=== PATIENT | female | born 1945 | race Caucasian/White ===

== ENCOUNTER 2019-08-27 20:17 | Emergency (ER) | payer OTHER ==
[2019-08-27] MEDS ORDERED: CLOPIDOGREL 75 MG TABLET ONE (21:01)
[2019-08-27] MEDS ORDERED: METOPROLOL TAR 50 MG TAB ONE (21:01)
--- NOTE | 2019-08-27 21:12 | RAD REPORT ---
EXAM DESCRIPTION: RAD - Chest Single View - 08/27/2019 8:57 pm CLINICAL HISTORY: weakness Chest pain. COMPARISON: <Comparisons> FINDINGS: Portable technique limits examination quality. The lungs are grossly clear. The heart is mildly enlarged No displaced fractures. IMPRESSION: No acute intrathoracic process suspected.
--- NOTE | 2019-08-27 21:18 | RAD REPORT ---
EXAM DESCRIPTION: CT - Head Brain Wo Cont - 08/27/2019 9:12 pm CLINICAL HISTORY: WEAKNESS Headache, drowsiness COMPARISON: Chest Single View dated 06/13/2017; Chest Single View dated 04/17/2017; CHEST SINGLE VIEW dated 11/11/2014Head Brain Wo Cont dated 06/13/2017; Head Brain Wo Cont dated 04/08/2016 TECHNIQUE: All CT scans are performed using dose optimization technique as appropriate and may inclu de automated exposure control or mA/KV adjustment according to patient size. FINDINGS: No intracranial hemorrhage, hydrocephalus or extra-axial fluid collection.Mild generalized brain atrophy is present with mild periventricular and deep white matter chronic microvascular ische kedar changes.No areas of brain edema or evidence of midline shift. Old 6 mm lacune is present in the r ight basal ganglia. The paranasal sinuses and mastoids are clear. The calvarium is intact. IMPRESSION: No acute intracranial abnormality.
[2019-08-27 21:23] LABS: Protime INR 1.23
[2019-08-27 21:29] LABS: Absolute Lymphocytes (CBC) 1.3 K/uL (0.7-4.9); Hematocrit 38.4 % (36.0-45.0); Lymphocytes % 18.7 % (15.3-44.8); MPV 8.6 fL (7.6-11.3); RBC Red Blood Cell Count 4.14 M/uL (3.86-4.86)
[2019-08-27 21:44] LABS: ALT/SGPT 12 U/L (12-78); AST/SGOT 12 U/L (15-37); Albumin 3.7 g/dL (3.4-5.0); Alkaline Phosphatase 68 U/L (45-117); BUN Blood Urea Nitrogen 10 mg/dL (7-18); Bicarbonate 28 mmol/L (21-32); Bilirubin Direct 0.1 mg/dL (0-0.2); Bilirubin Total 0.3 mg/dL (0.2-1.0); Glucose Level 101 mg/dL (74-106); NT PRO-BNP 2566 pg/mL (<125); Potassium 3.7 mmol/L (3.5-5.1); Protein, Total 7.3 g/dL (6.4-8.2); Sodium Level 142 mmol/L (136-145); Troponin (Emerg Dept Use Only) < 0.02 ng/mL (0.0-0.045)
[2019-08-27 21:46] LABS: Magnesium 0.8 mg/dL (1.8-2.4)
[2019-08-27] MEDS ORDERED: Magnesium Sulfate 2gm IVPB 2 G/50 ML BAG IV ONE (22:07)
[2019-08-27] MEDS ORDERED: NA CHLORIDE 0.9% 250 ML ONE (22:23)
[2019-08-27 23:23] LABS: Calcium Oxalate Crystals- Ur FEW (NONE SEEN); Urine Bacteria 20-50 /HPF (<20); Urine Culture Reflex Order REFLEXED; Urine RBC NONE SEEN /HPF (NONE SEEN); Urine Urothelial Cells <5 /HPF (NONE SEEN)
[2019-08-27 23:25] LABS: Urine Blood NEGATIVE (NEG); Urine Glucose NEGATIVE (NEG); Urine Protein NEGATIVE (NEG); Urine pH 5.5 (5.0-7.0)
[2019-08-27] MEDS ORDERED: CEFTRIAXONE/SWI 1gm 1 GM/10 ML SYR ONE (23:50)
--- NOTE | 2019-08-27 23:50 | ER ---
Nurse's Notes [facility] Name: Shraddha Link Age: 73 yrs Sex: Female : 1945 Arrival Date: 08/27/2019 Time: 20:20 Bed 16 Private MD: Diagnosis: Urinary tract infection, site not specified;Hypomagnesemia Presentation: 08/26 20:10 Chief complaint: EMS states: PT was called by her neighbor was able to answer the phone jb4 but sounded off. Pt was in Afib with RVR upon EMS arrival. She was in the 160's when we got to her, she was between 110-130 upon our arrival to the ED. Pt is A\T\Ox4 but is a little disoriented at times. Lopressor was given initially, second dose was held due to blood pressure being 113 systolically. 20:10 Coronavirus screen: Proceed with normal triage. Ebola Screen: No symptoms or risks jb4 identified at this time. Initial Sepsis Screen: Does the patient meet any 2 criteria? HR > 90 bpm. Yes Does the patient have a suspected source of infection? No. Patient's initial sepsis screen is negative. Risk Assessment: Do you want to hurt yourself or someone else? Patient reports no desire to harm self or others. Onset of symptoms was August 27, 2019. Transition of care: patient was not received from another setting of care. 20:10 Method Of Arrival: EMS: [facility] jb4 20:10 Acuity: CLAUDIA 2 jb4 20:10 Care prior to arrival: Medication(s) given: Lopressor 5mg IV IV initiated. 20 GA, in jb4 the left antecubital area, Glucose check: 197. Historical: - Allergies: 20:10 Aspirin; jb4 20:10 Compazine; jb4 20:10 Imitrex; jb4 20:10 NSAIDS; jb4 20:10 DHE; jb4 20:10 Tape; jb4 20:10 Ultram; jb4 20:10 Morphine; jb4 - Home Meds: 20:10 Ambien 10 mg Oral tab 1 tab nightly [Active]; baclofen 10 mg Oral tab 1 tab 3 times per jb4 day [Active]; Bumex Oral 2 mg daily [Active]; Eliquis 5 mg Oral tab 1 tab 2 times per day [Active]; Esgic 50-325-40 mg Oral cap every 6 hours [Active]; K-Dur Oral 20 mEq daily [Active]; losartan 25 mg Oral tab 1 tab nightly [Active]; Zocor 20 mg Oral tab 1 tab nightly [Active]; Zoloft 100 mg Oral tab 2 tabs once daily [Active]; metformin 500 mg Oral tab 1 tab 2 times per day [Active]; atenolol 100 mg Oral tab 1 tab once daily [Active]; Stadol NS Nasal as needed [Active]; ativert [Active]; Ativan 0.5 mg Oral tab 1 tab 3 times per day [Active]; - PMHx: 20:10 Atrial Fib; Chronic pain; Depression; Diabetes - NIDDM; High Cholesterol; Hypertension; jb4 Migraines; Pulmonary Embolism; - Immunization history:: Adult Immunizations up to date. - Social history:: Smoking status: Patient denies any tobacco usage or history of. Patient/guardian denies using alcohol, street drugs. Screenin:10 Abuse screen: Denies threats or abuse. Nutritional screening: No deficits noted. jb4 Tuberculosis screening: No symptoms or risk factors identified. Fall Risk IV access (20 points). Total Marie Fall Scale indicates No Risk (0-24 pts). Assessment: 20:10 General: Appears in no apparent distress. uncomfortable, Behavior is calm, cooperative, jb4 appropriate for age. Pain: Complains of pain in right hip,headache. Pain does not radiate. Pain currently is 10 out of 10 on a pain scale. Neuro: Level of Consciousness is awake, alert, obeys commands, Oriented to person, place, time, situation. Cardiovascular: Patient's skin is warm and dry. Rhythm is atrial fibrillation with rapid ventricular response. Respiratory: Airway is patent Respiratory effort is even, unlabored, Respiratory pattern is regular, symmetrical. GI: No signs and/or symptoms were reported involving the gastrointestinal system. : No signs and/or symptoms were reported regarding the genitourinary system. EENT: No signs and/or symptoms were reported regarding the EENT system. Derm: Skin is intact, Skin is pink, warm \T\ dry. Musculoskeletal: Circulation, motion, and sensation intact. Range of motion: intact in all extremities. 21:00 Reassessment: Patient appears in no apparent distress at this time. Patient and/or jb4 family updated on plan of care and expected duration. Pain level reassessed. Patient is alert, oriented x 3, equal unlabored respirations, skin warm/dry/pink. 22:36 Reassessment: Patient appears in no apparent distress at this time. Patient and/or jb4 family updated on plan of care and expected duration. Pain level reassessed. Patient is alert, oriented x 3, equal unlabored respirations, skin warm/dry/pink. 23:30 Reassessment: Patient appears in no apparent distress at this time. Patient and/or jb4 family updated on plan of care and expected duration. Pain level reassessed. Patient is alert, oriented x 3, equal unlabored respirations, skin warm/dry/pink. Patient states feeling better. 08/27 00:23 Reassessment: Patient appears in no apparent distress at this time. Patient and/or jb4 family updated on plan of care and expected duration. Pain level reassessed. Patient is alert, oriented x 3, equal unlabored respirations, skin warm/dry/pink. PT verbalized understanding of d/c and follow up instructions. Reports feeling better. Heart rate staying between 80-100 bpm with exertion. Pt denies questions or concerns. Assisted to vehicle via wheelchair. Left ED with family. Vital Signs: 08/26 20:10 BP 151 / 86; Pulse 124; Resp 18; Temp 99.0(O); Pulse Ox 98% on R/A; Weight 70.31 kg jb4 (R); Height 5 ft. 2 in. (157.48 cm) (R); Pain 10/10; 20:48 BP 152 / 81; Pulse 110; Resp 16; Pulse Ox 97% on R/A; jb4 21:40 BP 142 / 86; Pulse 107; Resp 19; Pulse Ox 97% on R/A; jb4 22:30 BP 148 / 97; Pulse 95; Resp 20; Pulse Ox 97% on R/A; jb4 08/27 00:00 BP 174 / 101; Pulse 97; Resp 20; Pulse Ox 98% on R/A; jb4 08/26 20:10 Body Mass Index 28.35 (70.31 kg, 157.48 cm) [facility] ED Course: 08/26 20:10 Arm band placed on right wrist. jb4 20:10 Patient has correct armband on for positive identification. Bed in low position. Call jb4 light in reach. Side rails up X 1. court monitor on. Pulse ox on. NIBP on. 20:20 Patient arrived in ED. jb4 20:22 Pardeep Chaidez, RN is Primary Nurse. jb4 20:28 Triage completed. jb4 20:33 Sorin Barrios PA is PHCP. cp 20:33 Sorin Mota MD is Attending Physician. cp 20:57 XRAY Chest (1 view) In Process Unspecified. EDMS 21:12 CT Head Brain wo Cont In Process Unspecified. EDMS 21:13 Troponin (emerg Dept Use Only) Sent. jb4 21:13 PT-INR Sent. jb4 21:13 NT PRO-BNP Sent. jb4 21:13 Magnesium Sent. jb4 21:13 LFT's Sent. jb4 21:14 CBC with Diff Sent. jb4 21:14 Basic Metabolic Panel Sent. jb4 08/27 00:25 No provider procedures requiring assistance completed. IV discontinued, D/c'ed by pt, jb4 bleeding controlled, no redness or swelling noted. Administered Medications: 08/26 21:00 Drug: Metoprolol 50 mg Route: PO; jb4 21:00 Drug: PlaVIX 75 mg Route: PO; jb4 21:53 CANCELLED (Physician Discretion): Magnesium Sulfate 2 grams IVPB once over 2 hrs cp 22:05 Not Given (Physician Discretion): NS 0.9% 250 ml IV at bolus once jb4 22:10 Drug: Magnesium Sulfate 2 grams Route: IVPB; Infused Over: 2 hrs; Site: left hand; jb4 22:27 Drug: NS 0.9% 250 ml Route: IV; Rate: bolus; Site: left hand; jb4 08/27 00:00 Drug: Rocephin 1 grams Route: IV; Rate: calculated rate; Site: left hand; jb4 Outcome: 08/26 23:49 Discharge ordered by . cp 08/27 00:25 Discharged to home via wheelchair, with family. jb4 Condition: stable Discharge instructions given to patient, Instructed on discharge instructions, follow up and referral plans. medication usage, Demonstrated understanding of instructions, follow-up care, medications, Prescriptions given X 1. 00:26 Patient left the ED. jb4 Signatures: Dispatcher [employer] EDMS Sorin Barrios PA PA cp Pardeep Chaidez, RN RN jb4
--- NOTE | 2019-08-27 23:50 | EDPHYS ---
Physician Documentation [facility] Name: Shraddha Link Age: 73 yrs Sex: Female : 1945 Arrival Date: 08/27/2019 Time: 20:20 Bed 16 Private MD: ED Physician Sorin Mota HPI: 08/26 20:50 This 73 yrs old Female presents to ER via EMS with complaints of Weakness. cp 20:50 The patient's problem is reported as weakness, that is generalized. Duration: The cp episode is continuous. Associated signs and symptoms: Pertinent negatives: abdominal pain, chest pain, fever. Patient's baseline: Neuro: alert and fully oriented, Motor: no deficits, Ambulation: walks without assistance, Speech: normal. Historical: - Allergies: 20:10 Aspirin; jb4 20:10 Compazine; jb4 20:10 Imitrex; jb4 20:10 NSAIDS; jb4 20:10 DHE; jb4 20:10 Tape; jb4 20:10 Ultram; jb4 20:10 Morphine; jb4 - Home Meds: 20:10 Ambien 10 mg Oral tab 1 tab nightly [Active]; baclofen 10 mg Oral tab 1 tab 3 times per jb4 day [Active]; Bumex Oral 2 mg daily [Active]; Eliquis 5 mg Oral tab 1 tab 2 times per day [Active]; Esgic 50-325-40 mg Oral cap every 6 hours [Active]; K-Dur Oral 20 mEq daily [Active]; losartan 25 mg Oral tab 1 tab nightly [Active]; Zocor 20 mg Oral tab 1 tab nightly [Active]; Zoloft 100 mg Oral tab 2 tabs once daily [Active]; metformin 500 mg Oral tab 1 tab 2 times per day [Active]; atenolol 100 mg Oral tab 1 tab once daily [Active]; Stadol NS Nasal as needed [Active]; ativert [Active]; Ativan 0.5 mg Oral tab 1 tab 3 times per day [Active]; - PMHx: 20:10 Atrial Fib; Chronic pain; Depression; Diabetes - NIDDM; High Cholesterol; Hypertension; jb4 Migraines; Pulmonary Embolism; - Immunization history:: Adult Immunizations up to date. - Social history:: Smoking status: Patient denies any tobacco usage or history of. Patient/guardian denies using alcohol, street drugs. ROS: 21:00 Constitutional: Negative for body aches, chills, fever, poor PO intake. cp 21:00 Eyes: Negative for injury, pain, redness, and discharge. cp Exam: 20:46 ECG was reviewed by the Attending Physician. cp 21:05 Constitutional: The patient appears in no acute distress, alert, awake, cp non-diaphoretic, non-toxic, well developed, well nourished. 21:05 Head/Face: Normocephalic, atraumatic. cp 21:05 Eyes: Periorbital structures: appear normal, Pupils: equal, round, and reactive to cp light and accomodation, Extraocular movements: intact throughout, Conjunctiva: normal, no exudate, no injection, Sclera: no appreciated abnormality, Lids and lashes: appear normal, bilaterally. 21:05 ENT: External ear(s): are unremarkable, Nose: is normal, Mouth: Lips: dry, Oral mucosa: cp moist, Posterior pharynx: Airway: no evidence of obstruction, patent. 21:05 Neck: ROM/movement: is normal, is supple, without pain, no range of motions limitations, no nuchal rigidity. 21:05 Chest/axilla: Inspection: normal, Palpation: is normal, no crepitus, no tenderness. 21:05 Cardiovascular: Rate: tachycardic, Rhythm: irregularly irregular, Edema: is not appreciated, JVD: is not appreciated. 21:05 Respiratory: the patient does not display signs of respiratory distress, Respirations: normal, no use of accessory muscles, no retractions, labored breathing, is not present, Breath sounds: are clear throughout, no decreased breath sounds, no stridor, no wheezing. 21:05 Abdomen/GI: Inspection: abdomen appears normal, Bowel sounds: active, all quadrants, Palpation: abdomen is soft and non-tender, in all quadrants. 21:05 Musculoskeletal/extremity: Exam is negative for decreased range of motion, deformity, injury. 21:05 Skin: cellulitis, is not appreciated, no rash present. 21:05 Neuro: Orientation: to person, place \T\ time. Mentation: is normal, Cerebellar function: is grossly normal, Motor: moves all fours, strength is normal, Sensation: no obvious gross deficits. 21:30 Radiologist reports: no acute findings cp Vital Signs: 20:10 BP 151 / 86; Pulse 124; Resp 18; Temp 99.0(O); Pulse Ox 98% on R/A; Weight 70.31 kg jb4 (R); Height 5 ft. 2 in. (157.48 cm) (R); Pain 10/10; 20:48 BP 152 / 81; Pulse 110; Resp 16; Pulse Ox 97% on R/A; jb4 21:40 BP 142 / 86; Pulse 107; Resp 19; Pulse Ox 97% on R/A; jb4 22:30 BP 148 / 97; Pulse 95; Resp 20; Pulse Ox 97% on R/A; jb4 08/27 00:00 BP 174 / 101; Pulse 97; Resp 20; Pulse Ox 98% on R/A; jb4 08/26 20:10 Body Mass Index 28.35 (70.31 kg, 157.48 cm) jb4 MDM: 08/26 20:34 Patient medically screened. [facility] 23:45 Data reviewed: vital signs, nurses notes, lab test result(s), EKG, radiologic studies, cp CT scan, plain films. 23:45 Test interpretation: by ED physician or midlevel provider: ECG. 08/26 20:43 Order name: Basic Metabolic Panel; Complete Time: 21:50 cp 08/26 21:51 Interpretation: Normal except: CRE 1.39; GFR 37; CA 8.4. 08/26 20:43 Order name: CBC with Diff; Complete Time: 21:40 cp 08/26 21:41 Interpretation: Reviewed. 08/26 20:43 Order name: LFT's; Complete Time: 21:50 cp 08/26 22:52 Interpretation: Normal except: AST 12; GLOB 3.6; A/G 1.0. cp 08/26 20:43 Order name: Magnesium; Complete Time: 21:50 cp 08/26 21:51 Interpretation: Abnormal: MG 0.8. cp 08/26 20:43 Order name: NT PRO-BNP; Complete Time: 21:50 cp 08/26 22:52 Interpretation: Abnormal: NT PRO-BNP 2566. cp 08/26 20:43 Order name: PT-INR; Complete Time: 21:40 cp 08/26 22:52 Interpretation: Reviewed. cp 08/26 20:43 Order name: Troponin (emerg Dept Use Only); Complete Time: 21:50 cp 08/26 22:53 Interpretation: Reviewed. cp 08/26 20:43 Order name: CT Head Brain wo Cont; Complete Time: 21:22 cp 08/26 21:22 Interpretation: Report reviewed. cp 08/26 20:43 Order name: XRAY Chest (1 view); Complete Time: 21:22 cp 08/26 20:43 Order name: Urine Microscopic Only; Complete Time: 23:36 cp 08/26 23:36 Interpretation: Normal except: UWBC 5-10; UBACT 20-50. cp 08/26 21:23 Order name: Glucose, Ancillary Testing; Complete Time: 21:40 EDMS 08/26 23:12 Order name: Urine Dipstick--Ancillary (enter results); Complete Time: 23:36 mt 08/26 23:37 Interpretation: Normal except: UESTR TRACE. cp 08/26 23:24 Order name: Urine Culture EDMS 08/26 20:43 Order name: EKG; Complete Time: 20:44 cp 08/26 20:43 Order name: Cardiac monitoring; Complete Time: 20:52 cp 08/26 20:43 Order name: EKG - Nurse/Tech; Complete Time: 20:53 cp 08/26 20:43 Order name: IV Saline Lock; Complete Time: 20:52 cp 08/26 20:43 Order name: Labs collected and sent; Complete Time: 21:13 cp 08/26 20:43 Order name: O2 Per Protocol; Complete Time: 20:53 cp 08/26 20:43 Order name: O2 Sat Monitoring; Complete Time: 20:53 cp 08/26 20:43 Order name: Urine Dipstick-Ancillary (obtain specimen); Complete Time: 23:12 cp 08/26 20:43 Order name: Accucheck Blood Glucose; Complete Time: 21:13 cp EC:46 Rate is 108 beats/min. Rhythm is irregularly irregular, A fib. QRS interval is normal. cp QT interval is normal. T waves are Flattened in lead aVL. Interpreted by me. Reviewed by me. Administered Medications: 21:00 Drug: Metoprolol 50 mg Route: PO; jb4 21:00 Drug: PlaVIX 75 mg Route: PO; jb4 21:53 CANCELLED (Physician Discretion): Magnesium Sulfate 2 grams IVPB once over 2 hrs cp 22:05 Not Given (Physician Discretion): NS 0.9% 250 ml IV at bolus once jb4 22:10 Drug: Magnesium Sulfate 2 grams Route: IVPB; Infused Over: 2 hrs; Site: left hand; jb4 22:27 Drug: NS 0.9% 250 ml Route: IV; Rate: bolus; Site: left hand; jb4 08/27 00:00 Drug: Rocephin 1 grams Route: IV; Rate: calculated rate; Site: left hand; jb4 Disposition: 11:03 Co-signature as Attending Physician, Sorin Mota MD I agree with the assessment and alin plan of care. Disposition: 08/27/19 23:49 Discharged to Home. Impression: Urinary tract infection, site not specified, Hypomagnesemia. - Condition is Stable. - Discharge Instructions: Hypomagnesemia, Urinary Tract Infection, Adult. - Prescriptions for cefpodoxime 200 mg Oral Tablet - take 1 tablet by ORAL route every 12 hours for 7 days with food; 14 tablet. - Medication Reconciliation Form, Thank You Letter, Antibiotic Education, Prescription Opioid Use form. - Follow up: Private Physician; When: 1 - 2 days; Reason: Recheck today's complaints. - Problem is new. - Symptoms have improved. Signatures: Dispatcher [employer] EDSorin Da Silva MD MD cha Page, Corey, PA PA cp Bryson, James RN RN jb4 Corrections: (The following items were deleted from the chart) 08/26 21:51 21:50 Normal except: CRE 1.39; GFR 37. cp cp 21:53 21:53 Magnesium Sulfate 2 grams IVPB once over 2 hrs ordered. cp cp 08/27 00:26 08/26 23:49 08/27/2019 23:49 Discharged to Home. Impression: Urinary tract infection, jb4 site not specified; Hypomagnesemia. Condition is Stable. Forms are Medication Reconciliation Form, Thank You Letter, Antibiotic Education, Prescription Opioid Use. Follow up: Private Physician; When: 1 - 2 days; Reason: Recheck today's complaints. Problem is new. Symptoms have improved. cp
[2019-08-28 00:35] VITALS: BP 174/101; O2SAT 98
--- NOTE | 2019-08-29 12:06 | EKG ---
Test Date: 2019-08-27 Test Time: 20:15:42 Hr Receptionist: SHAWN MEASUREMENT RESULTS: Intervals: Rate: 108 CT: QRSD: 78 QT: 336 QTc: 450 [place]: P: CT: QRS: 63 T: 81 INTERPRETIVE STATEMENTS: Atrial fibrillation with rapid ventricular response Cannot rule out Anterior infarct, age undetermined Abnormal ECG Compared to ECG 06/14/2017 03:52:14 Myocardial infarct finding now present Electronically Signed On 08-29-19 12:03:15 CDT by Kaleb Polanco
== END 2019-08-28 00:26 | disposition home or self-care (01) ==
LOC: ER 20:17
DX: N39.0 Urinary tract infection, site not specified (principal); E83.42 Hypomagnesemia; I10 Essential (primary) hypertension; E78.00 Pure hypercholesterolemia, unspecified; E11.9 Type 2 diabetes mellitus without complications; F32.9 Major depressive disorder, single episode, unspecified; I48.91 Unspecified atrial fibrillation; Z79.02 Long term (current) use of antithrombotics/antiplatelets; Z88.5 Allergy status to narcotic agent; Z88.6 Allergy status to analgesic agent; Z88.8 Allergy status to other drugs, medicaments and biological substances; Z91.048 Other nonmedicinal substance allergy status
CPT/HCPCS: 93005; 87088; 85025; 87086; 80048; 36415; 83735; 85610; 82947; 80076; 84484; 83880; 70450; 71045; 96375; 96374; 99284; J3475; J0696; J7030; 81003; 81015

== ENCOUNTER 2020-01-04 12:48 | Emergency (ER) | payer OTHER ==
[2020-01-04 13:33] LABS: Absolute Lymphocytes (CBC) 0.9 K/uL (0.7-4.9); Basophils % 0.5 % (0-1.3); Hematocrit 35.1 % (36.0-45.0); Lymphocytes % 12.7 % (15.3-44.8); MPV 8.1 fL (7.6-11.3); RBC Red Blood Cell Count 3.95 M/uL (3.86-4.86)
[2020-01-04] MEDS ORDERED: METOPROLOL TAR 50 MG TAB ONE (13:38)
[2020-01-04] MEDS ORDERED: FAMOTIDINE 20 MG/2 ML VIAL IV ONE (13:39)
[2020-01-04] MEDS ORDERED: METOPROLOL TARTRATE 5 MG/5 ML INJ IV ONE (13:39)
[2020-01-04 13:44] LABS: Protime INR 1.02
[2020-01-04 14:05] LABS: ALT/SGPT 16 U/L (12-78); AST/SGOT 14 U/L (15-37); Albumin 3.8 g/dL (3.4-5.0); Alkaline Phosphatase 52 U/L (45-117); BUN Blood Urea Nitrogen 17 mg/dL (7-18); Bicarbonate 29 mmol/L (21-32); Bilirubin Direct 0.2 mg/dL (0-0.2); Bilirubin Total 0.6 mg/dL (0.2-1.0); Glucose Level 115 mg/dL (74-106); NT PRO-BNP 2777 pg/mL (<125); Potassium 3.6 mmol/L (3.5-5.1); Protein, Total 7.3 g/dL (6.4-8.2); Sodium Level 139 mmol/L (136-145); Troponin (Emerg Dept Use Only) < 0.02 ng/mL (0.0-0.045)
[2020-01-04 14:06] LABS: Magnesium 1.2 mg/dL (1.8-2.4)
--- NOTE | 2020-01-04 14:13 | RAD REPORT ---
EXAM DESCRIPTION: CT - [id number] - 01/04/2020 1:47 pm CLINICAL HISTORY: PAIN, left-sided numbness, fall from swelling with head and neck trauma COMPARISON: Head C Spine Mpr Wo Con dated 07/02/2016; Head Brain Wo Cont dated 08/27/2019 TECHNIQUE: Axial 5 mm thick images of the head were obtained. Axial 2 mm thick images of the cervic al spine were obtained with sagittal and coronal reconstruction images generated and reviewed. All CT scans are performed using dose optimization technique as appropriate and may include automated exposure control or mA/KV adjustment according to patient size. FINDINGS: No intracranial hemorrhage present. There is decreased attenuation in the medial right occ ipital lobe extending anteriorly into the medial aspect of the temporal lobe. There is loss of renteria m atter - white matter differentiation and effacement of sulci. This is a classic right posterior cereb ral artery CVA. The subacute infarction shows only mild mass effect. There is no midline shift. Patie nt has underlying minimal atrophy and mild chronic ischemic change. There are old punctate infarction changes around each head of the caudate and in the right thalamus. The caudate and thalamus CVA cain ges are stable from August 2019 examination. No other acute infarction changes confirmed. No extra-axi al fluid collections. Mastoid air cells and paranasal sinuses are clear. No globe or orbit abnormalit y seen. Cervical body height and alignment are normal. C4-5, C5-6 and C6-7 disc spaces are narrowed. Endplate spurring and uncovertebral joint hypertrophy changes are present. No significant degree of canal vahe nosis. No critical foraminal stenosis. No fracture or acute bony abnormality. Central canal detail i s inherently limited. No paraspinal mass or hematoma. IMPRESSION: Nonhemorrhagic subacute infarction involving the medial right occipital lobe and medial right temporal lobe. This is a right posterior cerebral artery distribution infarction. Old infarction changes are present around each head of the caudate and in the right thalamus. Patient has minimal atrophy and mild chronic ischemic change. Cervical spine degenerative changes are present without acute finding.
--- NOTE | 2020-01-04 14:16 | RAD REPORT ---
EXAM DESCRIPTION: RAD - Shoulder Left 2 View - 01/04/2020 2:06 pm CLINICAL HISTORY: Pain;Swelling COMPARISON: No comparisons TECHNIQUE: Internal and external rotation views of the left shoulder were obtained. FINDINGS: There is no fracture or dislocation. AC joint degenerative changes show small inferiorly d irected spurs from the clavicle and acromion. There is additional degenerative change along the under surface of the acromion. Acromial humeral joint space is maintained. No rib or upper lung parenchymal finding. No fracture of the clavicle. Scapula is not optimally visualized. No scapula fracture confi rmed. IMPRESSION: Left shoulder degenerative change as detailed. No fracture or acute finding confirmed.
--- NOTE | 2020-01-04 14:16 | RAD REPORT ---
EXAM DESCRIPTION: RAD - Chest Single View - 01/04/2020 2:06 pm CLINICAL HISTORY: COUGH, fall, chest trauma COMPARISON: August 2019 TECHNIQUE: AP portable chest image was obtained 01/04/2020 2:06 pm . FINDINGS: No pulmonary contusion or acute lung parenchymal process. Interstitial pattern matches com parison. Heart and vasculature are normal. No measurable pleural effusion and no pneumothorax. No acu te bony abnormality seen. No acute aortic findings suspected. IMPRESSION: No acute cardiopulmonary process. No significant change from comparison.
--- NOTE | 2020-01-04 14:29 | ER ---
Nurse's Notes [facility] Name: Shraddha Link Age: 74 yrs Sex: Female : 1945 Arrival Date: 01/04/2020 Time: 12:59 Bed 2 Private MD: Diagnosis: Atrial fibrillation and flutter;Cerebral infarction-subacute right occipital and medial right temporal;Weakness-left arm and leg, 2/5 strength, uncoordinated;Hypomagnesemia;Contusion of left shoulder Presentation: 01/03 12:50 Chief complaint: EMS states: Pt. is A \T\ O x 4, took Ambien last night and slid off the rb1 toilet and landed on the left side. Son reported to EMS that she is taking too much of her Ativan and Ambien, she has been doing it for a while now. C/o chest pressure, does not radiate. History of A-Fib, is not currently taking blood thinners. HR 140's BP 150/80. Ambulates with cane. Coronavirus screen: Client denies travel out of the [place] in the last 14 days. Coronavirus screen: At this time, the client does not indicate any symptoms associated with coronavirus-19. Ebola Screen: Patient denies exposure to infectious person. Initial Sepsis Screen: Does the patient meet any 2 criteria? No. Patient's initial sepsis screen is negative. Does the patient have a suspected source of infection? No. Patient's initial sepsis screen is negative. Risk Assessment: Do you want to hurt yourself or someone else? Patient reports no desire to harm self or others. Onset of symptoms was January 03, 2020. 12:50 Method Of Arrival: EMS: [facility] rb1 12:50 Acuity: CLAUDIA 3 rb1 12:50 An acute neurological deficit is present. The patient has been moved to a treatment rb1 area. The patients blood glucose was checked before arriving to the hospital and was found to be normal. Triage Assessment: 12:50 General: Appears in no apparent distress. Behavior is cooperative, Denies fever. Pain: rb1 Complains of pain in posterior aspect of left shoulder and anterior aspect of left shoulder Pain currently is 6 out of 10 on a pain scale. Pain began 1 day ago. Neuro: Level of Consciousness is obeys commands, lethargic, Oriented to person, place, time, situation, Mobile Pet Groomer are equal bilaterally Moves all extremities. Gait is unable to assess. Speech is normal, Facial symmetry appears normal, Pupils are constricted, Reports headache numbness in left leg and left arm. Cardiovascular: Capillary refill < 3 seconds Rhythm is atrial fibrillation with rapid ventricular response. Respiratory: Airway is patent Respiratory effort is even, unlabored, Respiratory pattern is regular, symmetrical. GI: No signs and/or symptoms were reported involving the gastrointestinal system. : No signs and/or symptoms were reported regarding the genitourinary system. Derm: Bruising that is dark purple, on right eye and bilateral arms. Musculoskeletal: Range of motion: intact in all extremities. 12:50 The onset of the patients symptoms was at an unknown time. rb1 Stroke Activation: Physician: Stroke Attending; Name: ; Notified At: ; Arrived At: Physician: Chief Stroke Resident; Name: ; Notified At: ; Arrived At: Physician: Stroke Resident; Name: ; Notified At: ; Arrived At: Physician: ED Attending; Name: ; Notified At: ; Arrived At: Physician: ED Resident; Name: ; Notified At: ; Arrived At: 12:50 Deferred by physician rb1 Historical: - Allergies: 13:05 Aspirin; rb1 13:05 Compazine; rb1 13:05 DHE; rb1 13:05 Imitrex; rb1 13:05 Morphine; rb1 13:05 NSAIDS; rb1 13:05 Tape; rb1 13:05 Ultram; rb1 - Home Meds: 13:05 Actos 45 mg Oral tab 1 tab once daily [Active]; Ambien 10 mg Oral tab 1 tab nightly rb1 [Active]; atenolol 100 mg Oral tab 1 tab once daily [Active]; Ativan 0.5 mg Oral tab 1 tab 3 times per day [Active]; ativert [Active]; baclofen 10 mg Oral tab 1 tab 3 times per day [Active]; Bumex Oral 2 mg daily [Active]; Eliquis 5 mg Oral tab 1 tab 2 times per day [Active]; Esgic 50-325-40 mg Oral cap every 6 hours [Active]; hydrocodone-acetaminophen 5-325 mg Oral tab 1 tab every 6 hours [Active]; K-Dur Oral 20 mEq daily [Active]; losartan 25 mg Oral tab 1 tab nightly [Active]; metformin 500 mg Oral tab 1 tab 2 times per day [Active]; Metoprolol Tartrate Oral [Active]; Stadol NS Nasal as needed [Active]; Warfarin 9 mg once daily Oral [Active]; Zetia 10 mg Oral tab 1 tab once daily [Active]; Zocor 20 mg Oral tab 1 tab nightly [Active]; Zoloft 100 mg Oral tab 2 tabs once daily [Active]; Zyrtec 10 mg Oral tab 1 tab nightly [Active]; 14:21 meclizine 25 mg Oral tab 1 tab 2 times per day [Active]; Stadol NS Nasal every 6 hours rb1 [Active]; Ambien 10 mg Oral tab 1 tab once daily [Active]; Fioricet 50-325-40 mg Oral tab 1 tab every eight hours [Active]; atenolol 100 mg Oral tab 1 tab once daily [Active]; - PMHx: 13:05 Atrial Fib; Chronic pain; Depression; Diabetes - NIDDM; High Cholesterol; Migraines; rb1 Hypertension; Pulmonary Embolism; - PSHx: 13:05 Cholecystectomy; ; rb1 - Immunization history:: Adult Immunizations up to date. - Family history:: not pertinent. - Social history:: Smoking status: Patient/guardian denies using. Screenin:50 Abuse screen: Denies threats or abuse. Nutritional screening: No deficits noted. rb1 Tuberculosis screening: No symptoms or risk factors identified. Fall Risk Fall in past 12 months (25 points). Secondary diagnosis (15 points) impaired mobility, ambulates with cane. IV access (20 points). Ambulatory Aid- Crutches/Cane/Walker (15 pts). Gait- Impaired (20 pts.). Mental Status- Oriented to own ability (0 pts). Assessment: 12:50 General: See triage assessment. rb1 12:50 T-PA (Activase) Screening: Contraindications: Patient reports onset of signs and rb1 symptoms of stroke greater than 6 hours ago: Yes. 13:00 RUSTY Scoring: Arm Drift:. Patient has been NPO before screening. The patient is not rb1 alert and/or unable to follow commands. The patient does not exhibit slurred or garbled speech. The patient is not exhibiting difficulty speaking. The patient does not exhibit difficulty understanding words. The patient is able to swallow own secretions with no drooling or need for suction. The patient did not tolerate one teaspoon of water. Drooling, immediate coughing, gurgling, or clearing of the throat was noted. Bedside swallow screening discontinued. Patient kept NPO until cleared by Speech Therapy or Physician. The patient failed the bedside swallow screening. The patient will be kept NPO until cleared by Speech Therapy or Physician. Provider notified of bedside swallow screening results: Sorin Mota MD. 14:06 Reassessment: Received lab alert for Magnesium 1.2. Dr. Mota notified. rb1 14:07 Reassessment: Called [facility] in [place] to verify recent prescriptions. She takes rb1 Meclizine 25 mg BID, Stadol Nasal [place] Q6H PRN, Ambien 10 mg daily, Fioricet 50/325/ 40 mg 1 tab Q8H, Atenolol 100 mg 1 tab daily. There are no blood thinners noted to the pt. profile at [facility]. Coumadin was last filled in August 2018. 14:55 Reassessment: Dr. Mota gave verbal order to discontinue the Heparin Drip at this rb1 time due to his conversation with the doctor. 100% verbal read back. 15:12 Reassessment: Patient appears in no apparent distress at this time. Patient and/or rb1 family updated on plan of care and expected duration. Pain level reassessed. Patient is alert, oriented x 3, equal unlabored respirations, skin warm/dry/pink. 16:10 Reassessment: Patient appears in no apparent distress at this time. No changes from rb1 previously documented assessment. 16:25 Reassessment: Called report to JENNY Yeung at [facility]. Information from the [facility] was rb1 given. All questions asked and answered. Vital Signs: 12:50 BP 160 / 114; Pulse 118; Resp 19; Temp 98.0; Pulse Ox 97% on R/A; Weight 72.12 kg; rb1 Height 5 ft. 2 in. (157.48 cm); Pain 6/10; 14:00 BP 193 / 119; Pulse 103; Resp 22; Pulse Ox 99% ; rb1 15:00 BP 170 / 108; Pulse 94; Resp 20; Pulse Ox 98% ; rb1 16:00 BP 115 / 79; Pulse 101; Resp 18; Pulse Ox 99% on R/A; rb1 12:50 Body Mass Index 29.08 (72.12 kg, 157.48 cm) rb1 Tanesha Coma Score: 14:00 Eye Response: spontaneous(4). Verbal Response: oriented(5). Motor Response: obeys rb1 commands(6). Total: 15. 14:15 Eye Response: spontaneous(4). Verbal Response: oriented(5). Motor Response: obeys rb1 commands(6). Total: 15. 14:30 Eye Response: spontaneous(4). Verbal Response: oriented(5). Motor Response: obeys rb1 commands(6). Total: 15. 14:45 Eye Response: spontaneous(4). Verbal Response: oriented(5). Motor Response: obeys rb1 commands(6). Total: 15. 15:00 Eye Response: spontaneous(4). Verbal Response: oriented(5). Motor Response: obeys rb1 commands(6). Total: 15. 15:15 Eye Response: spontaneous(4). Verbal Response: oriented(5). Motor Response: obeys rb1 commands(6). Total: 15. 15:30 Eye Response: spontaneous(4). Verbal Response: oriented(5). Motor Response: obeys rb1 commands(6). Total: 15. 15:45 Eye Response: spontaneous(4). Verbal Response: oriented(5). Motor Response: obeys rb1 commands(6). Total: 15. 16:00 Eye Response: spontaneous(4). Verbal Response: oriented(5). Motor Response: obeys rb1 commands(6). Total: 15. 16:15 Eye Response: spontaneous(4). Verbal Response: oriented(5). Motor Response: obeys rb1 commands(6). Total: 15. 16:30 Eye Response: spontaneous(4). Verbal Response: oriented(5). Motor Response: obeys rb1 commands(6). Total: 15. 16:45 Eye Response: spontaneous(4). Verbal Response: oriented(5). Motor Response: obeys rb1 commands(6). Total: 15. NIH Stroke Scale Scores: 12:50 NIHSS Score: 3 rb1 14:32 NIHSS Score: 7 alin 16:45 NIHSS Score: 4 rb1 ED Course: 12:50 Arm band placed on right wrist. rb1 12:50 Patient has correct armband on for positive identification. Bed in low position. Call rb1 light in reach. Side rails up X2. monitor technician on. Pulse ox on. NIBP on. Warm blanket given. 12:59 Patient arrived in ED. rb1 13:05 Triage completed. rb1 13:05 Sorin Mota MD is Attending Physician. alin 13:20 Inserted saline lock: 22 gauge in right antecubital area, using aseptic technique. rb1 Blood collected. 13:34 Oralia Peñaloza, RN is Primary Nurse. rb1 13:47 CT Head C Spine In Process Unspecified. EDMS 14:06 XRAY Chest (1 view) In Process Unspecified. EDMS 14:06 Shoulder Left (2 View) XRAY In Process Unspecified. EDMS 14:[address] Mota to [facility] for AFib with RVR and cerebral mt infarction. 14:42 Missed attempt(s): 20 gauge in left hand. Bleeding controlled, band aid applied, aa5 catheter tip intact. 14:44 Inserted saline lock: 20 gauge in left hand, using aseptic technique. aa5 14:[address] report done with [facility] hospitalist by Dr Mota. mt 15:35 Ramya Carter, [facility] hospice care transitions coordinator, called with admin approval. mt 16:15 HANNAH RN, called nurse to nurse report. mt 16:26 [facility] contacted for transfer. mt 16:59 No provider procedures requiring assistance completed. Patient transferred, IV remains rb1 in place. 17:00 [facility] arrived for transfer. mt Administered Medications: Discontinued: NS 0.9% 1000 ml IV at 125 ml/hr continuous 13:35 Drug: Pepcid 20 mg Route: IVP; Site: right antecubital; rb1 13:50 Follow up: Response: No adverse reaction rb1 13:35 Drug: Lopressor 5 mg Route: IVP; Site: right antecubital; rb1 13:35 Follow up: See vital signs rb1 14:20 Drug: Lopressor 2.5 mg Route: IVP; Site: right antecubital; rb1 14:20 Follow up: 183/106, P 100 rb1 14:27 Not Given (Failed swallow screen): PlaVIX 75 mg PO once rb1 14:33 Drug: Lopressor 2.5 mg Route: IVP; Site: right antecubital; rb1 17:05 Follow up: Response: No adverse reaction; See vital signs rb1 14:35 Drug: Magnesium Sulfate 2 grams Route: IVPB; Infused Over: 2 hrs; Site: right rb1 antecubital; 16:28 Follow up: IV Status: Completed infusion rb1 14:45 Drug: Heparin (PR-Bolus with thrombolytic) - HEParin 60 units/kg {Co-Signature: bp rb1 (Vamshi Jaramillo RN).} Route: IVP; Site: left hand; 15:02 Follow up: Response: No adverse reaction rb1 14:51 Not Given (Duplicate Order): Heparin (PR Drip) 12 units/kg/hr - (HEParin 38031 units, alin D5W 500 ml) IV at calculated rate Per protocol; Max initial rate 1000 units/hr 14:53 Not Given (Failed swallow screen): Lopressor (metoprolol TARTRATE) 50 mg PO once rb1 15:50 Drug: Tylenol Suppository 650 mg Route: NE; rb1 16:50 Follow up: Response: No adverse reaction; Pain is decreased rb1 15:54 Drug: NS 0.9% 1000 ml Route: IV; Rate: 1 bolus; Site: right antecubital; rb1 16:58 Follow up: IV Status: Completed infusion rb1 15:54 Drug: NS 0.9% 1000 ml Route: IV; Rate: 125 ml/hr; Site: right antecubital; rb1 16:58 Follow up: discontinued upon transfer rb1 16:03 Drug: foLIC Acid 1 mg Route: IVPB; Site: left hand; rb1 16:57 Follow up: IV Status: Completed infusion rb1 16:05 Not Given (provider changed order to suppository): Tylenol 650 mg PO once rb1 17:01 Not Given (does not meet parameters): Lopressor 2.5 mg IVP once; Hold for SBP <100 or rb1 HR <60. 17:01 Not Given (did not meet parameters per physician ): Lopressor 2.5 mg IVP once; Hold for rb1 SBP <100 or HR <60. Point of Care Testing: Blood Glucose: 13:58 Blood Glucose: 101 mg/dL; rb1 Ranges: Intake: Output: 15:30 Urine: 1ml (Voided); Total: 1ml. rb1 16:30 Urine: 1ml (Voided); Total: 2ml. rb1 Outcome: 14:29 ER care complete, transfer ordered by . [facility] 16:59 Transferred by [facility] to [facility], Transfer form completed. rb1 16:59 Condition: stable 16:59 Instructed on the need for transfer. 16:59 Patient left the ED. rb1 NIH Stroke Scale - NIH Stroke Score Date: 01/04/2020 Time: 12:50 Total Score = 3 1a. Level of Consciousness (LOC) - 1(Not Alert) 1b. Level of Consciousness (LOC) (Year \T\ Age) - 0(Both) 1c. LOC Commands (Open \T\ Closes Eyes/Mechanical Ordnance Assembler) - 0(Both) 2. Best Gaze (Lateral Gaze Paresis) - 0(Normal) 3. Visual Field Loss - 0(No visual loss) 4. Facial Palsy - 0(Normal) 5a. Left Arm: Motor (10-second hold) - 1(Drift) 5b. Right Arm: Motor (10-second hold) - 0(No drift) 6a. Left Leg: Motor (5-second hold - always test supine) - 0(No drift) 6b. Right Leg: Motor (5-second hold - always test supine) - 0(No drift) 7. Limb Ataxia (finger/nose \T\ heel/kwan - test with eyes open) - 0(Absent) 8. Sensory Loss (pinprick arms/legs/face) - 1(Mild to moderate loss) 9. Best Language: Aphasia (description/naming/reading) - 0(No aphasia) 10. Dysarthria (speech clarity - read or repeat words) - 0(Normal) 11. Extinction and Inattention (visual/tactile/auditory/spatial/personal) - 0(No abnormality) Initials: rb1 NIH Stroke Scale - NIH Stroke Score Date: 01/04/2020 Time: 14:32 Total Score = 7 1a. Level of Consciousness (LOC) - 0(Alert) 1b. Level of Consciousness (LOC) (Year \T\ Age) - 0(Both) 1c. LOC Commands (Open \T\ Closes Eyes/Mechanical Ordnance Assembler) - 0(Both) 2. Best Gaze (Lateral Gaze Paresis) - 0(Normal) 3. Visual Field Loss - 0(No visual loss) 4. Facial Palsy - 0(Normal) 5a. Left Arm: Motor (10-second hold) - 2(Drift, some effort against gravity) 5b. Right Arm: Motor (10-second hold) - 0(No drift) 6a. Left Leg: Motor (5-second hold - always test supine) - 2(Drift, some effort against gravity) 6b. Right Leg: Motor (5-second hold - always test supine) - 0(No drift) 7. Limb Ataxia (finger/nose \T\ heel/kwan - test with eyes open) - 2(Present in two limbs) 8. Sensory Loss (pinprick arms/legs/face) - 1(Mild to moderate loss) 9. Best Language: Aphasia (description/naming/reading) - 0(No aphasia) 10. Dysarthria (speech clarity - read or repeat words) - 0(Normal) 11. Extinction and Inattention (visual/tactile/auditory/spatial/personal) - 0(No abnormality) Initials: alin NIH Stroke Scale - NIH Stroke Score Date: 01/04/2020 Time: 16:45 Total Score = 4 1a. Level of Consciousness (LOC) - 0(Alert) 1b. Level of Consciousness (LOC) (Year \T\ Age) - 0(Both) 1c. LOC Commands (Open \T\ Closes Eyes/Mechanical Ordnance Assembler) - 0(Both) 2. Best Gaze (Lateral Gaze Paresis) - 0(Normal) 3. Visual Field Loss - 0(No visual loss) 4. Facial Palsy - 0(Normal) 5a. Left Arm: Motor (10-second hold) - 1(Drift) 5b. Right Arm: Motor (10-second hold) - 0(No drift) 6a. Left Leg: Motor (5-second hold - always test supine) - 1(Drift) 6b. Right Leg: Motor (5-second hold - always test supine) - 0(No drift) 7. Limb Ataxia (finger/nose \T\ heel/kwan - test with eyes open) - 1(Present in one limb) 8. Sensory Loss (pinprick arms/legs/face) - 1(Mild to moderate loss) 9. Best Language: Aphasia (description/naming/reading) - 0(No aphasia) 10. Dysarthria (speech clarity - read or repeat words) - 0(Normal) 11. Extinction and Inattention (visual/tactile/auditory/spatial/personal) - 0(No abnormality) Initials: rb1 Signatures: Dispatcher [employer] Sorin Govea MD MD cha Calderon, Audri RN RN aa5 Oralia Peñaloza RN RN rb1 Jana Crowley mt, RN bp Corrections: (The following items were deleted from the chart) 14:56 12:50 BP 160 / 114; Pulse 118bpm; Resp 19bpm; Pulse Ox 97% RA; Temp 98.0F; rb1 72.12 kg; Height 5 ft. 2 in.; BMI: 29.0; Pain 6/10; rb1 15:00 12:50 Neuro: Level of Consciousness is obeys commands, lethargic, Oriented to [facility] person, place, time, situation, Mobile Pet Groomer are equal bilaterally Moves all extremities. Gait is unable to assess. Speech is normal, Facial symmetry appears normal, Pupils are constricted, Reports headache numbness in left leg and left arm [facility] 17:18 17:13 [facility] contacted for transfer [facility] 17:20 17:13 [facility] contacted for transfer [facility] 18:01 17:15 Patient left the ED. [facility] rb1
--- NOTE | 2020-01-04 14:29 | EDPHYS ---
Physician Documentation [facility] Name: Shraddha iLnk Age: 74 yrs Sex: Female : 1945 Arrival Date: 01/04/2020 Time: 12:59 Bed 2 Private MD: ED Physician Sorin Mota HPI: 01/03 13:18 This 74 yrs old Female presents to ER via EMS with complaints of Numbness Of alin Arm - numbness of left arm and left leg. 13:22 The patient or guardian complains of decreased range of motion, pain, swelling, alin tenderness. The complaints affect the anterior aspect of left shoulder and posterior aspect of left shoulder. Context: The problem was sustained at home. Onset: The symptoms/episode began/occurred last night, at midnight. Treatment prior to arrival includes: no previous treatment. Modifying factors: The symptoms are alleviated by remaining still, the symptoms are aggravated by movement. Associated signs and symptoms: The patient has no apparent associated signs or symptoms. The patient has not experienced similar symptoms in the past. Historical: - Allergies: 13:05 Aspirin; rb1 13:05 Compazine; rb1 13:05 DHE; rb1 13:05 Imitrex; rb1 13:05 Morphine; rb1 13:05 NSAIDS; rb1 13:05 Tape; rb1 13:05 Ultram; rb1 - Home Meds: 13:05 Actos 45 mg Oral tab 1 tab once daily [Active]; Ambien 10 mg Oral tab 1 tab nightly rb1 [Active]; atenolol 100 mg Oral tab 1 tab once daily [Active]; Ativan 0.5 mg Oral tab 1 tab 3 times per day [Active]; ativert [Active]; baclofen 10 mg Oral tab 1 tab 3 times per day [Active]; Bumex Oral 2 mg daily [Active]; Eliquis 5 mg Oral tab 1 tab 2 times per day [Active]; Esgic 50-325-40 mg Oral cap every 6 hours [Active]; hydrocodone-acetaminophen 5-325 mg Oral tab 1 tab every 6 hours [Active]; K-Dur Oral 20 mEq daily [Active]; losartan 25 mg Oral tab 1 tab nightly [Active]; metformin 500 mg Oral tab 1 tab 2 times per day [Active]; Metoprolol Tartrate Oral [Active]; Stadol NS Nasal as needed [Active]; Warfarin 9 mg once daily Oral [Active]; Zetia 10 mg Oral tab 1 tab once daily [Active]; Zocor 20 mg Oral tab 1 tab nightly [Active]; Zoloft 100 mg Oral tab 2 tabs once daily [Active]; Zyrtec 10 mg Oral tab 1 tab nightly [Active]; 14:21 meclizine 25 mg Oral tab 1 tab 2 times per day [Active]; Stadol NS Nasal every 6 hours rb1 [Active]; Ambien 10 mg Oral tab 1 tab once daily [Active]; Fioricet 50-325-40 mg Oral tab 1 tab every eight hours [Active]; atenolol 100 mg Oral tab 1 tab once daily [Active]; - PMHx: 13:05 Atrial Fib; Chronic pain; Depression; Diabetes - NIDDM; High Cholesterol; Migraines; rb1 Hypertension; Pulmonary Embolism; - PSHx: 13:05 Cholecystectomy; ; rb1 - Immunization history:: Adult Immunizations up to date. - Family history:: not pertinent. - Social history:: Smoking status: Patient/guardian denies using. ROS: 13:23 Constitutional: Negative for fever, chills, and weight loss, Eyes: Negative for injury, alin pain, redness, and discharge, ENT: Negative for injury, pain, and discharge, Neck: Negative for injury, pain, and swelling, Respiratory: Negative for shortness of breath, cough, wheezing, and pleuritic chest pain. 13:23 Abdomen/GI: Negative for abdominal pain, nausea, vomiting, diarrhea, and constipation, Back: Negative for injury and pain, : Negative for injury, bleeding, discharge, and swelling, Skin: Negative for injury, rash, and discoloration, Psych: Negative for depression, anxiety, suicide ideation, homicidal ideation, and hallucinations, Allergy/Immunology: Negative for hives, rash, and allergies, Endocrine: Negative for neck swelling, polydipsia, polyuria, polyphagia, and marked weight changes, Hematologic/Lymphatic: Negative for swollen nodes, abnormal bleeding, and unusual bruising. 13:23 Cardiovascular: Positive for palpitations. 13:23 MS/extremity: Positive for decreased range of motion, pain, swelling, tenderness, of the anterior aspect of left shoulder and posterior aspect of left shoulder. 13:23 Neuro: Positive for headache, numbness, of the left arm and left leg, peña and numbness began after fall. Exam: 13:28 Radiologist reports: see report [facility] 13:30 ECG was reviewed by the Attending Physician. alin 14:32 Constitutional: This is a well developed, well nourished patient who is awake, alert, alin and in no acute distress. Head/Face: Normocephalic, atraumatic. Eyes: Pupils equal round and reactive to light, extra-ocular motions intact. Lids and lashes normal. Conjunctiva and sclera are non-icteric and not injected. Cornea within normal limits. Periorbital areas with no swelling, redness, or edema. ENT: Nares patent. No nasal discharge, no septal abnormalities noted. Tympanic membranes are normal and external auditory canals are clear. Oropharynx with no redness, swelling, or masses, exudates, or evidence of obstruction, uvula midline. Mucous membranes moist. Neck: Trachea midline, no thyromegaly or masses palpated, and no cervical lymphadenopathy. Supple, full range of motion without nuchal rigidity, or vertebral point tenderness. No Meningismus. Chest/axilla: Normal chest wall appearance and motion. Nontender with no deformity. No lesions are appreciated. Respiratory: Lungs have equal breath sounds bilaterally, clear to auscultation and percussion. No rales, rhonchi or wheezes noted. No increased work of breathing, no retractions or nasal flaring. Abdomen/GI: Soft, non-tender, with normal bowel sounds. No distension or tympany. No guarding or rebound. No evidence of tenderness throughout. Back: No spinal tenderness. No costovertebral tenderness. Full range of motion. Female : Normal external genitalia. Skin: Warm, dry with normal turgor. Normal color with no rashes, no lesions, and no evidence of cellulitis. Psych: Awake, alert, with orientation to person, place and time. Behavior, mood, and affect are within normal limits. 14:32 Musculoskeletal/extremity: Extremities: noted in the anterior aspect of left shoulder and posterior aspect of left shoulder: decreased ROM, pain, ROM: full passive range of motion, in all extremities, limited active range of motion, in the left arm and left leg, Circulation is intact in all extremities. the left arm and left leg decreased sensation, Compartment Syndrome exam of affected extremity: is normal. DVT Exam: No signs of deep vein thrombosis. no pain, no swelling, no tenderness, negative Homans' sign noted on exam, no appreciated bluish discoloration, no erythema, no increased warmth. 14:32 Neuro: Orientation: is normal, appropriate for stated age, no acute changes, Mentation: is normal, appropriate for stated age, no acute changes, Memory: is normal, appropriate for stated age, no acute changes, Cranial nerves: grossly normal, is grossly normal based on the patient's age, no acute changes, Cerebellar function: unable to test, Motor: moves all fours, Strength is 2/5 in the left arm and left leg, Sensation: light touch is decreased in the left arm and left leg, Gait: not tested. Deep tendon reflexes are 1 (trace) + in the left patellar, seizure activity, is not displayed by the patient. 14:32 Psych: Behavior/mood is pleasant, Affect is calm, Oriented to Patient has no thoughts/intents to harm self or others. Judgement / Insight is normal. Vital Signs: 12:50 BP 160 / 114; Pulse 118; Resp 19; Temp 98.0; Pulse Ox 97% on R/A; Weight 72.12 kg; rb1 Height 5 ft. 2 in. (157.48 cm); Pain 6/10; 14:00 BP 193 / 119; Pulse 103; Resp 22; Pulse Ox 99% ; rb1 15:00 BP 170 / 108; Pulse 94; Resp 20; Pulse Ox 98% ; rb1 16:00 BP 115 / 79; Pulse 101; Resp 18; Pulse Ox 99% on R/A; rb1 12:50 Body Mass Index 29.08 (72.12 kg, 157.48 cm) rb1 NIH Stroke Scale Scores: 12:50 NIHSS Score: 3 rb1 14:32 NIHSS Score: 7 alin 16:45 NIHSS Score: 4 rb1 Dix Coma Score: 14:00 Eye Response: spontaneous(4). Verbal Response: oriented(5). Motor Response: obeys rb1 commands(6). Total: 15. 14:15 Eye Response: spontaneous(4). Verbal Response: oriented(5). Motor Response: obeys rb1 commands(6). Total: 15. 14:30 Eye Response: spontaneous(4). Verbal Response: oriented(5). Motor Response: obeys rb1 commands(6). Total: 15. 14:45 Eye Response: spontaneous(4). Verbal Response: oriented(5). Motor Response: obeys rb1 commands(6). Total: 15. 15:00 Eye Response: spontaneous(4). Verbal Response: oriented(5). Motor Response: obeys rb1 commands(6). Total: 15. 15:15 Eye Response: spontaneous(4). Verbal Response: oriented(5). Motor Response: obeys rb1 commands(6). Total: 15. 15:30 Eye Response: spontaneous(4). Verbal Response: oriented(5). Motor Response: obeys rb1 commands(6). Total: 15. 15:45 Eye Response: spontaneous(4). Verbal Response: oriented(5). Motor Response: obeys rb1 commands(6). Total: 15. 16:00 Eye Response: spontaneous(4). Verbal Response: oriented(5). Motor Response: obeys rb1 commands(6). Total: 15. 16:15 Eye Response: spontaneous(4). Verbal Response: oriented(5). Motor Response: obeys rb1 commands(6). Total: 15. 16:30 Eye Response: spontaneous(4). Verbal Response: oriented(5). Motor Response: obeys rb1 commands(6). Total: 15. 16:45 Eye Response: spontaneous(4). Verbal Response: oriented(5). Motor Response: obeys rb1 commands(6). Total: 15. MDM: 13:05 Patient medically screened. alin 13:26 Differential diagnosis: closed fracture, contusion, abrasion, CVA, TIA, Dementia, alin metabolic disorder, drug effects. Differential diagnosis: closed head injury, contusion, multiple trauma, sprain, strain. Data reviewed: vital signs, nurses notes, lab test result(s), EKG, radiologic studies, CT scan, plain films. Data interpreted: gambling monitor: rate is 118 beats/min, Pulse oximetry: on room air is 97 %. Test interpretation: by ED physician or midlevel provider: ECG, plain radiologic studies. Counseling: I had a detailed discussion with the patient and/or guardian regarding: the historical points, exam findings, and any diagnostic results supporting the discharge/admit diagnosis, lab results, radiology results, the need for further work-up and treatment in the hospital. 13:27 Special discussion: pt feel last night at home to br floor, hit head and shoulder, has alin been having numbness since then in left arm and leg, not a tpa candidate . 14:29 ED course: ct positive for subacute cva, to [facility], explained to the patient. [facility] 14:55 Physician consultation: dr armstrong [facility] [place], stop the heparin, bolus given already and drip just alin started, stop all, despite afib and rvr, and neg for blood on ct. 01/03 13:18 Order name: Basic Metabolic Panel; Complete Time: 14:19 [facility] 01/03 13:18 Order name: CBC with Diff; Complete Time: 14:19 [facility] 01/03 13:18 Order name: LFT's; Complete Time: 14:19 [facility] 01/03 13:18 Order name: Magnesium; Complete Time: 14:19 [facility] 01/03 13:18 Order name: NT PRO-BNP; Complete Time: 14:19 [facility] 01/03 13:18 Order name: PT-INR; Complete Time: 14:19 [facility] 01/03 13:18 Order name: Troponin (emerg Dept Use Only); Complete Time: 14:19 [facility] 01/03 13:18 Order name: XRAY Chest (1 view); Complete Time: 14:19 [facility] 01/03 13:18 Order name: CT Head C Spine; Complete Time: 14:19 [facility] 01/03 13:18 Order name: TSH; Complete Time: 14:19 [facility] 01/03 13:22 Order name: Shoulder Left (2 View) XRAY; Complete Time: 14:19 [facility] 01/03 14:10 Order name: Glucose, Ancillary Testing; Complete Time: 14:19 EDMS 01/03 14:52 Order name: Ptt, Activated [facility] 01/03 16:43 Order name: Urine Dipstick--Ancillary (enter results) al 01/03 13:18 Order name: Cardiac monitoring; Complete Time: 13:41 [facility] 01/03 13:18 Order name: EKG - Nurse/Tech; Complete Time: 13:41 [facility] 01/03 13:18 Order name: IV Saline Lock; Complete Time: 13:41 [facility] 01/03 13:18 Order name: Labs collected and sent; Complete Time: 13:41 [facility] 01/03 13:18 Order name: O2 Per Protocol; Complete Time: 13:41 [facility] 01/03 13:18 Order name: O2 Sat Monitoring; Complete Time: 13:41 alin 01/03 13:18 Order name: Urine Dipstick-Ancillary (obtain specimen); Complete Time: 17:06 [facility] EC:30 Rate is 119 beats/min. Rhythm is irregularly irregular. QRS [place] is Normal. OH interval alin is normal. QRS interval is normal. QT interval is normal. No Q waves. T waves are Normal. No ST changes noted. Clinical impression: Atrial Fibrillation. Interpreted by me. Reviewed by me. Administered Medications: Discontinued: NS 0.9% 1000 ml IV at 125 ml/hr continuous 13:35 Drug: Pepcid 20 mg Route: IVP; Site: right antecubital; rb1 13:50 Follow up: Response: No adverse reaction rb1 13:35 Drug: Lopressor 5 mg Route: IVP; Site: right antecubital; rb1 13:35 Follow up: See vital signs rb1 14:20 Drug: Lopressor 2.5 mg Route: IVP; Site: right antecubital; rb1 14:20 Follow up: 183/106, P 100 rb1 14:27 Not Given (Failed swallow screen): PlaVIX 75 mg PO once rb1 14:33 Drug: Lopressor 2.5 mg Route: IVP; Site: right antecubital; rb1 17:05 Follow up: Response: No adverse reaction; See vital signs rb1 14:35 Drug: Magnesium Sulfate 2 grams Route: IVPB; Infused Over: 2 hrs; Site: right rb1 antecubital; 16:28 Follow up: IV Status: Completed infusion rb1 14:45 Drug: Heparin (RI-Bolus with thrombolytic) - HEParin 60 units/kg {Co-Signature: bp rb1 (Vamshi Jaramillo RN).} Route: IVP; Site: left hand; 15:02 Follow up: Response: No adverse reaction rb1 14:51 Not Given (Duplicate Order): Heparin (RI Drip) 12 units/kg/hr - (HEParin 71619 units, alin D5W 500 ml) IV at calculated rate Per protocol; Max initial rate 1000 units/hr 14:53 Not Given (Failed swallow screen): Lopressor (metoprolol TARTRATE) 50 mg PO once rb1 15:50 Drug: Tylenol Suppository 650 mg Route: OH; rb1 16:50 Follow up: Response: No adverse reaction; Pain is decreased rb1 15:54 Drug: NS 0.9% 1000 ml Route: IV; Rate: 1 bolus; Site: right antecubital; rb1 16:58 Follow up: IV Status: Completed infusion rb1 15:54 Drug: NS 0.9% 1000 ml Route: IV; Rate: 125 ml/hr; Site: right antecubital; rb1 16:58 Follow up: discontinued upon transfer rb1 16:03 Drug: foLIC Acid 1 mg Route: IVPB; Site: left hand; rb1 16:57 Follow up: IV Status: Completed infusion rb1 16:05 Not Given (provider changed order to suppository): Tylenol 650 mg PO once rb1 17:01 Not Given (does not meet parameters): Lopressor 2.5 mg IVP once; Hold for SBP <100 or rb1 HR <60. 17:01 Not Given (did not meet parameters per physician ): Lopressor 2.5 mg IVP once; Hold for rb1 SBP <100 or HR <60. Point of Care Testing: Blood Glucose: 13:58 Blood Glucose: 101 mg/dL; rb1 Ranges: Critical Glucose Levels:Adult <50 mg/dl or >400 mg/dl <40 mg/dl or >180 mg/dl Disposition: 01/04/20 14:29 Transfer ordered to [facility]. Diagnosis are Atrial fibrillation and flutter, Cerebral infarction - subacute right occipital and medial right temporal, Weakness - left arm and leg, 2/5 strength, uncoordinated, Hypomagnesemia, Contusion of left shoulder. - Reason for transfer: Higher level of care. - Accepting physician is to dr armstrong, stroke team. - Condition is Stable. - Problem is new. - Symptoms have improved. Critical care time excluding procedures: 14:30 Critical care time: Bedside Care: 30 minutes, Consultation: 10 minutes, Family alin Intervention: 5 minutes. Total time: 45 minutes NIH Stroke Scale - NIH Stroke Score Date: 01/04/2020 Time: 12:50 Total Score = 3 1a. Level of Consciousness (LOC) - 1(Not Alert) 1b. Level of Consciousness (LOC) (Year \T\ Age) - 0(Both) 1c. LOC Commands (Open \T\ Closes Eyes/Heel Padder) - 0(Both) 2. Best Gaze (Lateral Gaze Paresis) - 0(Normal) 3. Visual Field Loss - 0(No visual loss) 4. Facial Palsy - 0(Normal) 5a. Left Arm: Motor (10-second hold) - 1(Drift) 5b. Right Arm: Motor (10-second hold) - 0(No drift) 6a. Left Leg: Motor (5-second hold - always test supine) - 0(No drift) 6b. Right Leg: Motor (5-second hold - always test supine) - 0(No drift) 7. Limb Ataxia (finger/nose \T\ heel/kwan - test with eyes open) - 0(Absent) 8. Sensory Loss (pinprick arms/legs/face) - 1(Mild to moderate loss) 9. Best Language: Aphasia (description/naming/reading) - 0(No aphasia) 10. Dysarthria (speech clarity - read or repeat words) - 0(Normal) 11. Extinction and Inattention (visual/tactile/auditory/spatial/personal) - 0(No abnormality) Initials: rb1 NIH Stroke Scale - NIH Stroke Score Date: 01/04/2020 Time: 14:32 Total Score = 7 1a. Level of Consciousness (LOC) - 0(Alert) 1b. Level of Consciousness (LOC) (Year \T\ Age) - 0(Both) 1c. LOC Commands (Open \T\ Closes Eyes/Heel Padder) - 0(Both) 2. Best Gaze (Lateral Gaze Paresis) - 0(Normal) 3. Visual Field Loss - 0(No visual loss) 4. Facial Palsy - 0(Normal) 5a. Left Arm: Motor (10-second hold) - 2(Drift, some effort against gravity) 5b. Right Arm: Motor (10-second hold) - 0(No drift) 6a. Left Leg: Motor (5-second hold - always test supine) - 2(Drift, some effort against gravity) 6b. Right Leg: Motor (5-second hold - always test supine) - 0(No drift) 7. Limb Ataxia (finger/nose \T\ heel/kwan - test with eyes open) - 2(Present in two limbs) 8. Sensory Loss (pinprick arms/legs/face) - 1(Mild to moderate loss) 9. Best Language: Aphasia (description/naming/reading) - 0(No aphasia) 10. Dysarthria (speech clarity - read or repeat words) - 0(Normal) 11. Extinction and Inattention (visual/tactile/auditory/spatial/personal) - 0(No abnormality) Initials: alin NIH Stroke Scale - NIH Stroke Score Date: 01/04/2020 Time: 16:45 Total Score = 4 1a. Level of Consciousness (LOC) - 0(Alert) 1b. Level of Consciousness (LOC) (Year \T\ Age) - 0(Both) 1c. LOC Commands (Open \T\ Closes Eyes/Heel Padder) - 0(Both) 2. Best Gaze (Lateral Gaze Paresis) - 0(Normal) 3. Visual Field Loss - 0(No visual loss) 4. Facial Palsy - 0(Normal) 5a. Left Arm: Motor (10-second hold) - 1(Drift) 5b. Right Arm: Motor (10-second hold) - 0(No drift) 6a. Left Leg: Motor (5-second hold - always test supine) - 1(Drift) 6b. Right Leg: Motor (5-second hold - always test supine) - 0(No drift) 7. Limb Ataxia (finger/nose \T\ heel/kwan - test with eyes open) - 1(Present in one limb) 8. Sensory Loss (pinprick arms/legs/face) - 1(Mild to moderate loss) 9. Best Language: Aphasia (description/naming/reading) - 0(No aphasia) 10. Dysarthria (speech clarity - read or repeat words) - 0(Normal) 11. Extinction and Inattention (visual/tactile/auditory/spatial/personal) - 0(No abnormality) Initials: rb1 Signatures: Dispatcher [employer] Sorin Govea MD MD cha Barber, Rebecca, RN RN rb1 Vamshi Jaramillo RN bp Corrections: (The following items were deleted from the chart) 14:29 14:29 01/04/2020 14:29 Transfer ordered to [facility]. Diagnosis is Atrial fibrillation and flutter; Cerebral infarction - subacute right occipital and medial right temporal; Weakness; Hypomagnesemia. Reason for transfer: Higher level of care. Accepting physician is to dr armstrong, stroke team. Condition is Stable. Problem is new. Symptoms have improved. [facility] 14:36 13:23 Constitutional: This is a well developed, well nourished patient who is [facility] awake, alert, and in no acute distress. Head/Face: Normocephalic, atraumatic. Eyes: Pupils equal round and reactive to light, extra-ocular motions intact. Lids and lashes normal. Conjunctiva and sclera are non-icteric and not injected. Cornea within normal limits. Periorbital areas with no swelling, redness, or edema. ENT: Nares patent. No nasal discharge, no septal abnormalities noted. Tympanic membranes are normal and external auditory canals are clear. Oropharynx with no redness, swelling, or masses, exudates, or evidence of obstruction, uvula midline. Mucous membranes moist. Neck: Trachea midline, no thyromegaly or masses palpated, and no cervical lymphadenopathy. Supple, full range of motion without nuchal rigidity, or vertebral point tenderness. No Meningismus. Chest/axilla: Normal chest wall appearance and motion. Nontender with no deformity. No lesions are appreciated. Cardiovascular: Regular rate and rhythm with a normal S1 and S2. No gallops, murmurs, or rubs. Normal PMI, no JVD. No pulse deficits. Respiratory: Lungs have equal breath sounds bilaterally, clear to auscultation and percussion. No rales, rhonchi or wheezes noted. No increased work of breathing, no retractions or nasal flaring. Abdomen/GI: Soft, non-tender, with normal bowel sounds. No distension or tympany. No guarding or rebound. No evidence of tenderness throughout. Back: No spinal tenderness. No costovertebral tenderness. Full range of motion. Female : Normal external genitalia. Skin: Warm, dry with normal turgor. Normal color with no rashes, no lesions, and no evidence of cellulitis. Neuro: Awake and alert, GCS 15, oriented to person, place, time, and situation. Cranial nerves II-XII grossly intact. Motor strength 5/5 in all extremities. Sensory grossly intact. Cerebellar exam normal. Normal gait. Psych: Awake, alert, with orientation to person, place and time. Behavior, mood, and affect are within normal limits. [facility] 14:36 13:23 Musculoskeletal/extremity: Extremities: noted in the anterior aspect of alin left shoulder and posterior aspect of left shoulder: decreased ROM, ecchymosis, pain, swelling, tenderness, [facility] 14:36 13:23 NIHSS Score: 1 [facility] 14:37 14:29 01/04/2020 14:29 Transfer ordered to [facility]. Diagnosis is Atrial fibrillation and flutter; Cerebral infarction - subacute right occipital and medial right temporal; Weakness; Hypomagnesemia; Contusion of left shoulder. Reason for transfer: Higher level of care. Accepting physician is to dr armstrong, stroke team. Condition is Stable. Problem is new. Symptoms have improved. alin 17:15 14:37 01/04/2020 14:29 Transfer ordered to [address] Diagnosis is Atrial fibrillation and flutter; Cerebral infarction - subacute right occipital and medial right temporal; Weakness - left arm and leg, 2/5 strength, uncoordinated; Hypomagnesemia; Contusion of left shoulder. Reason for transfer: Higher level of care. Accepting physician is to dr armstrong, stroke team. Condition is Stable. Problem is new. Symptoms have improved. alin
[2020-01-04] MEDS ORDERED: HEPARIN/D5W 25,000 UNIT/500 ML BAG IV ONE (14:40)
[2020-01-04] MEDS ORDERED: Magnesium Sulfate 2gm IVPB 2 G/50 ML BAG IV ONE (14:40)
[2020-01-04] MEDS ORDERED: NA CHLORIDE 0.9% 2,000 ML ONE (15:28)
[2020-01-04] MEDS ORDERED: ACETAMINOPHEN 650MG/RECT SUPP PR ONE (15:30)
[2020-01-04] MEDS ORDERED: FOLIC ACID 1 MG in NA CHLORIDE 0.9% 50 ML IV ONE (16:00)
[2020-01-04 16:46] LABS: Urine Blood NEGATIVE (NEG); Urine Glucose NEGATIVE (NEG); Urine Protein NEGATIVE (NEG); Urine Specific Gravity 1.015 (1.005-1.030); Urine pH 5.5 (5.0-7.0)
--- NOTE | 2020-01-06 10:47 | EKG ---
Test Date: 2020-01-04 Test Time: 13:20:52 [employer]: LE MEASUREMENT RESULTS: Intervals: Rate: 119 MN: QRSD: 74 QT: 324 QTc: 455 [place]: P: MN: QRS: 64 T: 93 INTERPRETIVE STATEMENTS: Atrial fibrillation with rapid ventricular response ST abnormality, possible digitalis effect Abnormal ECG Compared to ECG 08/27/2019 20:15:42 ST (T wave) deviation now present Myocardial infarct finding no longer present Electronically Signed On 01-06-20 10:43:52 CDT by Kaleb Polanco
[2020-01-09 16:38] VITALS: TEMP 98
[2020-01-09 16:41] VITALS: BP 115/79; O2SAT 99
== END 2020-01-04 17:15 | disposition short-term general hospital (02) ==
LOC: ER 12:48
DX: I63.9 Cerebral infarction, unspecified (principal); R53.1 Weakness; I48.91 Unspecified atrial fibrillation; I48.92 Unspecified atrial flutter; E83.42 Hypomagnesemia; I10 Essential (primary) hypertension; R29.703 NIHSS score 3; S40.012A Contusion of left shoulder, initial encounter; W19.XXXA Unspecified fall, initial encounter; Y93.9 Activity, unspecified; Y92.009 Unspecified place in unspecified non-institutional (private) residence as the place of occurrence of the external cause; Z79.01 Long term (current) use of anticoagulants; Z79.02 Long term (current) use of antithrombotics/antiplatelets; Z88.1 Allergy status to other antibiotic agents; Z88.5 Allergy status to narcotic agent; Z88.6 Allergy status to analgesic agent; Z88.8 Allergy status to other drugs, medicaments and biological substances; Z86.711 Personal history of pulmonary embolism; E11.9 Type 2 diabetes mellitus without complications; E78.00 Pure hypercholesterolemia, unspecified; F32.9 Major depressive disorder, single episode, unspecified
CPT/HCPCS: 93005; 85025; 80048; 36415; 83735; 85610; 82947; 80076; 85730; 84443; 81003; 84484; 83880; 70450; 72125; 71045; 73030; 99285; J3475; J1644 ×2; J7030

== ENCOUNTER 2020-01-09 10:41 | Inpatient (IN) | payer OTHER ==
--- NOTE | 2020-01-09 18:38 | R.PREADM ---
PRE-ADMISSION SCREENING FORM SCREENING DATE AND TIME 01/07/2020 13:53 (CDT) ANTICIPATED REHAB ADMISSION DATE 01/09/2020 REFERRING FACILITY [facility] REFERRAL DATE AND TIME 01/07/2020 13:53 (CDT) REFERRAL ROOM# [id number] ACUTE ADMIT DATE 01/04/2020 Previous Rehabilitation(s): No. 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 Donis Pride M.D. MR# [id number] NAME MARV LINK [place] AD[address]ESS [address] [place] [address] [facility]ONE [facility] [address] DATE OF 1945 AGE 74 SSN# [id number] GENDER female MARITAL STATUS RACE unknown race ADMIT FROM 02 - [facility] PRE-HOSPITAL LIVING SETTING 01 - Home (private home/apt. board/care, assisted living, usp, transitional living) HOME TYPE AND DETAILS Type of home: single family house # of levels in the residence: 1 # of steps within the residence: 0 # of steps to enter the residence: 0 PRE-HOSPITAL LIVING WITH Alone FAMILY SUPPORT No PRIMARY FAMILY CONTACT NAME [facility] PRIMARY FAMILY CONTACT PHONE PRIMARY FAMILY CONTACT RELATIONSHIP SELF PHONE PRIMARY FAMILY CONTACT ON ADM.? no IS PRIMARY FAMILY CONTACT AUTH. REP.? no 1ST EMERGENCY CONTACT [facility] 1ST CONTACT PHONE 1ST CONTACT RELATIONSHIP SELF PHONE 1ST CONTACT ON ADM. no IS 1ST CONTACT AUTH. REP.? no PHONE 2ND CONTACT ON ADM.? no PATIENT EMPLOYMENT STATUS Retired (for age) PATIENT EMPLOYER No Employer PAYOR INFORMATION: 1ST PAYOR NAME [facility] 1ST PAYOR PHONE [phone] 1ST PAYOR INJURY/ILLNESS DUE TO ACCIDENT? No ANOTHER GREEN PARTY RESPONSIBLE? 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 SUMMARY OF ACUTE HOSPITALIZATION: Pt. is a 74 yo Right-handed female of unknown race. On 01/04/2020 Pt. presented to [facility] with sudden onset of right-side weakness. On 01/04/2020 she was admitted to [facility] with diagnosis Right MECHANICAL ENGINEERING LECTURER CVA. Her impairment category is Stroke 01 - Right Body (Left Brain) (01.2). Pre-morbidly, Pt. was independent/mod-I in Locomotion, Safety Awareness, Balance, Self-Care, Communic ation, and Endurance; and she had good Sphincter Control, Transfers Control, and Social Cognition. Currently, she has deficits of Endurance, Sphincter Control, Transfers Control, Social Cognition, Bal ance, Safety Awareness, and Locomotion. Pt. is now referred to [facility] for acute in-patient rehabilitation in order to maximize patient's functional independence in activities of daily living, strength, ROM, and mobi lity. Patient has realistic goal of being discharged at assistance level 6-Jeremy to reside at Home with Pt self. Marv Link is a 74- year old independent female that lives independently at home. Mrs. Cartagena has a history of significant for PAfib off AC HTN, HLD and non-insulin dependent DMTII. She lives in a single story home with no steps to get into the house. She has done all of her own caring, Cooking, yard work and laundry. She performs all her own ADLs and IADLs. Prior to [facility] she was seeing her PCP regularly. She presented with left sided hemiparesis and left homonymous hemianopsia found to have ischemic stroke to R MECHANICAL ENGINEERING LECTURER on imaging She suffered a fall from the toilet with impact to L shoulder and anterior face. She would most definitely benefit from acute inpatient rehab and has become severely debilitated and unable to live at his prior level of activity at home Getting her stronger and better to be back living at home independently is our goal. It is reasonable and necessary for the patient to come to acute inpatient rehab for approximately 7-10 days in order to return to her prior level of care. He is now being transferred to [facility] Inpatient rehabilitation and is medically stable with relatively stable labs. He is now medically stable but in need of 24 hour nursing, doctor supervision and The patient is reasonably expected to participate in 3 hours of therapy a day/15 hours per week and receive care with intensive interdisciplinary approach. CHAUNCEY-19 screening performed; spoke with patient via phone. Patient denies new onset of fever, cough, difficulty breathing, sore throat, body aches and non-allergy nasal congestion in the past 24 hours. Patient denies travel outside of [place] in the past 14 days. Patient denies any contact with someone who has a confirmed diagnosis of or is under investigation for COVID-19 in the past 14 days. Patient has been tested negative for COVID- 19. 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 acute (HCC) atrial fibrillation with rapid ventricular response (HCC) cataracts, bilateral diabetes mellitus, type II HYPERLIPIDEMIA migraines mural thrombus of cardiac apex Pulmonary embolism (I26) PAST SURGICAL HISTORY: exploratory laparotomy left knee replacement MEDICATION ALLERGIES: No Known Drug Allergies (NKDA) ENVIRONMENTAL ALLERGIES: - Substance Allergies None Known - Other Allergies aspirin Nsaids [id number] Antimigraine Agents CODE STATUS: Full code WEIGHT/HEIGHT/BMI: WEIGHT 158 lbs HEIGHT 5' 2" BMI 28.9 DIET: - Diet Type Regular - Diet - Solid Texture Regular - Diet - Liquid Texture Regular - Tube Feed N/A REVIEW OF SYSTEMS: - Gen Alert and awake Lying in bed No apparent distress Oriented to: person, time, and place - Vital Signs Temperature: 98.9 F SBP/DBP: 192/92 Pulse: 94 Resp: 20 Vital signs stable, afebrile - CVS RRR VITAL SIGNS Temperature: 98.9 F SBP/DBP: 192/92 Pulse: 94 Resp: 20 Vital signs stable, afebrile MEDICATIONS/TREATMENT: Other- See attached MAR (Medication Administration Record). CURRENT SPHINCTER CONTROL: Pre-hospital bladder status: unspecified # of bladder accidents in the last 7 days prior to screenin Pre-hospital bowel status: unspecified # of bowel accidents in the last 7 days prior to screenin Last Bowel Movement Date: 01/07/2020 CURRENT LOCOMOTION STATUS: distance walked 5 feet with RW DETAILED CURRENT FUNCTIONAL STATUS: - Bladder accident frequency: Ind - No accidents in the past 7 days - Bowel accident frequency: Ind - No accidents in the past 7 days - Walking score based on distance walked: 0(N/A) score based on distance walked: 1(<=50ft) - Wheelchair score based on distance traveled: 0(N/A) QI SCORES: - Self-Care A. Eating 03-Partial/moderate assistance B. Oral hygiene 03-Partial/moderate assistance C. Toileting hygiene 03-Partial/moderate assistance E. Shower/bathe self 03-Partial/moderate assistance F. Upper body dressing 03-Partial/moderate assistance G. Lower body dressing 03-Partial/moderate assistance H. Putting on/taking off footwear 88-Not attempted due to medical condition or safety concerns - Mobility A. Roll left and right 04-Supervision or touching assistance B. Sit to lying 03-Partial/moderate assistance C. Lying to sitting on side of bed 03-Partial/moderate assistance D. Sit to stand 03-Partial/moderate assistance E. Chair/[id number] transfer 03-Partial/moderate assistance F. Toilet transfer 03-Partial/moderate assistance G. Car transfer 88-Not attempted due to medical condition or safety concerns I. Walk 10 feet 88-Not attempted due to medical condition or safety concerns J. Walk 50 feet with two turns 88-Not attempted due to medical condition or safety concerns K. Walk 150 feet 88-Not attempted due to medical condition or safety concerns L. Walking 10 feet on uneven surfaces 88-Not attempted due to medical condition or safety concerns M. 1 step (curb) 88-Not attempted due to medical condition or safety concerns N. 4 steps 88-Not attempted due to medical condition or safety concerns O. 12 steps 88-Not attempted due to medical condition or safety concerns P. Picking up object 88-Not attempted due to medical condition or safety concerns R. Wheel 50 feet with two turns 88-Not attempted due to medical condition or safety concerns S. Wheel 150 feet 88-Not attempted due to medical condition or safety concerns - Bladder and Bowel Bladder continence Bowel continence - Endurance Fair - Balance Fair - Safety Awareness Fair CURRENT FUNC. DEFICITS: Endurance, Balance, Self-Care, Safety Awareness, and Mobility CURRENT / PREVIOUS ASSISTIVE DEVICES: 3-in-1 Commode Rolling Walker Standard Walker HISTORY OF FALLS. HAS THE PATIENT HAD TWO OR MORE FALLS IN THE PAST YEAR OR ANY FALL WITH INJURY IN T HE PAST YEAR?: No PRIOR SURGERY. DID THE PATIENT HAVE MAJOR SURGERY DURING THE 100 DAYS PRIOR TO ADMISSION?: No THERAPY NOTES FROM ACUTE CARE: Attached. SPECIAL NEEDS: - Safety Concerns Skin breakdown precautions needed due to skin breakdown risk PRECAUTIONS: - Weight Bearing Precaution WBAT right LE PATIENT NEEDS ACTIVE AND ONGOING THERAPEUTIC INTERVENTION OF MULTIPLE THERAPY DISCIPLINES, INCLUDING: - Occupational Therapy Cognitive Retraining. Visual Perceptual Training. - Dietary and Nutrition Adequate Nutrition. Nutritional Education. Nutritional Supplements. - Speech Therapy Cognitive Training. Expressive Language Skills. Memory Strategies. Receptive Language Skills. Speech Intelligibility Training. PATIENT NEEDS CLOSE MEDICAL SUPERVISION BY A REHABILITATION PHYSICIAN FOR: Coordination of Treatment Team PATIENT REQUIRES 24X7 REHAB NURSING FOR MEDICAL AND FUNCTIONAL MGT. OF THE FOLLOWING DEFICITS: Disease Management Medication Management Patient/Family Education Providing Safe Environment PATIENT REQUIRES INTENSIVE, COORDINATED INTERDISCIPLINARY APPROACH TO REHAB: Arranging Home Equipment/Services Discharge Planning Family Intervention/Training Jordan Worker/Case Management PATIENT REHAB POTENTIAL: Timothy LINK is able and expected to receive 3 hours of individualized therapy daily on at least 5 of ever y 7 days Timothy ELs prognosis for significant practical improvement within a reasonable period of time appears Good Expected level of measurable improvement will be of a practical value to Timothy ELs functional capacit y or adaptations to impairments Has a viable Discharge Plan Medically appropriate; condition is sufficiently stable to participate in intensive rehab program DISCHARGE PLAN: - Estimated Length of Stay (days) 17. - Consensus on plan Discharge plan has been discussed with primary caregiver. Patient/Family is in agreement with the harman n. Primary caregiver is in agreement with the plan. - Patient/Family Goals Return home independently. - Planned Living Setting Upon Discharge Home, to live alone. Transitional Living. Primary caregiver: Pt self. RECOMMENDED CARE LEVEL: IRF RECOMMENDATION DETAILS: Recommended Admission to Comprehensive Rehabilitation Program to Increase Functional [place] SCREENER'S COMPLETENESS CONFIRMATION: - Screening Confirmation The patient data collection on this preadmission screening form is finished PHYSICIANS REVIEW AND ADMISSION DETERMINATION Admit - Based on my review of the Pre-Admission Screening results, in my medical judgment and experie nce, I concur with the findings and recommend admission to [facility], as this patient requires an IRF level of care. SIGNATURE PANEL: Guest Services Director - [electronically] signed by Namita Rhoades on 01/09/2020 at 15:12 (CDT) Clinical Liaison - [electronically] signed by Lena Bishop RN on 01/09/2020 at 15:30 (CDT) Physician Reviewer - [electronically] signed by Dr. Donis Pride M.D. on 01/09/2020 at 18:37 (CDT )
--- NOTE | 2020-01-09 19:29 | R.HP ---
HISTORY AND PHYSICAL FACILITY: [facility] ENCOUNTER DATE AND TIME: 01/09/2020 19:19 (CDT) MR#: [id number] NAME MARV LINK ADDRESS: [address] [place] [address] CITY: [facility] [address] PHONE: DATE OF : 1945 AGE: 74 SSN# [id number] GENDER: Female DEXTERITY Right-handed MARITAL STATUS RACE Unknown race PRE-HOSPITAL LIVING SETTING 01 - Home (private home/apt. board/care, assisted living, usp, transitional living) PRE-HOSPITAL LIVING WITH Alone ENCOUNTER PHYSICIAN: Dr. Donis Pride M.D. REFERRING DOCTOR: MERARY STEPHENSON MD DATE OF ADMISSION: 01/09/2020 17:19 (CDT) REFERRING FACILITY [facility] HOME TYPE AND DETAILS: Type of home: single family house # of levels in the residence: 1 # of steps within the residence: 0 # of steps to enter the residence: 0 ONSET DATE: 01/04/2020 PRIMARY DIAGNOSIS-RELATED SURGERIES: No surgeries related to the primary diagnosis were performed. HISTORY OF PRESENT ILLNESS (HPI): Pt. is a 74 yo Right-handed white female. On 01/04/2020 Pt. presented to [facility] with sudden onset of left-sided weakness. On 01/04/2020 she was admitted to [facility] with diagnosis Right [employer] CVA. Her impairment category is Left body after right brain stroke. Pre-morbidly, Pt. was independent/mod-I in Locomotion, Safety Awareness, Balance, Self-Care, Communic ation, and Endurance; and she had good Sphincter Control, Transfers Control, and Social Cognition. Currently, she has deficits of Endurance, Sphincter Control, Transfers Control, Social Cognition, Bal ance, Safety Awareness, and Locomotion. Pt. is now referred to [facility] for acute in-patient rehabilitation in order to maximize patient's functional independence in activities of daily living, strength, ROM, and mobi lity. Patient has realistic goal of being discharged at assistance level 6-Jeremy to reside at Home with Pt self. Marv Link is a 74- year old independent female that lives independently at home. Mrs. Cartagena has a history of significant for PAfib off AC HTN, HLD and non-insulin dependent DMTII. She lives in a single story home with no steps to get into the house. She has done all of her own caring, Cooking, yard work and laundry. She performs all her own ADLs and IADLs. Prior to COVID she was seeing her PCP regularly. She presented with left sided hemiparesis and left homonymous hemianopsia found to have ischemic stroke to R [employer] on imaging She suffered a fall from the toilet with impact to L shoulder and anterior face. She would most definitely benefit from acute inpatient rehab and has become severely debilitated and unable to live at his prior level of activity at home Getting her stronger and better to be back living at home independently is our goal. It is reasonable and necessary for the patient to come to acute inpatient rehab for approximately 7-10 days in order to return to her prior level of care. He is now being transferred to [facility] rehabilitation and is medically stable with relatively stable labs. He is now medically stable but in need of 24 hour nursing, doctor supervision and The patient is reasonably expected to participate in 3 hours of therapy a day/15 hours per week and receive care with intensive interdisciplinary approach. COVID-19 screening performed; spoke with patient via phone. Patient denies new onset of fever, cough, difficulty breathing, sore throat, body aches and non-allergy nasal congestion in the past 24 hours. Patient denies travel outside of [place] in the past 14 days. Patient denies any contact with someone who has a confirmed diagnosis of or is under investigation for COVID-19 in the past 14 days. Patient has been tested negative for COVID- 19. 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,right acute (HCC) atrial fibrillation with rapid ventricular response (HCC) cataracts, bilateral diabetes mellitus, type II HYPERLIPIDEMIA migraines mural thrombus of cardiac apex Pulmonary embolism (I26) PAST SURGICAL HISTORY: exploratory laparotomy left knee replacement SOCIAL HISTORY: - Home Living Alone REVIEW OF SYSTEMS: - Gen No Chills Fatigue No Fever - Eyes No Double Vision No itchiness - ENMT No Difficulty Swallowing - CVS No Chest Discomfort No Chest Pain Fatigue No Weight Gain - Resp No Cough No Shortness of Breath - GI Continent No Abdominal Pain No Constipation No Diarrhea - Continent No Kidney Pain No Painful Urination No Urinary Urgency - MSK No Joint Pain Muscle Cramps Stiffness - Skin No Itching No Rash No Suspicious Lesions - Neuro Coordination Difficulty No Difficulty with Concentration No Memory Loss No Seizures Weakness - Psych No Anxiety No Depression No HIV Exposure No Persistent Infections No Seasonal Allergies - Endo No Cold/Heat Intolerance No Excessive Hunger No Excessive Thirst No Excessive Urination PHYSICAL EXAM - Gen Alert and awake Lying in bed No apparent distress Oriented to: person, time, and place - Skin No skin breakdown. Normacephalic - Eyes No abnormalities - ENMT No abnormalities - Neck 7/10 neck pain - CVS RRR - Chest Clear - Resp No wheezing - Abd Soft - GI Non distended Deferred - No abnormalities - Ext No significant edema. - MSK 4+/5 weakness in left upper and lower extremity - Neuro 4/5 strength left upper and lower extremities. - Psych No abnormalities VITAL SIGNS Temperature: 98.9 F SBP/DBP: 192/92 Pulse: 94 Resp: 20 NURSING: - Shower allowing shower - Bladder care per protocol - Skin care per protocol PRECAUTIONS: - Weight Bearing Precaution WBAT right LE ACTIVITIES OOB only with supervision QI SCORES: - Self-Care A. Eating 03-Partial/moderate assistance B. Oral hygiene 03-Partial/moderate assistance C. Toileting hygiene 03-Partial/moderate assistance E. Shower/bathe self 03-Partial/moderate assistance F. Upper body dressing 03-Partial/moderate assistance G. Lower body dressing 03-Partial/moderate assistance H. Putting on/taking off footwear 88-Not attempted due to medical condition or safety concerns - Mobility A. Roll left and right 04-Supervision or touching assistance B. Sit to lying 03-Partial/moderate assistance C. Lying to sitting on side of bed 03-Partial/moderate assistance D. Sit to stand 03-Partial/moderate assistance E. Chair/[id number] transfer 03-Partial/moderate assistance F. Toilet transfer 03-Partial/moderate assistance G. Car transfer 88-Not attempted due to medical condition or safety concerns I. Walk 10 feet 88-Not attempted due to medical condition or safety concerns J. Walk 50 feet with two turns 88-Not attempted due to medical condition or safety concerns K. Walk 150 feet 88-Not attempted due to medical condition or safety concerns L. Walking 10 feet on uneven surfaces 88-Not attempted due to medical condition or safety concerns M. 1 step (curb) 88-Not attempted due to medical condition or safety concerns N. 4 steps 88-Not attempted due to medical condition or safety concerns O. 12 steps 88-Not attempted due to medical condition or safety concerns P. Picking up object 88-Not attempted due to medical condition or safety concerns R. Wheel 50 feet with two turns 88-Not attempted due to medical condition or safety concerns S. Wheel 150 feet 88-Not attempted due to medical condition or safety concerns - Bladder and Bowel Bladder continence Bowel continence - Endurance Fair - Balance Fair - Safety Awareness Fair CURRENT FUNC. DEFICITS: Endurance, Balance, Self-Care, Safety Awareness, and Mobility MEDICATIONS: - Other See attached MAR (Medication Administration Record) ASSESSMENT: Pt. is a 74 yo Right-handed female of unknown race.On 01/04/2020 Pt. presented to [facility] th sudden onset of right-side weakness.On 01/04/2020 she was admitted to [facility] with diagno sis Right [employer] CVA.Her impairment category is Stroke 01 - Right Body (Left Brain) (01.2).Pre-morbidly , Pt. was independent/mod-I in Locomotion, Safety Awareness, Balance, Self-Care, Communication, and E ndurance; and she had good Sphincter Control, Transfers Control, and Social Cognition.Currently, she has deficits of Endurance, Sphincter Control, Transfers Control, Social Cognition, Balance, Safety Aw areness, and Locomotion.Pt. is now referred to [facility] for acute in-patient rehabilitation in order to maximize patient's functional independence in activities of daily living, strength, ROM, and mobility.- Rehab Goal Patient has realistic goal of being discharged at assistance level 6-Jeremy to reside at Home with Pt self. Marv Link is a 74- year old independent female that lives independently at home. Mrs. Cartagena has a history of significant for PAfib off AC HTN, HLD and non-insulin dependent DMTII. She lives in a single story home with no steps to get into the house. She has done all of her own caring, Cooking, yard work and laundry. She performs all her own ADLs and IADLs. Prior to [facility] she was seeing her PCP regularly. She presented with left sided hemiparesis and left homonymous hemianopsia found to have ischemic stroke to R [employer] on imaging She suffered a fall from the toilet with impact to L shoulder and anterior face. She would most definitely benefit from acute inpatient rehab and has become severely debilitated and unable to live at his prior level of activity at home Getting her stronger and better to be back living at home independently is our goal. It is reasonable and necessary for the patient to come to acute inpatient rehab for approximately 7-10 days in order to return to her prior level of care. He is now being transferred to [facility] rehabilitation and is medically stable with relatively stable labs. He is now medically stable but in need of 24 hour nursing, doctor supervision and The patient is reasonably expected to participate in 3 hours of therapy a day/15 hours per week and receive care with intensive interdisciplinary approach. COVID-19 screening performed; spoke with patient via phone. Patient denies new onset of fever, cough, difficulty breathing, sore throat, body aches and non-allergy nasal congestion in the past 24 hours. Patient denies travel outside of [place] in the past 14 days. Patient denies any contact with someone who has a confirmed diagnosis of or is under investigation for COVID-19 in the past 14 days. Patient has been tested negative for COVID- 19.REHAB PLAN: for Dementia, TBI, Stroke, or others - Physical Therapy Gait dysfunction - to improve, our physical therapists will perform initial evaluation of pt's status upon admission and devise an individualized program for Gait Training, and Wheel Chair mobility Inability to transfer - to improve, our physical therapists will perform initial evaluation of pt's s tatus upon admission and devise an individualized program for Bed mobility Need for home safety evaluation - to improve, our physical therapists will perform initial evaluation of pt's status upon admission and devise an individualized program for Home Evaluation Need in caregiver upon discharge - to improve, our physical therapists will perform initial evaluatio n of pt's status upon admission and devise an individualized program for Caregiver Training New precaution - to improve, our physical therapists will perform initial evaluation of pt's status u landry admission and devise an individualized program for Patient precaution education Edema - to improve, our physical therapists will perform initial evaluation of pt's status upon admi ssion and devise an individualized program for Elevation Training, and Lymphedema Therapy Poor balance - to improve, our physical therapists will perform initial evaluation of pt's status upo n admission and devise an individualized program for Balance Training Poor endurance - to improve, our physical therapists will perform initial evaluation of pt's status u landry admission and devise an individualized program for Endurance Training Weakness - to improve, our physical therapists will perform initial evaluation of pt's status upon ad mission and devise an individualized program for Aquatic Therapy, Neuromuscular Reeducation, and Stre ngthening Achieving independence - to improve, our physical therapists will perform initial evaluation of pt's status upon admission and devise an individualized program for Community Reintegration Activities - Occupational Therapy Cognitive deficits - to improve, our occupation therapists will perform initial evaluation of pt's st atus upon admission and devise an individualized program for Cognition - orientation Need for childbirth and infant care teacher - to improve, our occupation therapists will perform initial evaluation of pt's s tatus upon admission and devise an individualized program for Caregiver Training Weakness - to improve, our occupation therapists will perform initial evaluation of pt's status upon admission and devise an individualized program for Aquatic Therapy, Balance, Endurance, UE ROM, and U E strengthening MEDICAL PLAN: - Diet Type Start Regular - Diet - Liquid Texture Start Regular - Tube Feed Start N/A - Bladder care per protocol - Weight Bearing Precaution WBAT right LE WBAT left LE - Skin care per protocol - Other See attached MAR (Medication Administration Record) - Diet - Solid Texture Regular - Shower shower DISCHARGE PLAN: - Estimated Length of Stay (days) 17. - Consensus on plan Discharge plan has been discussed with primary caregiver. Patient/Family is in agreement with the harman n. Primary caregiver is in agreement with the plan. - Patient/Family Goals Return home independently. - Planned Living Setting Upon Discharge Home, to live alone. Transitional Living. Primary caregiver: Pt self. SIGNATURE PANEL: (CDT)
--- NOTE | 2020-01-09 19:31 | PAPE ---
POST ADMISSION PHYSICIAN EVALUATION PATIENT: [facility] MR# [id number] REFERRING DOCTOR MERARY STEPHENSON MD EVALUATION DATE AND TIME 01/09/2020 19:29 (CDT) NAME MARV PALUMBO DATE OF 1945 AGE 74 PHONE SSN# [id number] GENDER female EVALUATING PHYSICIAN Dr. Donis Pride M.D. ADMISSION DIAGNOSIS: Right [employer] CVA ONSET DATE 01/04/2020 POST-ADMISSION FUNCTIONAL/MEDICAL STATUS: - Bladder Same accident frequency: Ind - No accidents in the past 7 days - Bowel Same accident frequency: Ind - No accidents in the past 7 days - Walking Same score based on distance walked: 0(N/A) Same score based on distance walked: 1(<=50ft) - Wheelchair Same score based on distance traveled: 0(N/A) STATUS CHANGE EVALUATION: No change in Functional or Medical Status is identified compared with Pre-Admission screening. PATIENT NEEDS CLOSE MEDICAL SUPERVISION BY A REHABILITATION PHYSICIAN FOR: Coordination of Treatment Team PATIENT REQUIRES 24X7 REHAB NURSING FOR MEDICAL AND FUNCTIONAL MGT. OF THE FOLLOWING DEFICITS: Disease Management Medication Management Patient/Family Education Providing Safe Environment PATIENT REQUIRES INTENSIVE, COORDINATED INTERDISCIPLINARY APPROACH TO REHAB: Arranging Home Equipment/Services Discharge Planning Family Intervention/Training Shot Grinder Operator/Case Management LIST OF IDENTIFIED AND POTENTIAL PROBLEMS: Alteration in leisure activities Bladder, Incontinence Bowel, Incontinence Infection, Actual or Potential Mobility Impaired Pain, Alteration in Comfort Self Care Deficit Skin Integrity, Actual or Potential Urinary Tract Infection (UTI), Actual or Potential PATIENT COULD BE AT RISK FOR COMPLICATIONS FROM ADVERSE MEDICAL CONDITIONS DUE TO HIS/HER COMORBIDITI ES AND THE RIGORS OF THE INTENSIVE REHABILLITATION PROGRAM. METHODS OR INTERVENTIONS TO AVOID COMPLIC ATIONS INCLUDE: - Bleeding Stroke patients assessed for lethargy or change in status. - Infection Clinical staff to assess and manage the signs and symptoms of infection including fever, redness, war mth, etc. - Urinary Tract Infection - Aspiration Clinical staff will assess and manage coughing, drooling, congestion. - Falls Patient will be evaluated for Fall Precautions and will be placed on Fall Precautions as indicated pe r protocol. - Skin Breakdown Nursing will assess skin daily using assessment tool and will place on Skin Breakdown Precautions as indicated per protocol. - Pain Clinical staff may employ non-medication methods such as massage, distraction, decrease stimulus, etc . as needed. Clinical staff will assess patient's pain level every shift per protocol to assess and e nsure pain management effectiveness. Medications will be given and the pain level re-assessed. PRELIMINARY PLAN OF CARE: - Physical Therapy Patient needs Physical Therapy for a daily minimum of 1.5 hours at least 5 out of 7 days, to improve: Mobility, Strengthening, Transfers, Stretching, ROM, Endurance, Ability to manage stairs, Gait, and Balance. - Speech Therapy Patient needs Speech Therapy for a daily minimum of 0.5 hours at least 5 out of 7 days, to improve: S wallowing, Cognition, Language Skills, and Compensatory Strategies. - Rehabilitation Nursing Patient requires 24x7 Rehabilitation Nursing for: Pain Issues, Identifying and preventing risk factor s, Monitoring and reporting current medical conditions, Assisting with ambulation and transfer, Caleb ting with all ADL-s, Teaching patients about disease process and medications, Family teaching, Provid ing safe environment, Bowel and Bladder Issues, Skin Integrity, and Medication Management. Patient needs Shot Grinder Operator and/or Case Management for: Discharge Planning, Arranging Home Equipmen t or Services, and Family Interventions. - Dietary and Nutrition Services Patient needs Dietary and Nutrition Services for: Adequate Nutrition, Nutritional Supplements, and Nu tritional Education. - Occupational Therapy Patient needs Occupational Therapy for a daily minimum of 1.5 hours at least 5 out of 7 days, to impr ove Activities of Daily Living, including: Eating, Grooming, Bathing, Dressing, Toileting, Toilet Tra nsfers, Community Reintegration, Higher functional activities, Adaptive Equipment, Splinting, Househo ld Tasks, and Other activities as determined. QI SCORES: - Self-Care A. Eating 03-Partial/moderate assistance B. Oral hygiene 03-Partial/moderate assistance C. Toileting hygiene 03-Partial/moderate assistance E. Shower/bathe self 03-Partial/moderate assistance F. Upper body dressing 03-Partial/moderate assistance G. Lower body dressing 03-Partial/moderate assistance H. Putting on/taking off footwear 88-Not attempted due to medical condition or safety concerns - Mobility A. Roll left and right 04-Supervision or touching assistance B. Sit to lying 03-Partial/moderate assistance C. Lying to sitting on side of bed 03-Partial/moderate assistance D. Sit to stand 03-Partial/moderate assistance E. Chair/[id number]-qn-[id number] transfer 03-Partial/moderate assistance F. Toilet transfer 03-Partial/moderate assistance G. Car transfer 88-Not attempted due to medical condition or safety concerns I. Walk 10 feet 88-Not attempted due to medical condition or safety concerns J. Walk 50 feet with two turns 88-Not attempted due to medical condition or safety concerns K. Walk 150 feet 88-Not attempted due to medical condition or safety concerns L. Walking 10 feet on uneven surfaces 88-Not attempted due to medical condition or safety concerns M. 1 step (curb) 88-Not attempted due to medical condition or safety concerns N. 4 steps 88-Not attempted due to medical condition or safety concerns O. 12 steps 88-Not attempted due to medical condition or safety concerns P. Picking up object 88-Not attempted due to medical condition or safety concerns R. Wheel 50 feet with two turns 88-Not attempted due to medical condition or safety concerns S. Wheel 150 feet 88-Not attempted due to medical condition or safety concerns - Bladder and Bowel Bladder continence Bowel continence - Endurance Fair - Balance Fair - Safety Awareness Fair POTENTIAL FUNCTIONAL GOALS FOR PATIENT TO ACHIEVE BY DISCHARGE: - Safety Precaution Patient will remain free from falls or injury at time of discharge. - Bed Mobility Patient will perform bed mobility at 4-Sho level of assistance. - Transfers Patient will complete transfers from bed to chair at 4-Sho level of assistance. - Mobility Patient will ambulate 150 ft with 4-Sho level of assistance with RW. PATIENT REHAB POTENTIAL Timothy PALUMBO is able and expected to receive 3 hours of individualized therapy daily on at least 5 of ever y 7 days Timothy PALUMBO's prognosis for significant practical improvement within a reasonable period of time appears Good Expected level of measurable improvement will be of a practical value to Timothy PALUMBO's functional capacit y or adaptations to impairments Has a viable Discharge Plan Medically appropriate; condition is sufficiently stable to participate in intensive rehab program DISCHARGE PLAN: - Estimated Length of Stay (days) 17. - Consensus on plan Discharge plan has been discussed with primary caregiver. Patient/Family is in agreement with the harman n. Primary caregiver is in agreement with the plan. - Patient/Family Goals Return home independently. - Planned Living Setting Upon Discharge Home, to live alone. Transitional Living. Primary caregiver: Pt self. CONCLUSION ON REHABILITATION NECESSITY: I have evaluated patient's pre-admission functional status and, comparing it to the patient's post-ad mission functional status now, I conclude that the pre-admission assessment was accurate. Patient's c ondition on admission supports the medical necessity of admission to [facility]. It is safe to proceed with patient's therapy program. SIGNATURE PANEL: (CDT)
--- OUTSIDE RECORDS SUMMARY | 2020-01-09 20:10 | XMS REPORT | Clinical Summary ---
:1945 Author Organization [facility] Address [address] [place] [address] Care Team Providers Name Role Phone Lee Primary Care Provider Allergies Active Allergy Reactions Severity Noted Date Comments Aspirin Tinitus 01/04/2020 Nsaids (Non-Steroidal Anti-Inflammatory Drug) Swelling 01/04/2020 Shrimp 01/05/2020 [id number] Antimigraine Agents 2019 Medications Medication Sig Dispensed Refills Start End Status Date Date sertraline (ZOLOFT) Take 200 mg by 0 Active 100 MG tablet mouth daily. metFORMIN Take 500 mg by 0 Activ e (GLUCOPHAGE) 500 MG mouth 2 (two) tablet times daily with breakfast and dinner. meclizine (ANTIVERT) Take 25 mg by 0 Active 25 MG tablet mouth 2 (two) times daily as needed for Dizziness or Nausea. losartan (COZAAR) Take 1 tablet (100 90 tablet 0 01/10/20 Active 100 MG tablet mg total) by mouth 20 daily. atorvastatin Take 1 tablet (80 90 tablet 0 01/09/20 Active (LIPITOR) 80 MG mg total) by mouth 20 tablet nightly. carvediloL (COREG) Take 1 tablet (25 180 tablet 0 01/09/20 Active 25 MG tablet mg total) by mouth 20 2 (two) times daily. clopidogreL (PLAVIX) Take 1 tablet (75 14 tablet 0 01/10/20 Active 75 mg tablet mg total) by mouth 20 daily Continue taking this medication until your INR is therapeutic (2 - 3). STOP taking this medication once your INR is 2 - 3.. cyanocobalamin, Take 1 tablet 90 tablet 0 01/09/20 Active vitamin B-12, 1000 (1,000 mcg total) 20 MCG tablet by mouth daily. famotidine (PEPCID) Take 1 tablet (20 90 tablet 0 01/10/20 Active 20 MG tablet mg total) by mouth 20 daily. insulin lispro Inject 0-10 Units subcutaneo usly 3 (three) times daily before meals If BS = 150 or lower, give No Insulin. 5 mL 0 Active (HUMALOG U-100 If BS = 151-200, give 2 units. 2 0 INSULIN) 100 unit/mL If BS = 201-250, give 4 units. Crtg If BS = 251-300, give 6 units. If BS = 301-350, give 8 units. If BS = 351-400, give 10 units.. acetaminophen 325 mg Take 650 mg by 30 capsule 0 01/09/20 Active Cap mouth every 6 20 (six) hours as needed (for headache). diphenhydrAMINE Inject 0.25 mLs 10 mL 0 01/09/20 Active (BENADRYL) 50 mg/mL (12.5 mg total) 20 injection intravenously every 6 (six) hours as needed (headache) Can be given every 6 hours as needed as part of headache cocktail for severe headache (Tylenol, Compazine, and Benadryl).. hydrALAZINE Take 1 tablet (10 30 tablet 0 01/09/20 Active (APRESOLINE) 10 MG mg total) by mouth 20 02 1 tablet every 8 (eight) hours as needed (If SBP > 180 or DBP > 100.). prochlorperazine Inject 2 mLs (10 2 mL 0 01/09/20 Active (COMPAZINE) 10 mg/2 mg total) 20 mL (5 mg/mL) intravenously injection every 6 (six) hours as needed (for headache) Can be given every 6 hours as needed as part of headache cocktail for severe headache (Tylenol, Compazine, and Benadryl).. propranoloL Take 50 mg by 0 Disc ontinued (INDERAL) 10 MG mouth every 020 tablet morning. zolpidem (AMBIEN) 10 Take 10 mg by 0 01/08 Discontinued mg tablet mouth every night 020 as needed for Insomnia. simvastatin (ZOCOR) Take 40 mg by 0 Discontinued 40 MG tablet mouth nightly. 020 losartan (COZAAR) 50 Take 50 mg by 0 01/082 Discontinued MG tablet mouth daily. 020 butorphanol (STADOL) 1 spray by Nasal 0 Discontinued 10 mg/mL nasal route every 4 020 sprayIndications: a (four) hours as migraine headache needed for Pain. butalbital-acetamino Take 1 tablet by 0 Discontinued phen-caffeine mouth every 6 020 (FIORICET, ESGIC) (six) hours as 50-325-40 mg per needed for tablet Headaches (Severe Headaches). atenoloL (TENORMIN) Take 100 mg by 0 01/08 Discontinued 100 MG tablet mouth daily. 020 rivaroxaban Take 1 tablet (20 30 tablet 1 01/06/20 Discontinued (XARELTO) 20 mg Tab mg total) by mouth 20 0 20 tablet daily with dinner. Active Problems Problem Noted Date Atrial fibrillation with rapid ventricular response Mural thrombus of cardiac apex 04/18/2017 Pulmonary embolism 04/18/2017 Migraines Hyperlipemia Hypertension Arterial ischemic stroke, [employer], right, acute Diabetes mellitus, type II Resolved Problems Problem Noted Date Resolved Date Stroke due to embolism of right posterior cerebral artery 01/05/2020 Hypertension 01/05/2020 Encounters Date Type Specialty Care Team Description 01/04/2020 - Hospital Encounter General Internal Civunigudarielaa Sedrick e due to embolism of right posterior cerebral artery (HCC) (Primary Dx); 01/09/2020 Medicine MD Alexei Arterial ischemic stroke, [employer], right, [place] (HCC); Alpesh Pacheco In, Atrial fibrill ation with rapid ventricular response (HCC); Type 2 diabetes mellitus without complic ation, without long-term current use of insulin (HCC); Kelsey Chacko Other migraine without status migrainosus, not intractable; MD Samantha Secondary hypertension; Amy Domínguez Impaired mobil ity and ADLs; MD Alanna Strain of left shoulder, initial encounter 01/04/2020 Travel after 01/08/2019 Family History Medical History Relation Name Comments Drug abuse Daughter Brain cancer Sister Relation Name Status Comments Daughter Sister Social History Tobacco Use Types Packs/Day Years Used Date Former Smoker Smokeless Tobacco: Never Used Sex Assigned at Date Recorded Not on file Job Start Date Occupation Industry Not on file Not on file Not on file Travel History Travel Start Travel End No recent travel history available. Last Filed Vital Signs Vital Sign Reading Time Taken Blood Pressure 141/80 01/09/2020 3:22 PM CDT Pulse 91 01/09/2020 3:22 PM CDT Temperature 36.4 C (97.5 F) 01/09/2020 3:22 PM CDT Respiratory Rate 18 01/09/2020 3:22 PM CDT Oxygen Saturation 94% 01/09/2020 3:22 PM CDT Inhaled Oxygen Concentration - - Weight 71.7 kg (158 lb) 01/06/2020 10:00 AM CDT Height 157.5 cm (5' 2") 01/06/2020 10:00 AM CDT Body Mass Index 28.9 01/06/2020 10:00 AM CDT Plan of Treatment Not on file Procedures Procedure Name Priority Date/Time Associated Comments Diagnosis POCT-GLUCOSE METER Routine 01/09/2020 9:01 Resul ts for this AM CDT procedure are i n the results section. BASIC METABOLIC PANEL Routine 01/09/2020 6:43 Re sults for this (7) AM CDT procedure are i n the results section. POCT-GLUCOSE METER Routine 01/08/2020 8:53 Resul ts for this PM CDT procedure are i n the results section. POCT-GLUCOSE METER Routine 01/08/2020 12:34 Resul ts for this PM CDT procedure are i n the results section. MAGNESIUM Routine 01/08/2020 5:56 Results for this AM CDT procedure are i n the results section. BASIC METABOLIC PANEL Routine 01/08/2020 5:56 Re sults for this (7) AM CDT procedure are i n the results section. C. DIFFICILE GDH Routine 01/06/2020 9:42 Results for this TOXIN AM CDT procedure are i n the results section. MRA NECK WITHOUT IV Routine 01/05/2020 9:02 Resu lts for this CONTRAST PM CDT procedure are i n the results section. MRA HEAD WITHOUT IV Routine 01/05/2020 9:02 Resu lts for this CONTRAST PM CDT procedure are i n the results section. MR BRAIN WITHOUT IV Routine 01/05/2020 9:02 Resu lts for this CONTRAST PM CDT procedure are i n the results section. ECG 12-LEAD Routine 01/05/2020 9:15 Results for this AM CDT procedure are i n the results section. ECHO W CONTRAST & Routine 01/05/2020 8:06 Result s for this DOPPLER AM CDT procedure are i n the results section. CT BRAIN WITHOUT IV Routine 01/05/2020 7:15 Resu lts for this CONTRAST AM CDT procedure are i n the results section. SARS-COV2/RT-PCR Routine 01/05/2020 5:17 Results for this ([facility]) AM CDT procedure are in the results section. CBC W/PLT COUNT & Routine 01/05/2020 5:13 Result s for this AUTO DIFFERENTIAL AM CDT procedure are in the results section. APTT Routine 01/05/2020 5:13 Results for this AM CDT procedure are i n the results section. CBC W/PLT COUNT & Routine 01/05/2020 5:13 Result s for this AUTO DIFFERENTIAL AM CDT procedure are in the results section. BASIC METABOLIC PANEL Routine 01/05/2020 5:13 Re sults for this (7) AM CDT procedure are i n the results section. LIPID PANEL Routine 01/05/2020 5:13 Results for this AM CDT procedure are i n the results section. ECHO CONTRAST AGENT Routine 01/04/2020 11:41 PM CDT POCT-GLUCOSE METER Routine 01/04/2020 8:26 Resul ts for this PM CDT procedure are i n the results section. CBC W/PLT COUNT & Routine 01/04/2020 8:17 Result s for this AUTO DIFFERENTIAL PM CDT procedure are in the results section. VITAMIN B12 AND Routine 01/04/2020 8:17 Results for this FOLATE PM CDT procedure are i n the results section. HEMOGLOBIN A1C Routine 01/04/2020 8:17 Results f or this PM CDT procedure are i n the results section. TSH/FREE T4 IF Routine 01/04/2020 8:17 Results f or this INDICATED PM CDT procedure are i n the results section. PHOSPHORUS Routine 01/04/2020 8:17 Results for this PM CDT procedure are i n the results section. MAGNESIUM Routine 01/04/2020 8:17 Results for this PM CDT procedure are i n the results section. B-TYPE NATRIURETIC Routine 01/04/2020 8:17 Resul ts for this FACTOR (BNP) PM CDT procedure are i n the results section. TROPONIN I Routine 01/04/2020 8:17 Results for this PM CDT procedure are i n the results section. HEPATIC FUNCTION Routine 01/04/2020 8:17 Results for this PANEL PM CDT procedure are i n the results section. CBC W/PLT COUNT & Routine 01/04/2020 8:17 Result s for this AUTO DIFFERENTIAL PM CDT procedure are in the results section. PROTHROMBIN TIME/INR Routine 01/04/2020 8:17 Res ults for this PM CDT procedure are i n the results section. BASIC METABOLIC PANEL Routine 01/04/2020 8:17 Re sults for this (7) PM CDT procedure are i n the results section. XR CHEST 1 VIEW Routine 01/04/2020 6:35 Results for this PORTABLE/BEDSIDE PM CDT procedure a re in the results section. after 01/08/2019 Results POC-Glucose meter (01/09/2020 9:01 AM CDT)Only the most recent of4 results within the time period is included. POC-Glucose Meter 185 (H)Comment: : TESTED 70 - 110 mg/dL [facility] AT [address], [address]: Scarrer/Microfiche Duplicator ID = [id number] for DARWIN BABB Specimen Blood Performing Organization Address City/State/[facility] Phone Number [address] [address] CENTER Basic Metabolic Panel (01/09/2020 6:43 AM CDT)Only the most recent of4 results within the time period is included. Sodium 135 (L) 136 - 145 meq/L [facility] Potassium 4.1Comment: Specimen slightly 3.5 - 5.1 meq/L I [facility] Chloride 97 (L) 98 - 107 meq/L [facility] CO2 28 22 - 29 meq/L [facility] BUN 24 (H) 7 - 21 mg/dL [facility] Creatinine 0.85Comment: Specimen 0.57 - 1.25 mg/dL [facility] slightly hemolyzed [facility] Glucose 216 (H) 70 - 105 mg/dL [facility] Calcium 9.0 8.4 - 10.2 mg/dL [facility] EGFR 65Comment: ESTIMATED GFR IS mL/min/1.73 sq m [facility] NOT ACCURATE CREATININE ME DICAL [place] CLEARANCE IN PREDICTING GLOMERULAR FILTRATION RATE. ESTIMATED GFR IS NOT APPLICABLE FOR DIALYSIS PATIENTS. Specimen Blood Narrative Performed At Scarrer ID - CLAUDIA C [facility] Performing Organization Address [facility] Phone Number [address] [address] CENTER Magnesium (01/08/2020 5:56 AM CDT)Only the most recent of2 resultswithin the time period is included. Magnesium 2.1Comment: Specimen slightly 1.6 - 2.6 mg/dL I [facility] hemolyzed [facility] Specimen Blood Narrative Performed At Scarrer ID - NTP [facility] Performing Organization Address [facility] Phone Number [address] [address] CENTER Clostridium difficile GDH Toxin (01/06/2020 9:42 AM CDT) C. Difficle Toxin Negative Negative [facility] C. Difficile GDH Antigen NegativeComment: No Negative [facility] indication of Clostridium [facility] difficile infection and no colonization. Discontinue enteric isolation and therapy. Specimen Stool Narrative Performed At Testing performed by [employer] [facility] Assay.For GDH, published sensitivity of the assay is 98.7% compared to cytotoxicity testing.For Toxin AB, published sensitivity is 87.8% and specificity 99.4% compared to cytotoxicity testing. Verification of kit performance was done by the [facility] Microbiology Lab prior to clinical use. Performing Organization Address [facility] Phone Number [address] [address] [place] MR brain without IV contrast (01/05/2020 9:02 PM CDT) Specimen Narrative Performed At FINAL REPORT GE RIS EXAM: MR, MRA, NECK, WITHOUT IV CONTRAST , MR, BRAIN, WITHOUT CONTRAST, MR, MRA, BRAIN, WITHOUT CONTRA ST CLINICAL INDICATION: Stroke. TECHNIQUE: Sagittal and coronal T1-w and axial T2-w, FLAIR, GRE, and diffusion-w images of the brain with ADC maps. 2D [id number] MRA of the neck. 3D [id number] MRA of th e head. Source data and maximum intensity projections (MIPs) wer e reviewed. COMPARISON: 01/05/2020 CT. FINDINGS: MRI BRAIN: Parenchyma: Acute infarction of the righ t [employer] territory involving the right occipital lobe, right aspect of th e splenium, posterior right thalamus, and medial right temporal lobe . Petechial hemorrhage present within the right thalamus and an teriorly within the medial right temporal lobe. No significant mass effect. No shift of midline structures. Scattered foci of T2 hyperin tensity are present in the cerebral white and jluis matter that are nonspecific but compatible with mild chronic microvascular ischemic changes. Extra-axial Collection:None Ventricular System: Normal Major Intracranial Flow Voids: Right [employer] flow void not well seen. Osseous Structures:Expected marrow s ignal. Included Orbits: Prior bilateral lens sim rgery. Paranasal Sinuses:Predominantly alesha r Tympanomastoid Cavities:Normal MRA HEAD: Anterior Circulation: Right intracranial internal carotid riddhi ry (ICA): Loss of flow signal at the supraclinoid segment favored to b e artifactual from noncontrast technique. Right anterior cerebral artery (PAM): Hy poplastic A1 segment with the remainder of the right PAM primarily sup plied by the anterior communicating artery. Right middle cerebral artery (MCA): Norm al Left intracranial internal carotid arter y (ICA): Loss of flow signal at the supraclinoid segment favored to b e artifactual from noncontrast technique. There is a small posteriorly oriented outpouching at the carotid terminus at t he expected origin of the left posterior communicating artery that is 0.3 cm diameter (image 69). Left anterior cerebral artery (PAM): Nor mal Left middle cerebral artery (MCA): Sujatha l Anterior communicating artery (AComm): P resent Posterior communicating arteries (PComm) : Not well-visualized bilaterally. Posterior Circulation: Right posterior cerebral artery ([employer]): T here is abrupt vessel cut off of the right [employer] at the proximal P3 segm ent within the quadrigeminal cistern (image 92). Left posterior cerebral artery ([employer]): No rmal Right vertebral artery (VA): Normal Left vertebral artery (VA): Normal Basilar artery (BA): Normal Other: Normal MRA NECK: Right carotid arterial system: Normal. Left carotid arterial system: Normal. Right vertebral artery: Normal Left vertebral artery: Normal Where applicable, evaluation of internal carotid artery(ICA) stenosis was performed using NASCET-like criteria, where the site of greatest stenosis is compared to the mitali meter of the ICA distal to the stenosis at a point where the ICA wa lls become parallel. IMPRESSION: 1. Acute infarction of the right [employer] ter ritory with petechial hemorrhage similar when correlated to re cent CT. 2. Abrupt vessel cut off compatible with occlusion of the right [employer] P3 segment. 3. Small 0.3 cm outpouching at the left carotid terminus compatible with either a left posterior commuting a rtery infundibulum versus tiny aneurysm. Consider follow-up with n onemergent CTA for further characterization. Signed: Meredith Felder MD Report Verified Date/Time:01/05/2020 23:07:11 Procedure Note Interface, External Ris In - 01/05/2020 11:10 PM CDT FINAL REPORT EXAM: MR, MRA, NECK, WITHOUT IV CONTRAST , MR, BRAIN, WITHOUT CONTRAST, MR, MRA, BRAIN, WITHOUT CONTRA ST CLINICAL INDICATION: Stroke. TECHNIQUE: Sagittal and coronal T1-w and axial T2-w, FLAIR, GRE, and diffusion-w images of the brain with ADC maps. 2D jxvb-ts-afyooq MRA of the neck. 3D kabq-pj-limoov MRA of th e head. Source data and maximum intensity projections (MIPs) wer e reviewed. COMPARISON: 01/05/2020 CT. FINDINGS: MRI BRAIN: Parenchyma: Acute infarction of the righ t [employer] territory involving the right occipital lobe, right aspect of th e splenium, posterior right thalamus, and medial right temporal lobe . Petechial hemorrhage present within the right thalamus and an teriorly within the medial right temporal lobe. No significant mass effect. No shift of midline structures. Scattered foci of T2 hyperin tensity are present in the cerebral white and jluis matter that are nonspecific but compatible with mild chronic microvascular ischemic changes. Extra-axial Collection: None Ventricular System: Normal Major Intracranial Flow Voids: Right [employer] flow void not well seen. Osseous Structures: Expected marrow sig nal. Included Orbits: Prior bilateral lens sim rgery. Paranasal Sinuses: Predominantly clear Tympanomastoid Cavities: Normal MRA HEAD: Anterior Circulation: Right intracranial internal carotid riddhi ry (ICA): Loss of flow signal at the supraclinoid segment favored to b e artifactual from noncontrast technique. Right anterior cerebral artery (PAM): Hy poplastic A1 segment with the remainder of the right PAM primarily sup plied by the anterior communicating artery. Right middle cerebral artery (MCA): Norm al Left intracranial internal carotid arter y (ICA): Loss of flow signal at the supraclinoid segment favored to b e artifactual from noncontrast technique. There is a small posteriorly oriented outpouching at the carotid terminus at t he expected origin of the left posterior communicating artery that is 0.3 cm diameter (image 69). Left anterior cerebral artery (PAM): Nor mal Left middle cerebral artery (MCA): Sujatha l Anterior communicating artery (AComm): P resent Posterior communicating arteries (PComm) : Not well-visualized bilaterally. Posterior Circulation: Right posterior cerebral artery ([employer]): T here is abrupt vessel cut off of the right [employer] at the proximal P3 segm ent within the quadrigeminal cistern (image 92). Left posterior cerebral artery ([employer]): No rmal Right vertebral artery (VA): Normal Left vertebral artery (VA): Normal Basilar artery (BA): Normal Other: Normal MRA NECK: Right carotid arterial system: Normal. Left carotid arterial system: Normal. Right vertebral artery: Normal Left vertebral artery: Normal Where applicable, evaluation of internal carotid artery (ICA) stenosis was performed using NASCET-like criteria, where the site of greatest stenosis is compared to the mitali meter of the ICA distal to the stenosis at a point where the ICA wa lls become parallel. IMPRESSION: 1. Acute infarction of the right [employer] ter ritory with petechial hemorrhage similar when correlated to re cent CT. 2. Abrupt vessel cut off compatible with occlusion of the right [employer] P3 segment. 3. Small 0.3 cm outpouching at the left carotid terminus compatible with either a left posterior commuting a rtery infundibulum versus tiny aneurysm. Consider follow-up with n onemergent CTA for further characterization. Signed: Meredith Felder MD Report Verified Date/Time: 01/05/2020 2 3:07:11 Performing Organization Address City/State/Zipcode Phone Number [facility] MRA neck without IV contrast (01/05/2020 9:02 PM CDT) Specimen Narrative Performed At FINAL REPORT Fin Quiver CHASIDY EXAM: MR, MRA, NECK, WITHOUT IV CONTRAST , MR, BRAIN, WITHOUT CONTRAST, MR, MRA, BRAIN, WITHOUT CONTRA ST CLINICAL INDICATION: Stroke. TECHNIQUE: Sagittal and coronal T1-w and axial T2-w, FLAIR, GRE, and diffusion-w images of the brain with ADC maps. 2D [id number]-np-ldhsgq MRA of the neck. 3D [id number]-rg-hsygja MRA of th e head. Source data and maximum intensity projections (MIPs) wer e reviewed. COMPARISON: 01/05/2020 CT. FINDINGS: MRI BRAIN: Parenchyma: Acute infarction of the righ t [employer] territory involving the right occipital lobe, right aspect of th e splenium, posterior right thalamus, and medial right temporal lobe . Petechial hemorrhage present within the right thalamus and an teriorly within the medial right temporal lobe. No significant mass effect. No shift of midline structures. Scattered foci of T2 hyperin tensity are present in the cerebral white and jluis matter that are nonspecific but compatible with mild chronic microvascular ischemic changes. Extra-axial Collection:None Ventricular System: Normal Major Intracranial Flow Voids: Right [employer] flow void not well seen. Osseous Structures:Expected marrow s ignal. Included Orbits: Prior bilateral lens sim rgery. Paranasal Sinuses:Predominantly alesha r Tympanomastoid Cavities:Normal MRA HEAD: Anterior Circulation: Right intracranial internal carotid riddhi ry (ICA): Loss of flow signal at the supraclinoid segment favored to b e artifactual from noncontrast technique. Right anterior cerebral artery (PAM): Hy poplastic A1 segment with the remainder of the right PAM primarily sup plied by the anterior communicating artery. Right middle cerebral artery (MCA): Norm al Left intracranial internal carotid arter y (ICA): Loss of flow signal at the supraclinoid segment favored to b e artifactual from noncontrast technique. There is a small posteriorly oriented outpouching at the carotid terminus at t he expected origin of the left posterior communicating artery that is 0.3 cm diameter (image 69). Left anterior cerebral artery (PAM): Nor mal Left middle cerebral artery (MCA): Sujatha l Anterior communicating artery (AComm): P resent Posterior communicating arteries (PComm) : Not well-visualized bilaterally. Posterior Circulation: Right posterior cerebral artery ([employer]): T here is abrupt vessel cut off of the right [employer] at the proximal P3 segm ent within the quadrigeminal cistern (image 92). Left posterior cerebral artery ([employer]): No rmal Right vertebral artery (VA): Normal Left vertebral artery (VA): Normal Basilar artery (BA): Normal Other: Normal MRA NECK: Right carotid arterial system: Normal. Left carotid arterial system: Normal. Right vertebral artery: Normal Left vertebral artery: Normal Where applicable, evaluation of internal carotid artery(ICA) stenosis was performed using NASCET-like criteria, where the site of greatest stenosis is compared to the mitali meter of the ICA distal to the stenosis at a point where the ICA wa lls become parallel. IMPRESSION: 1. Acute infarction of the right [employer] ter ritory with petechial hemorrhage similar when correlated to re cent CT. 2. Abrupt vessel cut off compatible with occlusion of the right [employer] P3 segment. 3. Small 0.3 cm outpouching at the left carotid terminus compatible with either a left posterior commuting a rtery infundibulum versus tiny aneurysm. Consider follow-up with n onemergent CTA for further characterization. Signed: Meredith Felder MD Report Verified Date/Time:01/05/2020 23:07:11 Procedure Note Interface, External Ris In - 01/05/2020 11:10 PM CDT FINAL REPORT EXAM: MR, MRA, NECK, WITHOUT IV CONTRAST , MR, BRAIN, WITHOUT CONTRAST, MR, MRA, BRAIN, WITHOUT CONTRA ST CLINICAL INDICATION: Stroke. TECHNIQUE: Sagittal and coronal T1-w and axial T2-w, FLAIR, GRE, and diffusion-w images of the brain with ADC maps. 2D ijmq-pt-vwzjzt MRA of the neck. 3D qeau-ko-vfzvgu MRA of th e head. Source data and maximum intensity projections (MIPs) wer e reviewed. COMPARISON: 01/05/2020 CT. FINDINGS: MRI BRAIN: Parenchyma: Acute infarction of the righ t [employer] territory involving the right occipital lobe, right aspect of th e splenium, posterior right thalamus, and medial right temporal lobe . Petechial hemorrhage present within the right thalamus and an teriorly within the medial right temporal lobe. No significant mass effect. No shift of midline structures. Scattered foci of T2 hyperin tensity are present in the cerebral white and jluis matter that are nonspecific but compatible with mild chronic microvascular ischemic changes. Extra-axial Collection: None Ventricular System: Normal Major Intracranial Flow Voids: Right [employer] flow void not well seen. Osseous Structures: Expected marrow sig nal. Included Orbits: Prior bilateral lens sim rgery. Paranasal Sinuses: Predominantly clear Tympanomastoid Cavities: Normal MRA HEAD: Anterior Circulation: Right intracranial internal carotid riddhi ry (ICA): Loss of flow signal at the supraclinoid segment favored to b e artifactual from noncontrast technique. Right anterior cerebral artery (PAM): Hy poplastic A1 segment with the remainder of the right PAM primarily sup plied by the anterior communicating artery. Right middle cerebral artery (MCA): Norm al Left intracranial internal carotid arter y (ICA): Loss of flow signal at the supraclinoid segment favored to b e artifactual from noncontrast technique. There is a small posteriorly oriented outpouching at the carotid terminus at t he expected origin of the left posterior communicating artery that is 0.3 cm diameter (image 69). Left anterior cerebral artery (PAM): Nor mal Left middle cerebral artery (MCA): Sujatha l Anterior communicating artery (AComm): P resent Posterior communicating arteries (PComm) : Not well-visualized bilaterally. Posterior Circulation: Right posterior cerebral artery ([employer]): T here is abrupt vessel cut off of the right [employer] at the proximal P3 segm ent within the quadrigeminal cistern (image 92). Left posterior cerebral artery ([employer]): No rmal Right vertebral artery (VA): Normal Left vertebral artery (VA): Normal Basilar artery (BA): Normal Other: Normal MRA NECK: Right carotid arterial system: Normal. Left carotid arterial system: Normal. Right vertebral artery: Normal Left vertebral artery: Normal Where applicable, evaluation of internal carotid artery (ICA) stenosis was performed using NASCET-like criteria, where the site of greatest stenosis is compared to the mitali meter of the ICA distal to the stenosis at a point where the ICA wa lls become parallel. IMPRESSION: 1. Acute infarction of the right [employer] ter ritory with petechial hemorrhage similar when correlated to re cent CT. 2. Abrupt vessel cut off compatible with occlusion of the right [employer] P3 segment. 3. Small 0.3 cm outpouching at the left carotid terminus compatible with either a left posterior commuting a rtery infundibulum versus tiny aneurysm. Consider follow-up with n onemergent CTA for further characterization. Signed: Meredith Felder MD Report Verified Date/Time: 01/05/2020 2 3:07:11 Performing Organization Address City/State/Zipcode Phone Number [facility] MRA head without IV contrast (01/05/2020 9:02 PM CDT) Specimen Narrative Performed At FINAL REPORT [facility] EXAM: MR, MRA, NECK, WITHOUT IV CONTRAST , MR, BRAIN, WITHOUT CONTRAST, MR, MRA, BRAIN, WITHOUT CONTRA ST CLINICAL INDICATION: Stroke. TECHNIQUE: Sagittal and coronal T1-w and axial T2-w, FLAIR, GRE, and diffusion-w images of the brain with ADC maps. 2D wfqz-no-vgtzox MRA of the neck. 3D gwec-sl-kxnrmp MRA of th e head. Source data and maximum intensity projections (MIPs) wer e reviewed. COMPARISON: 01/05/2020 CT. FINDINGS: MRI BRAIN: Parenchyma: Acute infarction of the righ t [employer] territory involving the right occipital lobe, right aspect of th e splenium, posterior right thalamus, and medial right temporal lobe . Petechial hemorrhage present within the right thalamus and an teriorly within the medial right temporal lobe. No significant mass effect. No shift of midline structures. Scattered foci of T2 hyperin tensity are present in the cerebral white and jluis matter that are nonspecific but compatible with mild chronic microvascular ischemic changes. Extra-axial Collection:None Ventricular System: Normal Major Intracranial Flow Voids: Right [employer] flow void not well seen. Osseous Structures:Expected marrow s ignal. Included Orbits: Prior bilateral lens sim rgery. Paranasal Sinuses:Predominantly alesha r Tympanomastoid Cavities:Normal MRA HEAD: Anterior Circulation: Right intracranial internal carotid riddhi ry (ICA): Loss of flow signal at the supraclinoid segment favored to b e artifactual from noncontrast technique. Right anterior cerebral artery (PAM): Hy poplastic A1 segment with the remainder of the right PAM primarily sup plied by the anterior communicating artery. Right middle cerebral artery (MCA): Norm al Left intracranial internal carotid arter y (ICA): Loss of flow signal at the supraclinoid segment favored to b e artifactual from noncontrast technique. There is a small posteriorly oriented outpouching at the carotid terminus at t he expected origin of the left posterior communicating artery that is 0.3 cm diameter (image 69). Left anterior cerebral artery (PAM): Nor mal Left middle cerebral artery (MCA): Sujatha l Anterior communicating artery (AComm): P resent Posterior communicating arteries (PComm) : Not well-visualized bilaterally. Posterior Circulation: Right posterior cerebral artery ([employer]): T here is abrupt vessel cut off of the right [employer] at the proximal P3 segm ent within the quadrigeminal cistern (image 92). Left posterior cerebral artery ([employer]): No rmal Right vertebral artery (VA): Normal Left vertebral artery (VA): Normal Basilar artery (BA): Normal Other: Normal MRA NECK: Right carotid arterial system: Normal. Left carotid arterial system: Normal. Right vertebral artery: Normal Left vertebral artery: Normal Where applicable, evaluation of internal carotid artery(ICA) stenosis was performed using NASCET-like criteria, where the site of greatest stenosis is compared to the mitali meter of the ICA distal to the stenosis at a point where the ICA wa lls become parallel. IMPRESSION: 1. Acute infarction of the right [employer] ter ritory with petechial hemorrhage similar when correlated to re cent CT. 2. Abrupt vessel cut off compatible with occlusion of the right [employer] P3 segment. 3. Small 0.3 cm outpouching at the left carotid terminus compatible with either a left posterior commuting a rtery infundibulum versus tiny aneurysm. [facility]. Signed: Meredith Felder MD Report Verified Date/Time:01/05/2020 23:07:11 Procedure Note Interface, External Ris In - 01/05/2020 11:10 PM CDT FINAL REPORT EXAM: MR, MRA, NECK, WITHOUT IV CONTRAST , MR, BRAIN, WITHOUT CONTRAST, MR, MRA, BRAIN, WITHOUT CONTRA ST CLINICAL INDICATION: Stroke. TECHNIQUE: Sagittal and coronal T1-w and axial T2-w, FLAIR, GRE, and diffusion-w images of the brain with ADC maps. 2D dony-ah-ktojij MRA of the neck. 3D gzep-rv-rperkj MRA of th e head. Source data and maximum intensity projections (MIPs) wer e reviewed. COMPARISON: 01/05/2020 CT. FINDINGS: MRI BRAIN: Parenchyma: Acute infarction of the righ t [employer] territory involving the right occipital lobe, right aspect of th e splenium, posterior right thalamus, and medial right temporal lobe . Petechial hemorrhage present within the right thalamus and an teriorly within the medial right temporal lobe. No significant mass effect. No shift of midline structures. Scattered foci of T2 hyperin tensity are present in the cerebral white and jluis matter that are nonspecific but compatible with mild chronic microvascular ischemic changes. Extra-axial Collection: None Ventricular System: Normal Major Intracranial Flow Voids: Right [employer] flow void not well seen. Osseous Structures: Expected marrow sig nal. Included Orbits: Prior bilateral lens sim rgery. Paranasal Sinuses: Predominantly clear Tympanomastoid Cavities: Normal MRA HEAD: Anterior Circulation: Right intracranial internal carotid riddhi ry (ICA): Loss of flow signal at the supraclinoid segment favored to b e artifactual from noncontrast technique. Right anterior cerebral artery (PAM): Hy poplastic A1 segment with the remainder of the right PAM primarily sup plied by the anterior communicating artery. Right middle cerebral artery (MCA): Norm al Left intracranial internal carotid arter y (ICA): Loss of flow signal at the supraclinoid segment favored to b e artifactual from noncontrast technique. There is a small posteriorly oriented outpouching at the carotid terminus at t he expected origin of the left posterior communicating artery that is 0.3 cm diameter (image 69). Left anterior cerebral artery (PAM): Nor mal Left middle cerebral artery (MCA): Sujatha l Anterior communicating artery (AComm): P resent Posterior communicating arteries (PComm) : Not well-visualized bilaterally. Posterior Circulation: Right posterior cerebral artery ([employer]): T here is abrupt vessel cut off of the right [employer] at the proximal P3 segm ent within the quadrigeminal cistern (image 92). Left posterior cerebral artery ([employer]): No rmal Right vertebral artery (VA): Normal Left vertebral artery (VA): Normal Basilar artery (BA): Normal Other: Normal MRA NECK: Right carotid arterial system: Normal. Left carotid arterial system: Normal. Right vertebral artery: Normal Left vertebral artery: Normal Where applicable, evaluation of internal carotid artery (ICA) stenosis was performed using NASCET-like criteria, where the site of greatest stenosis is compared to the mitali meter of the ICA distal to the stenosis at a point where the ICA wa lls become parallel. IMPRESSION: 1. Acute infarction of the right [employer] ter ritory with petechial hemorrhage similar when correlated to re cent CT. 2. Abrupt vessel cut off compatible with occlusion of the right [employer] P3 segment. 3. Small 0.3 cm outpouching at the left carotid terminus compatible with either a left posterior commuting a rtery infundibulum versus tiny aneurysm. Consider follow-up with n onemergent CTA for further characterization. Signed: Meredith Felder MD Report Verified Date/Time: 01/05/2020 2 3:07:11 Performing Organization Address City/State[facility] Phone Number [facility] ECG 12 lead (01/05/2020 9:15 AM CDT) Specimen Narrative Performed At Ventricular Rate 112 BPM GE MUSE Atrial Rate 117 BPM QRS Duration 82 ms Q-T Interval 338 ms QTC Calculation(Bazett) 461 ms R [place] 129 degrees T [place] 91 degrees Suspect arm lead reversal, interpreta tion assumes no reversal Atrial fibrillation with rapid ventricul ar response Minimal voltage criteria for LVH, may be normal variant Prolonged QT Abnormal ECG When compared with ECG of 26-NOV-2000 15 :30, Atrial fibrillation has replaced Sinus r hythm Vent. rate has increased BY58 BPM Arm leads are now switched No significant change in the precordial leads Confirmed by MD DIANNA, YISEL ([id number]) on 01/05/2020 7:00:00 PM Procedure Note Interface, External Ris In - 01/05/2020 7:00 PM CDT Ventricular Rate 112 BPM Atrial Rate 117 BPM QRS Duration 82 ms Q-T Interval 338 ms QTC Calculation(Bazett) 461 ms R [place] 129 degrees T [place] 91 degrees Suspect arm lead reversal, interpreta tion assumes no reversal Atrial fibrillation with rapid ventricul ar response Minimal voltage criteria for LVH, may be normal variant Prolonged QT Abnormal ECG When compared with ECG of 26-NOV-2000 15 :30, Atrial fibrillation has replaced Sinus r hythm Vent. rate has increased BY 58 BPM Arm leads are now switched No significant change in the precordial leads Confirmed by MD DIANNA, YISEL ([id number]) on 01/05/2020 7:00:00 PM Performing Organization Address City/State/Zipcode Phone Number [facility] ECHO W CONTRAST & DOPPLER (01/05/2020 8:06 AM CDT) Ejection Fraction [facility] Specimen Narrative Performed At Transthoracic Echocardiography Report (T TE) [facility] ECHO HEARTLAB [facility] Demographics Patient Name Stalin PALUMBO of Study 01/05/2020 [id number] GenderFem sheridan Visit Number [id number] RaceCandyn own [id number] m Number [id number] Number Date of Birth1945 Referring Physician Ramila Marshall Age74 year(s) Group Cio Ember sargent CS Ebony Pastor,Jwseneha Herman MD [facility] Physician Procedure Type of Study TTE procedure:2DECHO W/CONTRAST & DOPPLER (Routine) Indications:Sustained or non sustained Afib, SVT or VT. Clinical History SALINE CONTRAST DONE HGB 11.6 HCT 36.9 % Ischemic stroke (2019), A-fib, DM, HLD, HTN, PE, Mural thrombus of [place] (2016) Contrast Medium: Definity. Amount - 2 ml Height: 62 inches Weight: 66.68 kg (147 lbs) BSA: 1.68 m^2 BMI: 26.89 kg/m^2 HR: 112 bpm BP: 160/105 mmHg Summary IV saline contrast injection was negative for a PFO (patent foramen ovale) at rest and post Valsalva . The left ventricle is chamber size (by vol index) is normal (female - LVED vol - 29-61ml/m2). All of the LV segments contract normally . LVEF by Zimmer's method of disk assessment is normal (55-60%) . Degree of diastolic dysfunction (LAP assessment) is inconclusive due to arrhythmia . Estimated peak systolic PA pressure is 36 mmHg + RA pressure. (RA pressure indeterminate on this exam) Previous Study No prior studies available for comparis on. Signature Findings Technical Quality: Technically adequate exam. Rhythm/BPAtrial fibrillation with controlled ventricular re sponse. Left Ventricle LV endocardium is adequately visualized with IV ul trasound enhancing agent. The left ventr icle is ch dana size (by vol index) is normal (fem sheridan - LV ED vol - 29-61ml/m2). No evidence of LV hy pertrophy. All of the LV segments contra ct no rmally . Global LV systolic function nor mal . LV EF by Zimmer's method of disk assessmen t is no rmal (55-60%) . Degree of diastolic dysf unction (L AP assessment) is inconclusive due to ar rhythmia . Left AtriumLA size is severely enlarged (>48 ml/m2) . Right VentricleThe right ventricular chamber size and systolic fu nction are within normal limits. Right Atrium RA size is normal. Atrial SeptumIV saline contrast injection was negative for a PF O (p atent foramen ovale) at rest and post Va lsalva . Aortic Valve Mild AoV cusp thickening. No evidence of aortic regurgitation. Mitral Valve Mild MV leaflet thickening. Mi ld mitral annular calcification. Mi ld mitral regurgitation. Tricuspid ValveTV structure is normal. Mi ld tricuspid regurgitation. Es timated peak systolic PA pressure is 36 mmHg + RA pr essure. (RA pressure indeterminate on th is exam) Pulmonic Valve Normal PV structure and function by limited views an d Doppler. AortaAortic root size (SInus of Valsalva diameter) i s no rmal . PericardiumNo pericardial effusion is visualized. IVC/SVC/PA/PV/PleuralThe inferior vena cava is not well visualized. Chambers/Structures Left Atrium LA Volume: 96.5 ml LA Area: 26.7 cm^2 LA Vol. Index: 57 ml/m^2 Left Ventricle LVIDd: 3.81 cm LVIDs: 2.98 cm LV Septum Diastolic: 1.14 cm LV PW Diastolic: 0.96 cmLV FS: 21.8 % LVEDV Zimmer's:70.9 ml LVESV Zimmer's:31.68 mlLVEDVI: 42 ml/m^2 LVEF Zimmer's: 55.3 %LVESV I: 19 ml/m^2 LVOT Diameter: 1.89 cm Right Atrium RA Vol. (Sngl Plane): 5 6.29 ml Aorta Ao Root S of Mirtha.: 2.71 cm Doppler/Quantitative Measurements Aortic Valve Peak Velocity: 1.67 m/sMean Velocity: 1.17 m/s Peak Gradient: 11.1 mmHg Mean Gradient: 6.29 mmHg AV Area (continuity): 1.23 cm^2 AV VTI: 25.95 cm AV DVI: 0.44 LVOT Peak Velocity: 0.71 m/s Peak Gradient: 2.01 mmHg Mean Velocity: 0.47 m/s Mean Gradient: 1.01 mmHg LVOT Diameter: 1.89 cmLVOT VTI: 11.38 cm LVOT Area: 2.81 cm^2LVOT SV:31.91 ml LVOT CO: 3.57 l/min LVOT CI: 2.12 l/min/m^2 RVOT RVOT VTI (PW): 13.99 cm Tricuspid Valve TR Velocity: 3.03 m/s TR Gradient: 36.7 mmHg Procedure Note Interface, External Ris In - 01/05/2020 12:58 PM CDT Transthoracic Echocardiography Report (TTE) Demographics Patient Name SHRADDHA PALUMBO Date of Study 01/05/2020 Gender Female Visit Number [id number] Race Unknown [place] [id number] Number Date of 1945 Referri Physician Ramila Marshall Age 74 year(s) Sonogra amina Dunne, RD [employer] Susan Pastor, Interpr etidaphney Herman MD [facility] Physici an Procedure Type of Study TTE procedure:2DECHO W/CONTRA ST & DOPPLER (Routine) Indications:Sustained or non sustained A fib, SVT or VT. Clinical History SALINE CONTRAST DONE HGB 11.6 HCT 36.9 % Ischemic stroke (2019), A-fib, DM, HLD, HTN, PE, Mural thrombus of [place] (2017) Contrast Medium: Definity. Amount - 2 ml Height: 62 inches Weight: 66.68 kg (147 lbs) BSA: 1.68 m^2 BMI: 26.89 kg/m^2 HR: 112 bpm BP: 160/105 mmHg Summary IV saline contrast injection was negati ve for a PFO (patent foramen ovale) at rest and post Valsalva . The left ventricle is chamber size (by vol index) is normal (female - LVED vol - 29-61ml/m2). All of the LV segmen ts contract normally . LVEF by Zimmer's method of disk assessment is normal (55-60%) . Degree of diastolic dysfunction (LAP as sessment) is inconclusive due to arrhythmia . Estimated peak systolic PA pressure is 36 mmHg + RA pressure. (RA pressure indeterminate on this exam) Previous Study No prior studies available for comparis on. Signature Findings Technical Quality: Technically adequate exam. Rhythm/BP Atrial fibrillat ion with controlled ventricular response. Left Ventricle LV endocardium i s adequately visualized with IV ultrasound enhan cing agent. The left ventricle is chamber size (by vol index) is normal (female - LVED vol - 29-61 ml/m2). No evidence of LV hypertrophy. All of the LV segments contract normally . Globa l LV systolic function normal . LVEF by Zimmer' s method of disk assessment is normal (55-60%) . Degree of diastolic dysfunction (LAP assessment) is inconclusive due to arrhythmia . Left Atrium LA size is sever mireille enlarged (>48 ml/m2) . Right Ventricle The right ventri cular chamber size and systolic function are wit hin normal limits. Right Atrium RA size is sujatha l. Atrial Septum IV saline contra st injection was negative for a PFO (patent foramen ovale) at rest and post Valsalva . Aortic Valve Mild AoV cusp th ickening. No evidence of a ortic regurgitation. Mitral Valve Mild MV leaflet thickening. Mild mitral good lar calcification. Mild mitral regu rgitation. Tricuspid Valve TV structure is normal. Mild tricuspid r egurgitation. Estimated peak s ystolic PA pressure is 36 mmHg + RA pressure. (RA pr essure indeterminate on this exam) Pulmonic Valve Normal PV struct ure and function by limited views and Doppler. Aorta Aortic root size (SInus of Valsalva diameter) is normal . Pericardium No pericardial e ffusion is visualized. IVC/SVC/PA/PV/Pleural The inferior lcaudette a cava is not well visualized. Chambers/Structures Left Atrium LA Volume: 96.5 ml LA Area: 26.7 cm^2 LA Vol. Index: 57 ml/m^2 Left Ventricle LVIDd: 3.81 cm LVIDs: 2.98 cm LV Septum Diastolic: 1.14 cm LV PW Diastolic: 0.96 cm LV FS: 21.8 % LVEDV Zimmer's:70.9 ml LVESV Zimmer's:31.68 ml LVEDVI: 42 ml/m^2 LVEF Zimmer's: 55.3 % LVESVI: 19 ml/m^2 LVOT Diameter: 1.89 cm Right Atrium RA Vol. (Sngl Plane): 56.29 ml Aorta Ao Root S of Mirtha.: 2.71 cm Doppler/Quantitative Measurements Aortic Valve Peak Velocity: 1.67 m/s Mean Velocity: 1.17 m/s Peak Gradient: 11.1 mmHg Mean Gradient: 6.29 mmHg AV Area (continuity): 1.23 cm^2 AV VTI: 25.95 cm AV DVI: 0.44 LVOT Peak Velocity: 0.71 m/s Pea k Gradient: 2.01 mmHg Mean Velocity: 0.47 m/s Laura n Gradient: 1.01 mmHg LVOT Diameter: 1.89 cm LVO T VTI: 11.38 cm LVOT Area: 2.81 cm^2 LVO T SV:31.91 ml LVOT CO: 3.57 l/min LVO T CI: 2.12 l/min/m^2 RVOT RVOT VTI (PW): 13.99 cm Tricuspid Valve TR Velocity: 3.03 m/s TR Gradient: 36.7 mmHg Performing Organization Address City/State/Zipcode Phone Number [facility] ECHO HEARTLAB [facility] CT brain without IV contrast (01/05/2020 7:15 AM CDT) Specimen Narrative Performed At FINAL REPORT [facility] RIS CT Head without contrast CLINICAL HISTORY: Stroke, follow up TECHNIQUE: Contiguous axial CT images th rough the head without contrast. This exam was performed accord ing to the departmental dose optimization program which includes auto mated exposure control, adjustment of the mA and/or kV according to the patient size, and/or use of an iterative reconstruction techn ique. COMPARISON: None FINDINGS: There is acute to subacute infarction in the right posterior cerebral artery distribution involving the medial right temporal lobe, most of the right occipital lobe, and the right thalamocapsular region. There is a small amount of petechial hemorrhag e in the posteromedial right temporal lobe. There is local sulcal eff acement with mass effect effacing the right ambient cistern. Schaefer uri, there is no significant midline shift. 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 There is generalized parenchymal volume loss with out hydrocephalus. There are no extra-axial fluid collections. The sk ull is intact. The visualized paranasal sinuses are well-aerated. IMPRESSION: Acute to subacute right posterior cerebr al artery distribution infarct with petechial hemorrhage. This is compatible with the stated history, but comparison with previous st udies and attention on follow-up is recommended. Signed: Jesenia Chanel MD Report Verified Date/Time:01/05/2020 07:25:42 Reading Location: [facility] [id number] [facility] Procedure Note Interface, External Ris In - 01/05/2020 7:27 AM CDT FINAL REPORT CT Head without contrast CLINICAL HISTORY: Stroke, follow up TECHNIQUE: Contiguous axial CT images th rough the head without contrast. This exam was performed accord ing to the departmental dose optimization program which includes auto mated exposure control, adjustment of the mA and/or kV according to the patient size, and/or use of an iterative reconstruction techn ique. COMPARISON: None FINDINGS: There is acute to subacute infarction in the right posterior cerebral artery distribution involving the medial right temporal lobe, most of the right occipital lobe, and the right thalamocapsular region. There is a small amount of petechial hemorrhag e in the posteromedial right temporal lobe. There is local sulcal eff acement with mass effect effacing the right ambient cistern. Schaefer uri, there is no significant midline shift. 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 There is generalized parenchymal volume loss with out hydrocephalus. There are no extra-axial fluid collections. The sk ull is intact. The visualized paranasal sinuses are well-aerated. IMPRESSION: Acute to subacute right posterior cerebr al artery distribution infarct with petechial hemorrhage. This is compatible with the stated history, but comparison with previous st ies and attention on follow-up is recommended. Signed: Jesenia Chanel MD Report Verified Date/Time: 01/05/2020 0 7:25:42 Reading Location: [address] Performing Organization Address City/State/Zipcode Phone Number [facility] SARS-CoV2/RT-PCR (Asymptomatic ONLY) (01/05/2020 5:17 AM CDT) SARS-COV2/RT-PCR Negative Not Detected, Negative, [facility] See external report for [facility] linked test SARS-COV-2 PERFORMING LAB [facility] Specimen Other Narrative Performed At Negative result for this test determines that [facility] SARS-CoV-2 RNA was not present in the specimen above the Limit of Detection (LOD).However, Negative results do not preclude SARS-CoV-2 infection and should not be used as the sole basis for treatment or patient management decisions. Negative results must be combined with clinical observations, patient history, and epidemiological information. A false negative result may occur if a specimen is improperly collected, transported or handled.A false negative result should be considered if patient's recent exposures or clinical presentation indicate that COVID-19 (SARS-CoV-2) is likely and diagnostic tests for other causes of illness are negative.Re-testing should be considered in cases of suspected false negatives. The limit of detection for this assay is 800 copies/mL. This SARS CoV-2 test is a real-time RT-PCR test intended for the qualitative detection of nucleic acid from SARS-CoV-2 in a nasopharyngeal swab specimen collected from individuals suspected of COVID-19 by their healthcare provider. This test has not been Food and Drug Administration (FDA) cleared or approved.This is a modified version of an approved Emergency Use Authorization (EUA) and is in the process of review by the FDA. Once authorized by the FDA, the issued EUA will be effective until the declaration that circumstances exist justifying the authorization of the emergency use of in vitro diagnostic tests for detection and/or diagnosis of COVID-19 is terminated under Section 564(b)(2) of the Act or the EUA is revoked under Section 564(g) of the Act. Fact Sheet for Healthcare Providers: https://www.[employer]/sites/default/files/pro duct/documents/Fact_Sheet_HC_Providers_Lyra_SA RS-CoV-2.pdf Fact Sheet for Healthcare Patients: https://www.[employer]/sites/default/files/pro duct/documents/Fact_Sheet_Patients_Lyra_SARS-C oV-2.pdf Performing Laboratory: [place] [address] Performing Organization Address City/State/Zipcode Phone Number [place] [phone] CENTER CBC with platelet count + automated diff (01/05/2020 5:13 AM CDT)Only the most recent of2 resultswithin the time period is included. WBC 6.6 3.5 - 10.5 K/L [facility] RBC 4.04 3.93 - 5.22 M/L [facility] Hemoglobin 11.6 11.2 - 15.7 GM/DL [facility] Hematocrit 36.9 34.1 - 44.9 % [facility] MCV 91.3 79.4 - 94.8 fL [facility] MCH 28.7 25.6 - 32.2 pg [facility] MCHC 31.4 (L) 32.2 - 35.5 GM/DL [facility] RDW 13.7 11.7 - 14.4 % [facility] Platelets 197 150 - 450 K/CU MM [facility] MPV 9.6 9.4 - 12.3 fL [facility] nRBC 0 0 - 0 /100 WBC [facility] % Neutros 75 % [facility] % Lymphs 17 % [facility] % Monos 7 % [facility] % Eos 0 % [facility] % Baso 1 % [facility] # Neutros 4.96 1.56 - 6.13 K/L [facility] # Lymphs 1.10 (L) 1.18 - 3.74 K/L [facility] # Monos 0.46 (H) 0.24 - 0.36 K/L [facility] # Eos 0.02 (L) 0.04 - 0.36 K/L [facility] # Baso 0.03 0.01 - 0.08 K/L [facility] Immature Granulocytes-Relative 0 0 - 1 % C [facility] Specimen Blood Performing Organization Address City/State/Zipcode Phone Number [facility] [address] [place] [address] CENTER aPTT (01/05/2020 5:13 AM CDT) PTT 25.8 22.5 - 36.0 seconds [facility] Specimen Blood Performing Organization Address City/[facility] Phone Number [address] [address] [place] Lipid panel (01/05/2020 5:13 AM CDT) Triglycerides 138 mg/dL [facility] Cholesterol 203 mg/dL [facility] HDL 47 mg/dL [facility] LDL Calculated 128 mg/dL [facility] Specimen Blood Narrative Performed At Triglyceride Reference Range: [facility] Low Risk <150 [id number] High Risk 200-499 Very High Risk>=500 Cholesterol Reference Range: Low Risk <200 [id number] High Risk>240 HDL Cholesterol Reference Range: Low Risk >=60 High Risk <40 LDL Cholesterol Reference Range: Optimal<100 Near [id number] Very High >=190 Scarrer ID - DARRION Donald Performing Organization Address City/[facility]/Zipcode Phone Number [address] [address] [place] Vitamin B12 and Folate (01/04/2020 8:17 PM CDT) Vitamin B12 <146 (L) 213 - 816 pg/mL [facility] Folate 31.70 >=7.00 ng/mL [facility] Specimen Blood Narrative Performed At Scarrer ID - TENA [facility] Performing Organization Address City/[facility]/Zipcode Phone Number [address] [address] [place] TSH/Free T4 If Indicated (01/04/2020 8:17 PM CDT) TSH 2.037 0.350 - 4.940 uIU/mL [facility] Specimen Blood Narrative Performed At Scarrer ID - TENA [facility] Performing Organization Address City/State/Zipcode Phone Number [address] [address] CENTER Troponin I (01/04/2020 8:17 PM CDT) Troponin I <0.01 0.00 - 0.03 ng/mL [facility] Specimen Blood Narrative Performed At Troponin I (TnI) levels must be interpreted [facility] in the context of the presenting symptoms and the clinical findings. Elevated TnI levels indicate myocardial damage, but are not specific for ischemic heart disease. Elevated TnI levels are seen in patients with other cardiac conditions (including myocarditis and congestive heart failure), and slight TnI elevations occur in patients with other conditions, including sepsis, renal failure, acidosis, acute neurological disease, and persistent tachyarrhythmia. Scarrer ID - ETNA Performing Organization Address [facility] Phone Number [address] [address] [place] Prothrombin time/INR (01/04/2020 8:17 PM CDT) Protime 13.6 11.9 - 14.2 seconds [facility] INR 1.07 <=5.90 [facility] Specimen Blood Narrative Performed At Effective 10/09/2018: PT Reference Range [facility] Change New: 11.9-14.2Previous: 11.7-14.7 RECOMMENDED COUMADIN/WARFARIN INR THERAPY RANGES STANDARD DOSE: 2.0-3.0Includes: PROPHYLAXIS for venous thrombosis, systemic embolization; TREATMENT for venous thrombosis and/or pulmonary embolus. HIGH RISK: Target INR is 2.5-3.5 for patients wiht mechanical heart valves. Performing Organization Address City/State/Zipcode Phone Number [address] [address] CENTER Phosphorus (01/04/2020 8:17 PM CDT) Phosphorus 3.4 2.3 - 4.7 mg/dL [facility] Specimen Blood Narrative Performed At Scarrer ID - TENA [facility] Performing Organization Address [facility] Phone Number [address] [address] CENTER B-type Natriuretic Factor (BNP) (01/04/2020 8:17 PM CDT) BNP 310 (H) 0 - 100 pg/mL [facility] Specimen Blood Narrative Performed At [facility] Performing Organization Address [facility]/Zipcode Phone Number [address] [address] CENTER Hemoglobin A1c (01/04/2020 8:17 PM CDT) Hemoglobin A1C 5.7 4.3 - 6.1 % [facility] Specimen Blood Performing Organization Address [facility] Phone Number [address] [address] [place] Hepatic function panel (01/04/2020 8:17 PM CDT) Protein, Total 6.8 6.0 - 8.3 gm/dL [facility] Albumin 4.1 3.5 - 5.0 g/dL [facility] Total Bilirubin 1.1 0.2 - 1.2 mg/dL [facility] Bilirubin, Direct 0.6 (H) 0.1 - 0.5 mg/dL [facility] Alkaline Phosphatase 52 40 - 150 U/L [facility] AST 18 5 - 34 U/L [facility] ALT 10 6 - 55 U/L [facility] Specimen Blood Narrative Performed At Scarrer ID - EDASI [facility] Performing Organization Address City/State/Zipcode Phone Number [facility] [address] [place] [address] CENTER XR chest 1 view portable / bedside (01/04/2020 6:35 PM CDT) Specimen Narrative Performed At FINAL REPORT GE RIS INDICATION: CVA, CAD, AFib COMPARISON: None TECHNIQUE: Single frontal view of the ch est. IMPRESSION: Lungs and pleura: Clear lungs. No effusi on. Heart and mediastinum: Heart size is mag nified by technique. Unremarkable mediastinal contours. Mild atherosclerotic calcifications of the aortic arch. Osseous structures: No acute abnormality . Other: None. Signed: Meredith Felder MD Report Verified Date/Time:01/04/2020 23:36:17 Procedure Note Interface, External Ris In - 01/04/2020 11:38 PM CDT FINAL REPORT INDICATION: CVA, CAD, AFib COMPARISON: None TECHNIQUE: Single frontal view of the ch est. IMPRESSION: Lungs and pleura: Clear lungs. No effusi on. Heart and mediastinum: Heart size is mag nified by technique. Unremarkable mediastinal contours. Mild atherosclerotic calcifications of the aortic arch. Osseous structures: No acute abnormality . Other: None. Signed: Meredith Felder MD Report Verified Date/Time: 01/04/2020 2 3:36:17 Performing Organization Address City/State/Zipcode Phone Number [facility] after 01/08/2019 Insurance Payer Benefit Plan / Group Subscriber ID Type Phone A ddress Au [employer] xxxxxxxxxxx Maps Contracted Advance Directives For more information, please contact:[address] [phone] Code Status Date Activated Date Inactivated Comments Full Code 01/04/2020 11:31 PM This code status was determined by: Patient Full Code 01/04/2020 11:31 PM 01/04/2020 11:31 PM This code status was determined by: Patient
--- OUTSIDE RECORDS SUMMARY | 2020-01-09 20:11 | XMS REPORT | Continuity of Care Document ---
:1945 Author Organization [facility] t Address [address] [place] [address] Care Team Providers Name Role Phone Lee Primary Care Physician Yanet MERRITT Attending Clinician Tara MERRITT, In Attending Clinician Samantha Chacko MD Attending Clinician Alanna Oliveira MD Attending Clinician YANET Attending Clinician Unavailable ALANNA OLIVEIRA Admitting Clinician Unavailable Payers Payer Name Policy Policy Number Effective Expiration Source Type Date Date [employer]IGNA xxxxxxxxxxx [facility] - ALLxxxxxxxxxxxMaps Medica l Contracted Center Problems Condition Condition Condition Status Onset Resolution Last Treating Co mments Source Name Details Category Date Date Treatment Clinician Date Atrial Atrial Disease Active [facility] fibrillati fibrillati 06-14 Thao kes - on with on with 00:00: Medical rapid rapid 00 [place] ventricula ventricula r response r response Mural Mural Disease Active 2016-[address] [facility] thrombus [facility]bus [facility] - of cardiac of cardiac 00:00: Me dical apex apex 00 Center Pulmonary Pulmonary Disease Active 2016-[address] [facility] [address] embolism embolism 06-19kes - 00:00: Medical 00 Center Migraines Migraines Disease Active [facility] Hyperlipem Hyperlipem Disease Active [facility] ia ia [facility] Arterial Arterial Disease Active [facility] ischemic ischemic [facility] - stroke, stroke, Medical KILN SETTER, KILN SETTER, Center right, right, acute acute Diabetes Diabetes Disease Active [facility] mellitus, mellitus, [facility] - type II type II [facility] Stroke due Stroke due Disease Resolve 2020-01-05 2020-01-[address] [address] to to d 01-03 00:00:00 16:38:29 [facility] - embolism embolism 00:00: Medica l of right of right 00 [place] posterior posterior cerebral cerebral artery artery History of Past Illness Condition Condition Condition Status Onset Resolution Last Treating Co mments Source Name Details Category Date Date Treatment Clinician Date Hypertensi Hypertensi Disease Resolve 2020-01-05 2020-01-[address] [address] on on d 00:00:00 16:25:54 [facility] Allergies, Adverse Reactions, Alerts Allergy Allergy Status Severity Reaction(s) Onset Inactive Treating Comm ents Source Name Type Date Date Clinician Shrimp Propensi Active [facility] to 01-04 [facility] - adverse 00:00: Medical reaction 00 [place] s Aspirin Propensi Active Tinitus [facility] ty to 01-03 [facility] - adverse 00:00: Medical reaction 00 [place] s Nsaids Propensi Active Swelling [facility] (Non-Marcus ty to 01-03 kes - roidal adverse 00:00: Medical Anti-Inf reaction 00 [place] lammator s y Drug) Triptans Propensi Active [facility] -5-Ht1 ty to 01-03 [facility] - Antimigr adverse 00:00: Medical jenny reaction 00 [place] Agents s Family History Family Member Diagnosis Comments Start Date Stop Date Source Natural daughter Drug abuse [facility] Natural sister Brain cancer [facility] Social History Social Habit Start Date Stop Date Quantity Comments Source Sex Assigned At [facility] Smoking Status Start Date Stop Date Source Former smoker 2020-01-05 00:00:00 2020-01-05 00:00:00 [facility] Medications Ordered Filled Start Stop Current Ordering Indication Dosage Frequency Signature Comments Components Source Medication Medication Date Date Medication? Clinician (SIG) Name Name propranoloL 2019- No 50mg QD Take [address] [facility] (INDERAL) 01-08 by mouth [facility] - 10 MG 09:35: 00:00 every Medical tablet 12 :00 morning. [place] zolpidem No 10mg Take [address] (AMBIEN) 10 01-08 by mouth Kat es - mg tablet 09:35: 00:00 every Medica l 12 :00 night as Center needed for Insomnia. simvastatin 2019-2019- No 40mg QD Take [address] [facility] (ZOCOR) 40 01-08 by mouth Luke s - MG tablet 09:35: 00:00 nightly. Med ical 12 :00 Center losartan 2019-0 2020- No 50mg QD Take [address] (COZAAR) 50 01-08 by mouth Kat es - MG tablet 09:35: 00:00 daily. Medic al 12 :00 Center butorphanol 2019- 2020- No a migraine 1{spray [address] [facility] (STADOL) 10 01-08 headache } Nasal Thao kes - mg/mL nasal 09:35: 00:00 route Medi marie spray 12 :00 every 4 Center (four) hours as needed for Pain. butalbital- 2020- No 1{tbl} Take [address] acetaminoph 01-08 tablet by Thao kes - en-caffeine 09:35: 00:00 mouth Medi marie (FIORICET, 12 :00 every 6 Center ESGIC) (six) 50-325-40 hours as mg per needed for tablet Headaches (Severe Headaches) . atenoloL 2019- No 100mg QD Take [address] (TENORMIN) 01-08 mg by [facility] - 100 MG 09:35: 00:00 mouth Medical tablet 12 :00 daily. Center atorvastati 2019-0 Yes 80mg QD Take [address] n (LIPITOR) 01-08 tablet (80 Thao kes - 80 MG 00:00: mg total) Medical tablet 00 by mouth Center nightly. carvediloL 2019-0 Yes 25mg Q.5D Take 1 [facility] (COREG) 25 - tablet (25 Kat es - MG tablet 00:00: mg total) Med ical 00 by mouth 2 Center (two) times daily. cyanocobala 2020-0 Yes 1000ug QD Take [address] min, 01-08 tablet [facility] - vitamin 00:00: (1,000 mcg Medi marie B-12, 1000 00 total) by Cent er MCG tablet mouth daily. insulin 2019-0 Yes 0U Inject [facility] lispro 8-28 0-10 Units [facility] - (HUMALOG 00:00: subcutaneo Med ical U-100 00 usly 3 Center INSULIN) (three) 100 unit/mL times Crtg daily before meals If BS = 150 or lower, give No Insulin. If BS = 151-200, give 2 units. If BS = 201-250, give 4 units. If BS = 251-300, give 6 units. If BS = 301-350, give 8 units. If BS = 351-400, give 10 units.. acetaminoph 2019-0 Yes 650mg Take [address] en 325 mg 8-28 mg by [facility] - Cap 00:00: mouth Medical 00 every 6 Center (six) hours as needed (for headache). diphenhydrA Yes 12.5mg Inject [facility] MINE 8-28 0.25 mLs [facility] - (BENADRYL) 00:00: (12.5 mg Med ical 50 mg/mL 00 total) Center injection intravenou sly every 6 (six) hours as needed (headache) Can be given every 6 hours as needed as part of headache cocktail for severe headache (Tylenol, Compazine, and Benadryl). . prochlorper Yes 10mg Inject [address] azine 8-28 mLs (10 mg [facility] - (COMPAZINE) 00:00: total) Medi marie 10 mg/2 mL [address] (5 mg/mL) sly every injection 6 (six) hours as needed (for headache) Can be given every 6 hours as needed as part of headache cocktail for severe headache (Tylenol, Compazine, and Benadryl). . hydrALAZINE 2020- Yes 10mg Take [address] [facility] [address] (APRESOLINE 8-28 08-28 tablet (10 L ukes - ) 10 MG 00:00: 23:59 mg total) Medi marie tablet 00 :00 by mouth Center every 8 (eight) hours as needed (If SBP > 180 or DBP > 100.). rivaroxaban 2019- No 20mg Take [address] (XARELTO) 8-05 01-28 tablet (20 Kat es - 20 mg Tab 00:00: 00:00 mg total) Me dical tablet 00 :00 by mouth Center daily with dinner. meclizine 2020-0 Yes 25mg Take [address] (ANTIVERT) 8-23 by mouth 2 Kat es - 25 MG 20:16: (two) Medical tablet 55 times Center daily as needed for Dizziness or Nausea. sertraline 2020-0 Yes 200mg QD Take [address] (ZOLOFT) 8-23 mg by [facility] - 100 MG 20:16: mouth Medical tablet 54 daily. Center metFORMIN 2019-0 Yes 500mg Take [address] [facility] (GLUCOPHAGE 8-23 mg by [facility] - ) 500 MG 20:16: mouth 2 Medica l tablet 54 (two) Center times daily with breakfast and dinner. Vital Signs Vital Name Observation Time Observation Value Comments Source Systolic blood 2020-01-09 15:22:00 141 mm[Hg] [facility] Diastolic blood 2020-01-09 15:22:00 80 mm[Hg] [facility] Heart rate 2020-01-09 15:22:00 91 /min [facility] Body temperature 2020-01-09 15:22:00 36.39 Tessie [facility] Respiratory rate 2020-01-09 15:22:00 18 /min [facility] Oxygen saturation in 2020-01-09 15:22:00 94 /min [facility] Arterial blood by Medical Ce nter Pulse oximetry Body height 2020-01-06 10:00:00 157.5 cm [facility] Body weight Measured 2020-01-06 10:00:00 71.668 kg [facility] BMI 2020-01-06 10:00:00 28.90 kg/m2 [facility] Procedures Procedure Date / Time Performed Performing Clinician Sourmichael e POCT-GLUCOSE METER 2020-01-09 09:01:00 Kelsey Chacko [facility] BASIC METABOLIC PANEL 2020-01-09 06:43:00 Julia Mathew [facility] (7) [facility] POCT-GLUCOSE METER 2020-01-08 20:53:00 Kelsey Chacko [facility] POCT-GLUCOSE METER 2020-01-08 12:34:00 Kelsey Chacko [facility] BASIC METABOLIC PANEL 2020-01-08 05:56:00 Noam Landis [facility] () [facility] MAGNESIUM 2020-01-08 05:56:00 Noam Landis [facility] C. DIFFICILE GDH TOXIN 2020-01-06 09:42:00 Julia Mathew [facility] MR BRAIN WITHOUT IV 2020-01-05 21:02:00 Argelia [facility] MRA HEAD WITHOUT IV 2020-01-05 21:02:00 Delvin Dupontlsson, [facility] MRA NECK WITHOUT IV 2020-01-05 21:02:00 Delvin White, [facility] ECG 12-LEAD 2020-01-05 09:15:56 Amy Oliveira [facility] ECHO W CONTRAST & 2020-01-05 08:06:00 Raul Muniz [facility] CT BRAIN WITHOUT IV 2020-01-05 07:15:00 Argelia [facility] SARS-COV2/RT-PCR ([facility] & 2020-01-05 05:17:00 Cristy [facility] REF LAB[facility]a [facility] LIPID PANEL 2020-01-05 05:13:00 [facility] BASIC METABOLIC PANEL 2020-01-05 05:13:00 Raul Muniz [facility] () [facility] APTT 2020-01-05 05:13:00 Raul Muniz [facility] CBC W/PLT COUNT & AUTO 2020-01-05 05:13:00 Raul Muniz [facility] ECHO CONTRAST AGENT 2020-01-04 23:41:51 Raul Muniz [facility] POCT-GLUCOSE METER 2020-01-04 20:26:00 [facility] BASIC METABOLIC PANEL 2020-01-04 20:17:00 [facility] ([facility] PROTHROMBIN TIME/INR 2020-01-04 20:17:00 Alexei Marshall [facility] HEPATIC FUNCTION PANEL 2020-01-04 20:17:00 [facility] TROPONIN I 2020-01-04 20:17:00 [facility] B-TYPE NATRIURETIC 2020-01-04 20:17:00 [facility] FA[facility] ([facility] MAGNESIUM 2020-01-04 20:17:00 [facility] PHOSPHORUS 2020-01-04 20:17:00 [facility] TSH/FREE T4 IF INDICATED 2020-01-04 20:17:00 [facility] HEMOGLOBIN A1C 2020-01-04 20:17:00 [facility] VITAMIN B12 AND FOLATE 2020-01-04 20:17:00 [facility] CBC W/PLT COUNT & AUTO 2020-01-04 20:17:00 [facility] center[facility] XR CHEST 1 VIEW 2020-01-04 18:35:00 [facility]/BEDSIDE [facility] Plan of Care Planned Activity Planned Date Details Comments Source Medication 2020-01-10 00:00:00 losartan (COZAAR) [address] [facility] - MG tablet [code = Medical Ce nter 787073] Medication 2020-01-10 00:00:00 clopidogreL (PLAVIX) [facility] [code = Medical Center 695796] Medication 2020-01-10 00:00:00 famotidine (PEPCID) [address] [facility] - MG tablet [code = Medical Ce nter 911926] Results Test Description Test Time Test Comments Results Result Comments Source POC-Glucose meter 2020-01-09 09:12:00 Test Item Value Reference Range Interpretation Comme nts POC-Glucose Meter (test code = 185 mg/dL 70-110 H : TESTED AT [facility] [address]) [place], [address]: Janitor/Techni gi ID = [id number] for DARWIN BABB Lab Interpretation (test code = Abnormal 41305-8) [facility] [id number] 09:12:00 Test Item Value Reference Range Interpretation Comments POC-GLUCOSE METER 185 mg/dL 70-110 H : TESTED A T [facility] [address] (BEAKER) (test code = [facility], 1538) [address]: Janitor/Techni gi ID = [id number] for DARWIN HAYNES Basic Metabolic [id number] 07:34:00 Test Item Value Reference Range Interpretation Comments Sodium (test code = 135 meq/L 136-145 L 2951-2) Potassium (test code = 4.1 meq/L 3.5-5.1 Speci men slightly 2823-3) hemolyzed Chloride (test code = 97 meq/L 98-107 L 2075-0) CO2 (test code = 28 meq/L 22-29 2028-9) BUN (test code = 24 mg/dL 7-21 H 3094-0) Creatinine (test code 0.85 mg/dL 0.57-1.25 Specim en slightly = 2160-0) hemolyzed Glucose (test code = 216 mg/dL 70-105 H 2345-7) Calcium (test code = 9.0 mg/dL 8.4-10.2 74209-3) EGFR (test code = 65 mL/min/1.73 [place] [address]-7) NOT ACCURATE CREATININE CLEARANCE IN PREDICTING GLOMERULAR FILTRATION RATE . ESTIMATED GFR I S NOT APPLICABLE FOR DIALYSIS PATIENTS. JORGITO (test code = JORGITO) Janitor ID - CLAUDIA Davies Lab Interpretation Abnormal (test code = 34418-0) [facility] Center[facility] MET[facility]OLIC [id number] 07:34:00 Test Item Value Reference Range Interpretation Comments SODIUM (BEAKER) 135 meq/L 136-145 L (test code = 381) POTASSIUM (BEAKER) 4.1 meq/L 3.5-5.1 Specimen slightly (test code = 379) hemolyzed CHLORIDE (BEAKER) 97 meq/L 98-107 L (test code = 382) CO2 (BEAKER) (test 28 meq/L 22-29 code = 355) BLOOD UREA NITROGEN 24 mg/dL 7-21 H (BEAKER) (test code = 354) CREATININE (BEAKER) 0.85 mg/dL 0.57-1.25 Specimen slightly (test code = 358) hemolyzed GLUCOSE RANDOM 216 mg/dL 70-105 H (BEAKER) (test code = 652) CALCIUM (BEAKER) 9.0 mg/dL 8.4-10.2 (test code = 697) EGFR (BEAKER) (test 65 mL/min/1.73 ESTIMA FCO GFR IS code = 1092) sq m NOT ACCURATE CREATININE CLEARANCE IN PREDICTING GLOMERULAR FILTRATION RATE . ESTIMATED GFR I S NOT APPLICABLE FOR DIALYSIS PATIEN TS. Janitor ID - CLAUDIA CPOCT-GLUCOSE [id number] 21:04:00 Test Item Value Reference Range Interpretation Comments POC-GLUCOSE METER 204 mg/dL 70-110 H : TESTED A T [facility] [address] (BEAKER) (test code = [facility], 1538) [address]: Janitor/Techni gi ID = [id number] for GEOFF CHAVARRIA POCT-GLUCOSE [id number] 12:45:00 Test Item Value Reference Range Interpretation Comments POC-GLUCOSE METER 306 mg/dL 70-110 H : TESTED A T [facility] [address] (BEAKER) (test code = [facility], 1538) [address]: Janitor/Techni gi ID = [id number] for LUCAS STEVENS [id number] 07:25:00 Test Item Value Reference Range Interpretation Comments Magnesium (test code = 2.1 mg/dL 1.6-2.6 Speci men 96701-9) slightly hemolyzed JORGITO (test code = JORGITO) Janitor ID - NTP Lab Interpretation Normal (test code = 71293-6) [id number] 07:25:00 Test Item Value Reference Range Interpretation Comments MAGNESIUM (BEAKER) 2.1 mg/dL 1.6-2.6 Specimen slightly (test code = 627) hemolyzed Janitor ID - NTPBASIC METABOLIC [id number] 07:25:00 Test Item Value Reference Range Interpretation Comments SODIUM (BEAKER) 130 meq/L 136-145 L (test code = 381) POTASSIUM (BEAKER) 3.5 meq/L 3.5-5.1 Specimen slightly (test code = 379) hemolyzed CHLORIDE (BEAKER) 92 meq/L 98-107 L (test code = 382) CO2 (BEAKER) (test 27 meq/L 22-29 code = 355) BLOOD UREA NITROGEN 17 mg/dL 7-21 (BEAKER) (test code = 354) CREATININE (BEAKER) 0.85 mg/dL 0.57-1.25 Specimen slightly (test code = 358) hemolyzed GLUCOSE RANDOM 229 mg/dL 70-105 H (BEAKER) (test code = 652) CALCIUM (BEAKER) 9.2 mg/dL 8.4-10.2 (test code = 697) EGFR (BEAKER) (test 65 mL/min/1.73 ESTIMA FCO GFR IS code = 1092) sq m NOT ACCURATE CREATININE CLEARANCE IN PREDICTING GLOMERULAR FILTRATION RATE . ESTIMATED GFR I S NOT APPLICABLE FOR DIALYSIS PATIEN TS. Janitor ID - NTPClostridium difficile GDH [id number] 20:19:00 Test Item Value Reference Range Interpretation Comments C. Difficle Toxin Negative Negative (test code = 5415798118) C. Difficile GDH Negative Negative No indicati on of Antigen (test code = Clostri dium 4341064764) difficile infection and n o colonization. Discontinue enteric isolati on and therapy. JORGITO (test code = Testing performed JORGITO) by [employer] Rapid Cassette Assay. For GDH, published sensitivity of the assay is 98.7% compared to cytotoxicity testing. For Toxin AB, published sensitivity is 87.8% and specificity 99.4% compared to cytotoxicity testing.Verificati on of kit performance was done by the [facility] Microbiology Lab prior to clinical use. Lab Interpretation Normal (test code = 28421-7) [facility] Center[facility]. DIFFICILE GDH [id number] 20:19:00 Test Item Value Reference Range Interpretation Comments CDT TOXIN (test code Negative Negative = 6279758066) CDT GDH ANTIGEN (test Negative Negative No ind ication of code = 0734745554) Clostridi um difficile infection and n o colonization. Discontinue ent jamar isolation and t herapy. Testing performed by [employer] Rapid Cassette Assay. For GDH, published sensitivity of the assay is 98.7% compared to cytotoxicity testing. For Toxin AB, published sensitivity is 87.8% and specificity 99.4% compared to cytotoxicity testing.Verification of kit performance was done by the [facility] Microbiology Lab prior to clinical use.MR, BRAIN, WITHOUT [id number] 23:07:00Unlisted Reason for Exam - Click Yes and Enter Reason Below->NoAnesthesia:->NoneDeos the patient have an implanted electronic device?->NoFINAL REPORT EXAM: MR, MRA, NECK, WITHOUT IV CONTRAST, MR, BRAIN, WITHOUT CONTRAST, MR, MRA, BRAIN, WITHOUT CONTRAST CLINICAL INDICATION: Stroke. TECHNIQUE: Sagittal and coronal T1-w and axial T2- w, FLAIR, GRE, and diffusion-w images of the brain with ADC maps. 2D isuv-qk-gknnwhOYN of the neck. 3D flty-nv-yvizqe MRA of the head. Source data and maximum intensity projections (MIPs) were reviewed. COMPARISON: 01/05/2020 CT. FINDINGS: MRI BRAIN:Parenchyma: Acute infarction of the right KILN SETTER territory involving the right occipital lobe, right aspect of the splenium, posterior righ t thalamus, and medial right temporal lobe. Petechial hemorrhage present within the right thalamus and anteriorly within the medial right temporal lobe. No significant mass effect. No shift of midline structures. Scattered foci of T2 hyperintensity are present in the cerebral white and jluis matter that are nonspecific but compatible with mild chronic microvascular ischemic changes. Extra-axial Collection: None Ventricular System: Normal Major Intracranial Flow Voids: Right KILN SETTER flow void not well seen. Osseous Structures: Expected marrow signal. Included Orbits: Prior bilateral lens surgery. Paranasal Sinuses: Predominantly clear Tympanomastoid Cavities: Normal MRA HEAD:Anterior Circulation:Right intracranial internal carotid artery (ICA): Loss of flow signal at the supraclinoid segment favored to be artifactual from noncontrast technique.Right anterior cerebral artery (PAM): Hypoplastic V4nkqlagg with the remainder of the right PAM primarily supplied by the anterior communicating artery.Right middle cerebral artery (MCA): Normal Left intracranial internal carotid artery (ICA): Loss of flow signal at the supraclinoid segment favored to be artifactual from noncontrast technique. There nancy small posteriorly oriented outpouching at the carotid terminus at the expected origin of the left posterior communicating artery that is 0.3 cm diameter (image 69).Left anterior cerebral artery (PAM): NormalLeft middle cerebral artery (MCA): Normal Anterior communicating artery (AComm): PresentPosterior communicating arteries (PComm): Not well-visualized bilaterally. Posterior Circulation:Right posterior cerebral artery (KILN SETTER): There is abrupt vessel cut off of the right KILN SETTER at the proximal P3 segment within the quadrigeminal cistern (image 92).Left posterior cerebral artery (KILN SETTER): Normal Right vertebral artery (VA): NormalLeft vertebral artery (VA): NormalBasilar artery (BA): Normal Other: Normal MRA NECK: Right carotid arterial system: Normal.Left carotid arterial system: Normal. Right vertebral artery: NormalLeft vertebral artery: Normal Where applicable, evaluation of internal carotid artery (ICA) stenosis was performed using NASCET-like criteria, where the site of greatest stenosis is compared to the diameter of the ICA distal to the stenosis at a point where the ICA east become parallel. IMPRESSION: 1. Acute infarction of the right KILN SETTER territory with petechial hemorrhage similar when correlated to recent CT.2. Abrupt vessel cut off compatible with occlusion of the right KILN SETTER P3 segment.3. Small 0.3 cm outpouching at the left carotid terminus compatible with either a left posterior commuting artery infundibulum versus tiny aneurysm. Consider follow-up with nonemergent CTA for further characterization. Signed: Meredith Felder MDReport Verified Date/Time: 01/05/2020 23:07:11 MR, MRA, BRAIN, WITHOUT [id number] 23:07:00Unlisted Reason for Exam - Click Yes and Enter Reason Below->NoAnesthesia:->NoneDeos the patient have an implanted electronic device?->NoFINAL REPORT EXAM: MR, MRA, NECK, WITHOUT IV CONTRAST, MR, BRAIN, WITHOUT CONTRAST, MR, MRA, BRAIN, WITHOUT CONTRAST CLINICAL INDICATION: Stroke. TECHNIQUE: Sagittal and coronal T1-w and axial T2- w, FLAIR, GRE, and diffusion-w images of the brain with ADC maps. 2D bmva-hq-ofnxpzSEW of the neck. 3D gktv-mt-dhexes MRA of the head. Source data and maximum intensity projections (MIPs) were reviewed. COMPARISON: 01/05/2020 CT. FINDINGS: MRI BRAIN:Parenchyma: Acute infarction of the right KILN SETTER territory involving the right occipital lobe, right aspect of the splenium, posterior righ t thalamus, and medial right temporal lobe. Petechial hemorrhage present within the right thalamus and anteriorly within the medial right temporal lobe. No significant mass effect. No shift of midline structures. Scattered foci of T2 hyperintensity are present in the cerebral white and jluis matter that are nonspecific but compatible with mild chronic microvascular ischemic changes. Extra-axial Collection: None Ventricular System: Normal Major Intracranial Flow Voids: Right KILN SETTER flow void not well seen. Osseous Structures: Expected marrow signal. Included Orbits: Prior bilateral lens surgery. Paranasal Sinuses: Predominantly clear Tympanomastoid Cavities: Normal MRA HEAD:Anterior Circulation:Right intracranial internal carotid artery (ICA): Loss of flow signal at the supraclinoid segment favored to be artifactual from noncontrast technique.Right anterior cerebral artery (PAM): Hypoplastic P4ggdstmb with the remainder of the right PAM primarily supplied by the anterior communicating artery.Right middle cerebral artery (MCA): Normal Left intracranial internal carotid artery (ICA): Loss of flow signal at the supraclinoid segment favored to be artifactual from noncontrast technique. There nancy small posteriorly oriented outpouching at the carotid terminus at the expected origin of the left posterior communicating artery that is 0.3 cm diameter (image 69).Left anterior cerebral artery (PAM): NormalLeft middle cerebral artery (MCA): Normal Anterior communicating artery (AComm): PresentPosterior communicating arteries (PComm): Not well-visualized bilaterally. Posterior Circulation:Right posterior cerebral artery (KILN SETTER): There is abrupt vessel cut off of the right KILN SETTER at the proximal P3 segment within the quadrigeminal cistern (image 92).Left posterior cerebral artery (KILN SETTER): Normal Right vertebral artery (VA): NormalLeft vertebral artery (VA): NormalBasilar artery (BA): Normal Other: Normal MRA NECK: Right carotid arterial system: Normal.Left carotid arterial system: Normal. Right vertebral artery: NormalLeft vertebral artery: Normal Where applicable, evaluation of internal carotid artery (ICA) stenosis was performed using NASCET-like criteria, where the site of greatest stenosis is compared to the diameter of the ICA distal to the stenosis at a point where the ICA east become parallel. IMPRESSION: 1. Acute infarction of the right KILN SETTER territory with petechial hemorrhage similar when correlated to recent CT.2. Abrupt vessel cut off compatible with occlusion of the right KILN SETTER P3 segment.3. Small 0.3 cm outpouching at the left carotid terminus compatible with either a left posterior commuting artery infundibulum versus tiny aneurysm. Consider follow-up with nonemergent CTA for further characterization. Signed: Meredith Felder MDReport Verified Date/Time: 01/05/2020 23:07:11 MR, MRA, NECK, WITHOUT IV [id number] 23:07:00Reason for exam:->Ischemic Stroke EvaluationFINAL REPORT EXAM: MR, MRA, NECK, WITHOUT IV CONTRAST, MR, BRAIN, WITHOUT CONTRAST, MR, MRA, BRAIN, WITHOUT CONTRAST CLINICAL INDICATION: Stroke. TECHNIQUE: Sagittal and coronal T1-w and axial T2-w, FLAIR, GRE, and diffusion-w images of the brain with ADC maps. 2D xqwh-tf-mtgoadZTF of the neck. 3D acar-du-lwgoun MRA of the head. Source data and maximum intensity projections (MIPs) were reviewed. COMPARISON: 01/05/2020 CT. FINDINGS: MRI BRAIN:Parenchyma: Acute infarction of the right KILN SETTER territory involving the right occipital lobe, right aspect of the splenium, posterior right thalamus, and medial right temporal lobe. Petechial hemorrhage present within the right thalamus and anteriorly within the medial right temporal lobe. No significant mass effect. No shift of midline structures. Scattered foci of T2 hyperintensity are present in the cerebral white and jluis matter that are nonspecific but compatible with mild chronic microvascular ischemic changes. Extra-axial Collection: None Ventricular System: Normal Major Intracranial Flow Voids: Right KILN SETTER flow void not well seen. Osseous Structures: Expected marrow signal. Included Orbits: Prior bilateral lens surgery. Paranasal Sinuses: Predominantly clear Tympanomastoid Cavities: Normal MRA HEAD:Anterior Circulation:Right intracranial internal carotid artery (ICA): Loss of flow signal at the supraclinoid segment favored to be artifactual from noncontrast technique.Right anterior cerebral artery (PAM): Hypoplastic A1 segment with the remainder of the right PAM primarily supplied by the anterior communicating artery.Right middle cerebral artery (MCA): Normal Left intracranial internal carotid artery (ICA): Loss of flow signal at the supraclinoid segment favored to be artifactual from noncontrast technique. There nancy small posteriorly oriented outpouching at the carotid terminus at the expected origin of the left posterior communicating artery that is 0.3 cm diameter (image 69).Left anterior cerebral artery (PAM): NormalLeft middle cerebral artery (MCA): Normal Anterior communicating artery (AComm): PresentPosterior communicating arteries (PComm): Not well-visualized bilaterally. Posterior Circulation:Right posterior cerebral artery (KILN SETTER): There is abrupt vessel cut off of the right KILN SETTER at the proximal P3 segment within the quadrigeminal cistern (image 92).Left posterior cerebral artery (KILN SETTER): Normal Right vertebral artery (VA): NormalLeft vertebral artery (VA): NormalBasilar artery (BA): Normal Other: Normal MRA NECK: Right carotid arterial system: Normal.Left carotid arterial system: Normal. Right vertebral artery: NormalLeft vertebral artery: Normal Where applicable, evaluation of internal carotid artery (ICA) stenosis was performed using NASCET-like criteria, where the site of greatest stenosis is compared to the diameter of the ICA distal to the stenosis at a point where the ICA east become parallel. IMPRESSION: 1. Acute infarction of the right KILN SETTER territory with petechial hemorrhage similar when correlated to recent CT.2. Abrupt vessel cut off compatible with occlusion of the right KILN SETTER P3 segment.3. Small 0.3 cm outpouching at the left carotid terminus compatible with either a left posterior commuting artery infundibulum versus tiny aneurysm. Consider follow-up with nonemergent CTA for further characterization. Signed: Meredith Felder MDReport Verified Date/Time: 01/05/2020 23:07:11 Rufina ctronically signed by: MEREDITH FELDER MD on 01/05/2020 11:07 PMMRA head without IV [id number] 23:07:00Interface, External Ris In - 01/05/2020 11:10 PM CDTFINAL REPORT EXAM: MR, MRA, NECK, WITHOUT IV CONTRAST, MR, BRAIN, WITHOUT CONTRAST, MR, MRA, BRAIN, WITHOUT CONTRAST CLINICAL I NDICATION: Stroke. TECHNIQUE: Sagittal and coronal T1-w and axial T2-w, FLAIR, GRE, and diffusion-w images of the brain with ADC maps. 2D wiro-sb-yomwrv MRA of the neck. 3D kmdw-in-yuxchl MRA of the head. Source data and maximum intensity projections (MIPs) were reviewed. COMPARISON: 01/05/2020 CT. FINDINGS: MRI BRAIN:Parenchyma: Acute infarction of the right KILN SETTER territory involving the right occipital lobe, right aspect of the splenium, posterior right thalamus, and medial right temporal lobe. Petechial hemorrhage present within the right thalamus and anteriorly within the medial right temporal lobe. No significant mass effect. No shift of midline structures. Scattered foci of T2 hyperintensity are present in the cerebral white and jluis matter that are nonspecific but compatible with mild chronic microvascular ischemic changes. Extra-axial Collection: None Ventricular System: Normal Major Intracranial Flow Voids: Right KILN SETTER flow void not well seen. Osseous Structures: Expected marrow signal. Included Orbits: Prior bilateral lens surgery. Paranasal Sinuses: Predominantly clear Tympanomastoid Cavities: Normal MRA HEAD:Anterior Circulation:Right intracranial internal carotid artery (ICA): Loss of flow signal at the supraclinoid segment favored to be artifactual from noncontrast technique.Right anterior cerebral artery (PAM): Hypoplastic A1 segment with the remainder of the right PAM primarily supplied by the anterior communicating artery.Right middle cerebral artery (MCA): Normal Left intracranial internal carotid artery (ICA): Loss of flow signal at the supraclinoid segment favored evelia artifactual from noncontrast technique. There is a small posteriorly oriented outpouching at the carotid terminus at the expected origin of the left posterior communicating artery that is 0.3 cm diameter (image 69).Left anterior cerebral artery (PAM): NormalLeft middle cerebral artery (MCA): NormalAnterior communicating artery (AComm): PresentPosterior communicating arteries (PComm): Not well-visualized bilaterally. Posterior Circulation:Right posterior cerebral artery (KILN SETTER): There is abrupt vessel cut off of the right KILN SETTER at the proximal P3 segment within the quadrigeminal cistern (image 92).Left posterior cerebral artery (KILN SETTER): Normal Right vertebral artery (VA): NormalLeft vertebral artery (VA): NormalBasilar artery (BA): Normal Other: Normal MRA NECK: Right carotid arterial system: Normal.Left carotid arterial system: Normal. Right vertebral artery: NormalLeft vertebral artery: Normal Where applicable, evaluation of internal carotid artery (ICA) stenosis was performed using NASCET-like criteria, where the site of greatest stenosis is compared to the diameter of the ICA distal to the stenosis at a point where the ICA east become parallel. IMPRESSION: 1. Acute infarction of the rightPCA territory with petechial hemorrhage similar when correlated to recent CT.2. Abrupt vessel cut off compatible with occlusion of the right KILN SETTER P3 segment.3. Small 0.3 cm outpouching at the left carotid terminus compatible with either a left posterior commuting artery infundibulum versus tiny aneurysm. Consider follow-up with nonemergent CTA for further characterization. Signed: Meredith Felder MDReport Verified Date/Time: 01/05/2020 23:07:11 [facility] [id number] 23:07:00Interface, External Ris In - 01/05/2020 11:10 PM CDTFINAL REPORT EXAM: MR, MRA, NECK, WITHOUT IV CONTRAST, MR, BRAIN, WITHOUT CONTRAST, MR, MRA, BRAIN, WITHOUT CONTRAST CLINICAL INDICATION: Stroke. TECHNIQUE: Sagittal and coronal T1-w and axial T2-w, FLAIR, GRE, and diffusion-w images of the brain with ADC maps. 2D ahed-jo-ptsjnw MRA of the neck. 3D ways-fl-vaezgl MRA of the head. Source data and maximum intensity projections (MIPs) were reviewed. COMPARISON: 01/05/2020 CT. FINDINGS: MRI BRAIN:Parenchyma: Acute infarction of the right KILN SETTER territory involving the right occipital lobe, right aspect of the splenium, posterior right thalamus, and medial right temporal lobe. Petechial hemorrhage present within the right thalamus and anteriorly within the medial right temporal lobe. No significant mass effect. No shift of midline structures. Scattered foci of T2 hyperintensity are present in the cerebral white and jluis matter that are nonspecific but compatible with mild chronic microvascular ischemic changes. Extra-axial Collection: None Ventricular System: Normal Major Intracranial Flow Voids: Right KILN SETTER flow void not well seen. Osseous Structures: Expected marrow signal.Included Orbits: Prior bilateral lens surgery. Paranasal Sinuses: Predominantly clear Tympanomastoid Cavities: Normal MRA HEAD:Anterior Circulation:Right intracranial internal carotid artery (ICA): Loss of flow signal at the supraclinoid segment favored to be artifactual from noncontrast technique.Right anterior cerebral artery (PAM): Hypoplastic A1 segment with the remainder of the right PAM primarily supplied by the anterior communicating artery.Right middle cerebral artery (MCA): Normal Left in tracranial internal carotid artery (ICA): Loss of flow signal at the supraclinoid segment favored evelia artifactual from noncontrast technique. There is a small posteriorly oriented outpouching at the carotid terminus at the expected origin of the left posterior communicating artery that is 0.3 cm diam eter (image 69).Left anterior cerebral artery (PAM): NormalLeft middle cerebral artery (MCA): NormalAnterior communicating artery (AComm): PresentPosterior communicating arteries (PComm): Not well-visualized bilaterally. Posterior Circulation:Right posterior cerebral artery (KILN SETTER): There is abrupt vessel cut off of the right KILN SETTER at the proximal P3 segment within the quadrigeminal cistern (image 92).Left posterior cerebral artery (KILN SETTER): Normal Right vertebral artery (VA): NormalLeft vertebral artery (VA): NormalBasilar artery (BA): Normal Other: Normal MRA NECK: Right carotid arterial system: Normal.Left carotid arterial system: Normal. Right vertebral artery: NormalLeft vertebral artery: Normal Wh ere applicable, evaluation of internal carotid artery (ICA) stenosis was performed using NASCET-like criteria, where the site of greatest stenosis is compared to the diameter of the ICA distal to the stenosis at a point where the ICA east become parallel. IMPRESSION: 1. Acute infarction of the rightPCA territory with petechial hemorrhage similar when correlated to recent CT.2. Abrupt vessel cut off compatible with occlusion of the right KILN SETTER P3 segment.3. Small 0.3 cm outpouching at the left carotid terminus compatible with either a left posterior commuting artery infundibulum versus tiny aneurysm. Consider follow-up with nonemergent CTA for further characterization. Signed: Meredith Felder MDReport Verified Date/Time: 01/05/2020 23:07:11 [facility] MR brain without IV [id number] 23:07:00Interface, External Ris In - 01/05/2020 11:10 PM CDTFINAL REPORT EXAM: MR, MRA, NECK, WITHOUT IV CONTRAST, MR, BRAIN, WITHOUT CONTRAST, MR, MRA, BRAIN, WITHOUT CONTRAST CLINICAL INDICATION: Stroke. TECHNIQUE: Sagittal and coronal T1-w and axial T2-w, FLAIR, GRE, and diffusion-w images of the brain with ADC maps. 2D owhv-ei-njzljc MRA of the neck. 3D swur-pk-oyhrwt MRA of the head. Source data and maximum intensity projections (MIPs) were reviewed. COMPARISON: 01/05/2020 CT. FINDINGS: MRI BRAIN:Parenchyma: Acute infarction of the right KILN SETTER territory involving the right occipital lobe, right aspect of the splenium, posterior right thalamus, and medial right temporal lobe. Petechial hemorrhage present within the right thalamus and anteriorly within the medial right temporal lobe. No significant mass effect. No shift of midline structures. Scattered foci of T2 hyperintensity are present in the cerebral white and jluis matter that are nonspecific but compatible with mild chronic microvascular ischemic changes. Extra-axial Collection: None Ventricular System: Normal Major Intracranial Flow Voids: Right KILN SETTER flow void not well seen. Osseous Structures: Expected marrow signal.Included Orbits: Prior bilateral lens surgery. Paranasal Sinuses: Predominantly clear Tympanomastoid Cavities: Normal MRA HEAD:Anterior Circulation:Right intracranial internal carotid artery (ICA): Loss of flow signal at the supraclinoid segment favored to be artifactual from noncontrast technique.Right anterior cerebral artery (PAM): Hypoplastic A1 segment with the remainder of the right PAM primarily supplied by the anterior communicating artery.Right middle cerebral artery (MCA): Normal Left intracranial internal carotid artery (ICA): Loss of flow signal at the supraclinoid segment favored to be artifactual from noncontrast technique. There is a small posteriorly oriented outpouching at the carotid terminus at the expected origin of the left posterior communicating artery that is 0.3 cm diameter (image 69).Left anterior cerebral artery (PAM): NormalLeft middle cerebral artery (MCA): NormalAnterior communicating artery (AComm): PresentPosterior communicating arteries (PComm): Not well-visualized bilaterally. Posterior Circulation:Right posterior cerebral artery (KILN SETTER): There is abrupt vessel cut off of the right KILN SETTER at the proximal P3 segment within the quadrigeminal cistern (image 92).Left posterior cerebral artery (KILN SETTER): Normal Right vertebral artery (VA): NormalLeft vertebral artery ( VA): NormalBasilar artery (BA): Normal Other: Normal MRA NECK: Right carotid arterial system: Normal.Left carotid arterial system: Normal. Right vertebral artery: NormalLeft vertebral artery: Normal Where applicable, evaluation of internal carotid artery (ICA) stenosis was performed using NASCET-like criteria, where the site of greatest stenosis is compared to the diameter of the ICA distal to the stenosis at a point where the ICA east become parallel. IMPRESSION: 1. Acute infarction of the rightPCA territory with petechial hemorrhage similar when correlated to recent CT.2. Abrupt vessel cut off compatible with occlusion of the right KILN SETTER P3 segment.3. Small 0.3 cm outpouching at the left carotid terminus compatible with either a left posterior commuting artery infundibulum versus tiny aneurysm. Consider follow-up with nonemergent CTA for further characterization. Signed: Meredith Felder MDReport Verified Date/Time: 01/05/2020 23:07:11 [facility] 12 lead 2020-01-05 19:00:03Interface, External Ris In - 01/05/2020 7:00 PM CDTVentricular Rate 112 BPMAtrial Rate 117 BPMQRS Duration 82 msQ-T Interval 338 msQTC Calculation(Bazett) 461 msR [place] 129 degreesT [place] 91 degrees Suspect arm lead reversal, interpretation assumes no reversalAtrial fibrillation with rapid ventricular responseMinimal voltage criteria for LVH, may be normal variantProlonged QTAbnormal ECGWhen compared with ECG of 26-NOV-2000 15:30,Atrial fibrillation has replaced Sinus rhythmVent. rate has increasedBY 58 BPMArm leads are now switchedNo significant change in the precordial leadsConfirmed by MD DIANNA, YISEL ([id number]) on 01/05/2020 7:00:00 [facility]2020-01-05 13:28:00 Test Item Value Reference Range Interpretation Comments SARS-COV2/RT-PCR Negative Not Detected, (test code = Negative, See 47325-3) external report for linked test SARS-COV-2 [facility] (test code = 20040-3) JORGITO (test code = Negative result for this JORGITO) test determines that SARS-CoV-2 RNA was not present in the specimen above the Limit of Detection (LOD). However, Negative results do not preclude SARS-CoV-2 infection and should not be used as the sole basis for treatment or patient management decisions. Negative results must be combined with clinical observations, patient history, and epidemiological information. A false negative result may occur if a specimen is improperly collected, transported or handled. A false negative result should be considered if patient's recent exposures or clinical presentation indicate that COVID-19 (SARS-CoV-2) is likely and diagnostic tests for other causes of illness are negative. Re-testing should be considered in cases of suspected [...] Food and Drug Administration (FDA) cleared or approved. This is a modified version of an approved [...] of the Act. Fact Sheet for Healthcare Providers:https://www.Poly Adaptive idel.com/sites/default/f martha/product/documents/F act_Sheet_HC_Providers_L xdc_HGGQ-DyS-3.pdf Fact Sheet for Healthcare Patients:https://www.sherry del.com/sites/default/fi les/product/documents/Fa ct_Sheet_Patients_Lyra_S ARS-CoV-2.pdf Performing Laboratory:[facility] [place] [address] [facility])2020-01-05 13:28:00 Test Item Value Reference Range Interpretation Comments SARS-COV2/RT-PCR (test Negative Not Detected, Negative, code = 1483557) See external report for linked test SARS-COV-[address] [facility] (test code = 7351667) Negative result for this test determines that SARS-CoV-2 RNA was not present in the specimen above the Limit of Detection (LOD). However, Negative results do not preclude SARS-CoV-2 infection and should not be used as the sole basis for treatment or patient management decisions. Negative results mustbe combined with clinical observations, patient history, and epidemiological information. A false negative result may occur if a specimen is improperly collected, transported or handled. A false negative result should be considered if patient's recent exposures or clinical presentation indicate that COVID-19 (SARS-CoV-2) is likely and diagnostic tests for other causes of illness are negative. Re-testing should be considered in cases of suspected false negatives.The limit of detection for this assay is 800 copies/mL.This SARS CoV-2 test is a real-time RT-PCR test intended for the qualitative detection of nucleic acid from SARS-CoV-2 in a nasopharyngeal swab specimen collected from individuals susp ected of COVID-19 by their healthcare provider.This test has not been Food and Drug Administration (FDA) cleared or approved. This is a modified version of an approved [...] is revoked under Section 564(g) of the Act.Fact Sheet for Healthcare Providers:https://www.Poly Adaptiveidel.com/sites/default/files/product/documents/Fact_Shee i_ZW_Hmvffsdsa_Nung_WCRJ-MpP-7.pdfFact Sheet for Healthcare Patients:https://www.Testt.com/sites/default/files/product/ documents/Ccvq_Dghnx_Wdqnwapn_Fqjh_TBPR-VwV-6.pdfPerforming Laboratory:[place] [address], [place] [address]WIJM W CONTRAST & [id number] 12:58:18Ejection FractionSLEH ECHO HEARTLAB MKCKESSON CPACSInterface, External Ris In - 01/05/2020 12:58 PM CDTTransthoracic Echocardiography Report (TTE) Demographics Patient Name MARV PALUMBO Date of Study 01/05/2020 Gender Female Visit Number [id number] Race Unknown Room Number 2246 Number Date of 1945 Referring Physician Ramila Marshall Age 74 year(s) 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 Amount - 2 mlHeight: 62 inches Weight: 66.68 kg (147 lbs) BSA: 1.68 m^2 BMI: 26.89kg/m^2HR: 112 bpm BP: 160/105 mmHg Summary IV saline contrast injection was negative for a PFO (patent foramen ovale) at rest and post Valsalva . The left ventricle is chamber size (by vol index) is normal (female - LVED vol - 29- 61ml/m2). All of the LV segments contract normally . LVEF by Zimmer's method of disk assessment is normal (55-60%) . Degree of diastolic dysfunction (LAP assessment) is inconclusive due to arrhythmia . Estimated peak systolic PA pressure is 36 mmHg + RA pressure. (RA pressure indeterminate on this exam) Previous Study No prior studies available for comparison. Signature Findings Technical Quality: Technically adequate exam. Rhythm/BP Atrial fibrillation with controlled ventricular response. Left Ventricle LV endocardium is adequately visualized with IV ultrasound enhancing agent. The left ventricle is chamber size (by vol index) is normal (female - LVED vol - 29- 61ml/m2). No evidence of LV hypertrophy. Allof the LV segments contract normally . Global LV systolic function normal . LVEF by Zimmer's method of disk assessment is normal (55-60%) . Degree of diastolic dysfunction (LAP assessment) is inconclusive due to arrhythmia . Left Atrium LA size is severely enlarged (>48 ml/m2) . Right Ventricle The right ventricular chamber size and systolic function are within normal limits. Right Atrium RA size is normal. Atrial Septum IV saline contrast injection was negative for a PFO (patent foramen ovale) at rest and post Valsalva . Aortic Valve Mild AoV cusp thickening. No evidence of aortic regurgitation. Mitral Valve Mild MV leaflet thickening. Mild mitral annular calcification. Mild mitral regurgitation. Tricuspid Valve TV structure is normal. Mild tricuspid regurgitation. Estimated peak systolic PA pressure is 36 mmHg + RA pressure. (RA pressure indeterminate on this exam) Pulmonic Valve Normal PV structure and function by limited views and Doppler. Aorta Aortic root size (SInus of Valsalva diameter) is normal . Pericardium No pericardial effusion is visualized. IVC/SVC/PA/PV/Pleural The inferior vena cava is not well visualized. Chambers/Structures Left Atrium LA Volume: 96.5 ml LA Area: 26.7 cm^2 LA Vol. Index: 57 ml/ m^2 Left Ventricle LVIDd: 3.81 cm LVIDs: 2.98 cm LV Septum Diastolic: 1.14 cm LV PW Diastolic: 0.96 cm LV FS: 21.8 % LVEDV Zimmer's:70.9 ml LVESV Zimmer's:31.68 ml LVEDVI: 42 ml/m^2 LVEF Zimmer's: 55.3 % LVESVI: 19 ml/m^2 LVOT Diameter: 1.89 cm Right Atrium RA Vol. (Sngl Plane): 56.29 ml Aorta Ao Root S of Mirtha.: 2.71 cm Dopple r/Quantitative Measurements Aortic Valve Peak Velocity: 1.67 m/s Mean Velocity: 1.17 m/s Peak Gradient: 11.1 mmHg Mean Gradient: 6.29 mmHg AV Area (continuity): 1.23 cm^2 AV VTI: 25.95 cm AV DVI: 0.44 LVOT Peak Velocity: 0.71 m/s Peak Gradient: 2.01 mmHg Mean Velocity: 0.47 m/s Mean Gradient: 1.01 mmHg LVOT Diameter: 1.89 cm LVOT VTI: 11.38 cm LVOT Area: 2.81 cm^2 LVOT SV:31.91 ml LVOT CO: 3.57 l/min LVOT CI: 2.12 l/min/m^2 RVOT RVOT VTI (PW): 13.99 cm Tricuspid Valve TR Velocity: 3.03 m/s TR Gradient: 36.7 mmHgInland Valley Regional Medical CenterHemoglobin [id number] 10:13:00 Test Item Value Reference Range Interpretation Comments Hemoglobin A1C (test code = 4548-4) 5.7 % 4.3-6.1 Lab Interpretation (test code = Normal 63652-0) [facility] CenterHEMOGLOBIN [id number] 10:13:00 Test Item Value Reference Range Interpretation Comments HEMOGLOBIN A1C (BEAKER) (test code = 5.7 % 4.3-6.1 368) CT, BRAIN, WITHOUT [id number] 07:25:00Unlisted Reason for Exam - Click Yes and Enter Reason Below->NoFINAL REPORT CT Head without contrast CLINICAL HISTORY: Stroke, follow up TECHNIQUE: Contiguous axial CT images through the head without contrast. This exam was performed according to the departmental dose optimization program which includes automated exposure control, adjustment of the mA and/or kV according to the patient size, and/or use of an iterative reconstruction technique. COMPARISON: None FINDINGS: There is acute to subacute infarction in the right posterior cerebralartery distribution involving the medial right temporal lobe, most of the right occipital lobe, and the right thalamocapsular region. There is a small amount of petechial hemorrhage in the posteromedial right temporal lobe. There is local sulcal effacement with mass effect effacing the right ambient cistern. However, there is no significant midline shift. 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 There is generalized parenchymal volume loss without hydrocephalus. There are no extra-axial fluid collections. The skull is intact. The visualized paranasal sinuses are well-aerated. 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 This is compatible with the stated history, but comparison with previous studies and attention on follow-up is recommended. Signed: Jesenia Chanelort Verified Date/Time: 01/05/2020 07:25:42 Reading Location: [address] Neuro Reading Room CT brain without IV [id number] 07:25:00Interface, External Ris In - 01/05/2020 7:[address] Head without contrast CLINICAL HISTORY: Stroke, follow up TECHNIQUE: Contiguous axial CT images through the head without contrast. This exam was performed according to the departmental dose optimization program which includes automated exposure control, adjustment of the mA and/or kV according to the patient size, and/or use of an iterative reconstruction technique. COMPARISON: None FINDINGS: There is acute tosubacute infarction in the right posterior cerebral artery distribution involving the medial right temporal lobe, most of the right occipital lobe, and the right thalamocapsular region. There is a small amount of petechial hemorrhage in the posteromedial right temporal lobe. There is local sulcal effacement with mass effect effacing the right ambient cistern. However, there is no significant midline shift. 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 There is generalized parenchymal volume loss without hydrocephalus. There are no extra-axial fluid collections. The skull is intact. Thevisualized paranasal sinuses are well-aerated. 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 This is compatible with the stated history,but comparison with previous studies and attention on follow-up is recommended. Signed: Jesenia Chanel MDRranjitort Verified Date/Time: 01/05/2020 07:25:42 Reading Location: [address] Neuro [facility] [id number] 06:22:00 Test Item Value Reference Range Interpretation Comments Triglycerides (test 138 mg/dL code = 2571-8) Cholesterol (test code 203 mg/dL = 2093-3) HDL (test code = 47 mg/dL 2085-9) LDL Calculated (test 128 mg/dL code = 01314-0) JORGITO (test code = JORGITO) Triglyceride Reference Range: Low Risk <150 Borderline 150-199 High Risk 200-499 Very High Risk >=500 Cholesterol Reference Range: Low Risk <200 Borderline 200-239 High Risk >240 HDL Cholesterol Reference Range: Low Risk >=60 High Risk <40 LDL Cholesterol Reference Range: Optimal <100 Near Optimal 100-129 Borderline 130-159 High 160-189 Very High >=190 Janitor MICHAEL Donald [facility] [id number] 06:22:00 Test Item Value Reference Range Interpretation Comments TRIGLYCERIDES (BEAKER) (test code = 138 mg/dL 540) CHOLESTEROL (BEAKER) (test code = 203 mg/dL 631) HDL CHOLESTEROL (BEAKER) (test code 47 mg/dL = 976) LDL CHOLESTEROL CALCULATED (BEAKER) 128 mg/dL (test code = 633) Triglyceride Reference Range: Low Risk <150 Borderline 150-199 High Risk 200-499 Very High Risk >=500Cholesterol Reference Range: Low Risk <200 Borderline 200-239 High Risk >240HDL Cholesterol Reference Range: Low Risk >=60 High Risk <40LDL Cholesterol Reference Range: Optimal <100 Near Optimal 100-129 Borderline 130-159 High 160-189 Very High >=190 Janitor ID - DARRION MBASIC METABOLIC [id number] 06:22:00 Test Item Value Reference Range Interpretation Comments SODIUM (BEAKER) 135 meq/L 136-145 L (test code = 381) POTASSIUM (BEAKER) 3.8 meq/L 3.5-5.1 (test code = 379) CHLORIDE (BEAKER) 100 meq/L 98-107 (test code = 382) CO2 (BEAKER) (test 22 meq/L 22-29 code = 355) BLOOD UREA NITROGEN 10 mg/dL 7-21 (BEAKER) (test code = 354) CREATININE (BEAKER) 0.76 mg/dL 0.57-1.25 (test code = 358) GLUCOSE RANDOM 130 mg/dL 70-105 H (BEAKER) (test code = 652) CALCIUM (BEAKER) 8.7 mg/dL 8.4-10.2 (test code = 697) EGFR (BEAKER) (test 74 mL/min/1.73 ESTIMA FCO GFR IS code = 1092) sq m NOT ACCURATE CREATININE CLEARANCE IN PREDICTING GLOMERULAR FILTRATION RATE . ESTIMATED GFR I S NOT APPLICABLE FOR DIALYSIS PATIEN TS. Janitor ID - DARRION [id number] 06:01:00 Test Item Value Reference Range Interpretation Comments PTT (test code = 63049-7) 25.8 22.5- 36.0 seconds Lab Interpretation (test code = Normal 33286-6) [facility] Test Item Value Reference Range Interpretation Comments PARTIAL THROMBOPLASTIN TIME 25.8 seconds 22.5-36.0 (BEAKER) (test code = 760) CBC with platelet count + automated [id number] 05:49:00 Test Item Value Reference Range Interpretation Comments WBC (test code = 6690-2) 6.6 3.5- 10.5 K/L RBC (test code = 789-8) 4.04 3.93- 5.22 M/L MCHC (test code = 786-4) 31.4 32.2- 35.5 GM/DL L Hematocrit (test code = 4544-3) 36.9 % 34.1-44.9 MCV (test code = 787-2) 91.3 fL 79.4-94.8 MCH (test code = 785-6) 28.7 pg 25.6-32.2 RDW (test code = 788-0) 13.7 % 11.7-14.4 Platelets (test code = 777-3) 197 150- 450 K/CU MM MPV (test code = 49058-3) 9.6 fL 9.4-12.3 nRBC (test code = 413) 0 0- 0 /100 WBC % Neutros (test code = 429) 75 % % Lymphs (test code = 430) 17 % % Monos (test code = 431) 7 % % Eos (test code = 432) 0 % % Baso (test code = 437) 1 % # Neutros (test code = 670) 4.96 1.56- 6.13 K/L # Lymphs (test code = 414) 1.10 1.18- 3.74 K/L L # Monos (test code = 415) 0.46 0.24- 0.36 K/L H # Eos (test code = 416) 0.02 0.04- 0.36 K/L L # Baso (test code = 417) 0.03 0.01- 0.08 K/L Immature Granulocytes-Relative 0 % 0-1 (test code = 2801) Lab Interpretation (test code = Abnormal 25513-9) [facility] W/PLT COUNT & AUTO [id number] 05:49:00 Test Item Value Reference Range Interpretation Comments WHITE BLOOD CELL COUNT (BEAKER) 6.6 K/ L 3.5-10.5 (test code = 775) RED BLOOD CELL COUNT (BEAKER) 4.04 M/ L 3.93-5.22 (test code = 761) HEMOGLOBIN (BEAKER) (test code = 11.6 GM/DL 11.2-15.7 410) HEMATOCRIT (BEAKER) (test code = 36.9 % 34.1-44.9 411) MEAN CORPUSCULAR VOLUME (BEAKER) 91.3 fL 79.4-94.8 (test code = 753) MEAN CORPUSCULAR HEMOGLOBIN 28.7 pg 25.6-32.2 (BEAKER) (test code = 751) MEAN CORPUSCULAR HEMOGLOBIN CONC 31.4 GM/DL 32.2-35.5 L (BEAKER) (test code = 752) RED CELL DISTRIBUTION WIDTH 13.7 % 11.7-14.4 (BEAKER) (test code = 412) PLATELET COUNT (BEAKER) (test 197 K/CU MM 150-450 code = 756) MEAN PLATELET VOLUME (BEAKER) 9.6 fL 9.4-12.3 (test code = 754) NUCLEATED RED BLOOD CELLS 0 /100 WBC 0-0 (BEAKER) (test code = 413) NEUTROPHILS RELATIVE PERCENT 75 % (BEAKER) (test code = 429) LYMPHOCYTES RELATIVE PERCENT 17 % (BEAKER) (test code = 430) MONOCYTES RELATIVE PERCENT 7 % (BEAKER) (test code = 431) EOSINOPHILS RELATIVE PERCENT 0 % (BEAKER) (test code = 432) BASOPHILS RELATIVE PERCENT 1 % (BEAKER) (test code = 437) NEUTROPHILS ABSOLUTE COUNT 4.96 K/ L 1.56-6.13 (BEAKER) (test code = 670) LYMPHOCYTES ABSOLUTE COUNT 1.10 K/ L 1.18-3.74 L (BEAKER) (test code = 414) MONOCYTES ABSOLUTE COUNT (BEAKER) 0.46 K/ L 0.24-0.36 H (test code = 415) EOSINOPHILS ABSOLUTE COUNT 0.02 K/ L 0.04-0.36 L (BEAKER) (test code = 416) BASOPHILS ABSOLUTE COUNT (BEAKER) 0.03 K/ L 0.01-0.08 (test code = 417) IMMATURE GRANULOCYTES-RELATIVE 0 % 0-1 PERCENT (BEAKER) (test code = 2801) RAD, CHEST, 1 VIEW, NON [id number] 23:36:00Reason for exam:->CVA, CAD, AFibShould this be performed at the bedside?->YesFINAL REPORT INDICATION: CVA, CAD, AFib COMPARISON: None TECHNIQUE: Single frontal view of the chest. IMPRESSION: Lungs and pleura: Clear lungs. No effusion.Heart and mediastinum: Heart size is magnified by technique. Unremarkable mediastinal contours. Mild atherosclerotic calcifications of the aortic arch.Osseous structures: No acute abnormality.Other: None. Signed: Meredith Felder [facility] Verified Date/Time: 01/04/2020 23:36:17 XR chest 1 view portable / [id number] 23:36:00Interface, External Ris In - 01/04/2020 11:38 PM CDTFINAL REPORT INDICATION: CVA, CAD, AFib COMPARISON: None TECHNIQUE: Single frontal view of the chest. IMPRESSION: Lungs and pleura: Clear lungs. No effusion.Heart and mediastinum: Heart size is magnified by technique. Unremarkab le mediastinal contours. Mild atherosclerotic calcifications of the aortic arch.Osseous structures: No acute abnormality.Other: None. Signed: Meredith Felder MDReport Verified Date/Time: 01/04/2020 23:36:17 [facility] TSH/Free T4 If [id number] 22:19:00 Test Item Value Reference Range Interpretation Comments TSH (test code = 2.037 0.350- 4.940 uIU/mL 74475-6) JORGITO (test code = JORGITO) Janitor ID - EDASI Lab Interpretation (test Normal code = 24899-3) [facility] and [id number] 22:19:00 Test Item Value Reference Range Interpretation Comments Vitamin B12 (test code = <146 213-816 L 2132-9) Folate (test code = 31.70 ng/mL >=7.00 2284-8) JORGITO (test code = JORGITO) Janitor ID - EDASI Lab Interpretation (test Abnormal code = 91615-7) [facility] T4 IF [id number] 22:19:00 Test Item Value Reference Range Interpretation Comments THYROID STIMULATING HORMONE 2.037 uIU/mL 0.350-4.940 (BEAKER) (test code = 772) Janitor ID - EDASIVITAMIN B12 AND [id number] 22:19:00 Test Item Value Reference Range Interpretation Comments VITAMIN B12 (BEAKER) (test code = < pg/mL 213-816 L 774) FOLATE (BEAKER) (test code = 362) 31.70 ng/mL >=7.00 Janitor ID - EDASITroponin [id number] 21:05:00 Test Item Value Reference Range Interpretation Comments Troponin I (test code = <0.01 0-0.03 63220-5) JORGITO (test code = JORGITO) Troponin I (TnI) levels must be interpreted in the context of the presenting symptoms and the clinical findings. Elevated TnI levels indicate myocardial damage, but are not specific for ischemic heart disease. Elevated TnI levels are seen in patients with other cardiac conditions (including myocarditis and congestive heart failure), and slight TnI elevations occur in patients with other conditions, including sepsis, renal failure, acidosis, acute neurological disease, and persistent tachyarrhythmia.Opera tor ID - EDASI Lab Interpretation (test Normal code = 63105-2) [facility] CenterTROPONIN [id number] 21:05:00 Test Item Value Reference Range Interpretation Comments TROPONIN I (BEAKER) (test code = 397) < ng/mL 0.00-0.03 Troponin I (TnI) levels must be interpreted in the context of the presenting symptoms and the clinical findings. Elevated TnI levels indicate myocardial damage, but are not specific for ischemic heart disease. Elevated TnI levels are seen in patients with other cardiac conditions (including myocarditis and congestive heart failure), and slight TnI elevations occur in patients with other conditions, including sepsis, renal failure, acidosis, acute neurological disease, and persistent tachyarrhythmia.[facility] ID - [facility] Natriuretic Factor (BNP)2020-01-04 21:04:00 Test Item Value Reference Range Interpretation Comments BNP (test code = 43335-0) 310 pg/mL 0-100 H JORGITO (test code = JORGITO) [facility] Lab Interpretation (test Abnormal code = 88696-0) [facility] CenterB-TYPE NATRIURETIC FACTOR (BNP)2020-01-04 21:04:00 Test Item Value Reference Range Interpretation Comments B-TYPE NATRIURETIC PEPTIDE (BEAKER) 310 pg/mL 0-100 H (test code = 700) Janitor ID - [facility]Hep[facility] function [id number] 20:58:00 Test Item Value Reference Range Interpretation Comments Protein, Total (test code 6.8 6.0- 8.3 gm/dL = 2885-2) Albumin (test code = 4.1 g/dL 3.5-5 37947-8) Total Bilirubin (test code 1.1 mg/dL 0.2-1.2 = 1975-2) Bilirubin, Direct (test 0.6 mg/dL 0.1-0.5 H code = 1968-7) Alkaline Phosphatase (test 52 U/L 40-150 code = 6768-6) AST (test code = 1920-8) 18 U/L 5-34 ALT (test code = 1742-6) 10 U/L 6-55 JORGITO (test code = JORGITO) [facility] Lab Interpretation (test Abnormal code = 09134-5) [facility] CenterPhosphorus2020-08-23 20:58:00 Test Item Value Reference Range Interpretation Comments Phosphorus (test code = 3.4 mg/dL 2.3-4.7 2777-1) JORGITO (test code = JORGITO) Janitor ID - EDASI Lab Interpretation (test Normal code = 27103-3) [facility] CenterPHOSPHORUS2020-08-23 20:58:00 Test Item Value Reference Range Interpretation Comments PHOSPHORUS (BEAKER) (test code = 3.4 mg/dL 2.3-4.7 604) Janitor ID - [id number] 20:58:00 Test Item Value Reference Range Interpretation Comments MAGNESIUM (BEAKER) (test code = 1.8 mg/dL 1.6-2.6 627) Janitor ID - EDASIBASIC METABOLIC [id number] 20:58:00 Test Item Value Reference Range Interpretation Comments SODIUM (BEAKER) 141 meq/L 136-145 (test code = 381) POTASSIUM (BEAKER) 3.7 meq/L 3.5-5.1 (test code = 379) CHLORIDE (BEAKER) 103 meq/L 98-107 (test code = 382) CO2 (BEAKER) (test 25 meq/L 22-29 code = 355) BLOOD UREA NITROGEN 12 mg/dL 7-21 (BEAKER) (test code = 354) CREATININE (BEAKER) 0.69 mg/dL 0.57-1.25 (test code = 358) GLUCOSE RANDOM 104 mg/dL 70-105 (BEAKER) (test code = 652) CALCIUM (BEAKER) 9.3 mg/dL 8.4-10.2 (test code = 697) EGFR (BEAKER) (test 83 mL/min/1.73 ESTIMA FCO GFR IS code = 1092) sq m NOT ACCURATE CREATININE CLEARANCE IN PREDICTING GLOMERULAR FILTRATION RATE . ESTIMATED GFR I S NOT APPLICABLE FOR DIALYSIS PATIEN TS. Janitor ID - EDASIHEPATIC FUNCTION [id number] 20:58:00 Test Item Value Reference Range Interpretation Comments TOTAL PROTEIN (BEAKER) (test code = 6.8 gm/dL 6.0-8.3 770) ALBUMIN (BEAKER) (test code = 1145) 4.1 g/dL 3.5-5.0 BILIRUBIN TOTAL (BEAKER) (test code 1.1 mg/dL 0.2-1.2 = 377) BILIRUBIN DIRECT (BEAKER) (test 0.6 mg/dL 0.1-0.5 H code = 706) ALKALINE PHOSPHATASE (BEAKER) (test 52 U/L 40-150 code = 346) AST (SGOT) (BEAKER) (test code = 18 U/L 5-34 353) ALT (SGPT) (BEAKER) (test code = 10 U/L 6-55 347) Janitor ID - EDASIProthrombin time/[id number] 20:52:00 Test Item Value Reference Range Interpretation Comments Protime (test code = 13.6 11.9- 14.2 5902-2) seconds INR (test code = 1.07 <=5.90 6301-6) JORGITO (test code = JORGITO) Effective 10/09/2018: PT Reference Range ChangeNew: 11.9-14.2 Previous: 11.7-14.7 RECOMMENDED COUMADIN/WARFARIN INR THERAPY RANGESSTANDARD DOSE: 2.0-3.0 Includes: PROPHYLAXIS for venous thrombosis, systemic embolization; TREATMENT for venous thrombosis and/or pulmonary embolus.HIGH RISK: Target INR is 2.5-3.5 for patients wiht mechanical heart valves. Lab Interpretation Normal (test code = 83916-6) [facility] CenterPROTHROMBIN TIME/[id number] 20:52:00 Test Item Value Reference Range Interpretation Comments PROTIME (BEAKER) (test code = 13.6 seconds 11.9-14.2 759) INR (BEAKER) (test code = 370) 1.07 <=5.90 Effective 10/09/2018: PT Reference Range ChangeNew: 11.9-14.2 Previous: 11.7- 14.7RECOMMENDED COUMADIN/WARFARIN INR THERAPY RANGESSTANDARD DOSE: 2.0-3.0 Includes: PROPHYLAXIS for venous thrombosis, systemic embolization; TREATMENT for venous thrombosis and/or pulmonary embolus.HIGH RISK: Target INR is2.5-3.5 for patients wiht mechanical heart valves.CBC W/PLT COUNT & AUTO [id number] 20:38:00 Test Item Value Reference Range Interpretation Comments WHITE BLOOD CELL COUNT (BEAKER) 7.2 K/ L 3.5-10.5 (test code = 775) RED BLOOD CELL COUNT (BEAKER) 3.93 M/ L 3.93-5.22 (test code = 761) HEMOGLOBIN (BEAKER) (test code = 11.8 GM/DL 11.2-15.7 410) HEMATOCRIT (BEAKER) (test code = 35.1 % 34.1-44.9 411) MEAN CORPUSCULAR VOLUME (BEAKER) 89.3 fL 79.4-94.8 (test code = 753) MEAN CORPUSCULAR HEMOGLOBIN 30.0 pg 25.6-32.2 (BEAKER) (test code = 751) MEAN CORPUSCULAR HEMOGLOBIN CONC 33.6 GM/DL 32.2-35.5 (BEAKER) (test code = 752) RED CELL DISTRIBUTION WIDTH 13.5 % 11.7-14.4 (BEAKER) (test code = 412) PLATELET COUNT (BEAKER) (test 248 K/CU MM 150-450 code = 756) MEAN PLATELET VOLUME (BEAKER) 10.5 fL 9.4-12.3 (test code = 754) NUCLEATED RED BLOOD CELLS 0 /100 WBC 0-0 (BEAKER) (test code = 413) NEUTROPHILS RELATIVE PERCENT 73 % (BEAKER) (test code = 429) LYMPHOCYTES RELATIVE PERCENT 19 % (BEAKER) (test code = 430) MONOCYTES RELATIVE PERCENT 7 % (BEAKER) (test code = 431) EOSINOPHILS RELATIVE PERCENT 1 % (BEAKER) (test code = 432) BASOPHILS RELATIVE PERCENT 1 % (BEAKER) (test code = 437) NEUTROPHILS ABSOLUTE COUNT 5.20 K/ L 1.56-6.13 (BEAKER) (test code = 670) LYMPHOCYTES ABSOLUTE COUNT 1.32 K/ L 1.18-3.74 (BEAKER) (test code = 414) MONOCYTES ABSOLUTE COUNT (BEAKER) 0.51 K/ L 0.24-0.36 H (test code = 415) EOSINOPHILS ABSOLUTE COUNT 0.06 K/ L 0.04-0.36 (BEAKER) (test code = 416) BASOPHILS ABSOLUTE COUNT (BEAKER) 0.04 K/ L 0.01-0.08 (test code = 417) IMMATURE GRANULOCYTES-RELATIVE 0 % 0-1 PERCENT (BEAKER) (test code = 2801) POCT-GLUCOSE [id number] 20:37:00 Test Item Value Reference Range Interpretation Comments POC-GLUCOSE METER 107 mg/dL 70-110 : TESTED A T [facility] [address] ([facility]) (test code = MEHDI ONEAL, 1538) [address]: Janitor/Techni gi ID = [id number] for GEOFF CHAVARRIA
[2020-01-09] MEDS ORDERED: MECLIZINE HCL 12.5 MG TAB PO PRN (20:19)
[2020-01-09] MEDS ORDERED: DIPHENHYDRAMINE 25 MG TAB/CAP PO PRN (20:19)
[2020-01-09] MEDS: ATORVASTATIN 80 MG TAB PO SCH (21:34)
[2020-01-09] MEDS: ACETAMINOPHEN 500 MG TAB PO PRN (21:34)
[2020-01-09] MEDS: MELATONIN 3 MG TABLET PO SCH (21:34)
[2020-01-09 23:11] LABS: Urine Appearance CLEAR; Urine Bilirubin NEGATIVE (NEG); Urine Blood NEGATIVE (NEG); Urine Color YELLOW; Urine Glucose NEGATIVE (NEG); Urine Protein NEGATIVE (NEG); Urine Urobilinogen 0.2 mg/dL (0.2-1.0)
[2020-01-09 23:47] LABS: Urine Bacteria 20-50 /HPF (<20); Urine Culture Reflex Order NOT NEEDED; Urine RBC <5 /HPF (NONE SEEN)
[2020-01-10] MEDS ORDERED: GLUCAGON 1 MG/VIAL IM PRN (04:21)
[2020-01-10] MEDS ORDERED: D50W 25 GM/50 ML SYRINGE/VIAL IV PRN (04:21)
[2020-01-10] MEDS: carvediloL 25 MG TAB PO SCH ×2 (05:10→17:03)
[2020-01-10] MEDS: HYDRALAZINE HCL 10 MG TABLET PO PRN (05:11)
[2020-01-10 07:18] LABS: Albumin 2.7 g/dL (3.4-5.0); Magnesium 1.9 mg/dL (1.8-2.4); Potassium 3.2 mmol/L (3.5-5.1); Prealbumin 27.5 mg/dL (20-40)
[2020-01-10] MEDS: PANTOPRAZOLE 40MG TABLET PO SCH (07:33)
[2020-01-10 07:59] LABS: Absolute Lymphocytes (CBC) 1.6 K/uL (0.7-4.9); Basophils % 0.2 % (0-1.3); Hematocrit 36.8 % (36.0-45.0); Lymphocytes % 19.3 % (15.3-44.8); MPV 8.6 fL (7.6-11.3); RBC Red Blood Cell Count 4.18 M/uL (3.86-4.86)
[2020-01-10] MEDS: INSULIN LISPRO 100 UNIT/1 ML SQ SCH ×3 (08:00→17:00)
[2020-01-10] MEDS: FAMOTIDINE 20 MG TAB PO SCH (08:00)
[2020-01-10] MEDS: LOSARTAN POTASSIUM 50 MG TABLET PO SCH (08:48)
[2020-01-10] MEDS: CYANOCOBALAMIN 1,000 MCG TAB PO SCH (08:48)
[2020-01-10] MEDS: METFORMIN HCL 500 MG TAB PO SCH ×2 (08:48→17:03)
[2020-01-10] MEDS: SERTRALINE HCL 100 MG TAB PO SCH (08:48)
[2020-01-10] MEDS: ACETAMINOPHEN 500 MG TAB PO PRN (08:48)
[2020-01-10] MEDS: CLOPIDOGREL 75 MG TABLET PO SCH (08:48)
[2020-01-10] MEDS: APIXABAN 2.5 MG TABLET PO SCH ×2 (08:49→21:11)
[2020-01-10] MEDS ORDERED: PROMETHAZINE 25 MG TABLET PO PRN (09:59)
[2020-01-10] MEDS: TRAMADOL HCL 50 MG TAB PO PRN ×2 (11:49→17:51)
[2020-01-10] MEDS ORDERED: POTASSIUM CL SA 10 MEQ TAB PO ONE (12:00)
[2020-01-10] MEDS: ATORVASTATIN 80 MG TAB PO SCH (21:11)
[2020-01-10] MEDS: MELATONIN 3 MG TABLET PO SCH (21:11)
[2020-01-10] MEDS: POTASSIUM CL SA 10 MEQ TAB PO SCH (21:11)
[2020-01-11] MEDS: carvediloL 25 MG TAB PO SCH ×2 (05:24→16:56)
[2020-01-11] MEDS: HYDRALAZINE HCL 10 MG TABLET PO PRN (05:24)
[2020-01-11] MEDS ORDERED: D50W 25 GM/50 ML SYRINGE/VIAL IV PRN (07:41)
[2020-01-11] MEDS ORDERED: GLUCAGON 1 MG/VIAL IM PRN (07:41)
[2020-01-11] MEDS: FAMOTIDINE 20 MG TAB PO SCH (08:00)
[2020-01-11] MEDS: INSULIN LISPRO 100 UNIT/1 ML SQ SCH ×2 (08:00→12:00)
[2020-01-11] MEDS: SERTRALINE HCL 100 MG TAB PO SCH (09:31)
[2020-01-11] MEDS: CLOPIDOGREL 75 MG TABLET PO SCH (09:32)
[2020-01-11] MEDS: PANTOPRAZOLE 40MG TABLET PO SCH (09:32)
[2020-01-11] MEDS: LOSARTAN POTASSIUM 50 MG TABLET PO SCH (09:32)
[2020-01-11] MEDS: CYANOCOBALAMIN 1,000 MCG TAB PO SCH (09:32)
[2020-01-11] MEDS: APIXABAN 2.5 MG TABLET PO SCH ×2 (09:33→20:36)
[2020-01-11] MEDS: METFORMIN HCL 500 MG TAB PO SCH ×2 (09:33→16:57)
[2020-01-11] MEDS: POTASSIUM CL SA 10 MEQ TAB PO SCH ×2 (09:33→20:36)
[2020-01-11] MEDS: ACETAMINOPHEN 500 MG TAB PO PRN ×2 (09:35→16:57)
[2020-01-11] MEDS: INSULIN -REGULAR HUMAN 50 UNIT/0.5 ML ML SQ SCH ×3 (11:30→20:36)
[2020-01-11] MEDS: TRAMADOL HCL 50 MG TAB PO PRN ×2 (16:04→20:35)
[2020-01-11] MEDS: LIDOCAINE 4% PATCH TOP SCH (18:00)
[2020-01-11] MEDS: ATORVASTATIN 80 MG TAB PO SCH (20:35)
[2020-01-11] MEDS: MELATONIN 3 MG TABLET PO SCH (20:35)
[2020-01-11] MEDS: CRANBERRY FRUIT EXTRACT 200 MG CAP PO SCH (20:36)
[2020-01-12] MEDS: carvediloL 25 MG TAB PO SCH ×2 (05:24→17:24)
[2020-01-12] MEDS: HYDRALAZINE HCL 10 MG TABLET PO PRN (05:24)
[2020-01-12] MEDS: INSULIN -REGULAR HUMAN 50 UNIT/0.5 ML ML SQ SCH ×4 (07:30→20:50)
[2020-01-12] MEDS: LOSARTAN POTASSIUM 50 MG TABLET PO SCH (08:02)
[2020-01-12] MEDS: METFORMIN HCL 500 MG TAB PO SCH ×2 (08:03→17:24)
[2020-01-12] MEDS: POTASSIUM CL SA 10 MEQ TAB PO SCH ×2 (08:03→19:52)
[2020-01-12] MEDS: PANTOPRAZOLE 40MG TABLET PO SCH (08:03)
[2020-01-12] MEDS: CYANOCOBALAMIN 1,000 MCG TAB PO SCH (08:03)
[2020-01-12] MEDS: CLOPIDOGREL 75 MG TABLET PO SCH (08:03)
[2020-01-12] MEDS: APIXABAN 2.5 MG TABLET PO SCH ×2 (08:03→19:52)
[2020-01-12] MEDS: SERTRALINE HCL 100 MG TAB PO SCH (08:03)
[2020-01-12] MEDS: TRAMADOL HCL 50 MG TAB PO PRN ×4 (08:04→19:52)
[2020-01-12] MEDS: CRANBERRY FRUIT EXTRACT 200 MG CAP PO SCH ×2 (08:04→19:51)
[2020-01-12] MEDS: ACETAMINOPHEN 500 MG TAB PO PRN (10:39)
[2020-01-12] MEDS: LIDOCAINE 4% PATCH TOP SCH (13:44)
--- NOTE | 2020-01-12 16:35 | RAD REPORT ---
EXAM DESCRIPTION: RAD - Barium Swallow Modified - 01/12/2020 4:15 pm CLINICAL HISTORY: Evaluate and treat. COMPARISON: None. TECHNIQUE: The patient was given liquid, semi-solid and solid forms of barium. Lateral view fluorosc opic imaging was performed in conjunction with speech pathology service. FINDINGS: Cineloop acquisitions: 15 Fluoro time: 2 minutes 43 seconds laryngeal penetration cleared with honey aspiration with trace no cough, thin and barium tablet IMPRESSION: Modified barium swallow as summarized above and fully detailed on speech pathology repor tBren
--- NOTE | 2020-01-12 18:14 | R.PN ---
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 SUBJECTIVE: Pt denied any Shortness of Breath. Pt denied any depression. CBC with differential is normal. K is low at 3.2, calcium low at 7.6, glucose 116 to 172. UA show kle bsiella pneumoniae, near pansensitive. Will treat with Levaquin 500 mg daily for 5 days. VITAL SIGNS Temperature: 98.9 F SBP/DBP: 192/92 Pulse: 94 Resp: 20 MEDICATION ALLERGIES: No Known Drug Allergies (NKDA) ENVIRONMENTAL ALLERGIES: - Substance Allergies None Known - Other Allergies aspirin Nsaids [id number] Antimigraine Agents NURSING: - Shower allowing shower - Bladder care per protocol - Skin care per protocol PRECAUTIONS: - Weight Bearing Precaution WBAT right LE ACTIVITIES OOB only with supervision THERAPIES: - Occupational Therapy Cognitive Retraining. Visual Perceptual Training. - Dietary and Nutrition Adequate Nutrition. Nutritional Education. Nutritional Supplements. - Speech Therapy Cognitive Training. Expressive Language Skills. Memory Strategies. Receptive Language Skills. Speech Intelligibility Training. PHYSICAL EXAM - Gen Alert and awake Lying in bed No apparent distress Oriented to: person, time, and place - Skin No skin breakdown. Normacephalic - Eyes No abnormalities - ENMT No abnormalities - Neck 7/10 neck pain - CVS RRR - Chest Clear - Resp No wheezing - Abd Soft - GI Non distended Deferred - No abnormalities - Ext No significant edema. - MSK 4+/5 weakness in left upper and lower extremity - Neuro 4/5 strength left upper and lower extremities. - Psych No abnormalities ASSESSMENT: Pt. is a 74 yo Right-handed white female.Pt. is a 74 yo Right-handed female of unknown race.On [address] [facility] with sudden onset of left-sided weakness.On 01/04/[address] [facility] with sudden onset of right-side weakness.On 01/04/2020 she was admitted to [facility] with diagnosis Right CERTIFIED ORTHOTIST/PEDORTHIST CVA.Her impairment category is Left body after right brain stroke.Her impairment category is Stroke 01 - Right Body (Left Brain) (01.2).Pre-morbidly, Pt. was independent/mod-I in Locomotion, Safety Awareness, Balance, Self-Care, Communication, and Endurance; and she had good Sphincter Control, Transfers Control, and Social Cognition.Currently, she has defici ts of Endurance, Sphincter Control, Transfers Control, Social Cognition, Balance, Safety Awareness, a nd Locomotion.Pt. is now referred to [facility] for acute in-patient rehabilit ation in order to maximize patient's functional independence in activities of daily living, strength, ROM, and mobility.- Rehab Goal Patient has realistic goal of being discharged at assistance level 6-Jeremy to reside at Home with Pt self. MDM/PLAN: - Physical Therapy Gait dysfunction - to improve, our physical therapists will perform initial evaluation of pt's statu s upon admission and devise an individualized program for Gait Training, and Wheel Chair mobility Inability to transfer - to improve, our physical therapists will perform initial evaluation of pt's status upon admission and devise an individualized program for Bed mobility Need for home safety evaluation - to improve, our physical therapists will perform initial evaluatio n of pt's status upon admission and devise an individualized program for Home Evaluation Need in caregiver upon discharge - to improve, our physical therapists will perform initial evaluati on of pt's status upon admission and devise an individualized program for Caregiver Training Edema - to improve, our physical therapists will perform initial evaluation of pt's status upon admis gildardo and devise an individualized program for Elevation Training, and Lymphedema Therapy New precaution - to improve, our physical therapists will perform initial evaluation of pt's status upon admission and devise an individualized program for Patient precaution education Poor balance - to improve, our physical therapists will perform initial evaluation of pt's status up on admission and devise an individualized program for Balance Training Poor endurance - to improve, our physical therapists will perform initial evaluation of pt's status upon admission and devise an individualized program for Endurance Training Weakness - to improve, our physical therapists will perform initial evaluation of pt's status upon a dmission and devise an individualized program for Aquatic Therapy, Neuromuscular Reeducation, and Str engthening Achieving independence - to improve, our physical therapists will perform initial evaluation of pt's status upon admission and devise an individualized program for Community Reintegration Activities - Occupational Therapy Cognitive deficits - to improve, our occupation therapists will perform initial evaluation of pt's s tatus upon admission and devise an individualized program for Cognition - orientation Need for child day care center worker - to improve, our occupation therapists will perform initial evaluation of pt's status upon admission and devise an individualized program for Caregiver Training Weakness - to improve, our occupation therapists will perform initial evaluation of pt's status upon admission and devise an individualized program for Aquatic Therapy, Balance, Endurance, UE ROM, and UE strengthening - Other See attached MAR (Medication Administration Record) - Diet Type Continue Regular - Diet - Liquid Texture Continue Regular - Tube Feed Continue N/A - Bladder care per protocol - Weight Bearing Precaution WBAT right LE WBAT left LE - Skin care per protocol - Diet - Solid Texture Continue Regular - Shower allowing shower for Dementia, TBI, Stroke, or others FUNCTIONAL STATUS: UPDATED AT WEEKLY TEAM CONFERENCE - Bladder Same accident frequency: 7-Ind - No accidents in the past 7 days - Bowel Same accident frequency: 7-Ind - No accidents in the past 7 days - Walking Same score based on distance walked: 0(N/A) Same score based on distance walked: 1(<=50ft) - Wheelchair Same score based on distance traveled: 0(N/A) FUNCTIONAL STATUS: - Self-Care A. Eating Ind B. Grooming Ind C. Bathing Jeremy D. Dressing - Upper sup E. Dressing - Lower modA F. Toileting Sho - Sphincter Control G. Bladder control Sho H. Bowel control Sho - Transfers Control I. Bed/Chair/Wheelchair modA J. Toilet modA K. Tub/Shower modA - Locomotion L. Walk/Wheelchair (B) modA M. Stairs maxA - Communication N. Comprehension (B) sup O. Expression (B) sup - Social Cognition P. Social Interaction Jeremy Q. Problem Solving Jeremy R. Memory Jeremy - Endurance Fair - Balance Fair - Safety Awareness Fair QI SCORES: - Self-Care A. Eating 03-Partial/moderate assistance B. Oral hygiene 03-Partial/moderate assistance C. Toileting hygiene 03-Partial/moderate assistance E. Shower/bathe self 03-Partial/moderate assistance F. Upper body dressing 03-Partial/moderate assistance G. Lower body dressing 03-Partial/moderate assistance H. Putting on/taking off footwear 88-Not attempted due to medical condition or safety concerns - Mobility A. Roll left and right 04-Supervision or touching assistance B. Sit to lying 03-Partial/moderate assistance C. Lying to sitting on side of bed 03-Partial/moderate assistance D. Sit to stand 03-Partial/moderate assistance E. Chair/[id number] transfer 03-Partial/moderate assistance F. Toilet transfer 03-Partial/moderate assistance G. Car transfer 88-Not attempted due to medical condition or safety concerns I. Walk 10 feet 88-Not attempted due to medical condition or safety concerns J. Walk 50 feet with two turns 88-Not attempted due to medical condition or safety concerns K. Walk 150 feet 88-Not attempted due to medical condition or safety concerns L. Walking 10 feet on uneven surfaces 88-Not attempted due to medical condition or safety concerns M. 1 step (curb) 88-Not attempted due to medical condition or safety concerns N. 4 steps 88-Not attempted due to medical condition or safety concerns O. 12 steps 88-Not attempted due to medical condition or safety concerns P. Picking up object 88-Not attempted due to medical condition or safety concerns R. Wheel 50 feet with two turns 88-Not attempted due to medical condition or safety concerns S. Wheel 150 feet 88-Not attempted due to medical condition or safety concerns - Bladder and Bowel Bladder continence Bowel continence - Endurance Fair - Balance Fair - Safety Awareness Fair CURRENT PENDING SALE TO [facility]. DEFICITS: Endurance, Balance, Self-Care, Safety Awareness, and Mobility SIGNATURE PANEL: (CDT)
[2020-01-12] MEDS: ATORVASTATIN 80 MG TAB PO SCH (19:51)
[2020-01-12] MEDS: levoFLOXacin 500 MG TAB PO SCH (19:52)
[2020-01-12] MEDS: MELATONIN 3 MG TABLET PO SCH (19:52)
[2020-01-12] MEDS: DIPHENHYDRAMINE 25 MG TAB/CAP PO PRN (19:54)
[2020-01-13] MEDS: DIPHENHYDRAMINE 25 MG TAB/CAP PO PRN ×2 (01:22→20:49)
[2020-01-13] MEDS: TRAMADOL HCL 50 MG TAB PO PRN ×2 (01:22→10:04)
[2020-01-13] MEDS: ACETAMINOPHEN 500 MG TAB PO PRN ×2 (02:48→15:02)
[2020-01-13] MEDS: carvediloL 25 MG TAB PO SCH ×2 (05:10→17:27)
[2020-01-13] MEDS: INSULIN -REGULAR HUMAN 50 UNIT/0.5 ML ML SQ SCH ×4 (07:30→20:49)
[2020-01-13] MEDS: LOSARTAN POTASSIUM 50 MG TABLET PO SCH (10:01)
[2020-01-13] MEDS: CLOPIDOGREL 75 MG TABLET PO SCH (10:02)
[2020-01-13] MEDS: PANTOPRAZOLE 40MG TABLET PO SCH (10:02)
[2020-01-13] MEDS: METFORMIN HCL 500 MG TAB PO SCH ×2 (10:02→17:28)
[2020-01-13] MEDS: CYANOCOBALAMIN 1,000 MCG TAB PO SCH (10:02)
[2020-01-13] MEDS: CRANBERRY FRUIT EXTRACT 200 MG CAP PO SCH ×2 (10:03→20:48)
[2020-01-13] MEDS: levoFLOXacin 500 MG TAB PO SCH (10:03)
[2020-01-13] MEDS: APIXABAN 2.5 MG TABLET PO SCH ×2 (10:03→20:49)
[2020-01-13] MEDS: POTASSIUM CL SA 10 MEQ TAB PO SCH ×2 (10:03→20:49)
[2020-01-13] MEDS: SERTRALINE HCL 100 MG TAB PO SCH (10:03)
[2020-01-13] MEDS: LIDOCAINE 4% PATCH TOP SCH (11:52)
--- NOTE | 2020-01-13 17:56 | R.PN ---
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 SUBJECTIVE: Pt denied any Shortness of Breath. Pt denied any depression. CBC with differential is normal. K is low at 3.2, calcium low at 7.6, glucose 118 to 177. UA show kle bsiella pneumoniae, near pansensitive. Will treat with Levaquin 500 mg daily for 5 days. Ambulated 71' with moderate assistance using a rolling walker. VITAL SIGNS Temperature: 97.0 F SBP/DBP: 149/80 Pulse: 81 Resp: 16 MEDICATION ALLERGIES: No Known Drug Allergies (NKDA) ENVIRONMENTAL ALLERGIES: - Substance Allergies None Known - Other Allergies aspirin Nsaids [id number] Antimigraine Agents NURSING: - Shower allowing shower - Bladder care per protocol - Skin care per protocol PRECAUTIONS: - Weight Bearing Precaution WBAT right LE ACTIVITIES OOB only with supervision THERAPIES: - Occupational Therapy Cognitive Retraining. Visual Perceptual Training. - Dietary and Nutrition Adequate Nutrition. Nutritional Education. Nutritional Supplements. - Speech Therapy Cognitive Training. Expressive Language Skills. Memory Strategies. Receptive Language Skills. Speech Intelligibility Training. PHYSICAL EXAM - Gen Alert and awake Lying in bed No apparent distress Oriented to: person, time, and place - Skin No skin breakdown. Normacephalic - Eyes No abnormalities - ENMT No abnormalities - Neck 7/10 neck pain - CVS RRR - Chest Clear - Resp No wheezing - Abd Soft - GI Non distended Deferred - No abnormalities - Ext No significant edema. - MSK 4+/5 weakness in left upper and lower extremity - Neuro 4/5 strength left upper and lower extremities. - Psych No abnormalities ASSESSMENT: On 01/04/2020 Pt. presented to [facility] with sudden onset of right-side weakness.On 0 Pt. presented to [facility] with sudden onset of left-sided weakness.On 01/04/2020 she was ad mitted to [facility] with diagnosis Right FILM REPLACEMENT ORDERER CVA.Her impairment category is Left body after ri ght brain stroke.Her impairment category is Stroke 01 - Right Body (Left Brain) (01.2).Pre-morbidly, Pt. was independent/mod-I in Locomotion, Safety Awareness, Balance, Self-Care, Communication, and En durance; and she had good Sphincter Control, Transfers Control, and Social Cognition.Pt. is now refer red to [facility] for acute in-patient rehabilitation in order to maximize abel charlton's functional independence in activities of daily living, strength, ROM, and mobility.Pt. is a 74 yo Right-handed white female.Pt. is a 74 yo Right-handed female of unknown race.Currently, she has d eficits of Endurance, Sphincter Control, Transfers Control, Social Cognition, Balance, Safety Awarene ss, and Locomotion.- Rehab Goal Patient has realistic goal of being discharged at assistance level 6-Jeremy to reside at Home with Pt self. MDM/PLAN: - Physical Therapy Achieving independence - to improve, our physical therapists will perform initial evaluation of pt's status upon admission and devise an individualized program for Community Reintegration Activities Edema - to improve, our physical therapists will perform initial evaluation of pt's status upon admi ssion and devise an individualized program for Elevation Training, and Lymphedema Therapy Gait dysfunction - to improve, our physical therapists will perform initial evaluation of pt's statu s upon admission and devise an individualized program for Gait Training, and Wheel Chair mobility Inability to transfer - to improve, our physical therapists will perform initial evaluation of pt's status upon admission and devise an individualized program for Bed mobility Need for home safety evaluation - to improve, our physical therapists will perform initial evaluatio n of pt's status upon admission and devise an individualized program for Home Evaluation Need in caregiver upon discharge - to improve, our physical therapists will perform initial evaluati on of pt's status upon admission and devise an individualized program for Caregiver Training New precaution - to improve, our physical therapists will perform initial evaluation of pt's status upon admission and devise an individualized program for Patient precaution education Poor balance - to improve, our physical therapists will perform initial evaluation of pt's status up on admission and devise an individualized program for Balance Training Poor endurance - to improve, our physical therapists will perform initial evaluation of pt's status upon admission and devise an individualized program for Endurance Training Weakness - to improve, our physical therapists will perform initial evaluation of pt's status upon a dmission and devise an individualized program for Aquatic Therapy, Neuromuscular Reeducation, and Str engthening - Occupational Therapy Cognitive deficits - to improve, our occupation therapists will perform initial evaluation of pt's s tatus upon admission and devise an individualized program for Cognition - orientation Need for overnight caregiver - to improve, our occupation therapists will perform initial evaluation of pt's status upon admission and devise an individualized program for Caregiver Training Weakness - to improve, our occupation therapists will perform initial evaluation of pt's status upon admission and devise an individualized program for Aquatic Therapy, Balance, Endurance, UE ROM, and UE strengthening - Other See attached MAR (Medication Administration Record) - Diet Type Continue Regular - Diet - Liquid Texture Continue Regular - Tube Feed Continue N/A - Bladder care per protocol - Weight Bearing Precaution WBAT left LE WBAT right LE - Skin care per protocol - Diet - Solid Texture Continue Regular - Shower allowing shower for Dementia, TBI, Stroke, or others FUNCTIONAL STATUS: UPDATED AT WEEKLY TEAM CONFERENCE - Bladder Same accident frequency: 7-Ind - No accidents in the past 7 days - Bowel Same accident frequency: 7-Ind - No accidents in the past 7 days - Walking Same score based on distance walked: 0(N/A) Same score based on distance walked: 1(<=50ft) - Wheelchair Same score based on distance traveled: 0(N/A) FUNCTIONAL STATUS: - Self-Care A. Eating Ind B. Grooming Ind C. Bathing Jeremy D. Dressing - Upper sup E. Dressing - Lower modA F. Toileting Sho - Sphincter Control G. Bladder control Sho H. Bowel control Sho - Transfers Control I. Bed/Chair/Wheelchair modA J. Toilet modA K. Tub/Shower modA - Locomotion L. Walk/Wheelchair (B) modA M. Stairs maxA - Communication N. Comprehension (B) sup O. Expression (B) sup - Social Cognition P. Social Interaction Jeremy Q. Problem Solving Jeremy R. Memory Jeremy - Endurance Fair - Balance Fair - Safety Awareness Fair QI SCORES: - Self-Care A. Eating 03-Partial/moderate assistance B. Oral hygiene 03-Partial/moderate assistance C. Toileting hygiene 03-Partial/moderate assistance E. Shower/bathe self 03-Partial/moderate assistance F. Upper body dressing 03-Partial/moderate assistance G. Lower body dressing 03-Partial/moderate assistance H. Putting on/taking off footwear 88-Not attempted due to medical condition or safety concerns - Mobility M. 1 step (curb) 88-Not attempted due to medical condition or safety concerns N. 4 steps 88-Not attempted due to medical condition or safety concerns O. 12 steps 88-Not attempted due to medical condition or safety concerns P. Picking up object 88-Not attempted due to medical condition or safety concerns R. Wheel 50 feet with two turns 88-Not attempted due to medical condition or safety concerns A. Roll left and right 04-Supervision or touching assistance B. Sit to lying 03-Partial/moderate assistance C. Lying to sitting on side of bed 03-Partial/moderate assistance D. Sit to stand 03-Partial/moderate assistance E. Chair/wfs-kz-vbqte transfer 03-Partial/moderate assistance F. Toilet transfer 03-Partial/moderate assistance G. Car transfer 88-Not attempted due to medical condition or safety concerns I. Walk 10 feet 88-Not attempted due to medical condition or safety concerns J. Walk 50 feet with two turns 88-Not attempted due to medical condition or safety concerns K. Walk 150 feet 88-Not attempted due to medical condition or safety concerns L. Walking 10 feet on uneven surfaces 88-Not attempted due to medical condition or safety concerns S. Wheel 150 feet 88-Not attempted due to medical condition or safety concerns - Bladder and Bowel Bladder continence Bowel continence - Endurance Fair - Balance Fair - Safety Awareness Fair CURRENT [facility]. DEFICITS: Endurance, Balance, Self-Care, Safety Awareness, and Mobility SIGNATURE PANEL: (CDT)
[2020-01-13] MEDS: ONDANSETRON 4 MG (ODT) TAB PO PRN (18:07)
[2020-01-13] MEDS: CODEINE 30MG/APAP 300MG TAB PO PRN (20:48)
[2020-01-13] MEDS: ATORVASTATIN 80 MG TAB PO SCH (20:49)
[2020-01-13] MEDS: MELATONIN 3 MG TABLET PO SCH (20:49)
[2020-01-14] MEDS: carvediloL 25 MG TAB PO SCH ×2 (05:19→17:29)
[2020-01-14] MEDS: PANTOPRAZOLE 40MG TABLET PO SCH (07:24)
[2020-01-14] MEDS: INSULIN -REGULAR HUMAN 50 UNIT/0.5 ML ML SQ SCH ×4 (07:30→20:25)
[2020-01-14] MEDS: CODEINE 30MG/APAP 300MG TAB PO PRN ×2 (07:48→12:43)
[2020-01-14] MEDS: CRANBERRY FRUIT EXTRACT 200 MG CAP PO SCH ×2 (07:51→20:25)
[2020-01-14] MEDS: CYANOCOBALAMIN 1,000 MCG TAB PO SCH (07:51)
[2020-01-14] MEDS: SERTRALINE HCL 100 MG TAB PO SCH (07:51)
[2020-01-14] MEDS: POTASSIUM CL SA 10 MEQ TAB PO SCH ×2 (07:52→20:25)
[2020-01-14] MEDS: APIXABAN 2.5 MG TABLET PO SCH ×2 (07:53→20:25)
[2020-01-14] MEDS: CLOPIDOGREL 75 MG TABLET PO SCH (07:53)
[2020-01-14] MEDS: levoFLOXacin 500 MG TAB PO SCH (07:53)
[2020-01-14] MEDS: METFORMIN HCL 500 MG TAB PO SCH ×2 (07:53→17:29)
[2020-01-14] MEDS: LOSARTAN POTASSIUM 50 MG TABLET PO SCH (07:55)
[2020-01-14] MEDS: LIDOCAINE 4% PATCH TOP SCH (09:51)
[2020-01-14] MEDS: ACETAMINOPHEN 500 MG TAB PO PRN ×2 (10:11→21:13)
[2020-01-14] MEDS: ONDANSETRON 4 MG (ODT) TAB PO PRN (17:28)
--- NOTE | 2020-01-14 18:08 | R.PN ---
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 SUBJECTIVE: Pt denied any Shortness of Breath. Pt denied any depression. CBC with differential is normal. K is low at 3.2, calcium low at 7.6, glucose 86 to 109. UA shows kle bsiella pneumoniae, near pansensitive. Will treat with Levaquin 500 mg daily for 5 days. Ambulated 70' with moderate assistance using a rolling walker. Wheelchair mobilization 250' with mode rate assistance. VITAL SIGNS Temperature: 98.0 F SBP/DBP: 144/74 Pulse: 93 Resp: 16 MEDICATION ALLERGIES: No Known Drug Allergies (NKDA) ENVIRONMENTAL ALLERGIES: - Substance Allergies None Known - Other Allergies aspirin Nsaids [id number] Antimigraine Agents NURSING: - Shower allowing shower - Bladder care per protocol - Skin care per protocol PRECAUTIONS: - Weight Bearing Precaution WBAT right LE ACTIVITIES OOB only with supervision THERAPIES: - Occupational Therapy Cognitive Retraining. Visual Perceptual Training. - Dietary and Nutrition Adequate Nutrition. Nutritional Education. Nutritional Supplements. - Speech Therapy Cognitive Training. Expressive Language Skills. Memory Strategies. Receptive Language Skills. Speech Intelligibility Training. PHYSICAL EXAM - Gen Alert and awake Lying in bed No apparent distress Oriented to: person, time, and place - Skin No skin breakdown. Normacephalic - Eyes No abnormalities - ENMT No abnormalities - Neck 7/10 neck pain - CVS RRR - Chest Clear - Resp No wheezing - Abd Soft - GI Non distended Deferred - No abnormalities - Ext No significant edema. - MSK 4+/5 weakness in left upper and lower extremity - Neuro 4/5 strength left upper and lower extremities. - Psych No abnormalities ASSESSMENT: Currently, she has deficits of Endurance, Sphincter Control, Transfers Control, Social Cognition, Bal ance, Safety Awareness, and Locomotion.On 01/04/2020 Pt. presented to [facility] with sudden on set of right-side weakness.On 01/04/2020 Pt. presented to [facility] with sudden onset of left- sided weakness.On 01/04/2020 she was admitted to [facility] with diagnosis Right NIGHT NURSE CVA.Her im pairment category is Left body after right brain stroke.Her impairment category is Stroke 01 - Right Body (Left Brain) (01.2).Pt. is now referred to [facility] for acute in-patie nt rehabilitation in order to maximize patient's functional independence in activities of daily livin g, strength, ROM, and mobility.Pre-morbidly, Pt. was independent/mod-I in Locomotion, Safety Awarenes s, Balance, Self-Care, Communication, and Endurance; and she had good Sphincter Control, Transfers Co ntrol, and Social Cognition.Pt. is a 74 yo Right-handed white female.Pt. is a 74 yo Right-handed fema le of unknown race.- Rehab Goal Patient has realistic goal of being discharged at assistance level 6-Jeremy to reside at Home with Pt self. MDM/PLAN: - Physical Therapy Achieving independence - to improve, our physical therapists will perform initial evaluation of pt's status upon admission and devise an individualized program for Community Reintegration Activities Edema - to improve, our physical therapists will perform initial evaluation of pt's status upon admi ssion and devise an individualized program for Elevation Training, and Lymphedema Therapy Gait dysfunction - to improve, our physical therapists will perform initial evaluation of pt's statu s upon admission and devise an individualized program for Gait Training, and Wheel Chair mobility Inability to transfer - to improve, our physical therapists will perform initial evaluation of pt's status upon admission and devise an individualized program for Bed mobility Need for home safety evaluation - to improve, our physical therapists will perform initial evaluatio n of pt's status upon admission and devise an individualized program for Home Evaluation Need in caregiver upon discharge - to improve, our physical therapists will perform initial evaluati on of pt's status upon admission and devise an individualized program for Caregiver Training New precaution - to improve, our physical therapists will perform initial evaluation of pt's status upon admission and devise an individualized program for Patient precaution education Poor balance - to improve, our physical therapists will perform initial evaluation of pt's status up on admission and devise an individualized program for Balance Training Poor endurance - to improve, our physical therapists will perform initial evaluation of pt's status upon admission and devise an individualized program for Endurance Training Weakness - to improve, our physical therapists will perform initial evaluation of pt's status upon a dmission and devise an individualized program for Aquatic Therapy, Neuromuscular Reeducation, and Str engthening - Occupational Therapy Cognitive deficits - to improve, our occupation therapists will perform initial evaluation of pt's s tatus upon admission and devise an individualized program for Cognition - orientation Need for health care administrator - to improve, our occupation therapists will perform initial evaluation of pt's status upon admission and devise an individualized program for Caregiver Training Weakness - to improve, our occupation therapists will perform initial evaluation of pt's status upon admission and devise an individualized program for Aquatic Therapy, Balance, Endurance, UE ROM, and UE strengthening - Other See attached MAR (Medication Administration Record) - Diet Type Continue Regular - Diet - Liquid Texture Continue Regular - Tube Feed Continue N/A - Bladder care per protocol - Weight Bearing Precaution WBAT left LE WBAT right LE - Skin care per protocol - Diet - Solid Texture Continue Regular - Shower allowing shower for Dementia, TBI, Stroke, or others FUNCTIONAL STATUS: UPDATED AT WEEKLY TEAM CONFERENCE - Bladder Same accident frequency: 7-Ind - No accidents in the past 7 days - Bowel Same accident frequency: 7-Ind - No accidents in the past 7 days - Walking Same score based on distance walked: 0(N/A) Same score based on distance walked: 1(<=50ft) - Wheelchair Same score based on distance traveled: 0(N/A) FUNCTIONAL STATUS: - Self-Care A. Eating Ind B. Grooming Ind C. Bathing Jeremy D. Dressing - Upper sup E. Dressing - Lower modA F. Toileting Sho - Sphincter Control G. Bladder control Sho H. Bowel control Sho - Transfers Control I. Bed/Chair/Wheelchair modA J. Toilet modA K. Tub/Shower modA - Locomotion L. Walk/Wheelchair (B) modA M. Stairs maxA - Communication N. Comprehension (B) sup O. Expression (B) sup - Social Cognition P. Social Interaction Jeremy Q. Problem Solving Jeremy R. Memory Jeremy - Endurance Fair - Balance Fair - Safety Awareness Fair QI SCORES: - Self-Care A. Eating 03-Partial/moderate assistance B. Oral hygiene 03-Partial/moderate assistance C. Toileting hygiene 03-Partial/moderate assistance E. Shower/bathe self 03-Partial/moderate assistance F. Upper body dressing 03-Partial/moderate assistance G. Lower body dressing 03-Partial/moderate assistance H. Putting on/taking off footwear 88-Not attempted due to medical condition or safety concerns - Mobility M. 1 step (curb) 88-Not attempted due to medical condition or safety concerns N. 4 steps 88-Not attempted due to medical condition or safety concerns O. 12 steps 88-Not attempted due to medical condition or safety concerns P. Picking up object 88-Not attempted due to medical condition or safety concerns R. Wheel 50 feet with two turns 88-Not attempted due to medical condition or safety concerns A. Roll left and right 04-Supervision or touching assistance B. Sit to lying 03-Partial/moderate assistance C. Lying to sitting on side of bed 03-Partial/moderate assistance D. Sit to stand 03-Partial/moderate assistance E. Chair/[id number] transfer 03-Partial/moderate assistance F. Toilet transfer 03-Partial/moderate assistance G. Car transfer 88-Not attempted due to medical condition or safety concerns I. Walk 10 feet 88-Not attempted due to medical condition or safety concerns J. Walk 50 feet with two turns 88-Not attempted due to medical condition or safety concerns K. Walk 150 feet 88-Not attempted due to medical condition or safety concerns L. Walking 10 feet on uneven surfaces 88-Not attempted due to medical condition or safety concerns S. Wheel 150 feet 88-Not attempted due to medical condition or safety concerns - Bladder and Bowel Bladder continence Bowel continence - Endurance Fair - Balance Fair - Safety Awareness Fair [facility] DEFICITS: Endurance, Balance, Self-Care, Safety Awareness, and Mobility SIGNATURE PANEL: (CDT)
[2020-01-14] MEDS: DOCUSATE NA/SENNA CONC 1 TAB PO PRN (20:25)
[2020-01-14] MEDS: ATORVASTATIN 80 MG TAB PO SCH (20:25)
[2020-01-14] MEDS: MELATONIN 3 MG TABLET PO SCH (20:25)
[2020-01-15] MEDS: ONDANSETRON 4 MG (ODT) TAB PO PRN (01:17)
[2020-01-15] MEDS: ACETAMINOPHEN 500 MG TAB PO PRN ×4 (02:13→19:04)
[2020-01-15] MEDS: carvediloL 25 MG TAB PO SCH ×2 (04:59→17:19)
[2020-01-15 06:23] LABS: Absolute Lymphocytes (CBC) 1.5 K/uL (0.7-4.9); Basophils % 0.5 % (0-1.3); Hematocrit 32.1 % (36.0-45.0); Lymphocytes % 22.2 % (15.3-44.8); MPV 9.1 fL (7.6-11.3); RBC Red Blood Cell Count 3.65 M/uL (3.86-4.86)
[2020-01-15 06:42] LABS: Albumin 2.8 g/dL (3.4-5.0); Potassium 4.3 mmol/L (3.5-5.1); Prealbumin 23.1 mg/dL (20-40)
[2020-01-15] MEDS: INSULIN -REGULAR HUMAN 50 UNIT/0.5 ML ML SQ SCH ×4 (07:30→20:00)
[2020-01-15] MEDS: LIDOCAINE 4% PATCH TOP SCH (08:52)
[2020-01-15] MEDS: CRANBERRY FRUIT EXTRACT 200 MG CAP PO SCH ×2 (08:52→19:59)
[2020-01-15] MEDS: CLOPIDOGREL 75 MG TABLET PO SCH (08:53)
[2020-01-15] MEDS: CYANOCOBALAMIN 1,000 MCG TAB PO SCH (08:53)
[2020-01-15] MEDS: FE SULF/FA/VIT B COMP & C TAB PO SCH (08:53)
[2020-01-15] MEDS: POTASSIUM CL SA 10 MEQ TAB PO SCH ×2 (08:53→19:59)
[2020-01-15] MEDS: levoFLOXacin 500 MG TAB PO SCH (08:53)
[2020-01-15] MEDS: METFORMIN HCL 500 MG TAB PO SCH ×3 (08:53→17:19)
[2020-01-15] MEDS: LOSARTAN POTASSIUM 50 MG TABLET PO SCH (08:53)
[2020-01-15] MEDS: FERROUS SULFATE 325 MG TAB PO SCH (08:53)
[2020-01-15] MEDS: SERTRALINE HCL 100 MG TAB PO SCH (08:53)
[2020-01-15] MEDS: APIXABAN 2.5 MG TABLET PO SCH ×2 (08:53→19:59)
[2020-01-15] MEDS: PANTOPRAZOLE 40MG TABLET PO SCH (08:53)
--- NOTE | 2020-01-15 17:49 | R.PN ---
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 SUBJECTIVE: Pt denied any Shortness of Breath. Pt denied any depression. CBC with differential is normal except for low Hgb of 11.1, prealbumin 23.1 and glucose 103 to 107. K is normal at 4.3, calcium low at 7.6, glucose 86 to 109. UA shows klebsiella pneumoniae, near pansen sitive. Will treat with Levaquin 500 mg daily for 5 days. Ambulated 60' with moderate assistance using a rolling walker. Wheelchair mobilization 250' with mode rate assistance. VITAL SIGNS Temperature: 98.1 F SBP/DBP: 134/76 Pulse: 70 Resp: 16 MEDICATION ALLERGIES: No Known Drug Allergies (NKDA) ENVIRONMENTAL ALLERGIES: - Substance Allergies None Known - Other Allergies aspirin Nsaids [id number] Antimigraine Agents NURSING: - Shower allowing shower - Bladder care per protocol - Skin care per protocol PRECAUTIONS: - Weight Bearing Precaution WBAT right LE ACTIVITIES OOB only with supervision THERAPIES: - Occupational Therapy Cognitive Retraining. Visual Perceptual Training. - Dietary and Nutrition Adequate Nutrition. Nutritional Education. Nutritional Supplements. - Speech Therapy Cognitive Training. Expressive Language Skills. Memory Strategies. Receptive Language Skills. Speech Intelligibility Training. PHYSICAL EXAM - Gen Alert and awake Lying in bed No apparent distress Oriented to: person, time, and place - Skin No skin breakdown. Normacephalic - Eyes No abnormalities - ENMT No abnormalities - Neck 7/10 neck pain - CVS RRR - Chest Clear - Resp No wheezing - Abd Soft - GI Non distended Deferred - No abnormalities - Ext No significant edema. - MSK 4+/5 weakness in left upper and lower extremity - Neuro 4/5 strength left upper and lower extremities. - Psych No abnormalities ASSESSMENT: Currently, she has deficits of Endurance, Sphincter Control, Transfers Control, Social Cognition, Bal ance, Safety Awareness, and Locomotion.On 01/04/2020 Pt. presented to [facility] with sudden on set of right-side weakness.On 01/04/2020 Pt. presented to [facility] with sudden onset of left- sided weakness.On 01/04/2020 she was admitted to [facility] with diagnosis Right MATCHER LEATHER PARTS CVA.Her im pairment category is Left body after right brain stroke.Her impairment category is Stroke 01 - Right Body (Left Brain) (01.2).Pt. is now referred to [facility] for acute in-patie nt rehabilitation in order to maximize patient's functional independence in activities of daily livin g, strength, ROM, and mobility.Pre-morbidly, Pt. was independent/mod-I in Locomotion, Safety Awarenes s, Balance, Self-Care, Communication, and Endurance; and she had good Sphincter Control, Transfers Co ntrol, and Social Cognition.Pt. is a 74 yo Right-handed white female.Pt. is a 74 yo Right-handed fema le of unknown race.- Rehab Goal Patient has realistic goal of being discharged at assistance level 6-Jeremy to reside at Home with Pt self. MDM/PLAN: - Physical Therapy Achieving independence - to improve, our physical therapists will perform initial evaluation of pt's status upon admission and devise an individualized program for Community Reintegration Activities Edema - to improve, our physical therapists will perform initial evaluation of pt's status upon admi ssion and devise an individualized program for Elevation Training, and Lymphedema Therapy Gait dysfunction - to improve, our physical therapists will perform initial evaluation of pt's statu s upon admission and devise an individualized program for Gait Training, and Wheel Chair mobility Inability to transfer - to improve, our physical therapists will perform initial evaluation of pt's status upon admission and devise an individualized program for Bed mobility Need for home safety evaluation - to improve, our physical therapists will perform initial evaluatio n of pt's status upon admission and devise an individualized program for Home Evaluation Need in caregiver upon discharge - to improve, our physical therapists will perform initial evaluati on of pt's status upon admission and devise an individualized program for Caregiver Training New precaution - to improve, our physical therapists will perform initial evaluation of pt's status upon admission and devise an individualized program for Patient precaution education Poor balance - to improve, our physical therapists will perform initial evaluation of pt's status up on admission and devise an individualized program for Balance Training Poor endurance - to improve, our physical therapists will perform initial evaluation of pt's status upon admission and devise an individualized program for Endurance Training Weakness - to improve, our physical therapists will perform initial evaluation of pt's status upon a dmission and devise an individualized program for Aquatic Therapy, Neuromuscular Reeducation, and Str engthening - Occupational Therapy Cognitive deficits - to improve, our occupation therapists will perform initial evaluation of pt's s tatus upon admission and devise an individualized program for Cognition - orientation Need for overnight caregiver - to improve, our occupation therapists will perform initial evaluation of pt's status upon admission and devise an individualized program for Caregiver Training Weakness - to improve, our occupation therapists will perform initial evaluation of pt's status upon admission and devise an individualized program for Aquatic Therapy, Balance, Endurance, UE ROM, and UE strengthening - Other See attached MAR (Medication Administration Record) - Diet Type Continue Regular - Diet - Liquid Texture Continue Regular - Tube Feed Continue N/A - Bladder care per protocol - Weight Bearing Precaution WBAT left LE WBAT right LE - Skin care per protocol - Diet - Solid Texture Continue Regular - Shower allowing shower for Dementia, TBI, Stroke, or others FUNCTIONAL STATUS: UPDATED AT WEEKLY TEAM CONFERENCE - Bladder Same accident frequency: 7-Ind - No accidents in the past 7 days - Bowel Same accident frequency: 7-Ind - No accidents in the past 7 days - Walking Same score based on distance walked: 0(N/A) Same score based on distance walked: 1(<=50ft) - Wheelchair Same score based on distance traveled: 0(N/A) FUNCTIONAL STATUS: - Self-Care A. Eating Ind B. Grooming Ind C. Bathing Jeremy D. Dressing - Upper sup E. Dressing - Lower modA F. Toileting Sho - Sphincter Control G. Bladder control Sho H. Bowel control Sho - Transfers Control I. Bed/Chair/Wheelchair modA J. Toilet modA K. Tub/Shower modA - Locomotion L. Walk/Wheelchair (B) modA M. Stairs maxA - Communication N. Comprehension (B) sup O. Expression (B) sup - Social Cognition P. Social Interaction Jeremy Q. Problem Solving Jeremy R. Memory Jeremy - Endurance Fair - Balance Fair - Safety Awareness Fair QI SCORES: - Self-Care A. Eating 03-Partial/moderate assistance B. Oral hygiene 03-Partial/moderate assistance C. Toileting hygiene 03-Partial/moderate assistance E. Shower/bathe self 03-Partial/moderate assistance F. Upper body dressing 03-Partial/moderate assistance G. Lower body dressing 03-Partial/moderate assistance H. Putting on/taking off footwear 88-Not attempted due to medical condition or safety concerns - Mobility M. 1 step (curb) 88-Not attempted due to medical condition or safety concerns N. 4 steps 88-Not attempted due to medical condition or safety concerns O. 12 steps 88-Not attempted due to medical condition or safety concerns P. Picking up object 88-Not attempted due to medical condition or safety concerns R. Wheel 50 feet with two turns 88-Not attempted due to medical condition or safety concerns A. Roll left and right 04-Supervision or touching assistance B. Sit to lying 03-Partial/moderate assistance C. Lying to sitting on side of bed 03-Partial/moderate assistance D. Sit to stand 03-Partial/moderate assistance E. Chair/ggo-me-qiwjc transfer 03-Partial/moderate assistance F. Toilet transfer 03-Partial/moderate assistance G. Car transfer 88-Not attempted due to medical condition or safety concerns I. Walk 10 feet 88-Not attempted due to medical condition or safety concerns J. Walk 50 feet with two turns 88-Not attempted due to medical condition or safety concerns K. Walk 150 feet 88-Not attempted due to medical condition or safety concerns L. Walking 10 feet on uneven surfaces 88-Not attempted due to medical condition or safety concerns S. Wheel 150 feet 88-Not attempted due to medical condition or safety concerns - Bladder and Bowel Bladder continence Bowel continence - Endurance Fair - Balance Fair - Safety Awareness Fair [facility] DEFICITS: Endurance, Balance, Self-Care, Safety Awareness, and Mobility SIGNATURE PANEL: (CDT)
[2020-01-15] MEDS: ATORVASTATIN 80 MG TAB PO SCH (19:59)
[2020-01-15] MEDS: MELATONIN 3 MG TABLET PO SCH (20:00)
[2020-01-15] MEDS: CODEINE 30MG/APAP 300MG TAB PO PRN (21:59)
[2020-01-15] MEDS: BACLOFEN 10 MG TAB PO PRN (22:54)
[2020-01-16] MEDS: carvediloL 25 MG TAB PO SCH ×2 (05:02→16:59)
[2020-01-16] MEDS: INSULIN -REGULAR HUMAN 50 UNIT/0.5 ML ML SQ SCH ×4 (07:30→20:11)
[2020-01-16] MEDS: APIXABAN 2.5 MG TABLET PO SCH ×2 (07:52→20:09)
[2020-01-16] MEDS: FERROUS SULFATE 325 MG TAB PO SCH (07:52)
[2020-01-16] MEDS: LOSARTAN POTASSIUM 50 MG TABLET PO SCH (07:52)
[2020-01-16] MEDS: CRANBERRY FRUIT EXTRACT 200 MG CAP PO SCH ×2 (07:52→20:09)
[2020-01-16] MEDS: CYANOCOBALAMIN 1,000 MCG TAB PO SCH (07:52)
[2020-01-16] MEDS: METFORMIN HCL 500 MG TAB PO SCH ×2 (07:52→16:55)
[2020-01-16] MEDS: CLOPIDOGREL 75 MG TABLET PO SCH (07:52)
[2020-01-16] MEDS: levoFLOXacin 500 MG TAB PO SCH (07:53)
[2020-01-16] MEDS: POTASSIUM CL SA 10 MEQ TAB PO SCH ×2 (07:53→20:09)
[2020-01-16] MEDS: SERTRALINE HCL 100 MG TAB PO SCH (07:53)
[2020-01-16] MEDS: FE SULF/FA/VIT B COMP & C TAB PO SCH (07:53)
[2020-01-16] MEDS: PANTOPRAZOLE 40MG TABLET PO SCH (07:53)
[2020-01-16] MEDS: LIDOCAINE 4% PATCH TOP SCH (07:54)
--- NOTE | 2020-01-16 09:31 | P.RH.PN ---
Estimated Length of Stay: 19 Expected Discharge Date: 01/27/20 Discharge Disposition Plan: Home Family Support: Yes Prison Goal: Mobility, Transfers, Self Care Vital Signs: Last Vital Signs Temp 99.2 F 01/16/20 08:29 Pulse 94 H 01/16/20 08:29 Resp 14 01/16/20 08:29 BP 186/80 H 01/16/20 08:29 Pulse Ox 97 01/16/20 08:29 Laboratory: Laboratory Last Values WBC 6.8 K/uL (4.3-10.9) D 01/15/20 05:57 RBC 3.65 M/uL (3.86-4.86) L 01/15/20 05:57 Hgb 11.1 g/dL (12.0-15.0) L 01/15/20 05:57 Hct 32.1 % (36.0-45.0) L 01/15/20 05:57 MCV 88.1 fL (80-100) 01/15/20 05:57 MCH 30.4 pg (27.0-35.0) 01/15/20 05:57 MCHC 34.5 g/dL (32.0-36.0) 01/15/20 05:57 RDW 14.7 % (12.1-15.2) 01/15/20 05:57 Plt Count 145 K/uL (152-406) L 01/15/20 05:57 MPV 9.1 fL (7.6-11.3) 01/15/20 05:57 Neutrophils % 66.3 % (41.7-73.7) 01/15/20 05:57 Lymphocytes % 22.2 % (15.3-44.8) 01/15/20 05:57 Monocytes % 9.5 % (3.3-12.3) 01/15/20 05:57 Eosinophils % 1.5 % (0-4.4) 01/15/20 05:57 Basophils % 0.5 % (0-1.3) 01/15/20 05:57 Absolute Neutrophils 4.5 K/uL (1.8-8.0) 01/15/20 05:57 Absolute Lymphocytes 1.5 K/uL (0.7-4.9) 01/15/20 05:57 Absolute Monocytes 0.6 K/uL (0.1-1.3) 01/15/20 05:57 Absolute Eosinophils 0.1 K/uL (0-0.5) 01/15/20 05:57 Absolute Basophils 0.0 K/uL (0-0.5) 01/15/20 05:57 Sodium 140 mmol/L (136-145) 01/15/20 05:57 Potassium 4.3 mmol/L (3.5-5.1) 01/15/20 05:57 Chloride 103 mmol/L (98-107) 01/15/20 05:57 Carbon Dioxide 33 mmol/L (21-32) H 01/15/20 05:57 BUN 7 mg/dL (7-18) 01/15/20 05:57 Creatinine 0.84 mg/dL (0.55-1.3) 01/15/20 05:57 Estimated GFR 66 mL/min (=/>90) L 01/15/20 05:57 Glucose 100 mg/dL (74-106) 01/15/20 05:57 POC Glucose 115 mg/dL (65-120) 01/16/20 07:23 Calcium 8.2 mg/dL (8.5-10.1) L 01/15/20 05:57 Magnesium 1.9 mg/dL (1.8-2.4) D 01/10/20 06:42 Albumin 2.8 g/dL (3.4-5.0) L 01/15/20 05:57 Prealbumin 23.1 mg/dL (20-40) 01/15/20 05:57 Urine Color Yellow 01/09/20 22:00 Urine Appearance Clear 01/09/20 22:00 Urine pH 6.0 (5.0-7.0) 01/09/20 22:00 Ur Specific [place] 1.020 (1.005-1.030) 01/09/20 22:00 Glucose (UA)(Auto) Negative (NEG) 01/09/20 22:00 Urine Ketones Negative (NEG) 01/09/20 22:00 Urine Blood Negative (NEG) 01/09/20 22:00 Urine Nitrite Negative (NEG) 01/09/20 22:00 Urine Bilirubin Negative (NEG) 01/09/20 22:00 Urine Urobilinogen 0.2 mg/dL (0.2-1.0) 01/09/20 22:00 Ur Leukocyte Esterase 1+ (NEG) H 01/09/20 22:00 Urine RBC <5 /HPF (NONE SEEN) 01/09/20 22:00 Urine WBC 10-20 /HPF (<5) H 01/09/20 22:00 Ur Squamous Epith Cells 5-10 /HPF (NONE SEEN) H 01/09/20 22:00 Urine Bacteria 20-50 /HPF (<20) H 01/09/20 22:00 Urine Culture Reflexed Not needed 01/09/20 22:00 Urine Total Protein Negative (NEG) 01/09/20 22:00 SARS-CoV-2 RNA (RT-PCR) Negative (NEGATIVE) 01/15/20 07:30 Weight: 158 lb Wound Present: No Closed Surgical Incision Present: No Negative Pressure Wound Therapy Present: No Physician Update: Labs reviewed and are stable. Her speech is less slurred today. She still needs reminders to look to the left. Walked 40' with minimum to moderate assistance. She is doing well with OT but she has difficulty with left arm neglect. Speech Therapy Update: Patient cont. to present with mild-moderate dysarthria and mod-severe left side neglect. She is cooperative and hard-working in therapy. She exhibits reduced insight into her deficits. She is currently working on visual scanning techniques to improve left visual-field processing. Summary: Patient's care plan and penitentiary goals have been reviewed and revised as necessary. Please see the Rehabilitation Signature page for all necessary signatures.
[2020-01-16] MEDS: ACETAMINOPHEN 500 MG TAB PO PRN (11:26)
[2020-01-16] MEDS: TRAZODONE 50 MG TABLET PO SCH (20:09)
[2020-01-16] MEDS: ATORVASTATIN 80 MG TAB PO SCH (20:10)
[2020-01-16] MEDS: DOCUSATE NA/SENNA CONC 1 TAB PO PRN (20:14)
[2020-01-16] MEDS: CODEINE 30MG/APAP 300MG TAB PO PRN (20:15)
--- NOTE | 2020-01-17 02:30 | FAST ---
[employer] FORM SHIFT START DATE/TIME: 01/16/2020 19:00 (CDT) SHIFT END DATE/TIME: 01/17/2020 07:00 (CDT) NAME MARV PALUMBO DATE OF : 1945 DATE OF ADMISSION: 01/09/2020 17:19 (CDT) PHONE: AGE: 74 N# [id number] GENDER: Female ENCOUNTER PHYSICIAN: Dr. Donis Pride M.D. 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 EATING: Not assessed/no information CODE: - ORAL HYGIENE: Not assessed/no information CODE: - TOILETING HYGIENE: TOILETING HYGIENE - STEP 1: Does the patient complete the activity by him/herself with no assistance (physical, verbal/nonverbal cueing, setup/clean-up)? No. TOILETING HYGIENE - STEP 2: Does the patient need only setup/clean-up assistance from one helper? No. TOILETING HYGIENE - STEP 3: Does the patient need only verbal/nonverbal cueing or touching/steadying/contact guard assistance fro m one helper? No. TOILETING HYGIENE - STEP 4: Does the patient need physical assistance - for example lifting or trunk support from one helper - wi th the helper providing less than half of the effort? Yes. 1. [id number] ADMISSION PERFORMANCE: Partial/moderate assistance CODE: 03 BATHING: Not assessed/no information CODE: - DRESSING - UPPER BODY: Not assessed/no information CODE: - DRESSING - LOWER BODY: Not assessed/no information CODE: - PUTTING ON/TAKING OFF FOOTWEAR: Not assessed/no information CODE: - ROLL LEFT AND RIGHT: ROLL LEFT AND RIGHT - STEP 1: Does the patient complete the activity by him/herself with no assistance (physical, verbal/nonverbal cueing, setup/clean-up)? No. ROLL LEFT AND RIGHT - STEP 2: Does the patient need only setup/clean-up assistance from one helper? No. ROLL LEFT AND RIGHT - STEP 3: Does the patient need only verbal/nonverbal cueing or touching/steadying/contact guard assistance fro m one helper? Yes. 1. [id number] ADMISSION PERFORMANCE: Supervision or touching assistance CODE: 04 SIT TO LYING: SIT TO LYING - STEP 1: Does the patient complete the activity by him/herself with no assistance (physical, verbal/nonverbal cueing, setup/clean-up)? No. SIT TO LYING - STEP 2: Does the patient need only setup/clean-up assistance from one helper? No. SIT TO LYING - STEP 3: Does the patient need only verbal/nonverbal cueing or touching/steadying/contact guard assistance fro m one helper? Yes. 1. [id number] ADMISSION PERFORMANCE: Supervision or touching assistance CODE: 04 LYING TO SITTING: LYING TO SITTING ON SIDE OF BED - STEP 1: Does the patient complete the activity by him/herself with no assistance (physical, verbal/nonverbal cueing, setup/clean-up)? No. LYING TO SITTING ON SIDE OF BED - STEP 2: Does the patient need only setup/clean-up assistance from one helper? No. LYING TO SITTING ON SIDE OF BED - STEP 3: Does the patient need only verbal/nonverbal cueing or touching/steadying/contact guard assistance fro m one helper? Yes. 1. [id number] ADMISSION PERFORMANCE: Supervision or touching assistance CODE: 04 SIT TO STAND: SIT TO STAND - STEP 1: Does the patient complete the activity by him/herself with no assistance (physical, verbal/nonverbal cueing, setup/clean-up)? No. SIT TO STAND - STEP 2: Does the patient need only setup/clean-up assistance from one helper? No. SIT TO STAND - STEP 3: Does the patient need only verbal/nonverbal cueing or touching/steadying/contact guard assistance fro m one helper? Yes. 1. [id number] ADMISSION PERFORMANCE: Supervision or touching assistance CODE: 04 TRANSFERS: BED, CHAIR: CHAIR/[id number] TRANSFER - STEP 1: Does the patient complete the activity by him/herself with no assistance (physical, verbal/nonverbal cueing, setup/clean-up)? No. CHAIR/[id number] TRANSFER - STEP 2: Does the patient need only setup/clean-up assistance from one helper? No. CHAIR/[id number] TRANSFER - STEP 3: Does the patient need only verbal/nonverbal cueing or touching/steadying/contact guard assistance fro m one helper? Yes. 1. [id number] ADMISSION PERFORMANCE: Supervision or touching assistance CODE: 04 TRANSFER TOILET: TOILET TRANSFER - STEP 1: Does the patient complete the activity by him/herself with no assistance (physical, verbal/nonverbal cueing, setup/clean-up)? No. TOILET TRANSFER - STEP 2: Does the patient need only setup/clean-up assistance from one helper? No. TOILET TRANSFER - STEP 3: Does the patient need only verbal/nonverbal cueing or touching/steadying/contact guard assistance fro m one helper? Yes. 1. [id number] ADMISSION PERFORMANCE: Supervision or touching assistance CODE: 04 TRANSFERS: CAR: Not assessed/no information CODE: - WALK 10 FEET: Not assessed/no information CODE: - 1 STEP (CURB): Not assessed/no information CODE: - PICKING UP OBJECT: Not assessed/no information CODE: - DOES THE PATIENT USE A WHEELCHAIR/SCOOTER? CODE: EXPR WHEEL 50 FEET WITH TWO TURNS: Not assessed/no information CODE: - INDICATE THE TYPE OF WHEELCHAIR/SCOOTER USED: CODE: EXPR WHEEL 150 FEET: Not assessed/no information CODE: - INDICATE THE TYPE OF WHEELCHAIR/SCOOTER USED: CODE: EXPR BLADDER AND BOWEL: H350. BLADDER CONTINENCE (3-DAY ASSESSMENT PERIOD): Always continent (no documented incontinence) CODE: 0 H400. BOWEL CONTINENCE (3-DAY ASSESSMENT PERIOD): Always continent CODE: 0
[2020-01-17] MEDS: carvediloL 25 MG TAB PO SCH ×2 (05:05→16:59)
[2020-01-17 05:43] VITALS: BMI 27.8
[2020-01-17] MEDS: INSULIN -REGULAR HUMAN 50 UNIT/0.5 ML ML SQ SCH ×4 (07:30→20:19)
[2020-01-17] MEDS: PANTOPRAZOLE 40MG TABLET PO SCH (07:48)
[2020-01-17] MEDS: FE SULF/FA/VIT B COMP & C TAB PO SCH (07:49)
[2020-01-17] MEDS: APIXABAN 2.5 MG TABLET PO SCH ×2 (07:49→20:18)
[2020-01-17] MEDS: LOSARTAN POTASSIUM 50 MG TABLET PO SCH (07:49)
[2020-01-17] MEDS: CLOPIDOGREL 75 MG TABLET PO SCH (07:49)
[2020-01-17] MEDS: CYANOCOBALAMIN 1,000 MCG TAB PO SCH (07:49)
[2020-01-17] MEDS: POTASSIUM CL SA 10 MEQ TAB PO SCH ×2 (07:49→20:18)
[2020-01-17] MEDS: FERROUS SULFATE 325 MG TAB PO SCH (07:49)
[2020-01-17] MEDS: CRANBERRY FRUIT EXTRACT 200 MG CAP PO SCH ×2 (07:49→20:18)
[2020-01-17] MEDS: SERTRALINE HCL 100 MG TAB PO SCH (07:49)
[2020-01-17] MEDS: METFORMIN HCL 500 MG TAB PO SCH ×2 (07:50→16:56)
[2020-01-17] MEDS: LIDOCAINE 4% PATCH TOP SCH (07:50)
[2020-01-17] MEDS: ACETAMINOPHEN 500 MG TAB PO PRN ×3 (10:02→22:42)
[2020-01-17] MEDS: TRAZODONE 50 MG TABLET PO SCH (20:18)
[2020-01-17] MEDS: ATORVASTATIN 80 MG TAB PO SCH (20:18)
[2020-01-17] MEDS: DIPHENHYDRAMINE 25 MG TAB/CAP PO PRN (20:18)
[2020-01-17] MEDS: CODEINE 30MG/APAP 300MG TAB PO PRN (20:20)
[2020-01-18] MEDS: CODEINE 30MG/APAP 300MG TAB PO PRN ×3 (02:31→18:25)
[2020-01-18] MEDS: carvediloL 25 MG TAB PO SCH ×2 (05:01→16:58)
[2020-01-18] MEDS: INSULIN -REGULAR HUMAN 50 UNIT/0.5 ML ML SQ SCH ×4 (07:30→19:53)
[2020-01-18] MEDS: LIDOCAINE 4% PATCH TOP SCH (08:26)
[2020-01-18] MEDS: SERTRALINE HCL 100 MG TAB PO SCH (08:28)
[2020-01-18] MEDS: CRANBERRY FRUIT EXTRACT 200 MG CAP PO SCH ×2 (08:28→19:52)
[2020-01-18] MEDS: ACETAMINOPHEN 500 MG TAB PO PRN ×2 (08:29→21:10)
[2020-01-18] MEDS: POTASSIUM CL SA 10 MEQ TAB PO SCH ×2 (08:29→19:52)
[2020-01-18] MEDS: FE SULF/FA/VIT B COMP & C TAB PO SCH (08:29)
[2020-01-18] MEDS: METFORMIN HCL 500 MG TAB PO SCH ×2 (08:30→16:57)
[2020-01-18] MEDS: CLOPIDOGREL 75 MG TABLET PO SCH (08:30)
[2020-01-18] MEDS: APIXABAN 2.5 MG TABLET PO SCH ×2 (08:33→19:52)
[2020-01-18] MEDS: FERROUS SULFATE 325 MG TAB PO SCH (08:33)
[2020-01-18] MEDS: CYANOCOBALAMIN 1,000 MCG TAB PO SCH (08:33)
[2020-01-18] MEDS: PANTOPRAZOLE 40MG TABLET PO SCH (08:33)
[2020-01-18] MEDS: LOSARTAN POTASSIUM 50 MG TABLET PO SCH (08:39)
[2020-01-18] MEDS: HYDRALAZINE HCL 10 MG TABLET PO PRN (19:51)
[2020-01-18] MEDS: DOCUSATE NA/SENNA CONC 1 TAB PO PRN (19:51)
[2020-01-18] MEDS: TRAZODONE 50 MG TABLET PO SCH (19:52)
[2020-01-18] MEDS: DIPHENHYDRAMINE 25 MG TAB/CAP PO PRN (19:53)
[2020-01-18] MEDS: ATORVASTATIN 80 MG TAB PO SCH (19:53)
[2020-01-19] MEDS: CODEINE 30MG/APAP 300MG TAB PO PRN ×4 (01:39→15:59)
[2020-01-19] MEDS: carvediloL 25 MG TAB PO SCH ×2 (05:19→16:55)
[2020-01-19] MEDS: PANTOPRAZOLE 40MG TABLET PO SCH (07:06)
[2020-01-19] MEDS: INSULIN -REGULAR HUMAN 50 UNIT/0.5 ML ML SQ SCH ×4 (07:19→20:05)
[2020-01-19] MEDS: CRANBERRY FRUIT EXTRACT 200 MG CAP PO SCH ×2 (07:55→20:02)
[2020-01-19] MEDS: LOSARTAN POTASSIUM 50 MG TABLET PO SCH (07:55)
[2020-01-19] MEDS: SERTRALINE HCL 100 MG TAB PO SCH (07:55)
[2020-01-19] MEDS: APIXABAN 2.5 MG TABLET PO SCH ×2 (07:56→20:02)
[2020-01-19] MEDS: FE SULF/FA/VIT B COMP & C TAB PO SCH (07:56)
[2020-01-19] MEDS: CLOPIDOGREL 75 MG TABLET PO SCH (07:56)
[2020-01-19] MEDS: FERROUS SULFATE 325 MG TAB PO SCH (07:56)
[2020-01-19] MEDS: METFORMIN HCL 500 MG TAB PO SCH ×2 (07:56→16:55)
[2020-01-19] MEDS: POTASSIUM CL SA 10 MEQ TAB PO SCH ×2 (07:56→20:02)
[2020-01-19] MEDS: CYANOCOBALAMIN 1,000 MCG TAB PO SCH (07:56)
[2020-01-19] MEDS: LIDOCAINE 4% PATCH TOP SCH (09:11)
[2020-01-19] MEDS: TRAZODONE 50 MG TABLET PO SCH (20:03)
[2020-01-19] MEDS: DOCUSATE NA/SENNA CONC 1 TAB PO PRN (20:04)
[2020-01-19] MEDS: ACETAMINOPHEN 500 MG TAB PO PRN (20:04)
[2020-01-19] MEDS: ATORVASTATIN 80 MG TAB PO SCH (20:04)
[2020-01-20] MEDS: BACLOFEN 10 MG TAB PO PRN ×2 (02:01→20:09)
[2020-01-20] MEDS: carvediloL 25 MG TAB PO SCH ×2 (05:16→16:59)
[2020-01-20] MEDS: INSULIN -REGULAR HUMAN 50 UNIT/0.5 ML ML SQ SCH ×4 (07:30→20:09)
[2020-01-20] MEDS: LOSARTAN POTASSIUM 50 MG TABLET PO SCH ×2 (08:00→12:38)
[2020-01-20] MEDS: CRANBERRY FRUIT EXTRACT 200 MG CAP PO SCH ×2 (08:48→20:08)
[2020-01-20] MEDS: LIDOCAINE 4% PATCH TOP SCH ×2 (08:48→14:08)
[2020-01-20] MEDS: POTASSIUM CL SA 10 MEQ TAB PO SCH ×2 (08:49→20:09)
[2020-01-20] MEDS: SERTRALINE HCL 100 MG TAB PO SCH (08:49)
[2020-01-20] MEDS: ACETAMINOPHEN 500 MG TAB PO PRN (08:49)
[2020-01-20] MEDS: PANTOPRAZOLE 40MG TABLET PO SCH (08:49)
[2020-01-20] MEDS: CYANOCOBALAMIN 1,000 MCG TAB PO SCH (08:49)
[2020-01-20] MEDS: METFORMIN HCL 500 MG TAB PO SCH ×2 (08:49→16:59)
[2020-01-20] MEDS: CLOPIDOGREL 75 MG TABLET PO SCH (08:49)
[2020-01-20] MEDS: FE SULF/FA/VIT B COMP & C TAB PO SCH (08:49)
[2020-01-20] MEDS: APIXABAN 2.5 MG TABLET PO SCH ×2 (08:49→20:09)
[2020-01-20] MEDS: FERROUS SULFATE 325 MG TAB PO SCH (08:49)
[2020-01-20] MEDS: CODEINE 30MG/APAP 300MG TAB PO PRN (12:28)
--- NOTE | 2020-01-20 12:55 | FAST ---
[employer] FORM SHIFT START DATE/TIME: 01/20/2020 07:00 (CDT) SHIFT END DATE/TIME: 01/20/2020 19:00 (CDT) NAME MARV PALUMBO DATE OF : 1945 DATE OF ADMISSION: 01/09/2020 17:19 (CDT) PHONE: AGE: 74 N# [id number] GENDER: Female ENCOUNTER PHYSICIAN: Dr. Donis Pride M.D. 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 EATING: EATING - STEP 1: Does the patient complete the activity by him/herself with no assistance (physical, verbal/nonverbal cueing, setup/clean-up)? No. EATING - STEP 2: Does the patient need only setup/clean-up assistance from one helper? Yes. 1. [id number] ADMISSION PERFORMANCE: Setup or clean-up assistance CODE: 05 ORAL HYGIENE: ORAL HYGIENE - STEP 1: Does the patient complete the activity by him/herself with no assistance (physical, verbal/nonverbal cueing, setup/clean-up)? No. ORAL HYGIENE - STEP 2: Does the patient need only setup/clean-up assistance from one helper? Yes. 1. [id number] ADMISSION PERFORMANCE: Setup or clean-up assistance CODE: 05 TOILETING HYGIENE: TOILETING HYGIENE - STEP 1: Does the patient complete the activity by him/herself with no assistance (physical, verbal/nonverbal cueing, setup/clean-up)? No. TOILETING HYGIENE - STEP 2: Does the patient need only setup/clean-up assistance from one helper? Yes. 1. [id number] ADMISSION PERFORMANCE: Setup or clean-up assistance CODE: 05 BATHING: Not assessed/no information CODE: - DRESSING - UPPER BODY: DRESSING - UPPER BODY - STEP 1: Does the patient complete the activity by him/herself with no assistance (physical, verbal/nonverbal cueing, setup/clean-up)? No. DRESSING - UPPER BODY - STEP 2: Does the patient need only setup/clean-up assistance from one helper? No. DRESSING - UPPER BODY - STEP 3: Does the patient need only verbal/nonverbal cueing or touching/steadying/contact guard assistance fro m one helper? Yes. 1. [id number] ADMISSION PERFORMANCE: Supervision or touching assistance CODE: 04 DRESSING - LOWER BODY: DRESSING - LOWER BODY - STEP 1: Does the patient complete the activity by him/herself with no assistance (physical, verbal/nonverbal cueing, setup/clean-up)? No. DRESSING - LOWER BODY - STEP 2: Does the patient need only setup/clean-up assistance from one helper? No. DRESSING - LOWER BODY - STEP 3: Does the patient need only verbal/nonverbal cueing or touching/steadying/contact guard assistance fro m one helper? No. DRESSING - LOWER BODY - STEP 4: Does the patient need physical assistance - for example lifting or trunk support from one helper - wi th the helper providing less than half of the effort? Yes. 1. [id number] ADMISSION PERFORMANCE: Partial/moderate assistance CODE: 03 PUTTING ON/TAKING OFF FOOTWEAR: FOOTWEAR - STEP 1: Does the patient complete the activity by him/herself with no assistance (physical, verbal/nonverbal cueing, setup/clean-up)? No. FOOTWEAR - STEP 2: Does the patient need only setup/clean-up assistance from one helper? No. FOOTWEAR - STEP 3: Does the patient need only verbal/nonverbal cueing or touching/steadying/contact guard assistance fro m one helper? No. FOOTWEAR - STEP 4: Does the patient need physical assistance - for example lifting or trunk support from one helper - wi th the helper providing less than half of the effort? Yes. 1. [id number] ADMISSION PERFORMANCE: Partial/moderate assistance CODE: 03 ROLL LEFT AND RIGHT: ROLL LEFT AND RIGHT - STEP 1: Does the patient complete the activity by him/herself with no assistance (physical, verbal/nonverbal cueing, setup/clean-up)? No. ROLL LEFT AND RIGHT - STEP 2: Does the patient need only setup/clean-up assistance from one helper? No. ROLL LEFT AND RIGHT - STEP 3: Does the patient need only verbal/nonverbal cueing or touching/steadying/contact guard assistance fro m one helper? Yes. 1. [id number] ADMISSION PERFORMANCE: Supervision or touching assistance CODE: 04 SIT TO LYING: SIT TO LYING - STEP 1: Does the patient complete the activity by him/herself with no assistance (physical, verbal/nonverbal cueing, setup/clean-up)? No. SIT TO LYING - STEP 2: Does the patient need only setup/clean-up assistance from one helper? No. SIT TO LYING - STEP 3: Does the patient need only verbal/nonverbal cueing or touching/steadying/contact guard assistance fro m one helper? Yes. 1. [id number] ADMISSION PERFORMANCE: Supervision or touching assistance CODE: 04 LYING TO SITTING: LYING TO SITTING ON SIDE OF BED - STEP 1: Does the patient complete the activity by him/herself with no assistance (physical, verbal/nonverbal cueing, setup/clean-up)? No. LYING TO SITTING ON SIDE OF BED - STEP 2: Does the patient need only setup/clean-up assistance from one helper? No. LYING TO SITTING ON SIDE OF BED - STEP 3: Does the patient need only verbal/nonverbal cueing or touching/steadying/contact guard assistance fro m one helper? Yes. 1. [id number] ADMISSION PERFORMANCE: Supervision or touching assistance CODE: 04 SIT TO STAND: SIT TO STAND - STEP 1: Does the patient complete the activity by him/herself with no assistance (physical, verbal/nonverbal cueing, setup/clean-up)? No. SIT TO STAND - STEP 2: Does the patient need only setup/clean-up assistance from one helper? No. SIT TO STAND - STEP 3: Does the patient need only verbal/nonverbal cueing or touching/steadying/contact guard assistance fro m one helper? Yes. 1. [id number] ADMISSION PERFORMANCE: Supervision or touching assistance CODE: 04 TRANSFERS: BED, CHAIR: CHAIR/[id number] TRANSFER - STEP 1: Does the patient complete the activity by him/herself with no assistance (physical, verbal/nonverbal cueing, setup/clean-up)? No. CHAIR/[id number] TRANSFER - STEP 2: Does the patient need only setup/clean-up assistance from one helper? No. CHAIR/[id number] TRANSFER - STEP 3: Does the patient need only verbal/nonverbal cueing or touching/steadying/contact guard assistance fro m one helper? Yes. 1. [id number] ADMISSION PERFORMANCE: Supervision or touching assistance CODE: 04 TRANSFER TOILET: TOILET TRANSFER - STEP 1: Does the patient complete the activity by him/herself with no assistance (physical, verbal/nonverbal cueing, setup/clean-up)? No. TOILET TRANSFER - STEP 2: Does the patient need only setup/clean-up assistance from one helper? No. TOILET TRANSFER - STEP 3: Does the patient need only verbal/nonverbal cueing or touching/steadying/contact guard assistance fro m one helper? Yes. 1. [id number] ADMISSION PERFORMANCE: Supervision or touching assistance CODE: 04 TRANSFERS: CAR: Not assessed/no information CODE: - WALK 10 FEET: Not assessed/no information CODE: - 1 STEP (CURB): Not assessed/no information CODE: - PICKING UP OBJECT: Not assessed/no information CODE: - DOES THE PATIENT USE A WHEELCHAIR/SCOOTER? Q1. DOES THE PATIENT USE A WHEELCHAIR/SCOOTER?: Yes CODE: 1 WHEEL 50 FEET WITH TWO TURNS: WHEEL 50 FEET WITH TWO TURNS - STEP 1: Does the patient complete the activity by him/herself with no assistance (physical, verbal/nonverbal cueing, setup/clean-up)? No. WHEEL 50 FEET WITH TWO TURNS - STEP 2: Does the patient need only setup/clean-up assistance from one helper? No. WHEEL 50 FEET WITH TWO TURNS - STEP 3: Does the patient need only verbal/nonverbal cueing or touching/steadying/contact guard assistance fro m one helper? Yes. 1. [id number] ADMISSION PERFORMANCE: Supervision or touching assistance CODE: 04 INDICATE THE TYPE OF WHEELCHAIR/SCOOTER USED: RR1. INDICATE THE TYPE OF WHEELCHAIR/SCOOTER USED.: Manual CODE: 1 WHEEL 150 FEET: WHEEL 150 FEET - STEP 1: Does the patient complete the activity by him/herself with no assistance (physical, verbal/nonverbal cueing, setup/clean-up)? No. WHEEL 150 FEET - STEP 2: Does the patient need only setup/clean-up assistance from one helper? No. WHEEL 150 FEET - STEP 3: Does the patient need only verbal/nonverbal cueing or touching/steadying/contact guard assistance fro m one helper? Yes. 1. [id number] ADMISSION PERFORMANCE: Supervision or touching assistance CODE: 04 INDICATE THE TYPE OF WHEELCHAIR/SCOOTER USED: SS1. INDICATE THE TYPE OF WHEELCHAIR/SCOOTER USED.: Manual CODE: 1 BLADDER AND BOWEL: H350. BLADDER CONTINENCE (3-DAY ASSESSMENT PERIOD): Always continent (no documented incontinence) CODE: 0 H400. BOWEL CONTINENCE (3-DAY ASSESSMENT PERIOD): Always continent CODE: 0 SIGNATURE PANEL: The following modified sections: 1. [id number] Admission Performance, 1. [id number] Admission Performance, 1. [id number] Admission Performance, 1. [id number] Admission Performance, 1. [id number] Admission Performance, 1. [id number] Admission Performance, 1. [id number] Admission Performance, 1. [id number] Admission Performance , 1. [id number] Admission Performance, 1. [id number] Admission Performance, 1. [id number] Admission Performanc e, 1. [id number] Admission Performance, 1. [id number] Admission Performance, 1. [id number] Admission Performan ce, Q1. Does the patient use a wheelchair/scooter?, 1. [id number] Admission Performance, RR1. Indicate t he type of wheelchair/scooter used., 1. [id number] Admission Performance, Code, SS1. Indicate the type o f wheelchair/scooter used., H350. Bladder Continence (3-day assessment period), H400. Bowel Continenc e (3-day assessment period) were [electronically] signed by Norris AvilesNEzra on SunJan 20 2020 1 2:55:21 T-0500 (Central Daylight Time)
[2020-01-20] MEDS ORDERED: LIDOCAINE 4% PATCH TOP ONE (14:00)
[2020-01-20] MEDS: ONDANSETRON 4 MG (ODT) TAB PO PRN (14:17)
[2020-01-20 17:24] LABS: Urine Appearance CLEAR; Urine Bilirubin NEGATIVE (NEG); Urine Blood NEGATIVE (NEG); Urine Color YELLOW; Urine Glucose NEGATIVE (NEG); Urine Protein NEGATIVE (NEG); Urine Urobilinogen 0.2 mg/dL (0.2-1.0)
[2020-01-20 19:16] LABS: Urine Bacteria <20 /HPF (<20); Urine Culture Reflex Order NOT NEEDED; Urine RBC <5 /HPF (NONE SEEN)
--- NOTE | 2020-01-20 19:57 | R.PN ---
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 SUBJECTIVE: Pt denied any Shortness of Breath. Pt denied any depression. CBC with differential is normal except for low Hgb of 11.1, prealbumin 23.1 and glucose 103 to 107. K is normal at 4.3, calcium low at 7.6, glucose 80 to 105. UA shows klebsiella pneumoniae, near pansen sitive. Will treat with Levaquin 500 mg daily for 5 days. Ambulated 65' with moderate assistance using a rolling walker. Wheelchair mobilization 250' with mode rate assistance. VITAL SIGNS Temperature: 98.6 F SBP/DBP: 142/80 Pulse: 86 Resp: 16 MEDICATION ALLERGIES: No Known Drug Allergies (NKDA) ENVIRONMENTAL ALLERGIES: - Substance Allergies None Known - Other Allergies aspirin Nsaids [id number] Antimigraine Agents NURSING: - Shower allowing shower - Bladder care per protocol - Skin care per protocol PRECAUTIONS: - Weight Bearing Precaution WBAT right LE ACTIVITIES OOB only with supervision THERAPIES: - Occupational Therapy Cognitive Retraining. Visual Perceptual Training. - Dietary and Nutrition Adequate Nutrition. Nutritional Education. Nutritional Supplements. - Speech Therapy Cognitive Training. Expressive Language Skills. Memory Strategies. Receptive Language Skills. Speech Intelligibility Training. PHYSICAL EXAM - Gen Alert and awake Lying in bed No apparent distress Oriented to: person, time, and place - Skin No skin breakdown. Normacephalic - Eyes No abnormalities - ENMT No abnormalities - Neck 7/10 neck pain - CVS RRR - Chest Clear - Resp No wheezing - Abd Soft - GI Non distended Deferred - No abnormalities - Ext No significant edema. - MSK 4+/5 weakness in left upper and lower extremity - Neuro 4/5 strength left upper and lower extremities. - Psych No abnormalities ASSESSMENT: Currently, she has deficits of Endurance, Sphincter Control, Transfers Control, Social Cognition, Bal ance, Safety Awareness, and Locomotion.On 01/04/2020 Pt. presented to [facility] with sudden on set of right-side weakness.On 01/04/2020 Pt. presented to [facility] with sudden onset of left- sided weakness.On 01/04/2020 she was admitted to [facility] with diagnosis Right DECORATOR STORE CVA.Her im pairment category is Left body after right brain stroke.Her impairment category is Stroke 01 - Right Body (Left Brain) (01.2).Pt. is now referred to [facility] for acute in-patie nt rehabilitation in order to maximize patient's functional independence in activities of daily livin g, strength, ROM, and mobility.Pre-morbidly, Pt. was independent/mod-I in Locomotion, Safety Awarenes s, Balance, Self-Care, Communication, and Endurance; and she had good Sphincter Control, Transfers Co ntrol, and Social Cognition.Pt. is a 74 yo Right-handed white female.Pt. is a 74 yo Right-handed fema le of unknown race.- Rehab Goal Patient has realistic goal of being discharged at assistance level 6-Jeremy to reside at Home with Pt self. MDM/PLAN: - Physical Therapy Achieving independence - to improve, our physical therapists will perform initial evaluation of pt's status upon admission and devise an individualized program for Community Reintegration Activities Edema - to improve, our physical therapists will perform initial evaluation of pt's status upon admi ssion and devise an individualized program for Elevation Training, and Lymphedema Therapy Gait dysfunction - to improve, our physical therapists will perform initial evaluation of pt's statu s upon admission and devise an individualized program for Gait Training, and Wheel Chair mobility Inability to transfer - to improve, our physical therapists will perform initial evaluation of pt's status upon admission and devise an individualized program for Bed mobility Need for home safety evaluation - to improve, our physical therapists will perform initial evaluatio n of pt's status upon admission and devise an individualized program for Home Evaluation Need in caregiver upon discharge - to improve, our physical therapists will perform initial evaluati on of pt's status upon admission and devise an individualized program for Caregiver Training New precaution - to improve, our physical therapists will perform initial evaluation of pt's status upon admission and devise an individualized program for Patient precaution education Poor balance - to improve, our physical therapists will perform initial evaluation of pt's status up on admission and devise an individualized program for Balance Training Poor endurance - to improve, our physical therapists will perform initial evaluation of pt's status upon admission and devise an individualized program for Endurance Training Weakness - to improve, our physical therapists will perform initial evaluation of pt's status upon a dmission and devise an individualized program for Aquatic Therapy, Neuromuscular Reeducation, and Str engthening - Occupational Therapy Cognitive deficits - to improve, our occupation therapists will perform initial evaluation of pt's s tatus upon admission and devise an individualized program for Cognition - orientation Need for primary care nurse - to improve, our occupation therapists will perform initial evaluation of pt's status upon admission and devise an individualized program for Caregiver Training Weakness - to improve, our occupation therapists will perform initial evaluation of pt's status upon admission and devise an individualized program for Aquatic Therapy, Balance, Endurance, UE ROM, and UE strengthening - Other See attached MAR (Medication Administration Record) - Diet Type Continue Regular - Diet - Liquid Texture Continue Regular - Tube Feed Continue N/A - Bladder care per protocol - Weight Bearing Precaution WBAT left LE WBAT right LE - Skin care per protocol - Diet - Solid Texture Continue Regular - Shower allowing shower for Dementia, TBI, Stroke, or others FUNCTIONAL STATUS: UPDATED AT WEEKLY TEAM CONFERENCE - Bladder Same accident frequency: 7-Ind - No accidents in the past 7 days - Bowel Same accident frequency: 7-Ind - No accidents in the past 7 days - Walking Same score based on distance walked: 0(N/A) Same score based on distance walked: 1(<=50ft) - Wheelchair Same score based on distance traveled: 0(N/A) FUNCTIONAL STATUS: - Self-Care A. Eating Ind B. Grooming Ind C. Bathing Jeremy D. Dressing - Upper sup E. Dressing - Lower modA F. Toileting Sho - Sphincter Control G. Bladder control Sho H. Bowel control Sho - Transfers Control I. Bed/Chair/Wheelchair modA J. Toilet modA K. Tub/Shower modA - Locomotion L. Walk/Wheelchair (B) modA M. Stairs maxA - Communication N. Comprehension (B) sup O. Expression (B) sup - Social Cognition P. Social Interaction Jeremy Q. Problem Solving Jeremy R. Memory Jeremy - Endurance Fair - Balance Fair - Safety Awareness Fair QI SCORES: - Self-Care A. Eating 03-Partial/moderate assistance B. Oral hygiene 03-Partial/moderate assistance C. Toileting hygiene 03-Partial/moderate assistance E. Shower/bathe self 03-Partial/moderate assistance F. Upper body dressing 03-Partial/moderate assistance G. Lower body dressing 03-Partial/moderate assistance H. Putting on/taking off footwear 88-Not attempted due to medical condition or safety concerns - Mobility M. 1 step (curb) 88-Not attempted due to medical condition or safety concerns N. 4 steps 88-Not attempted due to medical condition or safety concerns O. 12 steps 88-Not attempted due to medical condition or safety concerns P. Picking up object 88-Not attempted due to medical condition or safety concerns R. Wheel 50 feet with two turns 88-Not attempted due to medical condition or safety concerns A. Roll left and right 04-Supervision or touching assistance B. Sit to lying 03-Partial/moderate assistance C. Lying to sitting on side of bed 03-Partial/moderate assistance D. Sit to stand 03-Partial/moderate assistance E. Chair/[id number]-[id number] transfer 03-Partial/moderate assistance F. Toilet transfer 03-Partial/moderate assistance G. Car transfer 88-Not attempted due to medical condition or safety concerns I. Walk 10 feet 88-Not attempted due to medical condition or safety concerns J. Walk 50 feet with two turns 88-Not attempted due to medical condition or safety concerns K. Walk 150 feet 88-Not attempted due to medical condition or safety concerns L. Walking 10 feet on uneven surfaces 88-Not attempted due to medical condition or safety concerns S. Wheel 150 feet 88-Not attempted due to medical condition or safety concerns - Bladder and Bowel Bladder continence Bowel continence - Endurance Fair - Balance Fair - Safety Awareness Fair [facility] DEFICITS: Endurance, Balance, Self-Care, Safety Awareness, and Mobility SIGNATURE PANEL: (CDT)
[2020-01-20] MEDS: ATORVASTATIN 80 MG TAB PO SCH (20:08)
[2020-01-20] MEDS: MAGNESIUM OXIDE 400 MG TAB PO SCH (20:08)
[2020-01-20] MEDS: TRAZODONE 50 MG TABLET PO SCH (20:09)
[2020-01-21] MEDS: carvediloL 25 MG TAB PO SCH ×2 (05:48→17:13)
[2020-01-21] MEDS: INSULIN -REGULAR HUMAN 50 UNIT/0.5 ML ML SQ SCH ×4 (07:30→19:18)
[2020-01-21] MEDS: PANTOPRAZOLE 40MG TABLET PO SCH (08:32)
[2020-01-21] MEDS: FERROUS SULFATE 325 MG TAB PO SCH (08:33)
[2020-01-21] MEDS: CYANOCOBALAMIN 1,000 MCG TAB PO SCH (08:33)
[2020-01-21] MEDS: SERTRALINE HCL 100 MG TAB PO SCH (08:33)
[2020-01-21] MEDS: POTASSIUM CL SA 10 MEQ TAB PO SCH ×2 (08:33→19:12)
[2020-01-21] MEDS: LIDOCAINE 4% PATCH TOP SCH (08:34)
[2020-01-21] MEDS: APIXABAN 2.5 MG TABLET PO SCH ×2 (08:34→19:13)
[2020-01-21] MEDS: MAGNESIUM OXIDE 400 MG TAB PO SCH ×2 (08:34→19:11)
[2020-01-21] MEDS: CRANBERRY FRUIT EXTRACT 200 MG CAP PO SCH ×2 (08:34→19:12)
[2020-01-21] MEDS: FE SULF/FA/VIT B COMP & C TAB PO SCH (08:34)
[2020-01-21] MEDS: CLOPIDOGREL 75 MG TABLET PO SCH (08:34)
[2020-01-21] MEDS: LOSARTAN POTASSIUM 50 MG TABLET PO SCH (08:34)
[2020-01-21] MEDS: CODEINE 30MG/APAP 300MG TAB PO PRN ×3 (08:38→19:12)
[2020-01-21] MEDS: METFORMIN HCL 500 MG TAB PO SCH ×2 (08:40→17:13)
[2020-01-21] MEDS: ONDANSETRON 4 MG (ODT) TAB PO PRN (13:34)
--- NOTE | 2020-01-21 17:31 | R.PN ---
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 SUBJECTIVE: Pt denied any Shortness of Breath. Pt denied any depression. CBC with differential is normal except for low Hgb of 11.1, prealbumin 23.1 and glucose 103 to 107. K is normal at 4.3, calcium low at 7.6, glucose 85 to 158. UA shows klebsiella pneumoniae, near pansen sitive. Will treat with Levaquin 500 mg daily for 5 days. Ambulated 200' with minimum to moderate assistance using a rolling walker. Wheelchair mobilization 25 0' with moderate assistance. VITAL SIGNS Temperature: 98.6 F SBP/DBP: 125/68 Pulse: 88 Resp: 14 MEDICATION ALLERGIES: No Known Drug Allergies (NKDA) ENVIRONMENTAL ALLERGIES: - Substance Allergies None Known - Other Allergies aspirin Nsaids [id number] Antimigraine Agents NURSING: - Shower allowing shower - Bladder care per protocol - Skin care per protocol PRECAUTIONS: - Weight Bearing Precaution WBAT right LE ACTIVITIES OOB only with supervision THERAPIES: - Occupational Therapy Cognitive Retraining. Visual Perceptual Training. - Dietary and Nutrition Adequate Nutrition. Nutritional Education. Nutritional Supplements. - Speech Therapy Cognitive Training. Expressive Language Skills. Memory Strategies. Receptive Language Skills. Speech Intelligibility Training. PHYSICAL EXAM - Gen Alert and awake Lying in bed No apparent distress Oriented to: person, time, and place - Skin No skin breakdown. Normacephalic - Eyes No abnormalities - ENMT No abnormalities - Neck 7/10 neck pain - CVS RRR - Chest Clear - Resp No wheezing - Abd Soft - GI Non distended Deferred - No abnormalities - Ext No significant edema. - MSK 4+/5 weakness in left upper and lower extremity - Neuro 4/5 strength left upper and lower extremities. - Psych No abnormalities ASSESSMENT: Currently, she has deficits of Endurance, Sphincter Control, Transfers Control, Social Cognition, Bal ance, Safety Awareness, and Locomotion.On 01/04/2020 Pt. presented to [facility] with sudden on set of right-side weakness.On 01/04/2020 Pt. presented to [facility] with sudden onset of left- sided weakness.On 01/04/2020 she was admitted to [facility] with diagnosis Right SALVAGE MECHANIC CVA.Her im pairment category is Left body after right brain stroke.Her impairment category is Stroke 01 - Right Body (Left Brain) (01.2).Pt. is now referred to [facility] for acute in-patie nt rehabilitation in order to maximize patient's functional independence in activities of daily livin g, strength, ROM, and mobility.Pre-morbidly, Pt. was independent/mod-I in Locomotion, Safety Awarenes s, Balance, Self-Care, Communication, and Endurance; and she had good Sphincter Control, Transfers Co ntrol, and Social Cognition.Pt. is a 74 yo Right-handed white female.Pt. is a 74 yo Right-handed fema le of unknown race.- Rehab Goal Patient has realistic goal of being discharged at assistance level 6-Jeremy to reside at Home with Pt self. MDM/PLAN: - Physical Therapy Achieving independence - to improve, our physical therapists will perform initial evaluation of pt's status upon admission and devise an individualized program for Community Reintegration Activities Edema - to improve, our physical therapists will perform initial evaluation of pt's status upon admi ssion and devise an individualized program for Elevation Training, and Lymphedema Therapy Gait dysfunction - to improve, our physical therapists will perform initial evaluation of pt's statu s upon admission and devise an individualized program for Gait Training, and Wheel Chair mobility Inability to transfer - to improve, our physical therapists will perform initial evaluation of pt's status upon admission and devise an individualized program for Bed mobility Need for home safety evaluation - to improve, our physical therapists will perform initial evaluatio n of pt's status upon admission and devise an individualized program for Home Evaluation Need in caregiver upon discharge - to improve, our physical therapists will perform initial evaluati on of pt's status upon admission and devise an individualized program for Caregiver Training New precaution - to improve, our physical therapists will perform initial evaluation of pt's status upon admission and devise an individualized program for Patient precaution education Poor balance - to improve, our physical therapists will perform initial evaluation of pt's status up on admission and devise an individualized program for Balance Training Poor endurance - to improve, our physical therapists will perform initial evaluation of pt's status upon admission and devise an individualized program for Endurance Training Weakness - to improve, our physical therapists will perform initial evaluation of pt's status upon a dmission and devise an individualized program for Aquatic Therapy, Neuromuscular Reeducation, and Str engthening - Occupational Therapy Cognitive deficits - to improve, our occupation therapists will perform initial evaluation of pt's s tatus upon admission and devise an individualized program for Cognition - orientation Need for healthcare risk control consultant - to improve, our occupation therapists will perform initial evaluation of pt's status upon admission and devise an individualized program for Caregiver Training Weakness - to improve, our occupation therapists will perform initial evaluation of pt's status upon admission and devise an individualized program for Aquatic Therapy, Balance, Endurance, UE ROM, and UE strengthening - Other See attached MAR (Medication Administration Record) - Diet Type Continue Regular - Diet - Liquid Texture Continue Regular - Tube Feed Continue N/A - Bladder care per protocol - Weight Bearing Precaution WBAT left LE WBAT right LE - Skin care per protocol - Diet - Solid Texture Continue Regular - Shower allowing shower for Dementia, TBI, Stroke, or others FUNCTIONAL STATUS: UPDATED AT WEEKLY TEAM CONFERENCE - Bladder Same accident frequency: 7-Ind - No accidents in the past 7 days - Bowel Same accident frequency: 7-Ind - No accidents in the past 7 days - Walking Same score based on distance walked: 0(N/A) Same score based on distance walked: 1(<=50ft) - Wheelchair Same score based on distance traveled: 0(N/A) FUNCTIONAL STATUS: - Self-Care A. Eating Ind B. Grooming Ind C. Bathing Jeremy D. Dressing - Upper sup E. Dressing - Lower modA F. Toileting Sho - Sphincter Control G. Bladder control Sho H. Bowel control Sho - Transfers Control I. Bed/Chair/Wheelchair modA J. Toilet modA K. Tub/Shower modA - Locomotion L. Walk/Wheelchair (B) modA M. Stairs maxA - Communication N. Comprehension (B) sup O. Expression (B) sup - Social Cognition P. Social Interaction Jeremy Q. Problem Solving Jeremy R. Memory Jeremy - Endurance Fair - Balance Fair - Safety Awareness Fair QI SCORES: - Self-Care A. Eating 03-Partial/moderate assistance B. Oral hygiene 03-Partial/moderate assistance C. Toileting hygiene 03-Partial/moderate assistance E. Shower/bathe self 03-Partial/moderate assistance F. Upper body dressing 03-Partial/moderate assistance G. Lower body dressing 03-Partial/moderate assistance H. Putting on/taking off footwear 88-Not attempted due to medical condition or safety concerns - Mobility M. 1 step (curb) 88-Not attempted due to medical condition or safety concerns N. 4 steps 88-Not attempted due to medical condition or safety concerns O. 12 steps 88-Not attempted due to medical condition or safety concerns P. Picking up object 88-Not attempted due to medical condition or safety concerns R. Wheel 50 feet with two turns 88-Not attempted due to medical condition or safety concerns A. Roll left and right 04-Supervision or touching assistance B. Sit to lying 03-Partial/moderate assistance C. Lying to sitting on side of bed 03-Partial/moderate assistance D. Sit to stand 03-Partial/moderate assistance E. Chair/axx-yo-twntx transfer 03-Partial/moderate assistance F. Toilet transfer 03-Partial/moderate assistance G. Car transfer 88-Not attempted due to medical condition or safety concerns I. Walk 10 feet 88-Not attempted due to medical condition or safety concerns J. Walk 50 feet with two turns 88-Not attempted due to medical condition or safety concerns K. Walk 150 feet 88-Not attempted due to medical condition or safety concerns L. Walking 10 feet on uneven surfaces 88-Not attempted due to medical condition or safety concerns S. Wheel 150 feet 88-Not attempted due to medical condition or safety concerns - Bladder and Bowel Bladder continence Bowel continence - Endurance Fair - Balance Fair - Safety Awareness Fair [facility] DEFICITS: Endurance, Balance, Self-Care, Safety Awareness, and Mobility SIGNATURE PANEL: (CDT)
[2020-01-21] MEDS: DIPHENHYDRAMINE 25 MG TAB/CAP PO PRN (19:12)
[2020-01-21] MEDS: ATORVASTATIN 80 MG TAB PO SCH (19:12)
[2020-01-21] MEDS: TRAZODONE 50 MG TABLET PO SCH (19:12)
[2020-01-22] MEDS: carvediloL 25 MG TAB PO SCH ×2 (05:29→17:06)
[2020-01-22 05:59] LABS: Absolute Lymphocytes (CBC) 1.3 K/uL (0.7-4.9); Basophils % 0.9 % (0-1.3); Hematocrit 32.8 % (36.0-45.0); Lymphocytes % 20.8 % (15.3-44.8); MPV 9.1 fL (7.6-11.3); RBC Red Blood Cell Count 3.73 M/uL (3.86-4.86)
[2020-01-22 06:18] LABS: Albumin 3.1 g/dL (3.4-5.0); Magnesium 1.5 mg/dL (1.8-2.4); Potassium 4.4 mmol/L (3.5-5.1); Prealbumin 17.4 mg/dL (20-40)
[2020-01-22] MEDS: PANTOPRAZOLE 40MG TABLET PO SCH (06:55)
[2020-01-22] MEDS: INSULIN -REGULAR HUMAN 50 UNIT/0.5 ML ML SQ SCH ×4 (07:30→19:40)
[2020-01-22] MEDS: LOSARTAN POTASSIUM 50 MG TABLET PO SCH (09:00)
[2020-01-22] MEDS: CRANBERRY FRUIT EXTRACT 200 MG CAP PO SCH ×2 (09:00→19:38)
[2020-01-22] MEDS: FE SULF/FA/VIT B COMP & C TAB PO SCH (09:00)
[2020-01-22] MEDS: APIXABAN 2.5 MG TABLET PO SCH ×2 (09:01→19:40)
[2020-01-22] MEDS: MAGNESIUM OXIDE 400 MG TAB PO SCH ×2 (09:01→19:39)
[2020-01-22] MEDS: FERROUS SULFATE 325 MG TAB PO SCH (09:01)
[2020-01-22] MEDS: CYANOCOBALAMIN 1,000 MCG TAB PO SCH (09:01)
[2020-01-22] MEDS: POTASSIUM CL SA 10 MEQ TAB PO SCH ×2 (09:01→19:40)
[2020-01-22] MEDS: CLOPIDOGREL 75 MG TABLET PO SCH (09:01)
[2020-01-22] MEDS: METFORMIN HCL 500 MG TAB PO SCH ×2 (09:01→17:07)
[2020-01-22] MEDS: LIDOCAINE 4% PATCH TOP SCH (09:02)
[2020-01-22] MEDS: SERTRALINE HCL 100 MG TAB PO SCH (09:02)
[2020-01-22] MEDS: CODEINE 30MG/APAP 300MG TAB PO PRN ×2 (12:05→19:38)
[2020-01-22] MEDS: ONDANSETRON 4 MG (ODT) TAB PO PRN ×2 (12:55→17:07)
[2020-01-22] MEDS ORDERED: MAGNESIUM OXIDE 400 MG TAB PO ONE (13:38)
[2020-01-22] MEDS: DIPHENHYDRAMINE 25 MG TAB/CAP PO PRN (19:38)
[2020-01-22] MEDS: TRAZODONE 50 MG TABLET PO SCH (19:39)
--- NOTE | 2020-01-22 19:39 | R.PN ---
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 SUBJECTIVE: Pt denied any Shortness of Breath. Pt denied any depression. CBC with differential is normal except for low Hgb of 11.2, prealbumin 17.4 and glucose 94 to 155. K is normal at 4.4, calcium low at 7.6, glucose 85 to 158. UA shows klebsiella pneumoniae, near pansens itive. Will treat with Levaquin 500 mg daily for 5 days. Ambulated 200' with minimum to moderate assistance using a rolling walker. Wheelchair mobilization 25 0' with moderate assistance. VITAL SIGNS Temperature: 97.6 F SBP/DBP: 133/61 Pulse: 92 Resp: 14 MEDICATION ALLERGIES: No Known Drug Allergies (NKDA) ENVIRONMENTAL ALLERGIES: - Substance Allergies None Known - Other Allergies aspirin Nsaids [id number] Antimigraine Agents NURSING: - Shower allowing shower - Bladder care per protocol - Skin care per protocol PRECAUTIONS: - Weight Bearing Precaution WBAT right LE ACTIVITIES OOB only with supervision THERAPIES: - Occupational Therapy Cognitive Retraining. Visual Perceptual Training. - Dietary and Nutrition Adequate Nutrition. Nutritional Education. Nutritional Supplements. - Speech Therapy Cognitive Training. Expressive Language Skills. Memory Strategies. Receptive Language Skills. Speech Intelligibility Training. PHYSICAL EXAM - Gen Alert and awake Lying in bed No apparent distress Oriented to: person, time, and place - Skin No skin breakdown. Normacephalic - Eyes No abnormalities - ENMT No abnormalities - Neck 7/10 neck pain - CVS RRR - Chest Clear - Resp No wheezing - Abd Soft - GI Non distended Deferred - No abnormalities - Ext No significant edema. - MSK 4+/5 weakness in left upper and lower extremity - Neuro 4/5 strength left upper and lower extremities. - Psych No abnormalities ASSESSMENT: Currently, she has deficits of Endurance, Sphincter Control, Transfers Control, Social Cognition, Bal ance, Safety Awareness, and Locomotion.On 01/04/[address] [facility] with sudden on set of right-side weakness.On 01/04/[address] [facility] with sudden onset of left- sided weakness.On 01/04/2020 she was admitted to [facility] with diagnosis Right TELLERS SUPERVISOR CVA.Her im pairment category is Left body after right brain stroke.Her impairment category is Stroke 01 - Right Body (Left Brain) (01.2).Pt. is now referred to [facility] for acute in-patie nt rehabilitation in order to maximize patient's functional independence in activities of daily livin g, strength, ROM, and mobility.Pre-morbidly, Pt. was independent/mod-I in Locomotion, Safety Awarenes s, Balance, Self-Care, Communication, and Endurance; and she had good Sphincter Control, Transfers Co ntrol, and Social Cognition.Pt. is a 74 yo Right-handed white female.Pt. is a 74 yo Right-handed fema le of unknown race.- Rehab Goal Patient has realistic goal of being discharged at assistance level 6-Jeremy to reside at Home with Pt self. MDM/PLAN: - Physical Therapy Achieving independence - to improve, our physical therapists will perform initial evaluation of pt's status upon admission and devise an individualized program for Community Reintegration Activities Edema - to improve, our physical therapists will perform initial evaluation of pt's status upon admi ssion and devise an individualized program for Elevation Training, and Lymphedema Therapy Gait dysfunction - to improve, our physical therapists will perform initial evaluation of pt's statu s upon admission and devise an individualized program for Gait Training, and Wheel Chair mobility Inability to transfer - to improve, our physical therapists will perform initial evaluation of pt's status upon admission and devise an individualized program for Bed mobility Need for home safety evaluation - to improve, our physical therapists will perform initial evaluatio n of pt's status upon admission and devise an individualized program for Home Evaluation Need in caregiver upon discharge - to improve, our physical therapists will perform initial evaluati on of pt's status upon admission and devise an individualized program for Caregiver Training New precaution - to improve, our physical therapists will perform initial evaluation of pt's status upon admission and devise an individualized program for Patient precaution education Poor balance - to improve, our physical therapists will perform initial evaluation of pt's status up on admission and devise an individualized program for Balance Training Poor endurance - to improve, our physical therapists will perform initial evaluation of pt's status upon admission and devise an individualized program for Endurance Training Weakness - to improve, our physical therapists will perform initial evaluation of pt's status upon a dmission and devise an individualized program for Aquatic Therapy, Neuromuscular Reeducation, and Str engthening - Occupational Therapy Cognitive deficits - to improve, our occupation therapists will perform initial evaluation of pt's s tatus upon admission and devise an individualized program for Cognition - orientation Need for home health care worker - to improve, our occupation therapists will perform initial evaluation of pt's status upon admission and devise an individualized program for Caregiver Training Weakness - to improve, our occupation therapists will perform initial evaluation of pt's status upon admission and devise an individualized program for Aquatic Therapy, Balance, Endurance, UE ROM, and UE strengthening - Other See attached MAR (Medication Administration Record) - Diet Type Continue Regular - Diet - Liquid Texture Continue Regular - Tube Feed Continue N/A - Bladder care per protocol - Weight Bearing Precaution WBAT left LE WBAT right LE - Skin care per protocol - Diet - Solid Texture Continue Regular - Shower allowing shower for Dementia, TBI, Stroke, or others FUNCTIONAL STATUS: UPDATED AT WEEKLY TEAM CONFERENCE - Bladder Same accident frequency: 7-Ind - No accidents in the past 7 days - Bowel Same accident frequency: 7-Ind - No accidents in the past 7 days - Walking Same score based on distance walked: 0(N/A) Same score based on distance walked: 1(<=50ft) - Wheelchair Same score based on distance traveled: 0(N/A) FUNCTIONAL STATUS: - Self-Care A. Eating Ind B. Grooming Ind C. Bathing Jeremy D. Dressing - Upper sup E. Dressing - Lower modA F. Toileting Sho - Sphincter Control G. Bladder control Sho H. Bowel control Sho - Transfers Control I. Bed/Chair/Wheelchair modA J. Toilet modA K. Tub/Shower modA - Locomotion L. Walk/Wheelchair (B) modA M. Stairs maxA - Communication N. Comprehension (B) sup O. Expression (B) sup - Social Cognition P. Social Interaction Jeremy Q. Problem Solving Jeremy R. Memory Jeremy - Endurance Fair - Balance Fair - Safety Awareness Fair QI SCORES: - Self-Care A. Eating 03-Partial/moderate assistance B. Oral hygiene 03-Partial/moderate assistance C. Toileting hygiene 03-Partial/moderate assistance E. Shower/bathe self 03-Partial/moderate assistance F. Upper body dressing 03-Partial/moderate assistance G. Lower body dressing 03-Partial/moderate assistance H. Putting on/taking off footwear 88-Not attempted due to medical condition or safety concerns - Mobility M. 1 step (curb) 88-Not attempted due to medical condition or safety concerns N. 4 steps 88-Not attempted due to medical condition or safety concerns O. 12 steps 88-Not attempted due to medical condition or safety concerns P. Picking up object 88-Not attempted due to medical condition or safety concerns R. Wheel 50 feet with two turns 88-Not attempted due to medical condition or safety concerns A. Roll left and right 04-Supervision or touching assistance B. Sit to lying 03-Partial/moderate assistance C. Lying to sitting on side of bed 03-Partial/moderate assistance D. Sit to stand 03-Partial/moderate assistance E. Chair/jbu-nw-[id number] transfer 03-Partial/moderate assistance F. Toilet transfer 03-Partial/moderate assistance G. Car transfer 88-Not attempted due to medical condition or safety concerns I. Walk 10 feet 88-Not attempted due to medical condition or safety concerns J. Walk 50 feet with two turns 88-Not attempted due to medical condition or safety concerns K. Walk 150 feet 88-Not attempted due to medical condition or safety concerns L. Walking 10 feet on uneven surfaces 88-Not attempted due to medical condition or safety concerns S. Wheel 150 feet 88-Not attempted due to medical condition or safety concerns - Bladder and Bowel Bladder continence Bowel continence - Endurance Fair - Balance Fair - Safety Awareness Fair [facility] DEFICITS: Endurance, Balance, Self-Care, Safety Awareness, and Mobility SIGNATURE PANEL: (CDT)
[2020-01-22] MEDS: ATORVASTATIN 80 MG TAB PO SCH (19:40)
[2020-01-23] MEDS: carvediloL 25 MG TAB PO SCH ×2 (05:07→17:04)
[2020-01-23] MEDS: PANTOPRAZOLE 40MG TABLET PO SCH (07:15)
[2020-01-23] MEDS: INSULIN -REGULAR HUMAN 50 UNIT/0.5 ML ML SQ SCH ×4 (07:17→20:48)
[2020-01-23] MEDS: LIDOCAINE 4% PATCH TOP SCH (07:30)
[2020-01-23] MEDS: LOSARTAN POTASSIUM 50 MG TABLET PO SCH (08:00)
[2020-01-23] MEDS: CODEINE 30MG/APAP 300MG TAB PO PRN ×4 (08:02→20:46)
[2020-01-23] MEDS: CRANBERRY FRUIT EXTRACT 200 MG CAP PO SCH ×2 (08:04→20:46)
[2020-01-23] MEDS: SERTRALINE HCL 100 MG TAB PO SCH (08:04)
[2020-01-23] MEDS: FERROUS SULFATE 325 MG TAB PO SCH (08:04)
[2020-01-23] MEDS: CYANOCOBALAMIN 1,000 MCG TAB PO SCH (08:05)
[2020-01-23] MEDS: POTASSIUM CL SA 10 MEQ TAB PO SCH ×2 (08:05→20:47)
[2020-01-23] MEDS: CLOPIDOGREL 75 MG TABLET PO SCH (08:05)
[2020-01-23] MEDS: METFORMIN HCL 500 MG TAB PO SCH ×2 (08:05→17:05)
[2020-01-23] MEDS: MAGNESIUM OXIDE 400 MG TAB PO SCH ×2 (08:05→20:45)
[2020-01-23] MEDS: APIXABAN 2.5 MG TABLET PO SCH ×2 (08:06→20:47)
[2020-01-23] MEDS: FE SULF/FA/VIT B COMP & C TAB PO SCH (08:06)
--- NOTE | 2020-01-23 08:24 | FAST ---
OT QI REPORT FORM ENCOUNTER DATE AND TIME: 01/22/2020 08:00 (CDT) NAME MARV PALUMBO DATE OF : 1945 DATE OF ADMISSION: 01/09/2020 17:19 (CDT) PHONE: AGE: 74 N# [id number] GENDER: Female ENCOUNTER PHYSICIAN: Dr. Donis Pride M.D. ADMISSION DIAGNOSIS: - Stroke 01 - Right Body (Left Brain) (01.2) Right TRANSPORTATION LEAD CVA. EATING: Not assessed/no information CODE: - ORAL HYGIENE: ORAL HYGIENE - STEP 1: Does the patient complete the activity by him/herself with no assistance (physical, verbal/nonverbal cueing, setup/clean-up)? No. ORAL HYGIENE - STEP 2: Does the patient need only setup/clean-up assistance from one helper? No. ORAL HYGIENE - STEP 3: Does the patient need only verbal/nonverbal cueing or touching/steadying/contact guard assistance fro m one helper? Yes. 1. [id number] ADMISSION PERFORMANCE: Supervision or touching assistance CODE: 04 TOILETING HYGIENE: Not assessed/no information CODE: - BATHING: SHOWER/BATHE SELF - STEP 1: Does the patient complete the activity by him/herself with no assistance (physical, verbal/nonverbal cueing, setup/clean-up)? No. SHOWER/BATHE SELF - STEP 2: Does the patient need only setup/clean-up assistance from one helper? No. SHOWER/BATHE SELF - STEP 3: Does the patient need only verbal/nonverbal cueing or touching/steadying/contact guard assistance fro m one helper? Yes. 1. [id number] ADMISSION PERFORMANCE: Supervision or touching assistance CODE: 04 DRESSING - UPPER BODY: DRESSING - UPPER BODY - STEP 1: Does the patient complete the activity by him/herself with no assistance (physical, verbal/nonverbal cueing, setup/clean-up)? No. DRESSING - UPPER BODY - STEP 2: Does the patient need only setup/clean-up assistance from one helper? No. DRESSING - UPPER BODY - STEP 3: Does the patient need only verbal/nonverbal cueing or touching/steadying/contact guard assistance fro m one helper? Yes. 1. [id number] ADMISSION PERFORMANCE: Supervision or touching assistance CODE: 04 DRESSING - LOWER BODY: DRESSING - LOWER BODY - STEP 1: Does the patient complete the activity by him/herself with no assistance (physical, verbal/nonverbal cueing, setup/clean-up)? No. DRESSING - LOWER BODY - STEP 2: Does the patient need only setup/clean-up assistance from one helper? No. DRESSING - LOWER BODY - STEP 3: Does the patient need only verbal/nonverbal cueing or touching/steadying/contact guard assistance fro m one helper? Yes. 1. [id number] ADMISSION PERFORMANCE: Supervision or touching assistance CODE: 04 PUTTING ON/TAKING OFF FOOTWEAR: FOOTWEAR - STEP 1: Does the patient complete the activity by him/herself with no assistance (physical, verbal/nonverbal cueing, setup/clean-up)? No. FOOTWEAR - STEP 2: Does the patient need only setup/clean-up assistance from one helper? No. FOOTWEAR - STEP 3: Does the patient need only verbal/nonverbal cueing or touching/steadying/contact guard assistance fro m one helper? Yes. 1. [id number] ADMISSION PERFORMANCE: Supervision or touching assistance CODE: 04 DOES THE PATIENT USE A WHEELCHAIR/SCOOTER? CODE: EXPR INDICATE THE TYPE OF WHEELCHAIR/SCOOTER USED: CODE: EXPR INDICATE THE TYPE OF WHEELCHAIR/SCOOTER USED: CODE: EXPR BLADDER AND BOWEL: CODE: EXPR CODE: EXPR SIGNATURE PANEL: The following modified sections: 1. [id number] Admission Performance, 1. [id number] Admission Performance, 1. [id number] Admission Performance, 1. [id number] Admission Performance, 1. [id number] Admission Performance were [electronically] signed by GEOVANNA Melvin on SunJan 23 2020 08:23:34 GMT-0500 (Central Daylight Time)
--- NOTE | 2020-01-23 09:57 | P.RH.PN ---
Estimated Length of Stay: 19 Expected Discharge Date: 01/27/20 Discharge Disposition Plan: Home Family Support: Yes Jail Goal: Mobility, Transfers, Self Care Vital Signs: Last Vital Signs Temp 97.1 F 01/23/20 07:37 Pulse 67 01/23/20 07:37 Resp 15 01/23/20 09:02 BP 105/52 L 01/23/20 07:37 Pulse Ox 92 01/23/20 09:02 Laboratory: Laboratory Last Values WBC 6.0 K/uL (4.3-10.9) 01/22/20 05:43 RBC 3.73 M/uL (3.86-4.86) L 01/22/20 05:43 Hgb 11.2 g/dL (12.0-15.0) L 01/22/20 05:43 Hct 32.8 % (36.0-45.0) L 01/22/20 05:43 MCV 87.9 fL (80-100) 01/22/20 05:43 MCH 30.1 pg (27.0-35.0) 01/22/20 05:43 MCHC 34.2 g/dL (32.0-36.0) 01/22/20 05:43 RDW 15.3 % (12.1-15.2) H 01/22/20 05:43 Plt Count 128 K/uL (152-406) L 01/22/20 05:43 MPV 9.1 fL (7.6-11.3) 01/22/20 05:43 Neutrophils % 66.9 % (41.7-73.7) 01/22/20 05:43 Lymphocytes % 20.8 % (15.3-44.8) 01/22/20 05:43 Monocytes % 9.3 % (3.3-12.3) 01/22/20 05:43 Eosinophils % 2.1 % (0-4.4) 01/22/20 05:43 Basophils % 0.9 % (0-1.3) 01/22/20 05:43 Absolute Neutrophils 4.0 K/uL (1.8-8.0) 01/22/20 05:43 Absolute Lymphocytes 1.3 K/uL (0.7-4.9) 01/22/20 05:43 Absolute Monocytes 0.6 K/uL (0.1-1.3) 01/22/20 05:43 Absolute Eosinophils 0.1 K/uL (0-0.5) 01/22/20 05:43 Absolute Basophils 0.1 K/uL (0-0.5) 01/22/20 05:43 Sodium 138 mmol/L (136-145) 01/22/20 05:43 Potassium 4.4 mmol/L (3.5-5.1) 01/22/20 05:43 Chloride 101 mmol/L (98-107) 01/22/20 05:43 Carbon Dioxide 33 mmol/L (21-32) H 01/22/20 05:43 BUN 7 mg/dL (7-18) 01/22/20 05:43 Creatinine 0.83 mg/dL (0.55-1.3) 01/22/20 05:43 Estimated GFR 67 mL/min (=/>90) L 01/22/20 05:43 Glucose 92 mg/dL (74-106) 01/22/20 05:43 POC Glucose 84 mg/dL (65-120) 01/23/20 06:38 Calcium 8.0 mg/dL (8.5-10.1) L 01/22/20 05:43 Magnesium 1.5 mg/dL (1.8-2.4) L 01/22/20 05:43 Albumin 3.1 g/dL (3.4-5.0) L 01/22/20 05:43 Prealbumin 17.4 mg/dL (20-40) L 01/22/20 05:43 Urine Color Yellow 01/20/20 16:20 Urine Appearance Clear 01/20/20 16:20 Urine pH 5.0 (5.0-7.0) 01/20/20 16:20 Ur Specific Niles 1.010 (1.005-1.030) 01/20/20 16:20 Glucose (UA)(Auto) Negative (NEG) 01/20/20 16:20 Urine Ketones Negative (NEG) 01/20/20 16:20 Urine Blood Negative (NEG) 01/20/20 16:20 Urine Nitrite Negative (NEG) 01/20/20 16:20 Urine Bilirubin Negative (NEG) 01/20/20 16:20 Urine Urobilinogen 0.2 mg/dL (0.2-1.0) 01/20/20 16:20 Ur Leukocyte Esterase Trace (NEG) H 01/20/20 16:20 Urine RBC <5 /HPF (NONE SEEN) 01/20/20 16:20 Urine WBC <5 /HPF (<5) 01/20/20 16:20 Ur Squamous Epith Cells <5 /HPF (NONE SEEN) 01/20/20 16:20 Urine Bacteria <20 /HPF (<20) 01/20/20 16:20 Urine Culture Reflexed Not needed 01/20/20 16:20 Urine Total Protein Negative (NEG) 01/20/20 16:20 SARS-CoV-2 RNA (RT-PCR) Cancelled 01/22/20 05:30 Weight: 152 lb Wound Present: No Closed Surgical Incision Present: No Negative Pressure Wound Therapy Present: No Physician Update: Her labs are stable. She is on a mechanical soft diet partly due her stroke and dentures. She is walking 75' with minimum to moderate assistance requiring a platform walker. She requires a lot of directions with transfering. She requires a lot of help with ADLs. Medical Issues: Hx of Afib, HTN, hypernatremia, B12 deficiency, migraines, CS, explor lap, hysterectomy. Pain Issues: Taking Tylenol, Tylenol #3 for pain. Nutritional Needs: Mechanical soft ground, thin liquids, pills w/ pudding. Functional Improvement: pt has demonstrated some progress; however, cognitive and safety awareness deficits have limited pt's ability. pt will not likely be Independent with functional mobility as goals were initially set. Goals have been modified to more accurately reflect current expectations. pt requires assist with functional transfers and ambulation at this time. pt struggles to carryover strategies learned from one session to the next. Speech Therapy Update: Patient cont. to present with mild-moderate dysarthria and mod-severe left side neglect. She is cooperative and hard-working in therapy. She exhibits reduced insight into her deficits. She is currently working on visual scanning techniques to improve left visual-field processing. Summary: Patient's care plan and shelter goals have been reviewed and revised as necessary. Please see the Rehabilitation Signature page for all necessary signatures.
[2020-01-23] MEDS: ACETAMINOPHEN 500 MG TAB PO PRN (10:41)
[2020-01-23] MEDS: DIPHENHYDRAMINE 25 MG TAB/CAP PO PRN ×2 (15:11→20:47)
[2020-01-23] MEDS: ONDANSETRON 4 MG (ODT) TAB PO PRN (20:45)
[2020-01-23] MEDS: ATORVASTATIN 80 MG TAB PO SCH (20:45)
[2020-01-23] MEDS: TRAZODONE 50 MG TABLET PO SCH (20:46)
[2020-01-23] MEDS: DOCUSATE NA/SENNA CONC 1 TAB PO PRN (20:47)
[2020-01-24] MEDS: CODEINE 30MG/APAP 300MG TAB PO PRN ×4 (04:07→16:00)
[2020-01-24] MEDS: carvediloL 25 MG TAB PO SCH ×2 (05:18→17:06)
[2020-01-24] MEDS: LIDOCAINE 4% PATCH TOP SCH (06:58)
[2020-01-24] MEDS: PANTOPRAZOLE 40MG TABLET PO SCH (07:04)
[2020-01-24] MEDS: INSULIN -REGULAR HUMAN 50 UNIT/0.5 ML ML SQ SCH ×4 (07:30→20:47)
[2020-01-24] MEDS: LOSARTAN POTASSIUM 50 MG TABLET PO SCH ×2 (07:53→13:26)
[2020-01-24] MEDS: POTASSIUM CL SA 10 MEQ TAB PO SCH ×2 (07:53→20:40)
[2020-01-24] MEDS: SERTRALINE HCL 100 MG TAB PO SCH (07:53)
[2020-01-24] MEDS: METFORMIN HCL 500 MG TAB PO SCH ×2 (07:54→17:05)
[2020-01-24] MEDS: CYANOCOBALAMIN 1,000 MCG TAB PO SCH (07:54)
[2020-01-24] MEDS: MAGNESIUM OXIDE 400 MG TAB PO SCH ×2 (07:54→20:38)
[2020-01-24] MEDS: FERROUS SULFATE 325 MG TAB PO SCH (07:54)
[2020-01-24] MEDS: CLOPIDOGREL 75 MG TABLET PO SCH (07:54)
[2020-01-24] MEDS: APIXABAN 2.5 MG TABLET PO SCH ×2 (07:55→20:40)
[2020-01-24] MEDS: FE SULF/FA/VIT B COMP & C TAB PO SCH (07:56)
[2020-01-24] MEDS: CRANBERRY FRUIT EXTRACT 200 MG CAP PO SCH ×2 (07:57→20:41)
[2020-01-24] MEDS: GUAIFENESIN/DM 5 ML UCUP PO PRN ×3 (08:56→17:27)
--- NOTE | 2020-01-24 09:10 | RAD REPORT ---
EXAM DESCRIPTION: RAD - Chest Single View - 01/24/2020 8:25 am CLINICAL HISTORY: R/O Aspiration Pneumonia COMPARISON: Single-view chest January 04, 2020 TECHNIQUE: AP portable chest image was obtained 01/24/2020 8:25 am . FINDINGS: No evidence for bacterial or aspiration pneumonia. Interstitial markings are similar to th e comparison. Heart and vasculature are normal. No measurable pleural effusion and no pneumothorax. N o acute bony abnormality seen. No acute aortic findings suspected. IMPRESSION: No acute cardiopulmonary process.
[2020-01-24] MEDS: BENZONATATE 100 MG CAP PO PRN (14:54)
[2020-01-24] MEDS: ATORVASTATIN 80 MG TAB PO SCH (20:40)
[2020-01-24] MEDS: TRAZODONE 50 MG TABLET PO SCH (20:41)
[2020-01-25] MEDS: CODEINE 30MG/APAP 300MG TAB PO PRN (02:14)
[2020-01-25] MEDS: INSULIN -REGULAR HUMAN 50 UNIT/0.5 ML ML SQ SCH ×4 (07:30→20:12)
[2020-01-25] MEDS ORDERED: carvediloL 25 MG TAB PO SCH (08:00)
[2020-01-25] MEDS: LIDOCAINE 4% PATCH TOP SCH (08:10)
[2020-01-25] MEDS: LOSARTAN POTASSIUM 50 MG TABLET PO SCH ×2 (08:11→10:15)
[2020-01-25] MEDS: METFORMIN HCL 500 MG TAB PO SCH ×2 (08:12→17:20)
[2020-01-25] MEDS: CRANBERRY FRUIT EXTRACT 200 MG CAP PO SCH ×2 (08:12→20:11)
[2020-01-25] MEDS: MAGNESIUM OXIDE 400 MG TAB PO SCH ×2 (08:12→20:11)
[2020-01-25] MEDS: FERROUS SULFATE 325 MG TAB PO SCH (08:13)
[2020-01-25] MEDS: APIXABAN 2.5 MG TABLET PO SCH ×2 (08:13→20:12)
[2020-01-25] MEDS: CLOPIDOGREL 75 MG TABLET PO SCH (08:13)
[2020-01-25] MEDS: CYANOCOBALAMIN 1,000 MCG TAB PO SCH (08:14)
[2020-01-25] MEDS: SERTRALINE HCL 100 MG TAB PO SCH (08:14)
[2020-01-25] MEDS: POTASSIUM CL SA 10 MEQ TAB PO SCH ×2 (08:14→20:11)
[2020-01-25] MEDS: PANTOPRAZOLE 40MG TABLET PO SCH (08:14)
[2020-01-25] MEDS: FE SULF/FA/VIT B COMP & C TAB PO SCH (08:14)
[2020-01-25] MEDS: ACETAMINOPHEN 500 MG TAB PO PRN ×2 (10:14→15:16)
[2020-01-25] MEDS: GUAIFENESIN/DM 5 ML UCUP PO PRN ×2 (12:43→20:05)
[2020-01-25] MEDS: carvediloL 25 MG TAB PO SCH (17:20)
[2020-01-25] MEDS: TRAZODONE 50 MG TABLET PO SCH (20:11)
[2020-01-25] MEDS: ATORVASTATIN 80 MG TAB PO SCH (20:11)
[2020-01-25] MEDS: NYSTATIN 500,000 UNIT/5 ML UDC PO SCH (20:11)
[2020-01-26] MEDS: carvediloL 25 MG TAB PO SCH ×2 (05:10→17:07)
[2020-01-26] MEDS: PANTOPRAZOLE 40MG TABLET PO SCH (07:07)
[2020-01-26] MEDS: GUAIFENESIN/DM 5 ML UCUP PO PRN ×4 (07:08→20:23)
[2020-01-26] MEDS: NYSTATIN 500,000 UNIT/5 ML UDC PO SCH ×3 (07:08→20:23)
[2020-01-26] MEDS: INSULIN -REGULAR HUMAN 50 UNIT/0.5 ML ML SQ SCH ×4 (07:30→20:25)
[2020-01-26] MEDS: CODEINE 30MG/APAP 300MG TAB PO PRN ×4 (08:03→20:23)
[2020-01-26] MEDS: MAGNESIUM OXIDE 400 MG TAB PO SCH ×2 (08:04→20:23)
[2020-01-26] MEDS: CRANBERRY FRUIT EXTRACT 200 MG CAP PO SCH ×2 (08:04→20:23)
[2020-01-26] MEDS: LOSARTAN POTASSIUM 50 MG TABLET PO SCH (08:04)
[2020-01-26] MEDS: SERTRALINE HCL 100 MG TAB PO SCH (08:05)
[2020-01-26] MEDS: POTASSIUM CL SA 10 MEQ TAB PO SCH ×2 (08:05→20:24)
[2020-01-26] MEDS: FERROUS SULFATE 325 MG TAB PO SCH (08:05)
[2020-01-26] MEDS: CYANOCOBALAMIN 1,000 MCG TAB PO SCH (08:05)
[2020-01-26] MEDS: METFORMIN HCL 500 MG TAB PO SCH ×2 (08:05→17:07)
[2020-01-26] MEDS: FE SULF/FA/VIT B COMP & C TAB PO SCH (08:06)
[2020-01-26] MEDS: APIXABAN 2.5 MG TABLET PO SCH ×2 (08:06→20:23)
[2020-01-26] MEDS: CLOPIDOGREL 75 MG TABLET PO SCH (08:06)
[2020-01-26] MEDS: BENZONATATE 100 MG CAP PO PRN (09:31)
[2020-01-26] MEDS: LIDOCAINE 4% PATCH TOP SCH ×2 (11:01→13:39)
[2020-01-26] MEDS: DIPHENHYDRAMINE 25 MG TAB/CAP PO PRN ×2 (13:28→20:23)
--- NOTE | 2020-01-26 14:18 | RAD REPORT ---
EXAM DESCRIPTION: RAD - Chest Single View - 01/26/2020 2:03 pm CLINICAL HISTORY: Repeat chest xray r/o aspiration pneumonia Chest pain. COMPARISON: Chest Single View dated 01/24/2020; Chest Single View dated 01/04/2020; Chest Single View dated 08/27/2019; Chest Single View dated 06/13/2017 FINDINGS: Portable technique limits examination quality. The lungs are grossly clear. The heart is mildly enlarged in size. No displaced fractures.Aortic athe rosclerosis. IMPRESSION: No acute intrathoracic process suspected.
--- NOTE | 2020-01-26 19:37 | R.PN ---
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 SUBJECTIVE: Pt denied any Shortness of Breath. Pt denied any depression. CBC with differential is normal except for low Hgb of 11.2, prealbumin 17.4 and glucose 94 to 155. K is normal at 4.4, calcium low at 7.6, glucose 91 to 105. UA shows klebsiella pneumoniae, near pansens itive. Will treat with Levaquin 500 mg daily for 5 days. Ambulated 120' with moderate assistance using a rolling walker. Wheelchair mobilization 250' with mod erate assistance. VITAL SIGNS Temperature: 97.6 F SBP/DBP: 139/73 Pulse: 98 Resp: 14 MEDICATION ALLERGIES: No Known Drug Allergies (NKDA) ENVIRONMENTAL ALLERGIES: - Substance Allergies None Known - Other Allergies aspirin Nsaids [id number] Antimigraine Agents NURSING: - Shower allowing shower - Bladder care per protocol - Skin care per protocol PRECAUTIONS: - Weight Bearing Precaution WBAT right LE ACTIVITIES OOB only with supervision THERAPIES: - Occupational Therapy Cognitive Retraining. Visual Perceptual Training. - Dietary and Nutrition Adequate Nutrition. Nutritional Education. Nutritional Supplements. - Speech Therapy Cognitive Training. Expressive Language Skills. Memory Strategies. Receptive Language Skills. Speech Intelligibility Training. PHYSICAL EXAM - Gen Alert and awake Lying in bed No apparent distress Oriented to: person, time, and place - Skin No skin breakdown. Normacephalic - Eyes No abnormalities - ENMT No abnormalities - Neck 7/10 neck pain - CVS RRR - Chest Clear - Resp No wheezing - Abd Soft - GI Non distended Deferred - No abnormalities - Ext No significant edema. - MSK 4+/5 weakness in left upper and lower extremity - Neuro 4/5 strength left upper and lower extremities. - Psych No abnormalities ASSESSMENT: Currently, she has deficits of Endurance, Sphincter Control, Transfers Control, Social Cognition, Bal ance, Safety Awareness, and Locomotion.On 01/04/2020 Pt. presented to [facility] with sudden on set of right-side weakness.On 01/04/2020 Pt. presented to [facility] with sudden onset of left- sided weakness.On 01/04/2020 she was admitted to [facility] with diagnosis Right RECTIFICATION PRINTER CVA.Her im pairment category is Left body after right brain stroke.Her impairment category is Stroke 01 - Right Body (Left Brain) (01.2).Pt. is now referred to [facility] for acute in-patie nt rehabilitation in order to maximize patient's functional independence in activities of daily livin g, strength, ROM, and mobility.Pre-morbidly, Pt. was independent/mod-I in Locomotion, Safety Awarenes s, Balance, Self-Care, Communication, and Endurance; and she had good Sphincter Control, Transfers Co ntrol, and Social Cognition.Pt. is a 74 yo Right-handed white female.Pt. is a 74 yo Right-handed fema le of unknown race.- Rehab Goal Patient has realistic goal of being discharged at assistance level 6-Jeremy to reside at Home with Pt self. MDM/PLAN: - Physical Therapy Achieving independence - to improve, our physical therapists will perform initial evaluation of pt's status upon admission and devise an individualized program for Community Reintegration Activities Edema - to improve, our physical therapists will perform initial evaluation of pt's status upon admi ssion and devise an individualized program for Elevation Training, and Lymphedema Therapy Gait dysfunction - to improve, our physical therapists will perform initial evaluation of pt's statu s upon admission and devise an individualized program for Gait Training, and Wheel Chair mobility Inability to transfer - to improve, our physical therapists will perform initial evaluation of pt's status upon admission and devise an individualized program for Bed mobility Need for home safety evaluation - to improve, our physical therapists will perform initial evaluatio n of pt's status upon admission and devise an individualized program for Home Evaluation Need in caregiver upon discharge - to improve, our physical therapists will perform initial evaluati on of pt's status upon admission and devise an individualized program for Caregiver Training New precaution - to improve, our physical therapists will perform initial evaluation of pt's status upon admission and devise an individualized program for Patient precaution education Poor balance - to improve, our physical therapists will perform initial evaluation of pt's status up on admission and devise an individualized program for Balance Training Poor endurance - to improve, our physical therapists will perform initial evaluation of pt's status upon admission and devise an individualized program for Endurance Training Weakness - to improve, our physical therapists will perform initial evaluation of pt's status upon a dmission and devise an individualized program for Aquatic Therapy, Neuromuscular Reeducation, and Str engthening - Occupational Therapy Cognitive deficits - to improve, our occupation therapists will perform initial evaluation of pt's s tatus upon admission and devise an individualized program for Cognition - orientation Need for health care legal assistant - to improve, our occupation therapists will perform initial evaluation of pt's status upon admission and devise an individualized program for Caregiver Training Weakness - to improve, our occupation therapists will perform initial evaluation of pt's status upon admission and devise an individualized program for Aquatic Therapy, Balance, Endurance, UE ROM, and UE strengthening - Other See attached MAR (Medication Administration Record) - Diet Type Continue Regular - Diet - Liquid Texture Continue Regular - Tube Feed Continue N/A - Bladder care per protocol - Weight Bearing Precaution WBAT left LE WBAT right LE - Skin care per protocol - Diet - Solid Texture Continue Regular - Shower allowing shower for Dementia, TBI, Stroke, or others FUNCTIONAL STATUS: UPDATED AT WEEKLY TEAM CONFERENCE - Bladder Same accident frequency: 7-Ind - No accidents in the past 7 days - Bowel Same accident frequency: 7-Ind - No accidents in the past 7 days - Walking Same score based on distance walked: 0(N/A) Same score based on distance walked: 1(<=50ft) - Wheelchair Same score based on distance traveled: 0(N/A) FUNCTIONAL STATUS: - Self-Care A. Eating Ind B. Grooming Ind C. Bathing Jeremy D. Dressing - Upper sup E. Dressing - Lower modA F. Toileting Sho - Sphincter Control G. Bladder control Sho H. Bowel control Sho - Transfers Control I. Bed/Chair/Wheelchair modA J. Toilet modA K. Tub/Shower modA - Locomotion L. Walk/Wheelchair (B) modA M. Stairs maxA - Communication N. Comprehension (B) sup O. Expression (B) sup - Social Cognition P. Social Interaction Jeremy Q. Problem Solving Jeremy R. Memory Jeremy - Endurance Fair - Balance Fair - Safety Awareness Fair QI SCORES: - Self-Care A. Eating 03-Partial/moderate assistance B. Oral hygiene 03-Partial/moderate assistance C. Toileting hygiene 03-Partial/moderate assistance E. Shower/bathe self 03-Partial/moderate assistance F. Upper body dressing 03-Partial/moderate assistance G. Lower body dressing 03-Partial/moderate assistance H. Putting on/taking off footwear 88-Not attempted due to medical condition or safety concerns - Mobility M. 1 step (curb) 88-Not attempted due to medical condition or safety concerns N. 4 steps 88-Not attempted due to medical condition or safety concerns O. 12 steps 88-Not attempted due to medical condition or safety concerns P. Picking up object 88-Not attempted due to medical condition or safety concerns R. Wheel 50 feet with two turns 88-Not attempted due to medical condition or safety concerns A. Roll left and right 04-Supervision or touching assistance B. Sit to lying 03-Partial/moderate assistance C. Lying to sitting on side of bed 03-Partial/moderate assistance D. Sit to stand 03-Partial/moderate assistance E. Chair/[id number]-qo-[id number] transfer 03-Partial/moderate assistance F. Toilet transfer 03-Partial/moderate assistance G. Car transfer 88-Not attempted due to medical condition or safety concerns I. Walk 10 feet 88-Not attempted due to medical condition or safety concerns J. Walk 50 feet with two turns 88-Not attempted due to medical condition or safety concerns K. Walk 150 feet 88-Not attempted due to medical condition or safety concerns L. Walking 10 feet on uneven surfaces 88-Not attempted due to medical condition or safety concerns S. Wheel 150 feet 88-Not attempted due to medical condition or safety concerns - Bladder and Bowel Bladder continence Bowel continence - Endurance Fair - Balance Fair - Safety Awareness Fair [facility] DEFICITS: Endurance, Balance, Self-Care, Safety Awareness, and Mobility SIGNATURE PANEL: (CDT)
[2020-01-26] MEDS: DOCUSATE NA/SENNA CONC 1 TAB PO PRN (20:23)
[2020-01-26] MEDS: TRAZODONE 50 MG TABLET PO SCH (20:23)
[2020-01-26] MEDS: ATORVASTATIN 80 MG TAB PO SCH (20:23)
[2020-01-27] MEDS: CODEINE 30MG/APAP 300MG TAB PO PRN (04:41)
[2020-01-27] MEDS: carvediloL 25 MG TAB PO SCH ×2 (05:03→17:34)
[2020-01-27 06:02] LABS: Absolute Lymphocytes (CBC) 0.8 K/uL (0.7-4.9); Basophils % 0.9 % (0-1.3); Hematocrit 28.8 % (36.0-45.0); Lymphocytes % 19.2 % (15.3-44.8); MPV 9.1 fL (7.6-11.3); RBC Red Blood Cell Count 3.27 M/uL (3.86-4.86)
[2020-01-27] MEDS: INSULIN -REGULAR HUMAN 50 UNIT/0.5 ML ML SQ SCH ×3 (07:30→16:30)
[2020-01-27] MEDS: NYSTATIN 500,000 UNIT/5 ML UDC PO SCH ×2 (08:40→14:37)
[2020-01-27] MEDS: LIDOCAINE 4% PATCH TOP SCH (08:40)
[2020-01-27] MEDS: PANTOPRAZOLE 40MG TABLET PO SCH (08:41)
[2020-01-27] MEDS: POTASSIUM CL SA 10 MEQ TAB PO SCH (08:41)
[2020-01-27] MEDS: MAGNESIUM OXIDE 400 MG TAB PO SCH (08:41)
[2020-01-27] MEDS: FERROUS SULFATE 325 MG TAB PO SCH (08:41)
[2020-01-27] MEDS: FE SULF/FA/VIT B COMP & C TAB PO SCH (08:41)
[2020-01-27] MEDS: CLOPIDOGREL 75 MG TABLET PO SCH (08:42)
[2020-01-27] MEDS: LOSARTAN POTASSIUM 50 MG TABLET PO SCH (08:42)
[2020-01-27] MEDS: CRANBERRY FRUIT EXTRACT 200 MG CAP PO SCH (08:42)
[2020-01-27] MEDS: CYANOCOBALAMIN 1,000 MCG TAB PO SCH (08:42)
[2020-01-27] MEDS: SERTRALINE HCL 100 MG TAB PO SCH (08:43)
[2020-01-27] MEDS: APIXABAN 2.5 MG TABLET PO SCH (08:45)
[2020-01-27] MEDS: METFORMIN HCL 500 MG TAB PO SCH ×2 (08:45→17:34)
[2020-01-27 09:48] VITALS: TEMP 97.1
[2020-01-27] MEDS: GUAIFENESIN/DM 5 ML UCUP PO PRN (14:37)
[2020-01-27 17:34] VITALS: BP 158/65
--- NOTE | 2020-01-27 19:17 | R.PN ---
PROGRESS NOTES ENCOUNTER DATE AND TIME: 01/27/2020 19:11 (CDT) NAME MARV PALUMBO DATE OF : 1945 DATE OF ADMISSION: 01/09/2020 17:19 (CDT) Right BREAKER OFF CVACHIEF COMPLAINT: Right BREAKER OFF stroke with left hemiparesis and left hemianopsia. SUBJECTIVE: Pt denied any Shortness of Breath. Pt denied any depression. WBC is low at 4.1 and Hgb is low at 10.0, prealbumin 17.4 and glucose 110 to 155. K is normal at 4.4, calcium low at 7.6, glucose 91 to 105. UA shows klebsiella pneumoniae, near pansensitive. Will treat with Levaquin 500 mg daily for 5 days. Ambulated 210' with moderate assistance using a rolling walker. Wheelchair mobilization 250' with mod erate assistance. VITAL SIGNS Temperature: 97.6 F SBP/DBP: 114 to 158/56 to 65. Pulse: 90 Resp: 16 MEDICATION ALLERGIES: No Known Drug Allergies (NKDA) ENVIRONMENTAL ALLERGIES: - Substance Allergies None Known - Other Allergies aspirin Nsaids [id number] Antimigraine Agents NURSING: - Shower allowing shower - Bladder care per protocol - Skin care per protocol PRECAUTIONS: - Weight Bearing Precaution WBAT right LE ACTIVITIES OOB only with supervision THERAPIES: - Occupational Therapy Cognitive Retraining. Visual Perceptual Training. - Dietary and Nutrition Adequate Nutrition. Nutritional Education. Nutritional Supplements. - Speech Therapy Cognitive Training. Expressive Language Skills. Memory Strategies. Receptive Language Skills. Speech Intelligibility Training. PHYSICAL EXAM - Gen Alert and awake Lying in bed No apparent distress Oriented to: person, time, and place - Skin No skin breakdown. Normacephalic - Eyes No abnormalities - ENMT No abnormalities - Neck 7/10 neck pain - CVS RRR - Chest Clear - Resp No wheezing - Abd Soft - GI Non distended Deferred - No abnormalities - Ext No significant edema. - MSK 4+/5 weakness in left upper and lower extremity - Neuro 4/5 strength left upper and lower extremities. - Psych No abnormalities ASSESSMENT: Currently, she has deficits of Endurance, Sphincter Control, Transfers Control, Social Cognition, Bal ance, Safety Awareness, and Locomotion.On 01/04/[address] [facility] with sudden on set of right-side weakness.On 01/04/[address] [facility] with sudden onset of left- sided weakness.On 01/04/2020 she was admitted to [facility] with diagnosis Right BREAKER OFF CVA.Her im pairment category is Left body after right brain stroke.Her impairment category is Stroke 01 - Right Body (Left Brain) (01.2).Pt. is now referred to [facility] for acute in-patie nt rehabilitation in order to maximize patient's functional independence in activities of daily livin g, strength, ROM, and mobility.Pre-morbidly, Pt. was independent/mod-I in Locomotion, Safety Awarenes s, Balance, Self-Care, Communication, and Endurance; and she had good Sphincter Control, Transfers Co ntrol, and Social Cognition.Pt. is a 74 yo Right-handed white female.Pt. is a 74 yo Right-handed fema le of unknown race.- Rehab Goal Patient has realistic goal of being discharged at assistance level 6-Jeremy to reside at Home with Pt self. MDM/PLAN: - Physical Therapy Achieving independence - to improve, our physical therapists will perform initial evaluation of pt's status upon admission and devise an individualized program for Community Reintegration Activities Edema - to improve, our physical therapists will perform initial evaluation of pt's status upon admi ssion and devise an individualized program for Elevation Training, and Lymphedema Therapy Gait dysfunction - to improve, our physical therapists will perform initial evaluation of pt's statu s upon admission and devise an individualized program for Gait Training, and Wheel Chair mobility Inability to transfer - to improve, our physical therapists will perform initial evaluation of pt's status upon admission and devise an individualized program for Bed mobility Need for home safety evaluation - to improve, our physical therapists will perform initial evaluatio n of pt's status upon admission and devise an individualized program for Home Evaluation Need in caregiver upon discharge - to improve, our physical therapists will perform initial evaluati on of pt's status upon admission and devise an individualized program for Caregiver Training New precaution - to improve, our physical therapists will perform initial evaluation of pt's status upon admission and devise an individualized program for Patient precaution education Poor balance - to improve, our physical therapists will perform initial evaluation of pt's status up on admission and devise an individualized program for Balance Training Poor endurance - to improve, our physical therapists will perform initial evaluation of pt's status upon admission and devise an individualized program for Endurance Training Weakness - to improve, our physical therapists will perform initial evaluation of pt's status upon a dmission and devise an individualized program for Aquatic Therapy, Neuromuscular Reeducation, and Str engthening - Occupational Therapy Cognitive deficits - to improve, our occupation therapists will perform initial evaluation of pt's s tatus upon admission and devise an individualized program for Cognition - orientation Need for palliative care nurse - to improve, our occupation therapists will perform initial evaluation of pt's status upon admission and devise an individualized program for Caregiver Training Weakness - to improve, our occupation therapists will perform initial evaluation of pt's status upon admission and devise an individualized program for Aquatic Therapy, Balance, Endurance, UE ROM, and UE strengthening - Other See attached MAR (Medication Administration Record) - Diet Type Continue Regular - Diet - Liquid Texture Continue Regular - Tube Feed Continue N/A - Bladder care per protocol - Weight Bearing Precaution WBAT left LE WBAT right LE - Skin care per protocol - Diet - Solid Texture Continue Regular - Shower allowing shower for Dementia, TBI, Stroke, or others FUNCTIONAL STATUS: UPDATED AT WEEKLY TEAM CONFERENCE - Bladder Same accident frequency: 7-Ind - No accidents in the past 7 days - Bowel Same accident frequency: 7-Ind - No accidents in the past 7 days - Walking Same score based on distance walked: 0(N/A) Same score based on distance walked: 1(<=50ft) - Wheelchair Same score based on distance traveled: 0(N/A) FUNCTIONAL STATUS: - Self-Care A. Eating Ind B. Grooming Ind C. Bathing Jeremy D. Dressing - Upper sup E. Dressing - Lower modA F. Toileting Sho - Sphincter Control G. Bladder control Sho H. Bowel control Sho - Transfers Control I. Bed/Chair/Wheelchair modA J. Toilet modA K. Tub/Shower modA - Locomotion L. Walk/Wheelchair (B) modA M. Stairs maxA - Communication N. Comprehension (B) sup O. Expression (B) sup - Social Cognition P. Social Interaction Jeremy Q. Problem Solving Jeremy R. Memory Jeremy - Endurance Fair - Balance Fair - Safety Awareness Fair QI SCORES: - Self-Care A. Eating 03-Partial/moderate assistance B. Oral hygiene 03-Partial/moderate assistance C. Toileting hygiene 03-Partial/moderate assistance E. Shower/bathe self 03-Partial/moderate assistance F. Upper body dressing 03-Partial/moderate assistance G. Lower body dressing 03-Partial/moderate assistance H. Putting on/taking off footwear 88-Not attempted due to medical condition or safety concerns - Mobility M. 1 step (curb) 88-Not attempted due to medical condition or safety concerns N. 4 steps 88-Not attempted due to medical condition or safety concerns O. 12 steps 88-Not attempted due to medical condition or safety concerns P. Picking up object 88-Not attempted due to medical condition or safety concerns R. Wheel 50 feet with two turns 88-Not attempted due to medical condition or safety concerns A. Roll left and right 04-Supervision or touching assistance B. Sit to lying 03-Partial/moderate assistance C. Lying to sitting on side of bed 03-Partial/moderate assistance D. Sit to stand 03-Partial/moderate assistance E. Chair/[id number] transfer 03-Partial/moderate assistance F. Toilet transfer 03-Partial/moderate assistance G. Car transfer 88-Not attempted due to medical condition or safety concerns I. Walk 10 feet 88-Not attempted due to medical condition or safety concerns J. Walk 50 feet with two turns 88-Not attempted due to medical condition or safety concerns K. Walk 150 feet 88-Not attempted due to medical condition or safety concerns L. Walking 10 feet on uneven surfaces 88-Not attempted due to medical condition or safety concerns S. Wheel 150 feet 88-Not attempted due to medical condition or safety concerns - Bladder and Bowel Bladder continence Bowel continence - Endurance Fair - Balance Fair - Safety Awareness Fair [facility] DEFICITS: Endurance, Balance, Self-Care, Safety Awareness, and Mobility SIGNATURE PANEL: (CDT)
== END 2020-01-27 17:50 | DRG 57 ==
LOC: 5TH 20:08
PROVIDERS: ADMIT Psychiatry & Neurology Neurology with Special Qualifications in Child Neurology; ATTEND Psychiatry & Neurology Neurology with Special Qualifications in Child Neurology
DX: I69.354 Hemiplegia and hemiparesis following cerebral infarction affecting left non-dominant side (principal); H53.47 Heteronymous bilateral field defects; I10 Essential (primary) hypertension; B96.1 Klebsiella pneumoniae [K. pneumoniae] as the cause of diseases classified elsewhere; Z90.710 Acquired absence of both cervix and uterus; Z20.828 Contact with and (suspected) exposure to other viral communicable diseases
CPT/HCPCS: 36415; 71045; 74230; 80048; 81001; 82040; 82947; 83735; 84134; 85025; 87077; 87086; 87088; 87186; 92507; 92523; 92526; 92610; 92611; 97110; 97112; 97116; 97127; 97161; 97530; Q0169; U0002; U0003

== ENCOUNTER 2020-03-29 19:02 | Observation (INO) | payer OTHER ==
--- OUTSIDE RECORDS SUMMARY | 2020-03-29 19:07 | XMS REPORT | Clinical Summary ---
:1945 Author Organization [facility] Address [address] [place] [address] Care Team Providers Name Role Phone Lee Primary Care Provider Allergies Active Allergy Reactions Severity Noted Date Comments Aspirin Tinitus 01/04/2020 Nsaids (Non-Steroidal Anti-Inflammatory Drug) Swelling 01/04/2020 Shrimp 01/05/2020 [id number] Antimigraine Agents 2019 Medications Medication Sig Dispensed Refills Start End Status Date Date sertraline (ZOLOFT) Take 200 mg by 0 Active 100 MG tablet mouth daily. metFORMIN Take 500 mg by 0 Activ e (GLUCOPHAGE) 500 MG mouth 2 (two) tablet times daily with breakfast and dinner. meclizine Take 25 mg by 0 Active (ANTIVERT) 25 MG mouth 2 (two) tablet times daily as needed for Dizziness or Nausea. losartan (COZAAR) Take 1 tablet 90 tablet 0 01/10/20 Active 100 MG tablet (100 mg total) by 20 mouth daily. atorvastatin Take 1 tablet (80 90 tablet 0 01/09/20 Active (LIPITOR) 80 MG mg total) by 20 tablet mouth nightly. carvediloL (COREG) Take 1 tablet (25 180 tablet 0 01/09/20 Active 25 MG tablet mg total) by 20 mouth 2 (two) times daily. clopidogreL Take 1 tablet (75 14 tablet 0 01/10/20 Active (PLAVIX) 75 mg mg total) by 20 tablet mouth daily Continue taking this medication until your INR is therapeutic (2 - 3). STOP taking this medication once your INR is 2 - 3.. cyanocobalamin, Take 1 tablet 90 tablet 0 01/09/20 Active vitamin B-12, 1000 (1,000 mcg total) 20 MCG tablet by mouth daily. famotidine (PEPCID) Take 1 tablet (20 90 tablet 0 01/10/20 Active 20 MG tablet mg total) by 20 mouth daily. insulin lispro Inject 0-10 Units subcutaneo usly 3 (three) times daily before meals If BS = 150 or lower, give No Insulin. 5 mL 0 Active (HUMALOG U-100 If BS = 151-200, give 2 units. 2 0 INSULIN) 100 If BS = 201-250, give 4 units. unit/mL Crtg If BS = 251-300, give 6 units. If BS = 301-350, give 8 units. If BS = 351-400, give 10 units.. acetaminophen 325 Take 650 mg by 30 capsule 0 01/09/20 Active mg Cap mouth every 6 20 (six) hours [...] Active (APRESOLINE) 10 MG mg total) by 20 021 tablet mouth every 8 (eight) hours as needed (If [...] ontinued (INDERAL) 10 MG mouth every 020 (S top Taking at tablet morning. Discharge) zolpidem (AMBIEN) Take 10 mg by 0 Discontinued 10 mg tablet mouth every night 020 (Stop Taking at as needed for Discha rge) Insomnia. simvastatin (ZOCOR) Take 40 mg by 0 Discontinued 40 MG tablet mouth nightly. 020 (S top Taking at Discharge) losartan (COZAAR) Take 50 mg by 0 Discontinued 50 MG tablet mouth daily. 020 (Sto p Taking at Discharge) butorphanol 1 spray by Nasal 0 D iscontinued (STADOL) 10 mg/mL route every 4 020 (Stop Taking at nasal (four) hours as Disc harge) sprayIndications: needed for Pain. migraine butalbital-acetamin Take 1 tablet by 0 11/07 Discontinued ophen-caffeine mouth every 6 020 ( Stop Taking at (FIORICET, ESGIC) (six) hours as Discharge) 50-325-40 mg per needed for tablet Headaches (Severe Headaches). atenoloL (TENORMIN) Take 100 mg by 0 01/08 Discontinued 100 MG tablet mouth daily. 020 (St op Taking at Discharge) rivaroxaban Take 1 tablet (20 30 tablet 1 01/06/20 Discontinued (XARELTO) 20 mg Tab mg total) by 020 (Stop Taking at tablet mouth daily with Dis charge) dinner. Active Problems Problem Noted Date Atrial fibrillation with rapid ventricular response Mural thrombus of cardiac apex 04/18/2017 Pulmonary embolism 04/18/2017 Migraines Hyperlipemia Hypertension Arterial ischemic stroke, QUOTE CLERK, right, acute Diabetes mellitus, type II Resolved Problems Problem Noted Date Resolved Date Stroke due to embolism of right posterior cerebral artery 01/05/2020 Hypertension 01/05/2020 Encounters Date Type Specialty Care Team Description 01/22/2020 Lab Requisition Lab 01/04/2020 - Hospital Encounter General Internal [place] shoemaker due to embolism of right posterior cerebral artery (HCC) (Primary Dx); 01/09/2020 Medicine MD Alexei Arterial ischemic stroke, QUOTE CLERK, right, ac tavo (HCC); Alpesh Pacheco In, Atrial fibrill ation with rapid ventricular response (HCC); Type 2 diabetes mellitus without complic ation, without long-term current use of insulin (HCC); Kelsey Chacko Other migraine without status migrainosus, not intractable; MD Samantha Secondary hypertension; Amy Domínguez Impaired mobil ity and ADLs; MD Alanna Strain of left shoulder, initial encounter 01/04/2020 Travel after 03/29/2019 Family History Medical History Relation Name Comments Drug abuse Daughter Brain cancer Sister Relation Name Status Comments Daughter Sister Social History Tobacco Use Types Packs/Day Years Used Date Former Smoker Smokeless Tobacco: Never Used Sex Assigned at Date Recorded Not on file Last Filed Vital Signs Vital Sign Reading Time Taken Comments Blood Pressure 141/80 01/09/2020 3:22 PM CDT [...] 01/06/2020 10:00 AM CDT Plan of Treatment Health Maintenance Due Date Last Done Comments BREAST CANCER SCREENING 1945 COLON CANCER SCREENING COLONOSCOPY 1945 DIABETIC EYE EXAM 10/27/1955 DIABETIC FOOT EXAM 10/27/1955 URINE MICROALBUMIN 10/27/1955 PNEUMOCOCCAL 65+ YRS (1 of 1 - [id number]) 2010 Medicare IPPE (WELCOME TO MEDICARE) 05/14/2019 INFLUENZA VACCINE (#1) 2020 HEMOGLOBIN A1C 07/06/2020 01/04/2020 Procedures Procedure Name Priority Date/Time Associated Comments Diagnosis SARS-COV2/RT-PCR Routine 01/22/2020 5:30 Results for this ([facility]) AM CDT procedure are in the results section. RHYTHM STRIP - SCAN 01/12/2020 11:41 AM CDT POCT-GLUCOSE METER Routine 01/09/2020 11:56 Resul ts for this AM CDT procedure are i n the results section. POCT-GLUCOSE METER Routine 01/09/2020 9:01 Resul ts for this AM CDT procedure are i n the results section. BASIC METABOLIC PANEL Routine 01/09/2020 6:43 Re sults for this (7) AM CDT procedure are i n the results section. POCT-GLUCOSE METER Routine 01/08/2020 8:53 Resul ts for this PM CDT procedure are i n the results section. POCT-GLUCOSE METER Routine 01/08/2020 5:00 Resul ts for this PM CDT procedure are i n the results section. POCT-GLUCOSE METER Routine 01/08/2020 12:34 Resul ts for this PM CDT procedure are i n the results section. POCT-GLUCOSE METER Routine 01/08/2020 8:32 Resul ts for this AM CDT procedure are i n the results section. MAGNESIUM Routine 01/08/2020 5:56 Results for this AM CDT procedure are i n the results section. BASIC METABOLIC PANEL Routine 01/08/2020 5:56 Re sults for this (7) AM CDT procedure are i n the results section. POCT-GLUCOSE METER Routine 01/07/2020 9:55 Resul ts for this PM CDT procedure [...] a re in the results section. after 03/29/2019 Results SARS-CoV2/RT-PCR ([facility] Ref Labs) (01/22/2020 5:30 AM CDT)Only the most recent of2 resultswithin the time period is included. SARS-COV2/RT-PCR Negative Not Detected, [place] [place] Negative, See [facility] external report CENTER for linked test SARS-COV-2 [facility] LESTER [place] PERFORMING LAB [facility] Specimen Other - Nasopharyngeal wall structure (b ceci structure) Narrative Performed At Negative result for this test determines that [facility] SARS-CoV-2 RNA was not present in the [...] the Act. Fact Sheet for Healthcare Providers: https://www.Rent Jungle.VenueBook/sites/default/files/pro duct/documents/Fact_Sheet_HC_Providers_Ly_SA RS-CoV-2.pdf Fact Sheet for Healthcare Patients: https://www.Rent Jungle.VenueBook/sites/default/files/pro duct/documents/Fact_Sheet_Patients_Lyra_SARS-C oV-2.pdf Performing Laboratory: [address] [address] Performing Organization Address City/[facility]/Zipcode Phone Number [address] [phone] [place] RHYTHM STRIP - SCAN (01/12/2020 11:41 AM CDT) Narrative Performed At This result has an attachment that is no t available. POC-Glucose meter (01/09/2020 11:56 AM CDT)Only the most recent of8 results within the time period is included. [facility] POC-Glucose Meter 134 (H)Comment: : 70 - 110 mg/dL [facility] TESTED AT [address], [address]: Stamping Bench Die Maker/Technici an ID = [id number] for DARWIN BABB Specimen Blood Performing Organization Address [facility]/Zipcode Phone Number [address] [phone] [place] Basic Metabolic Panel (01/09/2020 6:43 AM CDT)Only the most recent of4 results within the time period is included. Sodium 135 (L) 136 - 145 meq/L [facility] Potassium 4.1Comment: Specimen 3.5 - 5.1 meq/L [facility] slightly hemolyzed [facility] Chloride 97 (L) 98 - 107 meq/L [facility] CO2 28 22 - 29 meq/L [facility] BUN 24 (H) 7 - 21 mg/dL [facility] Creatinine 0.85Comment: 0.57 - 1.25 [facility] Specimen slightly mg/dL [facility] Glucose 216 (H) 70 - 105 mg/dL [facility] Calcium 9.0 8.4 - 10.2 [facility] mg/dL [facility] EGFR 65Comment: ESTIMATED mL/min/1.[address] [facility] GFR IS NOT m [facility] ACCURATE [place] CREATININE CLEARANCE IN PREDICTING GLOMERULAR FILTRATION RATE. ESTIMATED GFR IS NOT APPLICABLE FOR DIALYSIS PATIENTS. Specimen Blood Narrative Performed At Stamping Bench Die Maker ID - CLAUDIA C [facility] Performing Organization Address City/[facility]/Zipcode Phone Number [facility] [address] [place] [phone] CENTER Magnesium (01/08/2020 5:56 AM CDT)Only the most recent of2 resultswithin the time period is included. Pathologist Sig nature Magnesium 2.1Comment: Specimen 1.6 - 2.6 mg/dL [facility] slightly hemolyzed [facility] Specimen Blood Narrative Performed At Stamping Bench Die Maker ID - [id number] [facility] Performing Organization Address [facility]/Zipcode Phone Number [phone] [place] [address] [place] Clostridium difficile [facility] Toxin (01/06/2020 9:42 AM CDT) C. Difficle Toxin Negative Negative [facility] C. Difficile GDH NegativeComment: No Negative [facility] Antigen indication of [facility] Clostridium CENTER difficile infection and no colonization. Discontinue enteric isolation and therapy. Specimen Stool - Rectum structure (body structure ) Narrative Performed At Testing performed by [employer] [facility] Assay. For [facility], published sensitivity of the assay is 98.7% compared to cytotoxicity testing. For Toxin AB, published sensitivity is 87.8% and specificity 99.4% compared to cytotoxicity testing. Verification of kit performance was done by the [facility] Microbiology Lab prior to clinical use. Performing Organization Address City/[facility]/Zipcode Phone Number [phone] [place] [address] [place] MR brain without IV contrast (01/05/2020 9:02 PM CDT) Specimen Narrative Performed At FINAL REPORT [facility] EXAM: MR, MRA, NECK, WITHOUT IV CONTRAST , MR, BRAIN, WITHOUT CONTRAST, MR, MRA, BRAIN, WITHOUT CONTRA ST CLINICAL INDICATION: Stroke. TECHNIQUE: Sagittal and coronal T1-w and axial T2-w, FLAIR, GRE, and diffusion-w images of the brain with ADC maps. 2D pwba-dk-xzirqp MRA of the neck. 3D ocil-ls-vrzntq MRA of th e head. Source data and maximum intensity projections (MIPs) wer e reviewed. COMPARISON: 01/05/2020 CT. FINDINGS: MRI BRAIN: Parenchyma: Acute infarction of the righ t QUOTE CLERK territory involving the right occipital lobe, right [...] System: Normal Major Intracranial Flow Voids: Right QUOTE CLERK flow void not well seen. Osseous Structures: Expected marrow si gnal. Included Orbits: Prior bilateral lens sim rgery. [...] bilaterally. Posterior Circulation: Right posterior cerebral artery (QUOTE CLERK): T here is abrupt vessel cut off of the right QUOTE CLERK at the proximal P3 segm ent within the quadrigeminal cistern (image 92). Left posterior cerebral artery (QUOTE CLERK): No rmal Right vertebral artery (VA): Normal [...] IMPRESSION: 1. Acute infarction of the right QUOTE CLERK ter ritory with petechial hemorrhage similar when correlated to re cent CT. 2. Abrupt vessel cut off compatible with occlusion of the right QUOTE CLERK P3 segment. 3. Small 0.3 cm outpouching at the left carotid terminus compatible with either a left posterior commuting a rtery infundibulum versus tiny aneurysm. Consider follow-up with n onemergent CTA for further characterization. Signed: Meredith Felder MD Report Verified Date/Time: 01/05/2020 23:07:11 Procedure Note Interface, External Ris In - 01/05/2020 11:10 PM CDT FINAL REPORT EXAM: MR, MRA, NECK, WITHOUT IV CONTRAST , MR, BRAIN, WITHOUT CONTRAST, MR, MRA, BRAIN, WITHOUT CONTRA ST CLINICAL INDICATION: Stroke. TECHNIQUE: Sagittal and coronal T1-w and axial T2-w, FLAIR, GRE, and diffusion-w images of the brain with ADC maps. 2D yipq-kt-hszysy MRA of the neck. 3D oqvg-jz-kguxtz MRA of th e head. Source data and maximum intensity projections (MIPs) wer e reviewed. COMPARISON: 01/05/2020 CT. FINDINGS: MRI BRAIN: Parenchyma: Acute infarction of the righ t QUOTE CLERK territory involving the right occipital lobe, right [...] System: Normal Major Intracranial Flow Voids: Right QUOTE CLERK flow void not well seen. Osseous Structures: [...] bilaterally. Posterior Circulation: Right posterior cerebral artery (QUOTE CLERK): T here is abrupt vessel cut off of the right QUOTE CLERK at the proximal P3 segm ent within the quadrigeminal cistern (image 92). Left posterior cerebral artery (QUOTE CLERK): No rmal Right vertebral artery (VA): Normal [...] IMPRESSION: 1. Acute infarction of the right QUOTE CLERK ter ritory with petechial hemorrhage similar when correlated to re cent CT. 2. Abrupt vessel cut off compatible with occlusion of the right QUOTE CLERK P3 segment. 3. Small 0.3 cm outpouching at the left carotid terminus compatible with either a left posterior commuting a rtery infundibulum versus tiny aneurysm. Consider follow-up with n onemergent CTA for further characterization. Signed: Meredith Felder MD Report Verified Date/Time: 01/05/2020 2 3:07:11 Performing Organization Address City/State/Zipcode Phone Number [employer] MRA neck without IV contrast (01/05/2020 9:02 PM CDT) Specimen Narrative Performed At FINAL REPORT [employer] [facility] EXAM: MR, MRA, NECK, WITHOUT IV CONTRAST , MR, BRAIN, WITHOUT CONTRAST, MR, MRA, BRAIN, WITHOUT CONTRA ST CLINICAL INDICATION: Stroke. TECHNIQUE: Sagittal and coronal T1-w and axial T2-w, FLAIR, GRE, and diffusion-w images of the brain with ADC maps. 2D kiii-xf-jshvzz MRA of the neck. 3D xata-pn-uorqyi MRA of th e head. Source data and maximum intensity projections (MIPs) wer e reviewed. COMPARISON: 01/05/2020 CT. FINDINGS: MRI BRAIN: Parenchyma: Acute infarction of the righ t QUOTE CLERK territory involving the right occipital lobe, right [...] System: Normal Major Intracranial Flow Voids: Right QUOTE CLERK flow void not well seen. Osseous Structures: Expected marrow si gnal. Included Orbits: Prior bilateral lens sim rgery. [...] bilaterally. Posterior Circulation: Right posterior cerebral artery (QUOTE CLERK): T here is abrupt vessel cut off of the right QUOTE CLERK at the proximal P3 segm ent within the quadrigeminal cistern (image 92). Left posterior cerebral artery (QUOTE CLERK): No rmal Right vertebral artery (VA): Normal [...] IMPRESSION: 1. Acute infarction of the right QUOTE CLERK ter ritory with petechial hemorrhage similar when correlated to re cent CT. 2. Abrupt vessel cut off compatible with occlusion of the right QUOTE CLERK P3 segment. 3. Small 0.3 cm outpouching at the left carotid terminus compatible with either a left posterior commuting a rtery infundibulum versus tiny aneurysm. Consider follow-up with n onemergent CTA for further characterization. Signed: Meredith Felder MD Report Verified Date/Time: 01/05/2020 23:07:11 Procedure Note Interface, External Ris In - 01/05/2020 11:10 PM CDT FINAL REPORT EXAM: MR, MRA, NECK, WITHOUT IV CONTRAST , MR, BRAIN, WITHOUT CONTRAST, MR, MRA, BRAIN, WITHOUT CONTRA ST CLINICAL INDICATION: Stroke. TECHNIQUE: Sagittal and coronal T1-w and axial T2-w, FLAIR, GRE, and diffusion-w images of the brain with ADC maps. 2D cbpp-cw-apuzcb MRA of the neck. 3D ysqd-oi-dqbhdo MRA of th e head. Source data and maximum intensity projections (MIPs) wer e reviewed. COMPARISON: 01/05/2020 CT. FINDINGS: MRI BRAIN: Parenchyma: Acute infarction of the righ t QUOTE CLERK territory involving the right occipital lobe, right [...] System: Normal Major Intracranial Flow Voids: Right QUOTE CLERK flow void not well seen. Osseous Structures: Expected marrow sig nal. Included Orbits: Prior bilateral lens sim rgery. Paranasal Sinuses: Predominantly clear Tympanomastoid Cavities: Normal MRA HEAD: Anterior Circulation: Right intracranial internal carotid riddhi ry (ICA): Loss of flow signal at the supraclinoid segment favored to b e artifactual from noncontrast technique. Right anterior cerebral artery (APM): Hy poplastic A1 segment with the remainder [...] bilaterally. Posterior Circulation: Right posterior cerebral artery (QUOTE CLERK): T here is abrupt vessel cut off of the right QUOTE CLERK at the proximal P3 segm ent within the quadrigeminal cistern (image 92). Left posterior cerebral artery (QUOTE CLERK): No rmal Right vertebral artery (VA): Normal [...] IMPRESSION: 1. Acute infarction of the right QUOTE CLERK ter ritory with petechial hemorrhage similar when correlated to re cent CT. 2. Abrupt vessel cut off compatible with occlusion of the right QUOTE CLERK P3 segment. 3. Small 0.3 cm outpouching at the left carotid terminus compatible with either a left posterior commuting a rtery infundibulum versus tiny aneurysm. Consider follow-up with n onemergent CTA for further characterization. Signed: Meredith Felder MD Report Verified Date/Time: 01/05/2020 2 3:07:11 Performing Organization Address City/State/Zipcode Phone Number [employer] MRA head without IV contrast (01/05/2020 9:02 PM CDT) Specimen Narrative Performed At FINAL REPORT [employer] EXAM: MR, MRA, NECK, WITHOUT IV CONTRAST , MR, BRAIN, WITHOUT CONTRAST, MR, MRA, BRAIN, WITHOUT CONTRA ST CLINICAL INDICATION: Stroke. TECHNIQUE: Sagittal and coronal T1-w and axial T2-w, FLAIR, GRE, and diffusion-w images of the brain with ADC maps. 2D yicw-gq-dlximu MRA of the neck. 3D sqpu-tw-wjjoll MRA of th e head. Source data and maximum intensity projections (MIPs) wer e reviewed. COMPARISON: 01/05/2020 CT. FINDINGS: MRI BRAIN: Parenchyma: Acute infarction of the righ t QUOTE CLERK territory involving the right occipital lobe, right [...] System: Normal Major Intracranial Flow Voids: Right QUOTE CLERK flow void not well seen. Osseous Structures: Expected marrow si gnal. Included Orbits: Prior bilateral lens sim rgery. [...] bilaterally. Posterior Circulation: Right posterior cerebral artery (QUOTE CLERK): T here is abrupt vessel cut off of the right QUOTE CLERK at the proximal P3 segm ent within the quadrigeminal cistern (image 92). Left posterior cerebral artery (QUOTE CLERK): No rmal Right vertebral artery (VA): Normal [...] IMPRESSION: 1. Acute infarction of the right QUOTE CLERK ter ritory with petechial hemorrhage similar when correlated to re cent CT. 2. Abrupt vessel cut off compatible with occlusion of the right QUOTE CLERK P3 segment. 3. Small 0.3 cm outpouching at the left carotid terminus compatible with either a left posterior commuting a rtery infundibulum versus tiny aneurysm. Consider follow-up with n onemergent CTA for further characterization. Signed: Meredith Felder MD Report Verified Date/Time: 01/05/2020 23:07:11 Procedure Note Interface, External Ris In - 01/05/2020 11:10 PM CDT FINAL REPORT EXAM: MR, MRA, NECK, WITHOUT IV CONTRAST , MR, BRAIN, WITHOUT CONTRAST, MR, MRA, BRAIN, WITHOUT CONTRA ST CLINICAL INDICATION: Stroke. TECHNIQUE: Sagittal and coronal T1-w and axial T2-w, FLAIR, GRE, and diffusion-w images of the brain with ADC maps. 2D pvxm-kb-aothry MRA of the neck. 3D wxzp-gr-ndwrgj MRA of th e head. Source data and maximum intensity projections (MIPs) wer e reviewed. COMPARISON: 01/05/2020 CT. FINDINGS: MRI BRAIN: Parenchyma: Acute infarction of the righ t QUOTE CLERK territory involving the right occipital lobe, right [...] System: Normal Major Intracranial Flow Voids: Right QUOTE CLERK flow void not well seen. Osseous Structures: [...] bilaterally. Posterior Circulation: Right posterior cerebral artery (QUOTE CLERK): T here is abrupt vessel cut off of the right QUOTE CLERK at the proximal P3 segm ent within the quadrigeminal cistern (image 92). Left posterior cerebral artery (QUOTE CLERK): No rmal Right vertebral artery (VA): Normal [...] IMPRESSION: 1. Acute infarction of the right QUOTE CLERK ter ritory with petechial hemorrhage similar when correlated to re cent CT. 2. Abrupt vessel cut off compatible with occlusion of the right QUOTE CLERK P3 segment. 3. Small 0.3 cm outpouching at the left carotid terminus compatible with either a left posterior commuting a rtery infundibulum versus tiny aneurysm. Consider follow-up with n onemergent CTA for further characterization. Signed: Meredith Felder MD Report Verified Date/Time: 01/05/2020 2 3:07:11 Performing Organization Address City/State/Zipcode Phone Number [employer] RIS ECG 12 lead (01/05/2020 9:15 AM CDT) Specimen Narrative Performed At Ventricular Rate 112 BPM GE MUSE Atrial Rate 117 BPM QRS Duration 82 ms Q-T Interval 338 ms QTC Calculation(Bazett) 461 ms R [place] 129 degrees T [place] 91 degrees Suspect arm lead reversal, interpreta [...] 338 ms QTC Calculation(Bazett) 461 ms R [place] 129 degrees T [place] 91 degrees Suspect arm lead reversal, interpreta [...] PM Performing Organization Address City/State/Zipcode Phone Number [employer] ECHO W CONTRAST & DOPPLER (01/05/2020 8:06 AM CDT) Pathologist Sig nature Ejection Fraction [facility] ECHO HEARTLAB [facility] Specimen Narrative Performed At Transthoracic Echocardiography Report (T TE) [facility] ECHO HEARTLAB 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 Clinical History SALINE CONTRAST DONE HGB 11.6 HCT 36.9 % Ischemic stroke (2019), A-fib, DM, HLD, HTN, PE, Mural thrombus of [place] (2016) Contrast Medium: Definity. Amount - 2 [...] exam. Rhythm/BP Atrial fibrillation with controlled ventricular resp onse. Left Ventricle LV endocardium is adequately visualized with IV ultrasound enhancing agent. The left ventricle is chamber size (by vol index) is normal (female - LVED vol - 29-61ml/m2). No evidence of LV hypertrophy. All of the LV segments contract normally . Global LV systolic function normal . LVEF by Zimmer's method of disk assessment is normal (55-60%) . Degree of diastolic dysfuncti on (LAP assessment) is inconclusive due to arrhy thmia . Left Atrium LA size is severely [...] root size (SInus of Valsalva diameter) is norm al . Pericardium No pericardial effusion is visualized. [...] of Study 01/05/2020 Gender Female Visit Number [id number] Race Unknown [place] [address] Number Date of 1945 [facility] Ramila Marshall Age 74 year(s) Sonogra amina Dunne, CS Counter Hand Susan Pastor Interpr eting Faheem Herman MD [facility] Physici an Procedure Type of Study TTE procedure:2DECHO W/CONTRA ST & DOPPLER (Routine) Indications:Sustained or non sustained A fib, SVT or VT. Clinical History SALINE CONTRAST DONE HGB 11.6 HCT 36.9 % Ischemic stroke (2019), A-fib, DM, HLD, HTN, PE, Mural thrombus of [place] (2016) Contrast Medium: Definity. Amount - 2 [...] e ffusion is visualized. IVC/SVC/PA/PV/Pleural The inferior claudette a cava is not well visualized. Chambers/Structures [...] Performing Organization Address City/State/Zipcode Phone Number [facility] CT brain without IV contrast (01/05/2020 7:15 AM CDT) Specimen Narrative Performed At FINAL REPORT [facility] CT Head without contrast CLINICAL HISTORY: Stroke, [...] Jesenia Chanel MD Report Verified Date/Time: 01/05/2020 07:25:42 Reading Location: [address] Procedure Note Interface, External Ris In - [...] the stated history, but comparison with previous [facility] and attention on follow-up is recommended. Signed: Jesenia Chanel MD Report Verified Date/Time: 01/05/2020 0 7:25:42 Reading Location: [facility] [id number] [facility] Room Performing Organization Address City/State/Zipcode Phone Number GE RIS CBC with platelet count + automated diff (01/05/2020 5:13 AM CDT)Only the most recent of2 resultswithin the time period is included. Pathologist Sig nature WBC 6.6 3.5 - 10.5 [facility] K/L [facility] RBC 4.04 3.93 - 5.22 [facility] M/L [facility] Hemoglobin 11.6 11.2 - 15.7 [facility] GM/DL [facility] Hematocrit 36.9 34.1 - 44.9 % [facility] MCV 91.3 79.4 - 94.8 fL [facility] MCH 28.7 25.6 - 32.2 pg [facility] MCHC 31.4 (L) 32.2 - 35.5 [facility] GM/DL [facility] RDW 13.7 11.7 - 14.4 % [facility] Platelets 197 150 - 450 K/CU [facility] MM [facility] MPV 9.6 9.4 - 12.3 fL [facility] nRBC 0 0 - 0 /100 WBC [facility] % Neutros 75 % [facility] % Lymphs 17 % [facility] % Monos 7 % [facility] % Eos 0 % [facility] % Baso 1 % [facility] # Neutros 4.96 1.56 - 6.13 [facility] # Lymphs 1.10 (L) 1.18 - 3.74 [facility] # Monos 0.46 (H) 0.24 - 0.36 [facility] # Eos 0.02 (L) 0.04 - 0.36 [facility] # Baso 0.03 0.01 - 0.08 [facility] Immature 0 0 - 1 % [facility] Granulocytes-Relative [facility] Specimen Blood Performing Organization Address City/State/Zipcode Phone Number [address] [address] [place] aPTT (01/05/2020 5:13 AM CDT) Pathologist Sig nature PTT 25.8 22.5 - 36.0 seconds [facility] Specimen Blood Performing Organization Address City/[facility]/Zipcode Phone Number [address] [address] [place] Lipid panel (01/05/2020 5:13 AM CDT) Pathologist Sig nature Triglycerides 138 mg/dL [facility] Cholesterol 203 mg/dL [facility] HDL 47 mg/dL [facility] [place] LDL Calculated 128 mg/dL [facility] Specimen Blood Narrative Performed At Triglyceride Reference Range: [facility] Low Risk <150 Borderline 150-199 High Risk 200-499 Very High Risk >=500 Cholesterol Reference Range: Low Risk <200 Borderline 200-239 High Risk >240 HDL Cholesterol Reference Range: Low Risk >=60 High Risk <40 LDL Cholesterol Reference Range: Optimal <100 Near Optimal 100-129 Borderline 130-159 High 160-189 Very High >=190 [employer] MICHAEL Lazara DARRION Donald Performing Organization Address [facility] Phone Number [address] [phone] CENTER Vitamin B12 and Folate (01/04/2020 8:17 PM CDT) Pathologist Sig nature Vitamin B12 <146 (L) 213 - 816 pg/mL [facility] Folate 31.70 >=7.00 ng/mL [facility] Specimen Blood Narrative Performed At [employer] ID - TENA [facility] Performing Organization Address [facility] [place] Phone [place] [address] [address] [facility] TSH/Free T4 If Indicated (01/04/2020 8:17 PM CDT) Pathologist Sig nature TSH 2.037 0.350 - 4.940 uIU/mL [facility] Specimen Blood Narrative Performed At [employer] ID - TENA [facility] Performing Organization Address [facility] [place] Phone Number [address] [address] [place] Troponin I (01/04/2020 8:17 PM CDT) Pathologist Sig nature Troponin I <0.01 0.00 - 0.03 ng/mL [facility] Specimen Blood Narrative Performed At Troponin I (TnI) levels must be interpreted [facility] in the context of the presenting [...] acidosis, acute neurological disease, and persistent tachyarrhythmia. [employer] ID - TENA Performing Organization Address City/State/Zipcode Phone Number [address] [address] C[place] Prothrombin time/INR (01/04/2020 8:17 PM CDT) Pathologist Sig nature Protime 13.6 11.9 - 14.2 seconds [facility] INR 1.07 <=5.90 [facility] Specimen Blood Narrative Performed At Effective 10/09/2018: PT Reference Range [facility] Change New: 11.9-14.2 Previous: 11.7-14.7 RECOMMENDED COUMADIN/WARFARIN INR THERAPY RANGES STANDARD DOSE: 2.0-3.0 Includes: PROPHYLAXIS for venous thrombosis, systemic embolization; TREATMENT for venous thrombosis and/or pulmonary embolus. HIGH RISK: Target INR is 2.5-3.5 for patients wiht mechanical heart valves. Performing Organization Address City/[facility] Phone Number [address] [address] [facility] Phosphorus (01/04/2020 8:17 PM CDT) Pathologist Sig nature Phosphorus 3.4 2.3 - 4.7 mg/dL [facility] Specimen Blood Narrative Performed At [employer] ID - TENA [facility] Performing Organization Address City/State/Zipcode Phone Number [address] [address] [facility] B-type Natriuretic Factor (BNP) (01/04/2020 8:17 PM CDT) Pathologist Sig nature BNP 310 (H) 0 - 100 pg/mL [facility] Specimen Blood Narrative Performed At [employer] ID - TENA [facility] Performing Organization Address City/State/Zipcode Phone Number [address] [address] C[place] Hemoglobin A1c (01/04/2020 8:17 PM CDT) Pathologist Sig nature Hemoglobin A1C 5.7 4.3 - 6.1 % [facility] Specimen Blood Performing Organization Address City/[facility] Cent[facility]ode Phone Number [address] [address] [place] Hepatic function panel (01/04/2020 8:17 PM CDT) Pathologist Sig [facility] Protein, Total 6.8 6.0 - 8.3 gm/dL [facility] Albumin 4.1 3.5 - 5.0 g/dL [facility] Total Bilirubin 1.1 0.2 - 1.2 mg/dL [facility] Bilirubin, Direct 0.6 (H) 0.1 - 0.5 mg/dL [facility] Alkaline Phosphatase 52 40 - 150 U/L [facility] AST 18 5 - 34 U/L [facility] ALT 10 6 - 55 U/L [facility] Specimen Blood Narrative Performed At [employer] ID - [email or web address] [facility] Performing Organization Address [facility] Phone Number [address] [address] [place] XR chest 1 view portable / bedside (01/04/2020 6:35 PM CDT) Specimen Narrative Performed At FINAL REPORT GE RIS INDICATION: CVA, CAD, AFib COMPARISON: None TECHNIQUE: Single frontal view of the est. IMPRESSION: Lungs and pleura: Clear lungs. No effusi on. Heart and mediastinum: Heart size is mag nified by technique. Unremarkable mediastinal contours. Mild atherosclerotic calcifications of the aortic arch. Osseous structures: No acute abnormality . Other: None. Signed: Meredith Felder MD Report Verified Date/Time: 01/04/2020 23:36:17 Procedure Note Interface, External Ris In [...] 3:36:17 Performing Organization Address City/State/Zipcode Phone Number GE RIS after 03/29/2019 Insurance Payer Benefit Plan / Subscriber ID Effective Phone Address T ype Group Dates CIGNA CIGNA [id number] 2019-Pre Maps [employer] sent Cont racted ALL CDC REVIEW CDC REVIEW [id number] 2020-[place] [address] Advance Directives For more information, please contact: [phone] Code Status Date Activated Date Inactivated Comments Full Code 01/04/2020 11:31 PM 01/09/2020 8:28 PM This code status was determined by: Patient Full Code 01/04/2020 11:31 PM 01/04/2020 11:31 PM This code status was determined by: Patient
--- OUTSIDE RECORDS SUMMARY | 2020-03-29 19:08 | XMS REPORT | Continuity of Care Document ---
:1945 Author Organization [facility] t Address [address] [place] [address] Care Team Providers Name Role Phone Lee Primary Care Physician YANET Attending Clinician Unavailable Yanet MERRITT Attending Clinician Tara MERRITT, In Attending Clinician Samantha Chacko MD Attending Clinician Alanna Oliveira MD Attending Clinician ALANNA OLIVEIRA Admitting Clinician Unavailable Payers Payer Name Policy Type Policy Effective Date Expiration Date Sour ce Number CIGNA [id number] [facility] [id number] 2019 -PresentMaps Contracted [facility] REVIEWCDC [id number] 2020 [facility] s [id number] 00:00:00 - [place] [address] [address] Problems Condition Condition Condition Status Onset Resolution Last Treating Co mments Source Name Details Category Date Date Treatment Clinician Date Atrial Atrial Disease Active [facility] fibrillati fibrillati 06-14 kes - on with on with 00:00: Medical rapid rapid 00 [place] ventricula ventricula r response r response Mural Mural Disease Active 2016-[address] [facility] thrombus thrombus 06-19 - of cardiac of cardiac 00:00: Me dical apex apex 00 Center Pulmonary Pulmonary Disease Active 2016-[address] [facility] embolism embolism 06-19 - 00:00: Medical 00 [place] Migraines Migraines Disease Active [facility] Hyperlipem Hyperlipem Disease Active [facility] ia ia [facility] Arterial Arterial Disease Active [facility] ischemic ischemic [facility] - stroke, stroke, Medical [employer], [employer], Center right, right, acute acute Diabetes Diabetes Disease Active [facility] mellitus, mellitus, [facility] - type II type II [facility] Stroke due Stroke due Disease Resolve 2020-01-05 2020-01-[address] [address] to to d 01-03 00:00:00 16:38:29 [facility] - embolism embolism 00:00: Medica l of right of right 00 Center posterior posterior cerebral cerebral artery artery History of Past Illness Condition Condition Condition Status Onset Resolution Last Treating Co mments Source Name Details Category Date Date Treatment Clinician Date Hypertensi Hypertensi Disease Resolve 2020-01-05 2020-01-[address] [facility] [address] on on d 00:00:00 16:25:54 [facility] Allergies, Adverse Reactions, Alerts Allergy Allergy Status Severity Reaction(s) Onset Inactive Treating Comm ents Source Name Type Date Date Clinician Shrimp Propensi Active [facility] ty to 01-04 kes - adverse 00:00: Medical reaction 00 [place] s Aspirin Propensi Active [place] [facility] ty to 01-03 kes - adverse 00:00: Medical reaction 00 [place] s Nsaids Propensi Active Swelling [facility] (Non-Marcus ty to 01-03 [facility] - roidal adverse 00:00: Medical Anti-Inf reaction 00 [place] lammator s y Drug) Triptans Propensi Active [facility] -5-Ht1 ty to 01-03 [facility] - Antimigr adverse 00:00: Medical jenny reaction 00 [place] Agents s Family History Family Member Diagnosis Comments Start Date Stop Date Source Natural daughter Drug abuse [facility] Natural sister Brain cancer [facility] Social History Social Habit Start Date Stop Date Quantity Comments Source Sex Assigned At [facility] Tobacco use and 2020-01-05 2020-01-05 Never used [facility] exposure 00:00:00 00:00:00 [facility] Smoking Status Start Date Stop Date Source Former smoker 2020-01-05 00:00:00 2020-01-05 00:00:00 [facility] Medications Ordered Filled Start Stop Current Ordering Indication Dosage Frequency Signature Comments Components Source Medication Medication Date Date Medication? Clinician (SIG) Name Name losartan 2020-0 Yes 100mg QD Take [address] [facility] (COZAAR) 8-29 tablet [facility] - 100 MG 00:00: (100 mg Medical tablet 00 total) by Center mouth daily. clopidogreL 2020-0 Yes 75mg QD Take [address] [facility] (PLAVIX) 75 8-29 tablet (75 Thao kes - mg tablet 00:00: mg total) Med ical 00 by mouth Center daily Continue taking this medication until your INR is therapeuti c (2 - 3). STOP taking this medication once your INR is 2 - 3.. famotidine 2020-0 Yes 20mg QD Take 1 [facility] (PEPCID) 20 8-29 tablet (20 Thao kes - MG tablet 00:00: mg total) Med ical 00 by mouth Center daily. sertraline 2020-0 Yes 200mg QD Take [address] (ZOLOFT) 8-28 mg by [facility] - 100 MG 18:28: mouth Medical tablet 43 daily. Center metFORMIN 2020-0 Yes 500mg Take [address] [facility] [address] (GLUCOPHAGE 8-28 mg by [facility] - ) 500 MG 18:28: mouth 2 Medica l tablet 43 (two) Center times daily with breakfast and dinner. meclizine 2020-0 Yes 25mg Take [address] (ANTIVERT) 8-28 by mouth 2 Kat es - 25 MG 18:28: (two) Medical tablet 43 times Center daily as needed for Dizziness or Nausea. propranoloL 2019-0 2020- No 50mg QD Take [address] [facility] (INDERAL) 01-08 by mouth [facility] - 10 MG 09:35: 00:00 every Medical tablet 17 :00 morning. [place] zolpidem 2020-0 2020- No 10mg Take [address] (AMBIEN) 10 01-08 by mouth Kat es - mg tablet 09:35: 00:00 every Medica l 17 :00 night as Center needed for Insomnia. simvastatin 2020-0 2020- No 40mg QD Take [address] [facility] (ZOCOR) 40 01-08 by mouth Luke s - MG tablet 09:35: 00:00 nightly. Med ical 17 :00 Center losartan 2020-0 2020- No 50mg QD Take [address] (COZAAR) 50 01-08 by mouth Kat es - MG tablet 09:35: 00:00 daily. Medic al 17 :00 Center butorphanol 2019- No migraine 1{spray [address] [facility] (STADOL) 10 01-08 } Nasal [facility] - mg/mL nasal 09:35: 00:00 route Medi marie spray 17 :00 every 4 Center (four) hours as needed for Pain. butalbital- 2019- 2020- No 1{tbl} Take [address] acetaminoph 01-08 tablet by Thao kes - en-caffeine 09:35: 00:00 mouth Medi marie (FIORICET, 17 :00 every 6 Center ESGIC) (six) 50-325-40 hours as mg per needed for tablet Headaches (Severe Headaches) . atenoloL 2019- No 100mg QD Take [address] (TENORMIN) 01-08 mg by [facility] - 100 MG 09:35: 00:00 mouth Medical tablet 17 :00 daily. Center atorvastati 2019-0 Yes 80mg QD Take [address] [facility] n (LIPITOR) - tablet (80 Thao kes - 80 MG 00:00: mg total) Medical tablet 00 by mouth Center nightly. carvediloL 2020-0 Yes 25mg Q.5D Take 1 [facility] (COREG) 25 01-08 tablet (25 Kat es - MG tablet 00:00: mg total) Med ical 00 by mouth 2 Center (two) times daily. cyanocobala 2020-0 Yes 1000ug QD Take [address] min, 01-08 tablet [facility] - vitamin 00:00: (1,000 mcg Medi marie B-12, 1000 00 total) by Cent er MCG tablet mouth daily. insulin 2020-0 Yes 0U Inject [facility] lispro 01-08 0-10 Units [facility] - (HUMALOG 00:00: subcutaneo [...] BS = 351-400, give 10 units.. acetaminoph Yes 650mg Take [address] [...] Yes 10mg Take [address] [facility] (APRESOLINE 01-08- tablet (10 L ukes - ) 10 MG 00:00: 23:59 mg total) Medi marie tablet 00 :00 by mouth Center every 8 (eight) hours as needed (If SBP > 180 or DBP > 100.). rivaroxaban 2020- No 20mg Take [address] [facility] (XARELTO) 01-05- tablet (20 Kat es - 20 mg Tab 00:00: 00:00 mg total) Me dical tablet 00 :00 by mouth Center daily with dinner. Vital Signs Vital Name Observation Time Observation Value Comments Source Systolic blood 2020-01-09 15:22:00 141 mm[Hg] [facility] Diastolic blood 2020-01-09 15:22:00 80 mm[Hg] [facility] Heart rate 2020-01-09 15:22:00 91 /min [facility] Body temperature 2020-01-09 15:22:00 36.39 Tessie [facility] Respiratory rate 2020-01-09 15:22:00 18 /min [facility] Oxygen saturation in 2020-01-09 15:22:00 94 /min [facility] Arterial blood by Medical Ce nter Pulse oximetry Body height 2020-01-06 10:00:00 157.5 cm [facility] Body weight 2020-01-06 10:00:00 71.668 kg [facility] BMI 2020-01-06 10:00:00 28.90 kg/m2 [facility] Procedures Procedure Date / Time Performed Performing Clinician Sour e SARS-COV2/RT-PCR ([facility] & 2020-01-22 05:30:00 [facility] REF LABS) [facility] RHYTHM STRIP - SCAN 2020-01-12 11:41:47 ProviderGina [facility] POCT-GLUCOSE METER 2020-01-09 11:56:00 Nal [facility] POCT-GLUCOSE METER 2020-01-09 09:01:00 [facility] BASIC METABOLIC PANEL 2020-01-09 06:43:00 Julia Mathew [address] POCT-GLUCOSE METER 2020-01-08 20:53:00 Nal, [facility] POCT-GLUCOSE METER 2020-01-08 17:00:00 [facility], [facility] POCT-GLUCOSE METER 2020-01-08 12:34:00 Nal, [facility] POCT-GLUCOSE METER 2020-01-08 08:32:00 Nal, [facility] BASIC METABOLIC PANEL 2020-01-08 05:56:00 Noam Landis [address] MAGNESIUM 2020-01-08 05:56:00 Noam Landis [facility] POCT-GLUCOSE METER 2020-01-07 21:55:00 Félix [facility] C. DIFFICILE GDH TOXIN 2020-01-06 09:42:00 Julia Mathew [facility] MR BRAIN WITHOUT IV 2020-01-05 21:02:00 Argelia Albert [facility] MRA HEAD WITHOUT IV 2020-01-05 21:02:00 Delvin White, [facility] MRA NECK WITHOUT IV 2020-01-05 21:02:00 Delvin White, [facility] ECG 12-LEAD 2020-01-05 09:15:56 Amy Oliveira [facility] ECHO W CONTRAST & 2020-01-05 08:06:[address] [facility] CT BRAIN WITHOUT IV 2020-01-05 07:15:00 Argelia Albert [facility] SARS-COV2/RT-PCR ([facility] & 2020-01-05 05:17:00 Raul Muniz [facility] - REF LABS) [facility] LIPID PANEL 2020-01-05 05:13:00 Alexei Marshall [facility] BASIC METABOLIC PANEL 2020-01-05 05:13:00 Raul Muniz [place] [address]) [facility] APTT 2020-01-05 05:13:00 Raul Muniz [facility] CBC W/PLT COUNT & AUTO 2020-01-05 05:13:00 Raul Muniz [facility] ECHO CONTRAST AGENT 2020-01-04 23:41:51 Raul Muniz [facility] POCT-GLUCOSE METER 2020-01-04 20:26:00 Yanet Alexei [facility] BASIC METABOLIC PANEL 2020-01-04 20:17:00 Yanet [facility] () [facility] PROTHROMBIN TIME/INR 2020-01-04 20:17:00 Alexei Marshall [facility] HEPATIC FUNCTION PANEL 2020-01-04 20:17:00 Alexei Marshall [facility] TROPONIN I 2020-01-04 20:17:00 [facility] B-TYPE NATRIURETIC 2020-01-04 20:17:00 Alexei Marshall [facility] FACTOR (BNP) Medical Center MAGNESIUM 2020-01-04 20:17:00 Alexei Marshall [facility] PHOSPHORUS 2020-01-04 20:17:00 [facility] TSH/FREE T4 IF INDICATED 2020-01-04 20:17:00 [facility] HEMOGLOBIN A1C 2020-01-04 20:17:00 [facility] VITAMIN B12 AND FOLATE 2020-01-04 20:17:00 [facility] CBC W/PLT COUNT & AUTO 2020-01-04 20:17:00 [facility] XR CHEST 1 VIEW 2020-01-04 18:35:00 [facility] PORT[facility]BED[facility] Center Plan of Care Planned Activity Planned Date Details Comments Source Future Scheduled 2020-07-06 Hemoglobin A1c [facility] kes - Test 00:00:00 [facility] Center (procedure) [code = 79835311] Future Scheduled 2020-01-13 INFLUENZA VACCINE (#1) [facility] - Test 00:00:00 [code = INFLUENZA Medical Ce nter VACCINE (#1)] Future Scheduled 2019-05-14 Medicare IPPE (WELCOME [facility] - Test 00:00:00 TO MEDICARE) [code = Medical Center Medicare IPPE (WELCOME TO MEDICARE)] Future Scheduled 2010 PNEUMOCOCCAL 65+ Y[facility] - Test 00:00:00 (1 of 1 - Medical Center [id number] PCV13) [code = PNEUMOCOCCAL 65+ YRS (1 of 1 - [id number] PCV13)] Future Scheduled 1955-10-27 DIABETIC EYE EXAM [facility] - Test 00:00:00 [code = DIABETIC EYE Medical Center EXAM] Future Scheduled 1955-10-[address] [facility] es - Test 00:00:00 examination Medical Center (regime/therapy) [code = 528657116] Future Scheduled 1955-10-27 Urine screening for [facility] - Test 00:00:00 protein (procedure) Medical Center [code = 424531086] Future Scheduled 1945 Screening for [facility] - Test 00:00:00 malignant neoplasm of [place] [facility] breast (procedure) [code = 842158896] Future Scheduled 1945 Screening [facility] St [facility] es - Test 00:00:00 malignant neoplasm of [place] [facility] colon (procedure) [code = 737750037] Results Test Description Test Time Test Comments Results Result Comments Source SARS-CoV2/RT-PCR ([facility] & Ref Labs) 2020-01-23 08:51:00 Test Item Value Reference Range Interpretation Comme nts SARS-COV2/RT-PCR (test code = Negative Not Detected, 83345-3) Negative, See external report for linked test SARS-COV-2 PERFORMING LAB [facility] (test code = 10733-9) JORGITO (test code = JORGITO) Negative result for this test determines that [...] of the Act. Fact Sheet for Healthcare Providers:https://www.[employer]. Ok[employer]ay/sites/default/files/produ ct/documents/Fact_Sheet_HC_Pr hmnvdrw_Kdea_PDPP-FwM-1.pdf Fact Sheet for Healthcare Patients:https://www.[employer] om/sites/default/files/produc t/documents/Fact_Sheet_Patien xr_Bsso_YWED-OtY-2.pdf Performing Laboratory:[facility], [place] [address] [place], [place] [address]ARS-COV2/RT-PCR ([facility] & REF LABS)2020-01-23 08:51:00 Test Item Value Reference Range Interpretation Comments SARS-COV2/RT-PCR (test Negative Not Detected, Negative, code = 7993481) See external report for linked test SARS-COV-2 PERFORMING LAB [facility] (test code = 5407381) Negative result for this test determines that [...] 564(g) of the Act.Fact Sheet for Healthcare Providers:https://www.[employer]/sites/default/files/product/documents/Fact_Shee j_DM_Uuaogmjej_Qmfi_MNOM-IzD-6.pdfFact Sheet for Healthcare Patients:https://www.[employer]/sites/default/files/product/ documents/Mzur_Jtxer_Pdzaszaw_Jcfi_TSXN-TnY-3.pdfPerforming Laboratory:[address], [place] [address]WHZ-Lvhwmew meter 2020-01-10 12:49:00 Test Item Value Reference Range Interpretation Comments POC-Glucose Meter (test 134 mg/dL 70-110 H : TE STED AT [facility] code = 1538) [address] [facility], 770 30: Quarry Supervisor Dimension Stone/Techni gi ID = [id number] for BROWNDARWIN Lab Interpretation (test Abnormal code = 67617-0) [facility] [id number] 12:49:00 Test Item Value Reference Range Interpretation Comments POC-GLUCOSE METER 134 mg/dL 70-110 H : [facility] ([facility]ER[facility] (test code = [facility], 1538) [address]: Quarry Supervisor Dimension Stone/Techni gi ID = [id number] for BR LEROY, DARWIN POCT-GLUCOSE [id number] 12:49:00 Test Item Value Reference Range Interpretation Comments POC-GLUCOSE METER 277 mg/dL 70-110 H : TESTED A T [facility] 6720 (BEAKER) (test code = [facility], 1538) [address]6591: Quarry Supervisor Dimension Stone/Techni gi ID = [id number] for LUCAS STEVENS POCT-GLUCOSE [id number] 12:48:00 Test Item Value Reference Range Interpretation Comments POC-GLUCOSE METER 272 mg/dL 70-110 H : TESTED A T [facility] 6720 (BEAKER) (test code = [facility], 1538) [address]46: Quarry Supervisor Dimension Stone/Techni gi ID = [id number] for RO LUCAS THOMSON POCT-GLUCOSE [id number] 12:48:00 Test Item Value Reference Range Interpretation Comments POC-GLUCOSE METER 361 mg/dL 70-110 H : TESTED A T [facility] 6720 (BEAKER) (test code = [facility], 1538) [address]81: Quarry Supervisor Dimension Stone/Techni gi ID = [id number] for DE NNIS, DALI POCT-GLUCOSE [id number] 09:12:00 Test Item Value Reference Range Interpretation Comments POC-GLUCOSE METER 185 mg/dL 70-110 H : TESTED A T [facility] 6720 (BEAKER) (test code = [facility], 1538) 79893: Quarry Supervisor Dimension Stone/Techni gi ID = [id number] for BR OWN, DARWIN Basic Metabolic [id number] 07:34:00 Test Item Value Reference Range Interpretation [...] Calcium (test code = 9.0 mg/dL 8.4-10.2 87007-6) EGFR (test code = 65 mL/min/1.73 [place] [address]-2) NOT ACCURATE CREATININE CLEARANCE IN PREDICTING GLOMERULAR FILTRATION RATE . ESTIMATED GFR I S NOT APPLICABLE FOR DIALYSIS PATIENTS. JORGITO (test code = JORGITO) Quarry Supervisor Dimension Stone ID - CLAUDIA C Lab Interpretation Abnormal (test code = 08273-4) [facility] METABOLIC [id number] 07:34:00 Test Item Value Reference Range Interpretation [...] S NOT APPLICABLE FOR DIALYSIS PATIEN TS. Quarry Supervisor Dimension Stone ID - CLAUDIA CPOCT-GLUCOSE [id number] 21:04:00 Test Item Value Reference Range Interpretation Comments POC-GLUCOSE METER 204 mg/dL 70-110 H : TESTED A T [facility] 6720 (BEAKER) (test code = [employer] [facility], 1538) [address]: Quarry Supervisor Dimension Stone/Techni gi ID = [id number] for GEOFF CHAVARRIA POCT-GLUCOSE [id number] 12:45:00 Test Item Value Reference Range Interpretation Comments POC-GLUCOSE METER 306 mg/dL 70-110 H : TESTED A T [facility] 6720 (BEAKER) (test code = [facility], 1538) 56923: Quarry Supervisor Dimension Stone/Techni gi ID = [id number] for AYAZ EVELYNLUCAS POLK [id number] 07:25:00 Test Item Value Reference Range Interpretation Comments Magnesium (test code = 2.1 mg/dL 1.6-2.6 Speci men 68279-3) slightly hemolyzed JORGITO (test code = JORGITO) Quarry Supervisor Dimension Stone ID - NTP Lab Interpretation Normal (test code = 87964-6) [facility]2020-[facility]-27 07:25:00 Test Item Value Reference Range Interpretation Comments MAGNESIUM (BEAKER) 2.1 mg/dL 1.6-2.6 Specimen slightly (test code = 627) hemolyzed Quarry Supervisor Dimension Stone ID - NTPBASIC METABOLIC [id number] 07:25:00 Test Item Value Reference Range Interpretation [...] S NOT APPLICABLE FOR DIALYSIS PATIEN TS. Quarry Supervisor Dimension Stone ID - NTPClostridium difficile GDH [id number] 20:19:00 Test Item Value Reference Range Interpretation Comments C. Difficle Toxin Negative Negative (test code = 7591882646) C. Difficile GDH Negative Negative No indicati on of Antigen (test code = Clostri dium 6734561173) difficile infection and n o colonization. Discontinue [...] use. Lab Interpretation Normal (test code = 60586-4) [facility] DIFFICILE GDH [id number] 20:19:00 Test Item Value Reference Range Interpretation Comments CDT TOXIN (test code Negative Negative = 9631620473) CDT GDH ANTIGEN (test Negative Negative No ind ication of code = 9356405009) Clostridi um difficile infection and n o [...] Lab prior to clinical use.MR, BRAIN, WITHOUT [id number] 23:07:00Unlisted Reason for Exam - Click Yes and Enter Reason Below->NoAnesthesia:->NoneDeos the patient have an implanted electronic device?->NoFINAL REPORT EXAM: MR, MRA, NECK, WITHOUT IV CONTRAST, MR, BRAIN, WITHOUT CONTRAST, MR, MRA, BRAIN, WITHOUT CONTRAST CLINICAL INDICATION: Stroke. TECHNIQUE: Sagittal and coronal T1-w and axial T2- w, FLAIR, GRE, and diffusion-w images of the brain with ADC maps. 2D clmo-hu-szytooIJS of the neck. 3D lfha-gs-lepzem MRA of the head. Source data and maximum intensity projections (MIPs) were reviewed. COMPARISON: 01/05/2020 CT. FINDINGS: MRI BRAIN:Parenchyma: Acute infarction of the right [employer] territory involving the right occipital lobe, right [...] System: Normal Major Intracranial Flow Voids: Right [employer] flow void not well seen. Osseous Structures: Expected marrow signal. Included Orbits: Prior bilateral lens surgery. Paranasal Sinuses: Predominantly clear Tympanomastoid Cavities: Normal MRA HEAD:Anterior Circulation:Right intracranial internal carotid artery (ICA): Loss of flow signal at the supraclinoid segment favored to be artifactual from noncontrast technique.Right anterior cerebral artery (PAM): Hypoplastic R4gbckkqd with the remainder of the right PAM [...] cm diameter (image 69).Left anterior cerebral artery (APM): NormalLeft middle cerebral artery (MCA): Normal Anterior communicating artery (AComm): PresentPosterior communicating arteries (PComm): Not well-visualized bilaterally. Posterior Circulation:Right posterior cerebral artery ([employer]): There is abrupt vessel cut off of the right [employer] at the proximal P3 segment within the quadrigeminal cistern (image 92).Left posterior cerebral artery ([employer]): Normal Right vertebral artery (VA): NormalLeft vertebral [...] IMPRESSION: 1. Acute infarction of the right [employer] territory with petechial hemorrhage similar when correlated to recent CT.2. Abrupt vessel cut off compatible with occlusion of the right [employer] P3 segment.3. Small 0.3 cm outpouching at the left carotid terminus compatible with either a left posterior commuting artery infundibulum versus tiny aneurysm. Consider follow-up with nonemergent CTA for further characterization. Signed: Meredith Felder MDReport Verified Date/Time: 01/05/2020 23:07:11 MR, MRA, BRAIN, WITHOUT [id number] 23:07:00Unlisted Reason for Exam - Click Yes and Enter Reason Below->NoAnesthesia:->NoneDeos the patient have an implanted electronic device?->NoFINAL REPORT EXAM: MR, MRA, NECK, WITHOUT IV CONTRAST, MR, BRAIN, WITHOUT CONTRAST, MR, MRA, BRAIN, WITHOUT CONTRAST CLINICAL INDICATION: Stroke. TECHNIQUE: Sagittal and coronal T1-w and axial T2- w, FLAIR, GRE, and diffusion-w images of the brain with ADC maps. 2D awzr-dk-xfdwokOTT of the neck. 3D lvwk-ma-radfmp MRA of the head. Source data and maximum intensity projections (MIPs) were reviewed. COMPARISON: 01/05/2020 CT. FINDINGS: MRI BRAIN:Parenchyma: Acute infarction of the right [employer] territory involving the right occipital lobe, right [...] System: Normal Major Intracranial Flow Voids: Right [employer] flow void not well seen. Osseous Structures: Expected marrow signal. Included Orbits: Prior bilateral lens surgery. Paranasal Sinuses: Predominantly clear Tympanomastoid Cavities: Normal MRA HEAD:Anterior Circulation:Right intracranial internal carotid artery (ICA): Loss of flow signal at the supraclinoid segment favored to be artifactual from noncontrast technique.Right anterior cerebral artery (PAM): Hypoplastic [id number] with the remainder of the right PAM [...] well-visualized bilaterally. Posterior Circulation:Right posterior cerebral artery ([employer]): There is abrupt vessel cut off of the right [employer] at the proximal P3 segment within the quadrigeminal cistern (image 92).Left posterior cerebral artery ([employer]): Normal Right vertebral artery (VA): NormalLeft vertebral [...] IMPRESSION: 1. Acute infarction of the right [employer] territory with petechial hemorrhage similar when correlated to recent CT.2. Abrupt vessel cut off compatible with occlusion of the right [employer] P3 segment.3. Small 0.3 cm outpouching at the left carotid terminus compatible with either a left posterior commuting artery infundibulum versus tiny aneurysm. Consider follow-up with nonemergent CTA for further characterization. Signed: Meredith Felder MDReport Verified Date/Time: 01/05/2020 23:07:11 MR, MRA, NECK, WITHOUT IV [id number] 23:07:00Reason for exam:->Ischemic Stroke EvaluationFINAL REPORT EXAM: MR, MRA, NECK, WITHOUT IV CONTRAST, MR, BRAIN, WITHOUT CONTRAST, MR, MRA, BRAIN, WITHOUT CONTRAST CLINICAL INDICATION: Stroke. TECHNIQUE: Sagittal and coronal T1-w and axial T2-w, FLAIR, GRE, and diffusion-w images of the brain with ADC maps. 2D fyyk-zt-xgkmzzDHO of the neck. 3D gzpb-py-qbyhfu MRA of the head. Source data and maximum intensity projections (MIPs) were reviewed. COMPARISON: 01/05/2020 CT. FINDINGS: MRI BRAIN:Parenchyma: Acute infarction of the right [employer] territory involving the right occipital lobe, right [...] System: Normal Major Intracranial Flow Voids: Right [employer] flow void not well seen. Osseous Structures: [...] well-visualized bilaterally. Posterior Circulation:Right posterior cerebral artery ([employer]): There is abrupt vessel cut off of the right [employer] at the proximal P3 segment within the quadrigeminal cistern (image 92).Left posterior cerebral artery ([employer]): Normal Right vertebral artery (VA): NormalLeft vertebral [...] IMPRESSION: 1. Acute infarction of the right [employer] territory with petechial hemorrhage similar when correlated to recent CT.2. Abrupt vessel cut off compatible with occlusion of the right [employer] P3 segment.3. Small 0.3 cm outpouching at the left carotid terminus compatible with either a left posterior commuting artery infundibulum versus tiny aneurysm. Consider follow-up with nonemergent CTA for further characterization. Signed: Meredith Felder MDReport Verified Date/Time: 01/05/2020 23:07:11 Rufina ctronically signed by: MEREDITH FELDER MD on 01/05/2020 11:07 PMMRA head without IV [id number] 23:07:00Interface, External Ris In - 01/05/2020 11:10 PM CDTFINAL REPORT EXAM: MR, MRA, NECK, WITHOUT IV CONTRAST, MR, BRAIN, WITHOUT CONTRAST, MR, MRA, BRAIN, WITHOUT CONTRAST CLINICAL I NDICATION: Stroke. TECHNIQUE: Sagittal and coronal T1-w and axial T2-w, FLAIR, GRE, and diffusion-w images of the brain with ADC maps. 2D ufct-ff-wtzllw MRA of the neck. 3D udze-ps-fhilvk MRA of the head. Source data and maximum intensity projections (MIPs) were reviewed. COMPARISON: 01/05/2020 CT. FINDINGS: MRI BRAIN:Parenchyma: Acute infarction of the right [employer] territory involving the right occipital lobe, right [...] System: Normal Major Intracranial Flow Voids: Right [employer] flow void not well seen. Osseous Structures: [...] well-visualized bilaterally. Posterior Circulation:Right posterior cerebral artery ([employer]): There is abrupt vessel cut off of the right [employer] at the proximal P3 segment within the quadrigeminal cistern (image 92).Left posterior cerebral artery ([employer]): Normal Right vertebral artery (VA): NormalLeft vertebral [...] off compatible with occlusion of the right [employer] P3 segment.3. Small 0.3 cm outpouching at the left carotid terminus compatible with either a left posterior commuting artery infundibulum versus tiny aneurysm. Consider follow-up with nonemergent CTA for further characterization. Signed: Meredith Felder MDReport Verified Date/Time: 01/05/2020 23:07:11 [facility] [id number] 23:07:00Interface, External Ris In - 01/05/2020 11:10 PM CDTFINAL REPORT EXAM: MR, MRA, NECK, WITHOUT IV CONTRAST, MR, BRAIN, WITHOUT CONTRAST, MR, MRA, BRAIN, WITHOUT CONTRAST CLINICAL INDICATION: Stroke. TECHNIQUE: Sagittal and coronal T1-w and axial T2-w, FLAIR, GRE, and diffusion-w images of the brain with ADC maps. 2D dbmf-ak-ivhgev MRA of the neck. 3D rjmk-tm-pwgpub MRA of the head. Source data and maximum intensity projections (MIPs) were reviewed. COMPARISON: 01/05/2020 CT. FINDINGS: MRI BRAIN:Parenchyma: Acute infarction of the right [employer] territory involving the right occipital lobe, right [...] System: Normal Major Intracranial Flow Voids: Right [employer] flow void not well seen. Osseous Structures: [...] well-visualized bilaterally. Posterior Circulation:Right posterior cerebral artery ([employer]): There is abrupt vessel cut off of the right [employer] at the proximal P3 segment within the quadrigeminal cistern (image 92).Left posterior cerebral artery ([employer]): Normal Right vertebral artery (VA): NormalLeft vertebral [...] off compatible with occlusion of the right [employer] P3 segment.3. Small 0.3 cm outpouching at the left carotid terminus compatible with either a left posterior commuting artery infundibulum versus tiny aneurysm. Consider follow-up with nonemergent CTA for further characterization. Signed: Meredith Felder MDReport Verified Date/Time: 01/05/2020 23:07:11 [facility] MR brain without IV [id number] 23:07:00Interface, External Ris In - 01/05/2020 11:10 PM CDTFINAL REPORT EXAM: MR, MRA, NECK, WITHOUT IV CONTRAST, MR, BRAIN, WITHOUT CONTRAST, MR, MRA, BRAIN, WITHOUT CONTRAST CLINICAL INDICATION: Stroke. TECHNIQUE: Sagittal and coronal T1-w and axial T2-w, FLAIR, GRE, and diffusion-w images of the brain with ADC maps. 2D jysz-hf-mtsiks MRA of the neck. 3D ulqh-rz-cfkdyp MRA of the head. Source data and maximum intensity projections (MIPs) were reviewed. COMPARISON: 01/05/2020 CT. FINDINGS: MRI BRAIN:Parenchyma: Acute infarction of the right [employer] territory involving the right occipital lobe, right [...] System: Normal Major Intracranial Flow Voids: Right [employer] flow void not well seen. Osseous Structures: [...] well-visualized bilaterally. Posterior Circulation:Right posterior cerebral artery ([employer]): There is abrupt vessel cut off of the right [employer] at the proximal P3 segment within the quadrigeminal cistern (image 92).Left posterior cerebral artery ([employer]): Normal Right vertebral artery (VA): NormalLeft vertebral [...] off compatible with occlusion of the right [employer] P3 segment.3. Small 0.3 cm outpouching at the left carotid terminus compatible with either a left posterior commuting artery infundibulum versus tiny aneurysm. Consider follow-up with nonemergent CTA for further characterization. Signed: Meredith Felder [facility] Hospitalort Verified Date/Time: 01/05/2020 23:07:11 [facility] 12 lead 2020-01-05 19:00:03Interface, External Ris In - 01/05/2020 7:00 PM CDTVentricular Rate 112 BPMAtrial Rate 117 BPMQRS Duration 82 msQ-T Interval 338 msQTC Calculation(Bazett) 461 msR [place] 129 degreesT [place] 91 degrees Suspect arm lead reversal, interpretation assumes no reversalAtrial fibrillation with rapid ventricular responseMinimal voltage criteria for LVH, may be normal variantProlonged QTAbnormal ECGWhen compared with ECG of 26-NOV-2000 15:30,Atrial fibrillation has replaced Sinus rhythmVent. rate has increasedBY 58 BPMArm leads are now switchedNo significant change in the precordial leadsConfirmed by MD DIANNA, YISEL ([id number]) on 01/05/2020 7:00:00 [facility]F [facility]2020-01-05 13:28:00 Test Item Value Reference Range Interpretation Comments SARS-COV2/RT-PCR (test Negative Not Detected, Negative, code = 0805802) See external report for linked test SARS-COV-2 PERFORMING LAB [facility] (test code = 5080327) Negative result for this test determines that [...] 564(g) of the Act.Fact Sheet for Healthcare Providers:https://www.[employer].OkCopay/sites/default/files/product/documents/Fact_Shee h_DD_Citsrgepe_Iqkj_MCMA-TjE-3.pdfFact Sheet for Healthcare Patients:https://www.quidel.com/sites/default/files/product/ documents/Yvqm_Veuov_Xzqlexbi_Eiur_VMAN-UaA-0.pdfPerforming Laboratory:[facility], [place] [address]IPLO W CONTRAST & [id number] 12:58:18Ejection FractionSLEH ECHO HEARTLAB MKCKESSON CPACSInterface, External Ris In - 01/05/2020 12:58 PM CDTTransthoracic Echocardiography Report (TTE) Demographics Patient Name MARV PALUMBO Date of Study 01/05/2020 Gender Female Visit Number [id number] Race Unknown Room Number 2246 Number Date of 1945 Referring Physician Ramila Marshall Age 74 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 Amount - 2 mlHeight: 62 inches [...] TR Velocity: 3.03 m/s TR Gradient: 36.7 mmHgVencor HospitalHemoglobin [id number] 10:13:00 Test Item Value Reference Range Interpretation Comments Hemoglobin A1C (test code = 4548-4) 5.7 % 4.3-6.1 Lab Interpretation (test code = Normal 58939-8) [facility] HospitalHEMOGLOBIN [id number] 10:13:00 Test Item Value Reference Range Interpretation Comments HEMOGLOBIN A1C (BEAKER) (test code = 5.7 % 4.3-6.1 368) CT, BRAIN, WITHOUT [id number] 07:25:00Unlisted Reason for Exam - Click Yes [...] on follow-up is recommended. Signed: Jesenia Chanel MDReport Verified Date/Time: 01/05/2020 07:25:42 Reading Location: [facility] C0[facility] Neuro Reading Room CT brain without IV [id number] 07:25:00Interface, External Ris In - 01/05/2020 7:27 [...] on follow-up is recommended. Signed: Jesenia Chanel MDReport Verified Date/Time: 01/05/2020 07:25:42 Reading Location: [address] Neuro Reading Room [facility] CenterLipid [id number] 06:22:00 Test Item Value Reference Range Interpretation Comments Triglycerides (test 138 mg/dL code = 2571-8) Cholesterol (test code 203 mg/dL = 2093-3) HDL (test code = 47 mg/dL 2085-9) LDL Calculated (test 128 mg/dL code = 44993-3) JORGITO (test code = JORGITO) Triglyceride Reference Range: Low Risk <150 Borderline 150-199 High Risk 200-499 Very High Risk >=500 Cholesterol Reference Range: Low Risk <200 Borderline 200-239 High Risk >240 HDL Cholesterol Reference Range: Low Risk >=60 High Risk <40 LDL Cholesterol Reference Range: Optimal <100 Near Optimal 100-129 Borderline 130-159 High 160-189 Very High >=190 [employer] MICHAEL - DARRION Donald [facility] HospitalLIPID [id number] 06:22:00 Test Item Value Reference Range Interpretation [...] Borderline 130-159 High 160-189 Very High >=190 [employer] MICHAEL - DARRION MBASIC METABOLIC [id number] 06:22:00 Test Item Value Reference Range Interpretation [...] S NOT APPLICABLE FOR DIALYSIS PATIEN TS. [employer] ID - DARRION [id number] 06:01:00 Test Item Value Reference Range Interpretation Comments PTT (test code = 44545-8) 25.8 22.5- 36.0 seconds Lab Interpretation (test code = Normal 46904-7) [facility] 06:01:00 Test Item Value Reference Range Interpretation Comments PARTIAL THROMBOPLASTIN TIME 25.8 seconds 22.5-36.0 (BEAKER) (test code = 760) CBC with platelet count + automated [id number] 05:49:00 Test Item Value Reference Range Interpretation [...] 450 K/CU MM MPV (test code = 29446-2) 9.6 fL 9.4-12.3 nRBC (test code = [...] 2801) Lab Interpretation (test code = Abnormal 83090-9) [facility] W/PLT COUNT & AUTO [id number] 05:49:00 Test Item Value Reference Range Interpretation [...] = 2801) RAD, CHEST, 1 VIEW, NON [id number] 23:36:00Reason for exam:->CVA, CAD, AFibShould this be [...] Meredith Felder MDReport Verified Date/Time: 01/04/2020 23:36:17 XR chest 1 view portable / [id number] 23:36:00Interface, External Ris In - 01/04/2020 11:38 [...] Felder MDReport Verified Date/Time: 01/04/2020 23:36:17 [facility] TSH/Free T4 If [id number] 22:19:00 Test Item Value Reference Range Interpretation Comments TSH (test code = 2.037 0.350- 4.940 uIU/mL 10481-8) JORGITO (test code = JORGITO) [employer] ID - EDASI Lab Interpretation (test Normal code = 22474-2) [facility] HospitalVitamin B12 and [id number] 22:19:00 Test Item Value Reference Range Interpretation Comments Vitamin B12 (test code = <146 213-816 L 2132-9) Folate (test code = 31.70 ng/mL >=7.00 2284-8) JORGITO (test code = JORGITO) [employer] ID - EDASI Lab Interpretation (test Abnormal code = 78660-9) [facility] HospitalTSH/FREE T4 IF [id number] 22:19:00 Test Item Value Reference Range Interpretation Comments THYROID STIMULATING HORMONE 2.037 uIU/mL 0.350-4.940 (BEAKER) (test code = 772) [employer] ID - EDASIVITAMIN B12 AND [id number] 22:19:00 Test Item Value Reference Range Interpretation Comments VITAMIN B12 (BEAKER) (test code = < pg/mL 213-816 L 774) FOLATE (BEAKER) (test code = 362) 31.70 ng/mL >=7.00 [employer] ID - EDASITroponin [id number] 21:05:00 Test Item Value Reference Range Interpretation Comments Troponin I (test code = <0.01 0-0.03 79698-1) JORGITO (test code = JORGITO) Troponin I [...] EDASI Lab Interpretation (test Normal code = 96320-5) [facility] HospitalTROPONIN [id number] 21:05:00 Test Item Value Reference Range Interpretation [...] failure, acidosis, acute neurological disease, and persistent tachyarrhythmia.[employer] ID - EDASIB-type Natriuretic Factor (BNP)2020-01-04 21:04:00 Test Item Value Reference Range Interpretation Comments BNP (test code = 11474-8) 310 pg/mL 0-100 H JORGITO (test code = JORGITO) [employer] ID - EDASI Lab Interpretation (test Abnormal code = 15175-5) [facility] HospitalB-TYPE NATRIURETIC FACTOR (BNP)2020-01-04 21:04:00 Test Item Value Reference Range Interpretation Comments B-TYPE NATRIURETIC PEPTIDE (BEAKER) 310 pg/mL 0-100 H (test code = 700) [employer] ID - EDASIHepatic function [id number] 20:58:00 Test Item Value Reference Range Interpretation Comments Protein, Total (test code 6.8 6.0- 8.3 gm/dL = 2885-2) Albumin (test code = 4.1 g/dL 3.5-5 02183-3) Total Bilirubin (test code 1.1 mg/dL 0.2-1.2 = 1975-2) Bilirubin, Direct (test 0.6 mg/dL 0.1-0.5 H code = 1968-7) Alkaline Phosphatase (test 52 U/L 40-150 code = 6768-6) AST (test code = 1920-8) 18 U/L 5-34 ALT (test code = 1742-6) 10 U/L 6-55 JORGITO (test code = JORGITO) [employer] ID - EDASI Lab Interpretation (test Abnormal code = 94807-1) [facility] HospitalPhosphorus2020-08-23 20:58:00 Test Item Value Reference Range Interpretation Comments Phosphorus (test code = 3.4 mg/dL 2.3-4.7 2777-1) JORGITO (test code = JORGITO) [employer] ID - EDASI Lab Interpretation (test Normal code = 84821-0) [facility] HospitalPHOSPHORUS2020-08-23 20:58:00 Test Item Value Reference Range Interpretation Comments PHOSPHORUS (BEAKER) (test code = 3.4 mg/dL 2.3-4.7 604) [employer] ID - [id number] 20:58:00 Test Item Value Reference Range Interpretation Comments MAGNESIUM (BEAKER) (test code = 1.8 mg/dL 1.6-2.6 627) [employer] ID - EDASIBASIC METABOLIC [id number] 20:58:00 Test Item Value Reference Range Interpretation [...] S NOT APPLICABLE FOR DIALYSIS PATIEN TS. [employer] ID - EDASIHEPATIC FUNCTION [id number] 20:58:00 Test Item Value Reference Range Interpretation [...] (test code = 10 U/L 6-55 347) [employer] ID - EDASIProthrombin time/[id number] 20:52:00 Test Item Value Reference Range Interpretation [...] valves. 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
[2020-03-29] MEDS ORDERED: DIGOXIN 0.25 MG/ML AMP ONE (19:47)
[2020-03-29] MEDS ORDERED: METOPROLOL TARTRATE 5 MG/5 ML INJ IV ONE ×2 (19:47→22:51)
[2020-03-29] MEDS ORDERED: NA CHLORIDE 0.9% 1,000 ML ONE ×2 (19:49→22:40)
--- NOTE | 2020-03-29 19:59 | EDPHYS ---
Physician Documentation [facility] Name: Shraddha Link Age: 74 yrs Sex: Female : 1945 Arrival Date: 03/29/2020 Time: 19:07 Bed 23 Private MD: ED Physician Sorin Mota HPI: 03/29 19:39 This 74 yrs old Female presents to ER via Unassigned with complaints of alin MENTAL HEALTH EVAL. 19:39 The patient presents with a history of irregular heart beat, heart racing. Context: The alin symptoms occur at rest, with light activity. Onset: The symptoms/episode began/occurred 1 day(s) ago. Duration: The patient or guardian reports a single episode, that is still ongoing. Modifying factors: The symptoms are aggravated by nothing. The symptoms are alleviated by nothing. daughter thought acting different. Associated signs and symptoms: The patient has no apparent associated signs or symptoms. Severity of symptoms: At their worst the symptoms were mild moderate in the emergency department the symptoms are unchanged. Historical: - Allergies: 19:10 Aspirin; ca1 19:10 Compazine; ca1 19:10 DHE; ca1 19:10 Imitrex; ca1 19:10 Morphine; ca1 19:10 NSAIDS; ca1 19:10 Tape; ca1 19:10 Ultram; ca1 - PMHx: 19:10 Atrial Fib; Chronic pain; Depression; Diabetes - NIDDM; High Cholesterol; Hypertension; ca1 Migraines; Pulmonary Embolism; - PSHx: 19:10 Cholecystectomy; ; ca1 - Immunization history:: Adult Immunizations up to date, Flu vaccine is up to date. - Social history:: Smoking status: Patient denies any tobacco usage or history of. - Family history:: not pertinent. ROS: 19:39 Constitutional: Negative for fever, chills, and weight loss, Eyes: Negative for injury, alin pain, redness, and discharge, ENT: Negative for injury, pain, and discharge, Neck: Negative for injury, pain, and swelling, Respiratory: Negative for shortness of breath, cough, wheezing, and pleuritic chest pain, Abdomen/GI: Negative for abdominal pain, nausea, vomiting, diarrhea, and constipation, Back: Negative for injury and pain, : Negative for injury, bleeding, discharge, and swelling, MS/Extremity: Negative for injury and deformity, Skin: Negative for injury, rash, and discoloration, Neuro: Negative for headache, weakness, numbness, tingling, and seizure, Psych: Negative for depression, anxiety, suicide ideation, homicidal ideation, and hallucinations, Allergy/Immunology: Negative for hives, rash, and allergies, Endocrine: Negative for neck swelling, polydipsia, polyuria, polyphagia, and marked weight changes, Hematologic/Lymphatic: Negative for swollen nodes, abnormal bleeding, and unusual bruising. 19:39 Cardiovascular: Positive for palpitations. Exam: 19:39 Constitutional: This is a well developed, well nourished patient who is awake, alert, alin and in no acute distress. Head/Face: Normocephalic, atraumatic. Eyes: Pupils equal round and reactive to light, extra-ocular motions intact. Lids and lashes normal. Conjunctiva and sclera are non-icteric and not injected. Cornea within normal limits. Periorbital areas with no swelling, redness, or edema. ENT: Nares patent. No nasal discharge, no septal abnormalities noted. Tympanic membranes are normal and external auditory canals are clear. Oropharynx with no redness, swelling, or masses, exudates, or evidence of obstruction, uvula midline. Mucous membranes moist. Neck: Trachea midline, no thyromegaly or masses palpated, and no cervical lymphadenopathy. Supple, full range of motion without nuchal rigidity, or vertebral point tenderness. No Meningismus. Chest/axilla: Normal chest wall appearance and motion. Nontender with no deformity. No lesions are appreciated. Respiratory: Lungs have equal breath sounds bilaterally, clear to auscultation and percussion. No rales, rhonchi or wheezes noted. No increased work of breathing, no retractions or nasal flaring. Abdomen/GI: Soft, non-tender, with normal bowel sounds. No distension or tympany. No guarding or rebound. No evidence of tenderness throughout. Back: No spinal tenderness. No costovertebral tenderness. Full range of motion. Female : Normal external genitalia. Skin: Warm, dry with normal turgor. Normal color with no rashes, no lesions, and no evidence of cellulitis. MS/ Extremity: Pulses equal, no cyanosis. Neurovascular intact. Full, normal range of motion. Neuro: Awake and alert, GCS 15, oriented to person, place, time, and situation. Cranial nerves II-XII grossly intact. Motor strength 5/5 in all extremities. Sensory grossly intact. Cerebellar exam normal. Normal gait. Psych: Awake, alert, with orientation to person, place and time. Behavior, mood, and affect are within normal limits. 19:39 Cardiovascular: Rate: tachycardic, Rhythm: regular, Pulses: Pulses are 4+ in bilateral radial, brachial, femoral, popliteal, posterior tibial and and dorsalis pedis arteries.. Heart sounds: normal, Edema: is not appreciated, JVD: is not appreciated. 19:52 ECG was reviewed by the Attending Physician. [facility] Vital Signs: 19:10 BP 164 / 103; Pulse 146; Resp 20; Temp 98.5(O); Pulse Ox 97% on R/A; Weight 65.32 kg ca1 (R); Height 5 ft. 2 in. (157.48 cm) (R); Pain 9/10; 19:30 BP 170 / 122; Pulse 135; Resp 20 S; Pulse Ox 97% on R/A; ca1 19:45 BP 185 / 115; Pulse 122; Resp 21; Pulse Ox 97% on R/A; ca1 20:16 BP 176 / 118; Pulse 98; Resp 19 S; Pulse Ox 95% on R/A; ca1 20:30 BP 160 / 104; Pulse 93; Resp 19 S; Pulse Ox 97% on R/A; ca1 20:51 BP 183 / 97; Pulse 88; Resp 19 S; Pulse Ox 98% on R/A; ca1 21:00 BP 177 / 109; Pulse 85; Resp 19 S; Pulse Ox 97% on R/A; ca1 21:30 BP 194 / 108; Pulse 81; Resp 17; Pulse Ox 97% on R/A; ca1 22:00 BP 179 / 104; Pulse 78; Resp 16 S; Pulse Ox 97% on R/A; ca1 22:30 BP 176 / 100; Pulse 69; Resp 15; Pulse Ox 97% on R/A; ca1 23:00 BP 170 / 101; Pulse 61; Resp 18 S; Pulse Ox 99% on R/A; ca1 23:31 BP 176 / 93; Pulse 65; Resp 15 S; Pulse Ox 97% on R/A; ca1 19:10 Body Mass Index 26.34 (65.32 kg, 157.48 cm) ca1 MDM: 19:12 Patient medically screened. alin 19:42 GEETHA Risk Score: 1 - Patient's age is greater or equal to 65, 1 - 3 or more CAD risk alin factors, 1 - Known CAD, Total Score = 3. Differential diagnosis: arrythmia, dehydration. Differential Diagnosis sepsis. Data reviewed: vital signs, nurses notes, lab test result(s), EKG, radiologic studies, CT scan, plain films. Data interpreted: campus monitor: rate is 145 beats/min, rhythm is atrial fibrillation, Pulse oximetry: on room air is 100 %. Test interpretation: by ED physician or midlevel provider: ECG, plain radiologic studies. Counseling: I had a detailed discussion with the patient and/or guardian regarding: the historical points, exam findings, and any diagnostic results supporting the discharge/admit diagnosis, the presence of at least one elevated blood pressure reading (>120/80) during this emergency department visit, lab results, radiology results. 03/29 19:28 Order name: Basic Metabolic Panel; Complete Time: 21:28 [facility] 03/29 19:28 Order name: CBC with Diff; Complete Time: 20:34 [facility] 03/29 19:28 Order name: LFT's; Complete Time: 21:28 [facility] 03/29 19:28 Order name: Magnesium; Complete Time: 21:28 [facility] 03/29 19:28 Order name: NT PRO-BNP; Complete Time: 21:28 [facility] 03/29 19:28 Order name: PT-INR; Complete Time: 20:37 [facility] 03/29 19:28 Order name: Troponin (emerg Dept Use Only); Complete Time: 21:28 [facility] 03/29 19:28 Order name: Blood Culture Adult (2) [facility] 03/29 19:28 Order name: Lactate; Complete Time: 21:28 [facility] 03/29 19:28 Order name: Procalcitonin; Complete Time: 21:28 [facility] 03/29 19:28 Order name: Urine Culture [facility] 03/29 19:28 Order name: Lipase; Complete Time: 21:28 [facility] 03/29 19:28 Order name: TSH; Complete Time: 21:28 [facility] 03/29 19:41 Order name: Glucose, Ancillary Testing; Complete Time: 20:27 EDMS 03/29 19:28 Order name: XRAY Chest (1 view); Complete Time: 20:27 [facility] 03/29 19:38 Order name: CT Head Brain wo Cont; Complete Time: 20:27 [facility] 03/29 19:46 Order name: Knee Right 2 View XRAY; Complete Time: 20:27 [facility] 03/29 21:00 Order name: Urine Dipstick--Ancillary (enter results); Complete Time: 23:01 de 03/29 19:28 Order name: EKG; Complete Time: 19:30 [facility] 03/29 19:28 Order name: Cardiac monitoring; Complete Time: 20:13 [facility] 03/29 19:28 Order name: EKG - Nurse/Tech; Complete Time: 20:13 [facility] 03/29 19:28 Order name: IV Saline Lock; Complete Time: 20:13 [facility] 03/29 19:28 Order name: Labs collected and sent; Complete Time: 20:13 [facility] 03/29 19:28 Order name: O2 Per Protocol; Complete Time: 20:13 [facility] 03/29 19:28 Order name: O2 Sat Monitoring; Complete Time: 20:13 [facility] 03/29 19:28 Order name: Urine Dipstick-Ancillary (obtain specimen); Complete Time: 20:58 [facility] 03/29 22:46 Order name: EKG; Complete Time: 22:46 [facility] 03/29 22:46 Order name: EKG - Nurse/Tech; Complete Time: 22:46 [facility] EC:52 Rate is 145 beats/min. Rhythm is irregularly irregular. QRS Jeff is Normal. NM interval alin is normal. QRS interval is normal. QT interval is normal. No Q waves. T waves are Normal. No ST changes noted. Clinical impression: Atrial Fibrillation. Interpreted by me. Reviewed by me. Administered Medications: 19:36 Drug: NS 0.9% 1000 ml Route: IV; Rate: 1 bolus; Site: right antecubital; ca1 20:40 Follow up: Response: No adverse reaction; IV Status: Completed infusion; IV Intake: ca1 1000ml 19:38 Drug: Digoxin 0.5 mg Route: IVP; Site: right antecubital; ca1 21:10 Follow up: Response: No adverse reaction; Marked relief of symptoms ca1 19:45 Drug: Lopressor 5 mg Route: IVP; Site: right antecubital; ca1 21:10 Follow up: Response: No adverse reaction; Marked relief of symptoms ca1 19:50 Drug: Zofran (Ondansetron) 4 mg Route: IVP; Site: right antecubital; ca1 21:10 Follow up: Response: No adverse reaction; Nausea is decreased ca1 19:51 Drug: Tylenol 650 mg Route: PO; ca1 21:11 Follow up: Response: No adverse reaction; Pain is decreased ca1 19:52 CANCELLED (Duplicate Order): morphine 2 mg IVP once; (PAIN>8) RASS on ADMN: Combtv4, alin Very Agttd3, Agttd2, Rstlss1, AlertClm0, Drwsy-1, LtSdtn-2, ModSdtn-3, DpSdtn-4, UnArsble-5 x2 20:03 Drug: Dilaudid 0.5 mg {Note: rass 0.} Route: IVP; Site: right antecubital; ca1 21:11 Follow up: Response: No adverse reaction; Pain is decreased; RASS: Alert and Calm (0) ca1 20:30 Drug: Lopressor (metoprolol TARTRATE) 50 mg Route: PO; ca1 21:10 Follow up: Response: No adverse reaction; Marked relief of symptoms ca1 21:03 Drug: Magnesium Sulfate 2 grams Route: IVPB; Infused Over: 2 hrs; Site: right ca1 antecubital; 22:56 Follow up: Response: No adverse reaction; IV Status: Completed infusion; IV Intake: [id number] 22:32 Drug: NS 0.9% 1000 ml Route: IV; Rate: 125 ml/hr; Site: right antecubital; ca1 22:57 Follow up: Response: No adverse reaction; IV Status: Infusion continued upon admission ca1 22:46 Drug: Lopressor 5 mg Route: IVP; Site: right antecubital; ca1 23:30 Follow up: Response: No adverse reaction; Marked relief of symptoms ca1 23:08 Drug: Dilaudid 0.5 mg Route: IVP; Site: right antecubital; ca1 23:27 Follow up: Response: No adverse reaction; Pain is decreased; RASS: Alert and Calm (0) ca1 23:26 Drug: Losartan 25 mg Route: PO; ca1 23:27 Follow up: Response: No adverse reaction ca1 Disposition: 03/29/20 19:58 Hospitalization ordered by Faheem Yeboah for Observation. Preliminary diagnosis are Atrial fibrillation and flutter - with RVR, Weakness, Essential (primary) hypertension, Hypomagnesemia. - Bed requested for Telemetry/MedSurg (observation). - Status is Observation. ca1 - Condition is Fair. - Problem is new. - Symptoms have improved. Critical care time excluding procedures: 19:56 Critical care time: Bedside Care: 20 minutes, Consultation: 10 minutes. Total time: 30 alin minutes Signatures: Dispatcher [employer] EDSorin Da Silva MD MD cha Attema, Deacon, DESIGN CHIEF-C DESIGN CHIEF-Cla1 Shayna Rico RN RN cg Mitra Rodríguez RN RN ca1 Corrections: (The following items were deleted from the chart) 19:52 19:46 morphine 2 mg IVP once; (PAIN>8) RASS on ADMN: Combtv4, Very Agttd3, Agttd2, alin Rstlss1, AlertClm0, Drwsy-1, LtSdtn-2, ModSdtn-3, DpSdtn-4, UnArsble-5 x2 ordered. alin 20:10 19:58 Hospitalization Ordered by Elfego Toscano MD for Observation. Preliminary alin diagnosis is Atrial fibrillation and flutter - with RVR; Weakness. Bed requested for Telemetry/MedSurg (observation). Status is Observation. Condition is Fair. Problem is new. Symptoms have improved. alin 20:35 20:10 03/29/2020 19:58 Hospitalization Ordered by Faheem Yeboah for Observation. alin Preliminary diagnosis is Atrial fibrillation and flutter - with RVR; Weakness. Bed requested for Telemetry/MedSurg (observation). Status is Observation. Condition is Fair. Problem is new. Symptoms have improved. alin 20:52 20:35 03/29/2020 19:58 Hospitalization Ordered by Faheem Yeboah for Observation. alin Preliminary diagnosis is Atrial fibrillation and flutter - with RVR; Weakness; Essential (primary) hypertension. Bed requested for Telemetry/MedSurg (observation). Status is Observation. Condition is Fair. Problem is new. Symptoms have improved. alin 22:07 20:52 03/29/2020 19:58 Hospitalization Ordered by Faheem Yeboah for Observation. Preliminary diagnosis is Atrial fibrillation and flutter - with RVR; Weakness; Essential (primary) hypertension; Hypomagnesemia. Bed requested for Telemetry/MedSurg (observation). Status is Observation. Condition is Fair. Problem is new. Symptoms have improved. alin 23:49 22:07 03/29/2020 19:58 Hospitalization Ordered by Faheem Yeboah for Observation. ca1 Preliminary diagnosis is Atrial fibrillation and flutter - with RVR; Weakness; Essential (primary) hypertension; Hypomagnesemia. Bed requested for Telemetry/MedSurg (observation). Status is Observation. Condition is Fair. Problem is new. Symptoms have improved. cg
--- NOTE | 2020-03-29 19:59 | ER ---
Nurse's Notes [facility] Name: Shraddha Link Age: 74 yrs Sex: Female : 1945 Arrival Date: 03/29/2020 Time: 19:07 Bed 23 Private MD: Diagnosis: Atrial fibrillation and flutter-with RVR;Weakness;Essential (primary) hypertension;Hypomagnesemia Presentation: 03/29 19:10 Acuity: CLAUDIA 2 dm5 19:10 Chief complaint: Chief complaint: EMS states: Family request for mental health ca1 evaluation. Family reports there are a lot of emotions involved today. Pt had a stroke in December 2019, BGL 111, temp 98.1, BP 120/84, HR 80s. Pt A \T\ O x 4 and able to answer appropriately. 19:10 Chief complaint: Patient states: I have a migraine right now and My R knee is hurting. ca1 Coronavirus screen: Client denies travel out of the [place] in the last 14 days. headache, Client presents with at least one sign or symptom that may indicate coronavirus-19. Standard/surgical mask placed on the client. Provider contacted for isolation considerations. Ebola Screen: Patient negative for fever greater than or equal to 101.5 degrees Fahrenheit, and additional compatible Ebola Virus Disease symptoms Patient denies exposure to infectious person. Patient denies travel to an Ebola-affected area in the 21 days before illness onset. No symptoms or risks identified at this time. Initial Sepsis Screen: Does the patient meet any 2 criteria? Altered Mental Status. HR > 90 bpm. Yes Does the patient have a suspected source of infection? Yes:. Risk Assessment: Do you want to hurt yourself or someone else? Patient reports no desire to harm self or others. Onset of symptoms was March 29, 2020. 19:10 Method Of Arrival: EMS: [facility] ca1 Triage Assessment: 19:10 General: Appears in no apparent distress. comfortable, Behavior is calm, cooperative, ca1 appropriate for age. Pain: Complains of pain in face, scalp and right knee Pain currently is 9 out of 10 on a pain scale. EENT: No signs and/or symptoms were reported regarding the EENT system. Neuro: Level of Consciousness is awake, alert, obeys commands, Oriented to person, place, time, situation, Appropriate for age Sheet Metal Former are equal bilaterally Moves all extremities. Speech is normal, Facial symmetry appears normal, Pupils are PERRLA, Intact Reports headache. Cardiovascular: Denies chest pain, Heart tones S1 S2 present Capillary refill < 3 seconds Patient's skin is warm and dry. Rhythm is atrial fibrillation with rapid ventricular response. Respiratory: Airway is patent Respiratory effort is even, unlabored, Respiratory pattern is regular, symmetrical, Breath sounds are clear bilaterally. GI: Abdomen is flat, non-distended, Bowel sounds present X 4 quads. Abd is soft and non tender X 4 quads. : No signs and/or symptoms were reported regarding the genitourinary system. Derm: Skin is intact, is healthy with good turgor, Skin is pink, warm \T\ dry. Musculoskeletal: Circulation, motion, and sensation intact. Capillary refill < 3 seconds. Historical: - Allergies: 19:10 Aspirin; ca1 19:10 Compazine; ca1 19:10 DHE; ca1 19:10 Imitrex; ca1 19:10 Morphine; ca1 19:10 NSAIDS; ca1 19:10 Tape; ca1 19:10 Ultram; ca1 - PMHx: 19:10 Atrial Fib; Chronic pain; Depression; Diabetes - NIDDM; High Cholesterol; Hypertension; ca1 Migraines; Pulmonary Embolism; - PSHx: 19:10 Cholecystectomy; ; ca1 - Immunization history:: Adult Immunizations up to date, Flu vaccine is up to date. - Social history:: Smoking status: Patient denies any tobacco usage or history of. - Family history:: not pertinent. Screenin:15 Abuse screen: Denies threats or abuse. Denies injuries from another. Nutritional ca1 screening: No deficits noted. Tuberculosis screening: No symptoms or risk factors identified. Fall Risk Secondary diagnosis (15 points) CVA, IV access (20 points). Gait- Impaired (20 pts.). Total Marie Fall Scale indicates High Risk Score (45 or more points). Fall prevention measures have been instituted. Side Rails Up X 2 As available patient and family educated on Fall Prevention Program and Strategies. Assessment: 19:15 Reassessment: See triage notes. ca1 19:15 Pain: Complains of pain in scalp and face and right knee Pain currently is 9 out of 10 ca1 on a pain scale. 20:23 Reassessment: Patient appears in no apparent distress at this time. Patient and/or ca1 family updated on plan of care and expected duration. Pain level reassessed. Patient is alert, oriented x 3, equal unlabored respirations, skin warm/dry/pink. 21:09 Reassessment: Hospitalist at bedside. ca1 22:00 Reassessment: Patient appears in no apparent distress at this time. Patient and/or ca1 family updated on plan of care and expected duration. Pain level reassessed. Patient is alert, oriented x 3, equal unlabored respirations, skin warm/dry/pink. 22:57 Reassessment: Patient appears in no apparent distress at this time. Patient and/or ca1 family updated on plan of care and expected duration. Pain level reassessed. Patient is alert, oriented x 3, equal unlabored respirations, skin warm/dry/pink. 23:28 Reassessment: Patient appears in no apparent distress at this time. Patient is alert, ca1 oriented x 3, equal unlabored respirations, skin warm/dry/pink. Vital Signs: 19:10 BP 164 / 103; Pulse 146; Resp 20; Temp 98.5(O); Pulse Ox 97% on R/A; Weight 65.32 kg ca1 (R); Height 5 ft. 2 in. (157.48 cm) (R); Pain 9/10; 19:30 BP 170 / 122; Pulse 135; Resp 20 S; Pulse Ox 97% on R/A; ca1 19:45 BP 185 / 115; Pulse 122; Resp 21; Pulse Ox 97% on R/A; ca1 20:16 BP 176 / 118; Pulse 98; Resp 19 S; Pulse Ox 95% on R/A; ca1 20:30 BP 160 / 104; Pulse 93; Resp 19 S; Pulse Ox 97% on R/A; ca1 20:51 BP 183 / 97; Pulse 88; Resp 19 S; Pulse Ox 98% on R/A; ca1 21:00 BP 177 / 109; Pulse 85; Resp 19 S; Pulse Ox 97% on R/A; ca1 21:30 BP 194 / 108; Pulse 81; Resp 17; Pulse Ox 97% on R/A; ca1 22:00 BP 179 / 104; Pulse 78; Resp 16 S; Pulse Ox 97% on R/A; ca1 22:30 BP 176 / 100; Pulse 69; Resp 15; Pulse Ox 97% on R/A; ca1 23:00 BP 170 / 101; Pulse 61; Resp 18 S; Pulse Ox 99% on R/A; ca1 23:31 BP 176 / 93; Pulse 65; Resp 15 S; Pulse Ox 97% on R/A; ca1 19:10 Body Mass Index 26.34 (65.32 kg, 157.48 cm) ca1 ED Course: 19:07 Patient arrived in ED. cf2 19:09 Mitra Rodríguez, RN is Primary Nurse. ca1 19:10 Arm band placed on right wrist. ca1 19:12 Sorin Mota MD is Attending Physician. alin 19:15 Patient has correct armband on for positive identification. Placed in gown. Bed in low ca1 position. Call light in reach. Side rails up X2. meeting/event planner on. Pulse ox on. NIBP on. Warm blanket given. 19:26 No provider procedures requiring assistance completed. Inserted saline lock: 20 gauge ca1 in right antecubital area, using aseptic technique. Blood collected. 19:26 Initial lab(s) drawn, by me, sent to lab. First set of blood cultures drawn by me. ca1 19:28 Triage completed. dm5 19:57 Elfego Toscano MD is Hospitalizing Provider. alin 20:08 CT Head Brain wo Cont In Process Unspecified. EDMS 20:10 Faheem Yeboah is Hospitalizing Provider. alin 20:10 XRAY Chest (1 view) In Process Unspecified. EDMS 20:11 Knee Right 2 View XRAY In Process Unspecified. EDMS 22:54 Patient admitted, IV remains in place. ca1 Administered Medications: 19:36 Drug: NS 0.9% 1000 ml Route: IV; Rate: 1 bolus; Site: right antecubital; ca1 20:40 Follow up: Response: No adverse reaction; IV Status: Completed infusion; IV Intake: ca1 1000ml 19:38 Drug: Digoxin 0.5 mg Route: IVP; Site: right antecubital; ca1 21:10 Follow up: Response: No adverse reaction; Marked relief of symptoms ca1 19:45 Drug: Lopressor 5 mg Route: IVP; Site: right antecubital; ca1 21:10 Follow up: Response: No adverse reaction; Marked relief of symptoms ca1 19:50 Drug: Zofran (Ondansetron) 4 mg Route: IVP; Site: right antecubital; ca1 21:10 Follow up: Response: No adverse reaction; Nausea is decreased ca1 19:51 Drug: Tylenol 650 mg Route: PO; ca1 21:11 Follow up: Response: No adverse reaction; Pain is decreased ca1 19:52 CANCELLED (Duplicate Order): morphine 2 mg IVP once; (PAIN>8) RASS on ADMN: Combtv4, alin Very Agttd3, Agttd2, Rstlss1, AlertClm0, Drwsy-1, LtSdtn-2, ModSdtn-3, DpSdtn-4, UnArsble-5 x2 20:03 Drug: Dilaudid 0.5 mg {Note: rass 0.} Route: IVP; Site: right antecubital; ca1 21:11 Follow up: Response: No adverse reaction; Pain is decreased; RASS: Alert and Calm (0) ca1 20:30 Drug: Lopressor (metoprolol TARTRATE) 50 mg Route: PO; ca1 21:10 Follow up: Response: No adverse reaction; Marked relief of symptoms ca1 21:03 Drug: Magnesium Sulfate 2 grams Route: IVPB; Infused Over: 2 hrs; Site: right ca1 antecubital; 22:56 Follow up: Response: No adverse reaction; IV Status: Completed infusion; IV Intake: [id number] 22:32 Drug: NS 0.9% 1000 ml Route: IV; Rate: 125 ml/hr; Site: right antecubital; ca1 22:57 Follow up: Response: No adverse reaction; IV Status: Infusion continued upon admission ca1 22:46 Drug: Lopressor 5 mg Route: IVP; Site: right antecubital; ca1 23:30 Follow up: Response: No adverse reaction; Marked relief of symptoms ca1 23:08 Drug: Dilaudid 0.5 mg Route: IVP; Site: right antecubital; ca1 23:27 Follow up: Response: No adverse reaction; Pain is decreased; RASS: Alert and Calm (0) ca1 23:26 Drug: Losartan 25 mg Route: PO; ca1 23:27 Follow up: Response: No adverse reaction ca1 Intake: 20:40 IV: 1000ml; Total: 1000ml. ca1 22:56 IV: 50ml; Total: 1050ml. ca1 Outcome: 19:58 Decision to Hospitalize by Provider. alin 23:29 Admitted to Med/surg accompanied by tech, via stretcher, room 205, with chart, Report ca1 called to JENNY Mcwilliams 23:29 Condition: stable 23:29 Instructed on the need for admit. 23:49 Patient left the ED. ca1 Signatures: Dispatcher [employer] Kelle Harrison RN RN Sorin Noel MD MD cha Acob, Cheryl, RN RN ca1 Magaly Cuadra cf2 Corrections: (The following items were deleted from the chart) 20:18 19:08 Chief complaint: ca1 ca1
[2020-03-29] MEDS ORDERED: ACETAMINOPHEN 325 MG TABLET ONE (20:01)
[2020-03-29] MEDS ORDERED: MORPHINE 2 MG/ML SYR ONE (20:02)
[2020-03-29] MEDS ORDERED: ONDANSETRON 4 MG/2 ML VIAL ONE (20:02)
[2020-03-29] MEDS ORDERED: HYDROMORPHONE HCL 0.5 MG/0.5 ML INJ ONE ×2 (20:06→23:09)
--- NOTE | 2020-03-29 20:16 | RAD REPORT ---
EXAM DESCRIPTION: RAD - Knee Right 2 View - 03/29/2020 8:10 pm CLINICAL HISTORY: PAIN COMPARISON: Knee Right 3 View dated 04/08/2016 FINDINGS: Severe tricompartmental osteoarthritis is present, greatest in the medial compartment. Los s of joint space with large osteophytes are present. No acute fracture seen.
--- NOTE | 2020-03-29 20:16 | RAD REPORT ---
EXAM DESCRIPTION: RAD - Chest Single View - 03/29/2020 8:10 pm CLINICAL HISTORY: COUGH Chest pain. COMPARISON: Chest Single View dated 01/26/2020; Chest Single View dated 01/24/2020; Chest Single View dated 01/04/2020; Chest Single View dated 08/27/2019 FINDINGS: Portable technique limits examination quality. The lungs are grossly clear. The heart is upper limit normal in size. No displaced fractures. IMPRESSION: No acute intrathoracic process suspected.
--- NOTE | 2020-03-29 20:19 | RAD REPORT ---
EXAM DESCRIPTION: CT - Head Brain Wo Cont - 03/29/2020 8:08 pm CLINICAL HISTORY: WEAKNESS Headache, drowsiness, weakness COMPARISON: Head Brain Wo Cont dated 08/27/2019; Head Brain Wo Cont dated 06/13/2017; Head C Spine Mpr Wo Con dated 01/04/2020 TECHNIQUE: All CT scans are performed using dose optimization technique as appropriate and may inclu de automated exposure control or mA/KV adjustment according to patient size. FINDINGS: No intracranial hemorrhage, hydrocephalus or extra-axial fluid collection.Mild generalized brain atrophy.Old infarct is noted in the distribution of the right posterior cerebral artery. Small right sided basal ganglial infarcts also seen. The paranasal sinuses and mastoids are clear. The calvarium is intact. IMPRESSION: No acute intracranial abnormality. 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
[2020-03-29 20:23] LABS: Absolute Lymphocytes (CBC) 0.9 K/uL (0.7-4.9); Basophils % 1.4 % (0-1.3); Hematocrit 38.8 % (36.0-45.0); Lymphocytes % 17.3 % (15.3-44.8); RBC Red Blood Cell Count 4.48 M/uL (3.86-4.86)
[2020-03-29 20:24] LABS: Protime INR 1.29
[2020-03-29 20:45] LABS: ALT/SGPT 16 U/L (12-78); AST/SGOT 17 U/L (15-37); Albumin 3.7 g/dL (3.4-5.0); Alkaline Phosphatase 69 U/L (45-117); BUN Blood Urea Nitrogen 11 mg/dL (7-18); Bicarbonate 30 mmol/L (21-32); Bilirubin Direct 0.7 mg/dL (0-0.2); Bilirubin Total 1.7 mg/dL (0.2-1.0); Glucose Level 107 mg/dL (74-106); Lipase 61 U/L (73-393); NT PRO-BNP 739 pg/mL (<125); Potassium 3.6 mmol/L (3.5-5.1); Protein, Total 7.4 g/dL (6.4-8.2); Sodium Level 143 mmol/L (136-145); Troponin (Emerg Dept Use Only) < 0.02 ng/mL (0.0-0.045)
[2020-03-29 20:46] LABS: Magnesium 1.5 mg/dL (1.8-2.4)
[2020-03-29] MEDS ORDERED: METOPROLOL TAR 50 MG TAB ONE (20:48)
[2020-03-29] MEDS ORDERED: Magnesium Sulfate 2gm IVPB 2 G/50 ML BAG IV ONE (21:14)
[2020-03-29 21:28] LABS: Urine Blood NEGATIVE (NEG); Urine Glucose NEGATIVE (NEG); Urine Protein NEGATIVE (NEG)
--- NOTE | 2020-03-29 23:09 | P.HP ---
Certification for Inpatient Patient admitted to: Observation With expected LOS: <2 Midnights Patient will require the following post-hospital care: None Practitioner: I am a practitioner with admitting privileges, knowledge of patient current condition, hospital course, and medical plan of care. Services: Services provided to patient in accordance with Admission requirements found in Title 42 Section 412.3 of the Code of Federal Regulations <Decaon Cordero - Last Filed: 03/29/20 23:05> Patient History Date of Service: 03/29/20 Primary Care Provider: Dr. Phillip Kenney ([place]) Reason for admission: A fib RVR History of Present Illness: 74 year old female with history of atrial fibrillation on chronic anticoagulation therapy, high blood pressure, diabetes mellitus type 2, hyperlipidemia presents emergency department for headache and Not feeling right. In triage patient was noted to have elevated heart rate around 147. Patient was in atrial fibrillation with rapid ventricular response, patient was given IV and p.o. metoprolol, rate was controlled. Patient labs significant for hypomagnesemia with magnesium level 1.5, this was replaced in the emergency department. BNP elevated 739. Tsh levels normal. ED provider wishes to admit patient under observation for further evaluation and management. When I saw the patient in the emergency department she is awake, alert, oriented x3. Patient denies any chest pain, shortness of breath. Rate controlled at this time, atrial fibrillation rate of around 85. Patient is mildly hypertensive, will obtain and continue home medications. - Past Medical/Surgical History Diabetic: Yes -: Pulmonary embolism -: migraine -: NIDDM -: Cardiac thrombus -: Atrial fibrillation -: Caesarean section -: knee surgery -: Exploratory laparotomy -: total hysterectomy - Family History Father -: Cancer, Liver disease Notes: cirrhosis of liver; Leukemia Sister -: Diabetes Notes: 2 sisters with DM Mother -: Other (see notes) Notes: aneurysm, migraines - Social History Smoking Status: Never smoker Alcohol use: Yes CD- Drugs: No Caffeine use: Yes Place of Residence: Home <Deacon Cordero - Last Filed: 03/29/20 23:05> Date of Service: 03/30/20 <vicente lane - Last Filed: 03/30/20 16:00> Allergies calcium carbonate [From DHEA] Allergy (Verified 03/30/20 00:04) Unknown calcium phosphate [From DHEA] Allergy (Verified 03/30/20 00:04) Unknown prasterone (DHEA) [From DHEA] Allergy (Verified 03/30/20 00:04) Unknown prochlorperazine [From Compazine] Allergy (Verified 03/30/20 00:04) Unknown prochlorperazine edisylate [From Compazine] Allergy (Verified 03/30/20 00:04) Unknown prochlorperazine maleate [From Compazine] Allergy (Verified 03/30/20 00:04) Unknown sumatriptan [From Imitrex] Allergy (Verified 03/30/20 00:04) Unknown sumatriptan succinate [From Imitrex] Allergy (Verified 03/30/20 00:04) Unknown tramadol Allergy (Verified 03/30/20 00:04) Itching DHE 45 Allergy (Uncoded 03/30/20 00:04) Unknown NSAIDS Allergy (Uncoded 03/30/20 00:04) Unknown Tape Allergy (Uncoded 03/30/20 00:04) Unknown Home Medications: Apixaban [Eliquis] 5 mg PO BID 30 Days #60 tablet 03/30/20 Metoprolol Tartrate [Lopressor] 25 mg PO BID 30 Days #60 tab 03/30/20 Review of Systems 10-point ROS is otherwise unremarkable Cardiovascular: Palpitations Neurological: Other (Headache) <Deacon Cordero - Last Filed: 03/29/20 23:05> Physical Examination - Physical Exam General: Alert, In no apparent distress HEENT: Atraumatic, PERRLA, Mucous membr. moist/pink Neck: Supple, 2+ carotid pulse no bruit, No LAD Respiratory: Clear to auscultation bilaterally, Normal air movement Cardiovascular: Regular rate/rhythm, Normal S1 S2 Gastrointestinal: Normal bowel sounds, No tenderness Musculoskeletal: No tenderness Integumentary: No rashes Neurological: Normal gait, Normal speech, Normal strength at 5/5 x4 extr, Normal tone, Normal affect - Studies Laboratory Data (last 24 hrs) 03/29/20 19:20: PT 15.2 H, INR 1.29 03/29/20 19:20: WBC 5.3, Hgb 13.1, Hct 38.8, Plt Count 196 03/29/20 19:20: Sodium 143, Potassium 3.6, BUN 11, Creatinine 0.83, Glucose 107 H, Magnesium 1.5 L, Total Bilirubin 1.7 H, AST 17, ALT 16, Alkaline Phosphatase 69, Lipase 61 L <Deacon Cordero - Last Filed: 03/29/20 23:05> - Studies Laboratory Data (last 24 hrs) 03/29/20 19:20: PT 15.2 H, INR 1.29 03/29/20 19:20: WBC 5.3, Hgb 13.1, Hct 38.8, Plt Count 196 03/29/20 19:20: Sodium 143, Potassium 3.6, BUN 11, Creatinine 0.83, Glucose 107 H, Magnesium 1.5 L, Total Bilirubin 1.7 H, AST 17, ALT 16, Alkaline Phosphatase 69, Lipase 61 L <[address] lane - Last Filed: 03/30/20 16:00> Assessment and Plan - Plan Assessment Atrial fibrillation with rapid ventricular response-on chronic anticoagulation therapy Diabetes mellitus type 2 Hypertension Hyperlipidemia Plan Atrial fibrillation with rapid ventricular response-on chronic anticoagulation therapy: Monitor on telemetry, continue beta-kailash therapy, obtain and continue home medications. Continue Eliquis 5 mg p.o. b.i.d.. Trend troponins, likely discharge tomorrow. Diabetes mellitus type 2: A.c. HS Accu-Cheks, sliding scale insulin therapy. Patient reports A1c less than 6 for the past few years. Hypertension: Obtain and continue home meds Hyperlipidemia: Obtain and continue home meds Discharge Plan: Home Plan to discharge in: 24 Hours - Advance Directives Does patient have a Living Will: No Does patient have a Durable POA for Healthcare: No - Code Status/Comfort Care Code Status Assessed: Yes (Full code) Critical Care: No Time Spent Managing Pts Care (In Minutes): 55 <Deacon Cordero - Last Filed: 03/29/20 23:05> Physician Review: Patient Assessed, Agree with Above Assessment and Plan Physician Review Additional Text: AFib with RVR. Chronic anticoagulation. Plan: Heart rate has improved. Continue home dose metoprolol and Eliquis. <vicente lane - Last Filed: 03/30/20 16:00>
[2020-03-29] MEDS ORDERED: LOSARTAN POTASSIUM 50 MG TABLET ONE (23:28)
[2020-03-29] MEDS ORDERED: ACETAMINOPHEN 500 MG TAB PO PRN (23:40)
[2020-03-29] MEDS: NA CHLORIDE 0.9% 1,000 ML IV SCH (23:40)
[2020-03-29] MEDS ORDERED: ONDANSETRON 4 MG/2 ML VIAL IV PRN (23:40)
[2020-03-30 00:15] VITALS: BMI 4049.3
[2020-03-30] MEDS ORDERED: METOPROLOL TARTRATE 5 MG/5 ML INJ IV PRN (02:10)
[2020-03-30 05:32] LABS: Absolute Lymphocytes (CBC) 0.9 K/uL (0.7-4.9); Hematocrit 32.9 % (36.0-45.0); Lymphocytes % 22.1 % (15.3-44.8); MPV 8.4 fL (7.6-11.3); RBC Red Blood Cell Count 3.77 M/uL (3.86-4.86)
[2020-03-30 05:47] LABS: Magnesium 1.9 mg/dL (1.8-2.4); Potassium 3.6 mmol/L (3.5-5.1); Protein, Total 5.8 g/dL (6.4-8.2)
[2020-03-30] MEDS ORDERED: METOPROLOL TAR 25 MG TAB PO SCH (06:00)
[2020-03-30] MEDS: INSULIN -REGULAR HUMAN 50 UNIT/0.5 ML ML SQ SCH ×2 (07:30→11:30)
--- NOTE | 2020-03-30 08:59 | P.DS ---
Admission Date: 03/29/20 Discharge Date: 03/30/20 Primary Care Provider: Dr. Cheko Kenney ([place]) Disposition: DC HOME/HOME HEALTH CARE Discharge Condition: FAIR Reason for Admission: A fib RVR Procedures: None - Problems (1) Atrial fibrillation with rapid ventricular response Onset Date: 06/14/17 Status: Acute (2) Chronic anticoagulation Status: Acute Brief History of Present Illness: 74-year-old woman with a history of chronic atrial fibrillation presented to the emergency department complaining of headache and malaise. The patient was found to be in atrial fibrillation with rapid ventricular rate in the ED. She was given a dose of IV metoprolol and oral metoprolol which brought her heart rate under control. Initial troponin was negative. Patient denied any chest pain. Chest x-ray he not show any acute infiltrate. Patient was subsequently hospitalized for further management. Hospital Course: Patient placed under observation. Troponin trended came back negative. Her heart rate remained controlled on her home medications. Patient currently has no complain. She is moderately hypertensive we should be controlled with her metoprolol. Patient is discharged with her usual home medications and follow up with her PCP is recommended. Vital Signs/Physical Exam: Temp Pulse Resp BP Pulse Ox 96.9 F 66 16 152/77 H 94 03/30/20 00:00 03/30/20 05:56 03/30/20 00:00 03/30/20 05:56 03/30/20 00:00 General: Alert, In no apparent distress HEENT: Mucous membr. moist/pink Neck: Supple, JVD not distended Respiratory: Clear to auscultation bilaterally, Normal air movement Cardiovascular: No edema, Irregular heart rate/rhythm Gastrointestinal: Normal bowel sounds, Soft and benign, No tenderness Musculoskeletal: No swelling, No erythema Integumentary: No rashes Neurological: Other (Nonfocal.) Laboratory Data at Discharge: WBC 4.3 K/uL (4.3-10.9) D 03/30/20 05:13 Hgb 11.0 g/dL (12.0-15.0) L 03/30/20 05:13 Hct 32.9 % (36.0-45.0) L D 03/30/20 05:13 Plt Count 174 K/uL (152-406) 03/30/20 05:13 PT 15.2 SECONDS (9.5-12.5) H 03/29/20 19:20 INR 1.29 03/29/20 19:20 Sodium 142 mmol/L (136-145) 03/30/20 05:13 Potassium 3.6 mmol/L (3.5-5.1) 03/30/20 05:13 BUN 11 mg/dL (7-18) 03/30/20 05:13 Creatinine 0.66 mg/dL (0.55-1.3) 03/30/20 05:13 Glucose 106 mg/dL (74-106) 03/30/20 05:13 Magnesium 1.9 mg/dL (1.8-2.4) 03/30/20 05:13 Total Bilirubin 1.0 mg/dL (0.2-1.0) 03/30/20 05:13 AST 14 U/L (15-37) L 03/30/20 05:13 ALT 13 U/L (12-78) 03/30/20 05:13 Alkaline Phosphatase 59 U/L (45-117) 03/30/20 05:13 Troponin I < 0.02 ng/mL (0.0-0.045) 03/30/20 07:28 Lipase 61 U/L (73-393) L 03/29/20 19:20 Home Medications: Apixaban [Eliquis] 5 mg PO BID 30 Days #60 tablet 03/30/20 Metoprolol Tartrate [Lopressor] 25 mg PO BID 30 Days #60 tab 03/30/20 New Medications: Apixaban [Eliquis] 5 mg PO BID 30 Days #60 tablet Metoprolol Tartrate [Lopressor] 25 mg PO BID 30 Days #60 tab Diet: AHA Activity: Fall precautions Followup: CHEKO JONES [Primary Care Provider] - 1 Week
[2020-03-30] MEDS ORDERED: APIXABAN 5 MG TABLET PO SCH (09:00)
[2020-03-30] MEDS ORDERED: POTASSIUM CL SA 10 MEQ TAB PO ONE (09:00)
[2020-03-30 09:27] VITALS: O2SAT 96
[2020-03-30 12:28] VITALS: BP 160/83; TEMP 97.2
--- NOTE | 2020-03-30 12:34 | EKG ---
Test Date: 2020-03-29 Test Time: 19:12:27 Clinical Program Coordinator: OTTONIEL MEASUREMENT RESULTS: Intervals: Rate: 145 GA: QRSD: 82 QT: 316 QTc: 490 [place]: P: GA: QRS: 64 T: 136 INTERPRETIVE STATEMENTS: Atrial fibrillation with rapid ventricular response Nonspecific ST and T wave abnormality, probably digitalis effect Abnormal ECG Compared to ECG 01/04/2020 13:20:52 No significant changes Electronically Signed On 03-30-20 12:33:07 [employer] by Kaleb Polanco
--- NOTE | 2020-03-30 12:34 | EKG ---
Test Date: 2020-03-29 Test Time: 22:41:09 Improvement Spec: OTTONIEL MEASUREMENT RESULTS: Intervals: Rate: 66 OR: QRSD: 86 QT: 404 QTc: 423 [place]: P: OR: QRS: 54 T: 78 INTERPRETIVE STATEMENTS: Atrial fibrillation Abnormal ECG Compared to ECG 03/29/2020 19:12:27 ST (T wave) deviation no longer present Electronically Signed On 03-30-20 12:33:05 [employer]SEL [employer] by Kaleb Polanco
[2020-03-30] MEDS: NA CHLORIDE 0.9% 1,000 ML IV SCH (13:00)
== END 2020-03-30 15:57 | disposition home health service (06) ==
LOC: ER 19:02 → ERHOLD 22:04 → 2ND 23:33
PROVIDERS: ADMIT Internal Medicine; ATTEND Internal Medicine
DX: I48.20 Chronic atrial fibrillation, unspecified (principal); Z79.01 Long term (current) use of anticoagulants; R51.9 Headache, unspecified; R53.81 Other malaise; I10 Essential (primary) hypertension; Z20.828 Contact with and (suspected) exposure to other viral communicable diseases; E11.9 Type 2 diabetes mellitus without complications; E78.5 Hyperlipidemia, unspecified; E83.42 Hypomagnesemia; Z86.711 Personal history of pulmonary embolism; R94.31 Abnormal electrocardiogram [ECG] [EKG]
CPT/HCPCS: 96365; 96361; 93005 ×2; 87040 ×2; 87088; 85025 ×2; 87086; 80048; 36415; 83735 ×2; 85610; 82947 ×4; 80076; 83605; 84443; 81003; 84484 ×3; 83690; 80053; 84145; 83880; 70450; 71045; 73560; 96375; 99285; 96366; U0002; J1160; J3475; J1170 ×2; J7030 ×3; J2405; J2270